=== PATIENT | male | born 1935 | race Caucasian/White ===

== ENCOUNTER 2017-02-19 15:50 | Inpatient (IN) | payer OTHER, MEDICARE ==
[~2017-02-19] VITALS: Ht 172.7 cm; Wt 68.5 kg
[2017-02-19 15:53] VITALS: BP 112/64; PULSE 84; RESP 20; TEMP 97.9; O2SAT 97
[2017-02-19] MEDS ORDERED: SODIUM CHLORIDE 0.9% FLUSH 10 ML FLUSH IV FLUSH PRN ×2 (16:30→20:15)
[2017-02-19 16:35] VITALS: PULSE 69; RESP 18; O2SAT 99
[2017-02-19] MEDS ORDERED: LOSA25TA PO (16:50)
[2017-02-19] MEDS ORDERED: SIMV20TA PO (16:50)
[2017-02-19] MEDS ORDERED: LEVO50TA4 PO (16:50)
[2017-02-19 16:54] LABS: HEMATOCRIT 31.8 % (39.0-51.0); MEAN CELL VOLUME 94.3 FL (80.0-100.0); MEAN CORPUSCULAR HEMOGLOBIN 31.3 PG (27.0-34.0); MEAN CORPUSCULAR HGB CONC 33.2 % (32.0-36.0); PLATELET COUNT 220 TH/MM3 (150-450); RED BLOOD COUNT 3.38 MIL/MM3 (4.50-5.90); RED CELL DISTRIBUTION WIDTH 17.8 % (11.6-17.2); WHITE BLOOD COUNT 7.9 TH/MM3 (4.0-11.0)
[2017-02-19 16:56] LABS: HEMO FLAGS AUTO DIFF
[2017-02-19 17:00] LABS: APTT (PATIENT) 24.7 SEC (24.3-30.1); INTERNATIONAL NORMALIZED RATIO 1.2 RATIO
--- NOTE | 2017-02-19 17:07 | PD ---
HPI Chief Complaint: GI Complaint Time Seen by Provider: 19:00 Travel History International Travel<30 days: No Contact w/Intl Traveler<30days: No Traveled to known affect area: No History of Present Illness HPI 81-year-old male presents to the emergency department for one week history of abdominal pain, distention, and jaundice. He reports generalized abdominal pain with associated nausea, no vomiting, and light colored stools. He was evaluated by his primary care provider Dr. Roberson who ordered a CT scan and lab work. He was sent to the ER for abnormal results. CT scan reveal questionable prominence of the pancreatic neck. Elevated LFT, Alk phosphate, billirubin & ammonia. Hepatitis screening nonreactive. PMH: hypothyroid & hyperlipidemia. PFSH Past Medical History Narrative Medical 81 year old male with a 1 week history of abd pain, jaundice & abnormal labs. High Cholesterol: Yes Diminished Hearing: No Tetanus Vaccination: > 5 Years Influenza Vaccination: Yes Past Surgical History Abdominal Surgery: Yes (colon sx ) Social History Alcohol Use: No Tobacco Use: No Substance Use: No Allergies-Medications (Allergen,Severity, Reaction): Coded Allergies: No Known Allergies (Verified , 02/19/17) Uncoded Allergies: NKDA (Allergy, Unknown, 06/14/03) Reported Meds & Prescriptions Reported Meds & Active Scripts Active Reported Simvastatin 20 Mg Tab 20 Mg PO DAILY Levothyroxine (Levothyroxine Sodium) 50 Mcg Tab 50 Mcg PO DAILY Review of Systems Except as stated in HPI: all other systems reviewed are Neg Physical Exam Narrative GENERAL: [alert, thin male.] SKIN: Focused skin assessment warm/dry. Jaundiced HEAD: Atraumatic. Normocephalic. EYES: Pupils equal and round. + scleral icterus. No injection or drainage. ENT: No nasal bleeding or discharge. Mucous membranes pink and moist. NECK: Trachea midline. No JVD. CARDIOVASCULAR: Regular rate and rhythm. No murmur appreciated. RESPIRATORY: No accessory muscle use. Clear to auscultation. Breath sounds equal bilaterally. GASTROINTESTINAL: Abdomen soft, mild generalized tenderness, distended. Hepatic and splenic margins not palpable. MUSCULOSKELETAL: No obvious deformities. No clubbing. No cyanosis. No edema. NEUROLOGICAL: Awake and alert. No obvious cranial nerve deficits. Motor grossly within normal limits. Normal speech. PSYCHIATRIC: Appropriate mood and affect; insight and judgment normal Data Data Last Documented VS Orders Complete Blood Count With Diff (02/19/17 16:20) Comprehensive Metabolic Panel (02/19/17 16:20) Lipase (02/19/17 16:20) Prothrombin Time / Inr (Pt) (02/19/17 16:20) Act Partial Throm Time (Ptt) (02/19/17 16:20) Ct Abd/Pel W Iv Contrast(Rout) (02/19/17 16:20) Iv Access Insert/Monitor (02/19/17 16:20) Oximetry (02/19/17 16:20) Sodium Chloride 0.9% Flush (Ns Flush) (02/19/17 16:30) Ammonia (02/19/17 16:20) Iodixanol 320 Inj (Rad Ct) (Visipaque 32 (02/19/17 18:04) Sodium Chlor 0.9% 1000 Ml Inj (Ns 1000 M (02/19/17 19:49) Place In Observation (02/19/17 ) Vital Signs (Adult) Q4H (02/19/17 20:08) Activity Oob With Assistance (02/19/17 20:08) Steam Pipe Fitter / Telemetry .CONTINUOUS (02/19/17 20:08) Diet Npo (02/20/17 Breakfast) Sodium Chloride 0.9% Flush (Ns Flush) (02/19/17 20:15) Sodium Chloride 0.9% Flush (Ns Flush) (02/19/17 21:00) Comprehensive Metabolic Panel (02/20/17 06:00) Complete Blood Count With Diff (02/20/17 06:00) Case Management Consult (02/19/17 20:08) Naloxone Inj (Narcan Inj) (02/19/17 20:15) Admit Order (Ed Use Only) (02/19/17 20:09) Consult Gastroenterology (02/19/17 ) Labs MDM Medical Decision Making Medical Screen Exam Complete: Yes Emergency Medical Condition: Yes Medical Record Reviewed: Yes Differential Diagnosis pancreatitis vs cholecystitis vs other Narrative Course 81 year old male with a 1 week history of abd pain, jaundice & abnormal labs. Labs, CT pending. Diagnosis Primary Impression: Transaminitis Additional Impression: Acute kidney injury Admitting Information Admitting Physician Requests: Admit Sarah Fraire February 19, 2017 17:06 Monocytes # (Auto) TH/MM3 Eosinophils # (Auto) TH/MM3 Basophils # (Auto) TH/MM3 CBC Comment AUTO DIFF Differential Total Cells 100 Counted Neutrophils % (Manual) 84 % Band Neutrophils % 1 % Lymphocytes % 10 % Monocytes % 5 % Neutrophils # (Manual) 6.7 TH/MM3 Differential Comment FINAL DIFF MANUAL Platelet Estimate NORMAL Platelet Morphology Comment NORMAL Target Cells 2+ Prothrombin Time 13.0 SEC Prothromb Time International 1.2 RATIO Ratio Activated Partial 24.7 SEC Thromboplast Time Sodium Level 133 MEQ/L Potassium Level 4.3 MEQ/L Chloride Level 97 MEQ/L Carbon Dioxide Level 24.8 MEQ/L Anion Gap 11 MEQ/L Blood Urea Nitrogen 29 MG/DL Creatinine 1.62 MG/DL Estimat Glomerular Filtration 41 ML/MIN Rate Random Glucose 131 MG/DL Calcium Level 9.3 MG/DL Total Bilirubin 24.7 MG/DL Aspartate Amino Transf 216 U/L (AST/SGOT) Alanine Aminotransferase 483 U/L (ALT/SGPT) Alkaline Phosphatase 775 U/L Ammonia 10 MCMOL/L Total Protein 5.8 GM/DL Albumin 2.7 GM/DL Lipase 112 U/L [facility] Medical Decision Making Medical Screen Exam Complete: Yes Emergency Medical Condition: Yes Medical Record Reviewed: Yes Differential Diagnosis pancreatitis vs cholecystitis vs other Diagnosis Primary Impression: Transaminitis Additional Impression: Acute kidney injury Admitting Information Admitting Physician Requests: Admit Sarah Fraire February 19, 2017 17:06
[2017-02-19 17:21] LABS: ANION GAP 11 MEQ/L (5-15); AST (GOT) 216 U/L (15-37); BICARBONATE 24.8 MEQ/L (21.0-32.0); BLOOD UREA NITROGEN 29 MG/DL (7-18); CHLORIDE 97 MEQ/L (98-107); GLOMERULAR FILTRATION RATE 41 ML/MIN (>89); POTASSIUM 4.3 MEQ/L (3.5-5.1); SODIUM (NA) 133 MEQ/L (136-145)
[2017-02-19 17:40] LABS: ALKALINE PHOSPHATASE 775 U/L (45-117); ALT (GPT) 483 U/L (12-78); TOTAL BILIRUBIN ADULT 24.7 MG/DL (0.2-1.0)
[2017-02-19 17:58] LABS: BANDS 1 % (0-6); NEUTROPHIL # MANUAL DIFF 6.7 TH/MM3 (1.8-7.7); POLYS (SEG NEUTROPHILS) 84 % (16-70); WBC DIFF SAMPLE 100
[2017-02-19 17:59] LABS: PLATELET ESTIMATE SMEAR NORMAL (NORMAL); PLATELET MORPHOLOGY NORMAL (NORMAL); SCAN/DIFF FINAL DIFF MANUAL; TARGET CELLS 2+ (NORMAL)
[2017-02-19] MEDS ORDERED: IODIXANOL 320 MG/ML 10 ML VIAL (for Rad CT) IV ONE (18:04)
[2017-02-19 18:21] VITALS: BP 117/64; PULSE 69; RESP 16; TEMP 98; O2SAT 100
--- NOTE | 2017-02-19 18:27 | RADRPT ---
EXAM DATE/TIME: 02/19/2017 18:01 [place] COMPARISON: No previous studies available for comparison. INDICATIONS : Jaundice for one week IV CONTRAST: 48 cc Visipaque (iodixanol) IV ORAL CONTRAST: No oral contrast ingested. RADIATION DOSE: 6.88 CTDIvol (mGy) MEDICAL HISTORY : Cardiovascular disease. SURGICAL HISTORY : Colon surgery ENCOUNTER: Initial ACUITY: 1 week PAIN SCALE: 0/10 LOCATION: Diffuse abdomen TECHNIQUE: Volumetric scanning of the abdomen and pelvis was performed. Using automated exposure control and ad justment of the mA and/or kV according to patient size, radiation dose was kept as low as reasonably achievable to obtain optimal diagnostic quality images. FINDINGS: Examination of the lung bases demonstrates no abnormality. No pleural fluid is identified. No pulmona ry nodules are present. There is dilatation of the intrahepatic bile ducts as well as the common bile duct with a single gallstone present in a distended gallbladder. The stone measures 5 mm. The spleen is normal in size and free of focal defects. The pancreas demonstrates dilatation of the pancreatic duct to the tail with atrophy of the body and tail of the pancreas. No abnormally enlarged lymph node s are identified. The adrenal glands and kidneys appear normal bilaterally. No hydronephrosis or mass lesions are identified. Examination of the pelvis demonstrates no evidence of free fluid or pelvic mass. No abnormally enlarg ed inguinal or retroperitoneal lymph nodes are present. The bladder is unremarkable. There is diverti culosis without evidence of diverticulitis. CONCLUSION: 1. Cholelithiasis 2. Dilatation of the common bile duct to the level the pancreatic head with pancreatic duct dilatatio n. 3. Obstructing stone or mass is not excluded. Chalo Schofield MD on February 19, 2017 at 18:22 Board Certified Radiologist. This report was verified electronically.
--- NOTE | 2017-02-19 18:37 | PD ---
Data Data Last Documented VS Vital Signs Date Time Temp Pulse Resp B/P Pulse Ox O2 Delivery O2 Flow Rate FiO2 02/19/17 18:21 98.0 69 16 117/64 100 Room Air Orders Complete Blood Count With Diff (02/19/17 16:20) Comprehensive Metabolic Panel (02/19/17 16:20) Lipase (02/19/17 16:20) Prothrombin Time / Inr (Pt) (02/19/17 16:20) Act Partial Throm Time (Ptt) (02/19/17 16:20) Ct Abd/Pel W Iv Contrast(Rout) (02/19/17 16:20) Iv Access Insert/Monitor (02/19/17 16:20) Oximetry (02/19/17 16:20) Sodium Chloride 0.9% Flush (Ns Flush) (02/19/17 16:30) Ammonia (02/19/17 16:20) Iodixanol 320 Inj (Rad Ct) (Visipaque 32 (02/19/17 18:04) Labs Laboratory Tests Test 02/19/17 16:36 White Blood Count 7.9 TH/MM3 Red Blood Count 3.38 MIL/MM3 Hemoglobin 10.6 GM/DL Hematocrit 31.8 % Mean Corpuscular Volume 94.3 FL Mean Corpuscular Hemoglobin 31.3 PG Mean Corpuscular Hemoglobin 33.2 % Concent Red Cell Distribution Width 17.8 % Platelet Count 220 TH/MM3 Mean Platelet Volume 11.0 FL Neutrophils (%) (Auto) % Lymphocytes (%) (Auto) % Monocytes (%) (Auto) % Eosinophils (%) (Auto) % Basophils (%) (Auto) % Neutrophils # (Auto) TH/MM3 Lymphocytes # (Auto) TH/MM3 Monocytes # (Auto) TH/MM3 Eosinophils # (Auto) TH/MM3 Basophils # (Auto) TH/MM3 CBC Comment AUTO DIFF Differential Total Cells 100 Counted Neutrophils % (Manual) 84 % Band Neutrophils % 1 % Lymphocytes % 10 % Monocytes % 5 % Neutrophils # (Manual) 6.7 TH/MM3 Differential Comment FINAL DIFF MANUAL Platelet Estimate NORMAL Platelet Morphology Comment NORMAL Target Cells 2+ Prothrombin Time 13.0 SEC Prothromb Time International 1.2 RATIO Ratio Activated Partial 24.7 SEC Thromboplast Time Sodium Level 133 MEQ/L Potassium Level 4.3 MEQ/L Chloride Level 97 MEQ/L Carbon Dioxide Level 24.8 MEQ/L Anion Gap 11 MEQ/L Blood Urea Nitrogen 29 MG/DL Creatinine 1.62 MG/DL Estimat Glomerular Filtration 41 ML/MIN Rate Random Glucose 131 MG/DL Calcium Level 9.3 MG/DL Total Bilirubin 24.7 MG/DL Aspartate Amino Transf 216 U/L (AST/SGOT) Alanine Aminotransferase 483 U/L (ALT/SGPT) Alkaline Phosphatase 775 U/L Ammonia 10 MCMOL/L Total Protein 5.8 GM/DL Albumin 2.7 GM/DL Lipase 112 U/L [facility] Supervised Visit with ROLAND: Yes Narrative Course The history, exam, and medical decision-making in the associated mid-level provider note were completed with my assistance. I reviewed and agree with the findings presented. I attest that I had a [id number] encounter with the patient on the same day, and personally performed and documented my assessment and findings in the medical record. *My assessment and Findings: 81 year-old man, painless jaundice, CT scan suspicious for mass in the pancreatic head. Patient will be admitted, GI consult, further evaluation. Eduardo Guerrier MD February 19, 2017 18:37
[2017-02-19 19:26] VITALS: BP_SYST 117; BP_SYST 120; BP_DIAS 64; PULSE 68; RESP 16; O2SAT 98
[2017-02-19] MEDS ORDERED: SODIUM CHLOR 0.9% 1000 ML INJ 1,000 ML IV SCH (19:49)
[2017-02-19] MEDS ORDERED: NALOXONE HCL 0.4 MG/ML AMP IV PRN (20:15)
[2017-02-19] MEDS: SODIUM CHLORIDE 0.9% FLUSH 10 ML FLUSH IV FLUSH SCH (20:57)
[2017-02-19 21:32] VITALS: BP 133/70; PULSE 70; RESP 19; TEMP 98.2; O2SAT 100
[2017-02-19 22:00] VITALS: PULSE 64
--- NOTE | 2017-02-19 23:02 | HHI.HP ---
[facility] Adam Hair M.D. Admission Diagnosis TRANSAMINITIS , DEHYDRATION Diagnoses: (1) Transaminitis (2) Acute kidney injury Chief Complaint: sent from PCP due to abnomal results in office Travel History International Travel<30 Days: No Contact w/Intl Traveler <30 Da: No Traveled to Known Affected Are: No History of Present Illness Written by Ángela He, acting as scribe for Dr. Ortega on 02/19/17 at 22:55. Mr. Araujo is a 81 year-old male with hyperlipidemia and hypothyroidism who presented to the ER on 02/19/17 for evaluation of abnormal outpatient CT showing questionable prominence of pancreatic neck and elevated LFTs and ammonia. These tests were done for symptoms of abdominal bloating, jaundice, pruritus, and gilberto colored stools. The patient is seen in the CDU. He states that about one week ago he was not able to have a BM. Therefore, he bought laxatives and when he had BM he noticed that the stool stool was colored caballero. He also had been experiencing a feeling of abdominal bloating. Then, a few days later, he started itching and then turned yellow and he went to his PCP for evaluation. He states that today while he was at work, he had some mild nausea and fatigue. He denies any associated vomiting, diarrhea, fever, black or red stool, abdominal pain, shortness of breath, or cough. Denies any history of hypertension, dm, cad, atrial fibrillation, respiratory problems, liver problems, seizure problems, seizures, or cancers . Review of Systems Except as stated in HPI: all other systems reviewed are Neg Past Family Social History Past Medical History Hyperlipidemia Hypothyroidism . Past Surgical History Colonoscopy Bowel perforation with surgical repair . Reported Medications Reported Meds & Active Scripts Active Reported Simvastatin 20 Mg Tab 20 Mg PO DAILY Levothyroxine (Levothyroxine Sodium) 50 Mcg Tab 50 Mcg PO DAILY . Allergies: Coded Allergies: No Known Allergies (Verified , 02/19/17) Uncoded Allergies: NKDA (Allergy, Unknown, 06/14/03) Active Ordered Medications Current Medications Sodium Chloride (NS Flush) 2 ml UNSCH PRN IV FLUSH FLUSH AFTER USING IV ACCESS ; Start 02/19/17 at 16:30; Stop 02/19/17 at 20:11; Status DC Iodixanol 48 ml 48 ml STK-MED ONCE IV Last administered on 02/19/17 18:04; Start 02/19/17 at 18:04; Stop 02/19/17 at 18:05; Status DC Sodium Chloride (NS 1000 ml Inj) 1,000 ml @ 125 mls/hr Q8H IV Last administered on 02/19/17 19:54; Start 02/19/17 at 19:49; Stop 02/20/17 at 03:48 Sodium Chloride (NS Flush) 2 ml UNSCH PRN IV FLUSH FLUSH AFTER USING IV ACCESS ; Start 02/19/17 at 20:15 Sodium Chloride (NS Flush) 2 ml BID IV FLUSH Last administered on 02/19/17 20: 57; Start 02/19/17 at 21:00 Naloxone HCl (Narcan Inj) 0.4 mg UNSCH PRN IV SEE LABEL COMMENTS; Start at 20:15 . Family History Sister is 81 Father CVA age 62 Mother lived until age 98 Grandparents in their 90's . 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 Physical Exam Vital Signs Vital Signs Date Time Temp Pulse Resp B/P Pulse Ox O2 Delivery O2 Flow Rate FiO2 02/19/17 21:32 98.2 70 19 133/70 100 02/19/17 19:26 68 16 120/64 98 Room Air 02/19/17 18:21 98.0 69 16 117/64 100 Room Air 02/19/17 16:35 69 18 99 Room Air 02/19/17 16:25 17 02/19/17 15:53 97.9 84 20 112/64 97 Room Air Physical Exam GENERAL: This is a thin older male, in no apparent distress. SKIN: Jaundice. Cool and dry. Multiple tattoos. HEAD: Atraumatic. Normocephalic. EYES: No scleral icterus. No injection or drainage. ENT: Nose without bleeding, purulent drainage. NECK: Trachea midline. No JVD or lymphadenopathy. CARDIOVASCULAR: Regular rate and rhythm without murmurs, gallops, or rubs. RESPIRATORY: Breath sounds equal bilaterally. No rales or rhonchi. Mild expiratory wheezing noted. GASTROINTESTINAL: Abdomen soft, non-tender, nondistended. No guarding. MUSCULOSKELETAL: Extremities without clubbing, cyanosis, or edema. No calf tenderness. NEUROLOGICAL: Awake and alert. Motor and sensory grossly within normal limits. Normal speech. . Laboratory Laboratory Tests Test 02/19/17 16:36 White Blood Count 7.9 Red Blood Count 3.38 Hemoglobin 10.6 Hematocrit 31.8 Mean Corpuscular Volume 94.3 Mean Corpuscular Hemoglobin 31.3 Mean Corpuscular Hemoglobin 33.2 Concent Red Cell Distribution Width 17.8 Platelet Count 220 Mean Platelet Volume 11.0 Neutrophils (%) (Auto) Lymphocytes (%) (Auto) Monocytes (%) (Auto) Eosinophils (%) (Auto) Basophils (%) (Auto) Neutrophils # (Auto) Lymphocytes # (Auto) Monocytes # (Auto) Eosinophils # (Auto) Basophils # (Auto) CBC Comment AUTO DIFF Differential Total Cells 100 Counted Neutrophils % (Manual) 84 Band Neutrophils % 1 Lymphocytes % 10 Monocytes % 5 Neutrophils # (Manual) 6.7 Differential Comment FINAL DIFF MANUAL Platelet Estimate NORMAL Platelet Morphology Comment NORMAL Target Cells 2+ Prothrombin Time 13.0 Prothromb Time International 1.2 Ratio Activated Partial 24.7 Thromboplast Time Sodium Level 133 Potassium Level 4.3 Chloride Level 97 Carbon Dioxide Level 24.8 Anion Gap 11 Blood Urea Nitrogen 29 Creatinine 1.62 Estimat Glomerular Filtration 41 Rate Random Glucose 131 Calcium Level 9.3 Total Bilirubin 24.7 Aspartate Amino Transf 216 (AST/SGOT) Alanine Aminotransferase 483 (ALT/SGPT) Alkaline Phosphatase 775 Ammonia 10 Total Protein 5.8 Albumin 2.7 Lipase 112 Result Diagram: 02/19/17 1636 02/19/17 1636 Imaging Last Impressions Abdomen/Pelvis CT 02/19/17 1620 Signed Impressions: Service Date/Time: Sunday, February 19, 2017 18:01 - CONCLUSION: 1. Cholelithiasis 2. Dilatation of the common bile duct to the level the pancreatic head with pancreatic duct dilatation. 3. Obstructing stone or mass is not excluded. Chalo Schofield MD . Assessment and Plan Problem List: (1) Transaminitis ICD Code: R74.0 Status: Acute (2) Cholelithiasis ICD Code: K80.20 Status: Acute (3) Common bile duct dilatation ICD Code: K83.8 Status: Acute (4) Acute kidney injury ICD Code: N17.9 Status: Acute (5) Obstructive jaundice ICD Code: K83.8 Status: Acute Assessment and Plan Acute renal failure - likely secondary to dehydration - BUN 29, creatinine 1.6 to, estimated GFR 41 - IV fluid hydration with Normal saline at 125 cc per hour - Recheck BMP in a.m. and follow trends in renal indices - Avoid nephrotoxins Hyponatremia, mild - admission sodium 133 - replace with NS IV - recheck BMP in a.m. and follow results in Sodium level Transaminitis/Cholelithiasis/Dilatation of CBD/Obstructive Jaundice - Abdomen/Pelvis CT shows Cholelithiasis and dilatation of the common bile duct to the level the pancreatic head with pancreatic duct dilatation. 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 I, Dr. Josh Ortega personally performed the history, physical exam, and medical decision making; and confirmed the accuracy of the information in the transcribed note. Authenticated by Dr. Josh Ortega on 02/19/17 at 22:55. Discussed Condition With ER physician and patient . Problem Qualifiers (1) Cholelithiasis: Qualified Code: K80.20 - Calculus of gallbladder without cholecystitis without obstruction Ángela He February 19, 2017 23:02 Josh Ortega MD Mar 17, 2017 12:37
[2017-02-20 00:31] VITALS: BP 108/60; PULSE 71; RESP 20; TEMP 98; O2SAT 99
[2017-02-20 04:09] VITALS: BP 94/54; PULSE 75; RESP 20; TEMP 98.5; O2SAT 98
[2017-02-20] MEDS: LEVOTHYROXINE SODIUM 50 MCG TAB PO SCH (05:21)
[2017-02-20 05:46] LABS: HEMATOCRIT 30.5 % (39.0-51.0); MEAN CELL VOLUME 91.7 FL (80.0-100.0); MEAN CORPUSCULAR HEMOGLOBIN 31.1 PG (27.0-34.0); MEAN CORPUSCULAR HGB CONC 33.9 % (32.0-36.0); PLATELET COUNT 183 TH/MM3 (150-450); RED BLOOD COUNT 3.33 MIL/MM3 (4.50-5.90); RED CELL DISTRIBUTION WIDTH 17.7 % (11.6-17.2); WHITE BLOOD COUNT 5.7 TH/MM3 (4.0-11.0)
[2017-02-20 05:54] LABS: HEMO FLAGS AUTO DIFF
[2017-02-20 06:27] LABS: ALKALINE PHOSPHATASE 728 U/L (45-117); ALT (GPT) 450 U/L (12-78); ANION GAP 10 MEQ/L (5-15); AST (GOT) 210 U/L (15-37); BICARBONATE 24.5 MEQ/L (21.0-32.0); BLOOD UREA NITROGEN 23 MG/DL (7-18); CHLORIDE 104 MEQ/L (98-107); GLOMERULAR FILTRATION RATE 62 ML/MIN (>89); POTASSIUM 4.3 MEQ/L (3.5-5.1); SODIUM (NA) 138 MEQ/L (136-145); TOTAL BILIRUBIN ADULT 24.4 MG/DL (0.2-1.0)
[2017-02-20 06:41] LABS: EOSINOPHILS 1 % (0-4); POLYS (SEG NEUTROPHILS) 87 % (16-70); WBC DIFF SAMPLE 100
[2017-02-20 06:42] LABS: PLATELET ESTIMATE SMEAR NORMAL (NORMAL); PLATELET MORPHOLOGY NORMAL (NORMAL); SCAN/DIFF FINAL DIFF MANUAL; TARGET CELLS 2+ (NORMAL)
[2017-02-20 07:26] VITALS: BP 110/62; PULSE 68; RESP 17; TEMP 98; O2SAT 97
--- NOTE | 2017-02-20 08:46 | HHI.PR ---
Subjective Remarks Follow-up for abdominal distention. The patient is doing well currently with no acute complaint. He denies any abdominal pain. He tried to have a BM this morning, but didn't have much stool. Passing flatus. He hasn't eaten much in the past week. He denies any nausea. He still has his gallbladder. Objective Vitals Vital Signs Date Time Temp Pulse Resp B/P Pulse Ox O2 Delivery O2 Flow Rate FiO2 02/20/17 07:26 98.0 68 17 110/62 97 02/20/17 04:09 98.5 75 20 94/54 98 02/20/17 00:31 98.0 71 20 108/60 99 02/19/17 22:00 64 02/19/17 21:32 98.2 70 19 133/70 100 02/19/17 19:26 68 16 120/64 98 Room Air 02/19/17 18:21 98.0 69 16 117/64 100 Room Air 02/19/17 16:35 69 18 99 Room Air 02/19/17 16:25 17 02/19/17 15:53 97.9 84 20 112/64 97 Room Air I/O 02/19/17 02/19/17 02/19/17 02/20/17 02/20/17 02/20/17 07:00 15:00 23:00 07:00 15:00 23:00 Intake Total 1000 ml Output Total 1100 ml Balance -1100 ml 1000 ml Intake IV Total 1000 ml Output Urine Total 1100 ml # Voids 3 1 # Bowel Movements 0 Result Diagram: 02/20/17 0509 02/20/17 0509 Imaging Last Impressions Abdomen/Pelvis CT 02/19/17 1620 Signed Impressions: Service Date/Time: Sunday, February 19, 2017 18:01 - CONCLUSION: 1. Cholelithiasis 2. Dilatation of the common bile duct to the level the pancreatic head with pancreatic duct dilatation. 3. Obstructing stone or mass is not excluded. Chalo Schofield MD Objective Remarks GENERAL: Well-developed well-nourished. In no acute distress. SKIN: Warm and dry. Jaundiced. HEENT: Normocephalic. Pupils equal and round. Mucous membranes pink and moist. CARDIOVASCULAR: Regular rate and rhythm. No murmur appreciated. RESPIRATORY: No accessory muscle use. Clear to auscultation. Breath sounds equal bilaterally. GASTROINTESTINAL: Abdomen soft, non-tender, nondistended. Bowel sounds x4. MUSCULOSKELETAL: No obvious deformities. No clubbing or cyanosis. No edema. NEUROLOGICAL: Awake and alert. No focal neurological deficits. Moves upper and lower extremities spontaneously. Normal speech. PSYCHIATRIC: Appropriate mood and affect; insight and judgment normal. A/P Problem List: (1) Transaminitis ICD Code: R74.0 Status: Acute (2) Cholelithiasis ICD Code: K80.20 Status: Acute (3) Common bile duct dilatation ICD Code: K83.8 Status: Acute (4) Acute kidney injury ICD Code: N17.9 Status: Acute (5) Obstructive jaundice ICD Code: K83.8 Status: Acute Assessment and Plan 81-year-old male with past medical history of HLD and hypothyroidism who was sent by his PCP for abnormal abdominal CT he had done for abdominal distention and jaundice Probable choledocholithiasis with elevated bilirubin and transaminates Reviewed: Abdomen/Pelvis CT shows Cholelithiasis and dilatation of the common bile duct to the level the pancreatic head with pancreatic duct dilatation; obstructing stone or mass not excluded. Continued significant elevation of LFTs and bilirubin 24. - Consulted financial planning adviser - will likely need ERCP - appreciate assistance - NPO for possible procedure - Hold simvastatin for now Acute renal failure/hyponatremia - likely secondary to dehydration Reviewed: Creatinine 1.62, no previous labs for comparison. Sodium 133. - Creatinine improved to 1.14 and sodium to 138 with IVF. - IV fluid hydration with Normal saline at 125 cc per hour - Recheck BMP in a.m. and follow trends in renal indices - Avoid nephrotoxins Hypothyroidism, chronic, stable - continue home Levothyroxine DVT prophylaxis - SCDs Discharge Planning Continued severe elevation of LFTs, admit to inpatient. Follow-up GI recommendations Leonid Choe February 20, 2017 08:46
[2017-02-20] MEDS: SODIUM CHLORIDE 0.9% FLUSH 10 ML FLUSH IV FLUSH SCH ×2 (10:46→21:00)
--- NOTE | 2017-02-20 11:36 | PD.CONS ---
HPI History of Present Illness This is a 82 year old [gentleman] who presented the ER yesterday c/o of constipation starting week and a half ago. He took a laxative and noticed his stool was hammond and his urine was dark. He had lower abdominal pressure. He had BMs that were very sfot and caballero. Then his skin became itchy. AT the moment he is complaining of lower abdominal pressure. NO n/v, diarrhea, blood in stool, tarry stools. His PCP referred him to ER. He has never had this before. CT showed gallstones, CBD dilation. Labs indicate transaminitis with obstructive pattern and he is jaundiced. Last colonoscopy age 67 after which he had partial colectomy, saying when colonoscope withdrawn there was perforation. NO trouble since then. PFSH Past Medical History Hyperlipidemia Hypothyroidism . Past Surgical History Colonoscopy Bowel perforation with surgical repair . Coded Allergies: No Known Allergies (Verified , 02/19/17) Uncoded Allergies: NKDA (Allergy, Unknown, 06/14/03) Medications Current Medications Medications (Trade) Dose Ordered Sig/Samy Route PRN Reason Start Time Stop Time Status Last Admin Dose Admin Sodium Chloride (NS Flush) 2 ml UNSCH PRN IV FLUSH FLUSH AFTER USING IV ACCESS 02/19/17 20:15 Sodium Chloride (NS Flush) 2 ml BID IV FLUSH 02/19/17 21:00 02/20/17 10:46 Naloxone HCl (Narcan Inj) 0.4 mg UNSCH PRN IV SEE LABEL COMMENTS 02/19/17 20:15 Levothyroxine Sodium (Synthroid) 50 mcg DAILY@0600 PO 02/20/17 06:00 02/20/17 05:21 Family History Sister is 81 Father CVA age 62 Mother lived until age 98 Grandparents in their 90's . 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 Review of Systems Constitutional: DENIES: Fever Eyes: DENIES: Blurred vision Ears, nose, mouth, throat: DENIES: Hearing loss Respiratory: DENIES: Cough Cardiovascular: DENIES: Chest pain Gastrointestinal: DENIES: Abdominal pain, Black stools, Bloody stools, Constipation, Diarrhea, Nausea, Vomiting, Swelling of Abdomen Genitourinary: DENIES: Hematuria Integumentary: COMPLAINS OF: Abnormal pigmentation, Pruritus, Jaundice Hematologic/lymphatic: DENIES: Bruising Neurologic: DENIES: Abnormal gait Psychiatric: DENIES: Confusion GI Exam Vitals I&O Vital Signs Date Time Temp Pulse Resp B/P Pulse Ox O2 Delivery O2 Flow Rate FiO2 02/20/17 07:26 98.0 68 17 110/62 97 02/20/17 04:09 98.5 75 20 94/54 98 02/20/17 00:31 98.0 71 20 108/60 99 02/19/17 22:00 64 02/19/17 21:32 98.2 70 19 133/70 100 02/19/17 19:26 68 16 120/64 98 Room Air 02/19/17 18:21 98.0 69 16 117/64 100 Room Air 02/19/17 16:35 69 18 99 Room Air 02/19/17 16:25 17 02/19/17 15:53 97.9 84 20 112/64 97 Room Air I/O 02/19/17 02/19/17 02/19/17 02/20/17 02/20/17 02/20/17 07:00 15:00 23:00 07:00 15:00 23:00 Intake Total 1000 ml Output Total 1100 ml Balance -1100 ml 1000 ml Intake IV Total 1000 ml Output Urine Total 1100 ml # Voids 3 1 # Bowel Movements 0 Imaging Last Impressions Abdomen/Pelvis CT 02/19/17 1620 Signed Impressions: Service Date/Time: Sunday, February 19, 2017 18:01 - CONCLUSION: 1. Cholelithiasis 2. Dilatation of the common bile duct to the level the pancreatic head with pancreatic duct dilatation. 3. Obstructing stone or mass is not excluded. Chalo Schofield MD Laboratory Test 02/19/17 02/20/17 16:36 05:09 White Blood Count 7.9 TH/MM3 5.7 TH/MM3 Red Blood Count 3.38 MIL/MM3 3.33 MIL/MM3 Hemoglobin 10.6 GM/DL 10.3 GM/DL Hematocrit 31.8 % 30.5 % Mean Corpuscular Volume 94.3 FL 91.7 FL Mean Corpuscular Hemoglobin 31.3 PG 31.1 PG Mean Corpuscular Hemoglobin 33.2 % 33.9 % Concent Red Cell Distribution Width 17.8 % 17.7 % Platelet Count 220 TH/MM3 183 TH/MM3 Mean Platelet Volume 11.0 FL 10.5 FL Neutrophils (%) (Auto) % % Lymphocytes (%) (Auto) % % Monocytes (%) (Auto) % % Eosinophils (%) (Auto) % % Basophils (%) (Auto) % % Neutrophils # (Auto) TH/MM3 TH/MM3 Lymphocytes # (Auto) TH/MM3 TH/MM3 Monocytes # (Auto) TH/MM3 TH/MM3 Eosinophils # (Auto) TH/MM3 TH/MM3 Basophils # (Auto) TH/MM3 TH/MM3 CBC Comment AUTO DIFF AUTO DIFF Differential Total Cells 100 100 Counted Neutrophils % (Manual) 84 % 87 % Band Neutrophils % 1 % Lymphocytes % 10 % 10 % Monocytes % 5 % 2 % Neutrophils # (Manual) 6.7 TH/MM3 5.0 TH/MM3 Differential Comment FINAL DIFF FINAL DIFF MANUAL MANUAL Platelet Estimate NORMAL NORMAL Platelet Morphology Comment NORMAL NORMAL Target Cells 2+ 2+ Prothrombin Time 13.0 SEC Prothromb Time International 1.2 RATIO Ratio Activated Partial 24.7 SEC Thromboplast Time Sodium Level 133 MEQ/L 138 MEQ/L Potassium Level 4.3 MEQ/L 4.3 MEQ/L Chloride Level 97 MEQ/L 104 MEQ/L Carbon Dioxide Level 24.8 MEQ/L 24.5 MEQ/L Anion Gap 11 MEQ/L 10 MEQ/L Blood Urea Nitrogen 29 MG/DL 23 MG/DL Creatinine 1.62 MG/DL 1.14 MG/DL Estimat Glomerular Filtration 41 ML/MIN 62 ML/MIN Rate Random Glucose 131 MG/DL 116 MG/DL Calcium Level 9.3 MG/DL 8.6 MG/DL Total Bilirubin 24.7 MG/DL 24.4 MG/DL Aspartate Amino Transf 216 U/L 210 U/L (AST/SGOT) Alanine Aminotransferase 483 U/L 450 U/L (ALT/SGPT) Alkaline Phosphatase 775 U/L 728 U/L Ammonia 10 MCMOL/L Total Protein 5.8 GM/DL 5.2 GM/DL Albumin 2.7 GM/DL 2.4 GM/DL Lipase 112 U/L Eosinophils % 1 % Physical Examination HEENT: EOMI; normocephalic; atraumatic; + icterus CHEST: CTA CARDIAC: RRR ABDOMEN: Soft, nondistended, nontender; bowel sounds are present in all four quadrants. EXTREMITIES: No clubbing, cyanosis, or edema. SKIN: Normal; no rash; + jaundice. 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 Neida Wing February 20, 2017 11:35 am
[2017-02-20] MEDS ORDERED: GADODIAMIDE PF 287 MG/ML 5 ML VIAL (for RAD MRI) IV ONE (12:46)
[2017-02-20 13:05] VITALS: BP 117/64; PULSE 63; RESP 18; TEMP 97.8; O2SAT 100
--- NOTE | 2017-02-20 14:27 | RADRPT ---
EXAM DATE/TIME: 02/20/2017 12:12 [facility] COMPARISON: 02/19/17. INDICATIONS : Obstruction. CONTRAST: 14 cc Omniscan (gadodiamide) IV MEDICAL HISTORY : None. SURGICAL HISTORY : Bowel perforation. ENCOUNTER: Initial ACUITY: 1 week PAIN SCORE: 3/10 LOCATION: Right upper quadrant TECHNIQUE: Multiplanar, multisequence magnetic resonance imaging of the abdomen was performed. High-resolution 3D dataset was utilized to reconstruct maximum-intensity projection (MIP) images. FINDINGS: Multiplanar, multisequence imaging of the cholangiopancreatic tree was performed with and without con trast. The gallbladder remains markedly distended. There is marked intra and extra hepatic biliary tree dilatation. Common bile duct measures up to 13 mm across. The duct is dilated all the way down to the level of the head of the pancreas. I don't see an obvious mass obstructing the common bile d uct. The pancreatic duct is also dilated without significant atrophy of the tail. The pancreatic duct is up to 7 mm across, again tapering just at the pancreatic neck but I can't clearly define a mass that is obstructing the pancreatic duct. The splenic vein slowly tapers as it extends into the region of the head of the pancreas, again suggesting that there is a central pancreatic mass but I can't define one on the MRI. I also reviewed the CT scan there is a questionable 1 cm hypodensity on series 2; i mage 30. The inferior head of the pancreas uncinate process are unremarkable. The liver itself is otherwise unremarkable. The spleen, adrenal glands and kidneys are unremarkable. CONCLUSION: The common bile duct is markedly dilated as is the pancreatic duct and there is also tapering of the splenic vein in SMV before it becomes the portal vein. All three things suggest that there is a cent ral pancreatic head mass, but it is difficult to define one on the MRCP. After contrast there is a f airly uniform enhancement through the head and neck of the pancreas. Difficult to define an actual m ass. There is a questionable 1 cm lesion in the head of the pancreas on the CT scan specifically ser ies2; image 30 but this is more median than the common bile duct narrowing. Outpatient PET CT could be performed. Solid organs are unremarkable. Eduardo Poe MD on February 20, 2017 at 14:02 Board Certified Radiologist. This report was verified electronically.
[2017-02-20 16:24] VITALS: BP 122/71; PULSE 74; RESP 17; TEMP 97.4; O2SAT 100
[2017-02-20 20:25] VITALS: BP 119/63; PULSE 66; RESP 19; TEMP 98; O2SAT 99
[2017-02-21] VITALS (8 sets, daily range): BP systolic 111–134; BP diastolic 57–67; PULSE 71–85; RESP 17–22; TEMP 96.6–98.2; O2SAT 96–100
[2017-02-21] MEDS: LEVOTHYROXINE SODIUM 50 MCG TAB PO SCH (05:10)
[2017-02-21 08:23] LABS: ALKALINE PHOSPHATASE 791 U/L (45-117); ALT (GPT) 437 U/L (12-78); ANION GAP 13 MEQ/L (5-15); AST (GOT) 197 U/L (15-37); BLOOD UREA NITROGEN 17 MG/DL (7-18); CHLORIDE 102 MEQ/L (98-107); GLOMERULAR FILTRATION RATE 81 ML/MIN (>89); POTASSIUM 3.9 MEQ/L (3.5-5.1); SODIUM (NA) 137 MEQ/L (136-145); TOTAL BILIRUBIN ADULT 24.5 MG/DL (0.2-1.0)
--- NOTE | 2017-02-21 09:54 | HHI.PR ---
Subjective Remarks Follow up for abdominal pain, elevated LFTs, MISSY. The patient reports feeling about the same today. He occasionally experiences LLQ abdominal pain, denies any currently. Has not had a BM in 3days but also has not been eating. Denies any nausea or vomiting. He would like to eat. He has no other medical complaints at this time. Objective Vitals Vital Signs Date Time Temp Pulse Resp B/P Pulse Ox O2 Delivery O2 Flow Rate FiO2 02/21/17 07:33 97.3 74 20 111/61 98 02/21/17 04:01 98.2 74 19 118/62 96 02/21/17 01:55 85 02/21/17 00:07 98.0 76 19 119/66 96 02/20/17 20:25 98.0 66 19 119/63 99 02/20/17 16:24 97.4 74 17 122/71 100 02/20/17 13:05 97.8 63 18 117/64 100 I/O 02/20/17 02/20/17 02/20/17 02/21/17 02/21/17 02/21/17 07:00 15:00 23:00 07:00 15:00 23:00 Intake Total 1000 ml Balance 1000 ml Intake IV Total 1000 ml # Voids 1 2 Result Diagram: 02/20/17 0509 02/21/17 0656 Imaging Last Impressions Cholangiopancreatography MRI 02/20/17 0000 Signed Impressions: Service Date/Time: February 12:12 - CONCLUSION: The common bile duct is markedly dilated as is the pancreatic duct and there is also tapering of the splenic vein in SMV before it becomes the portal vein. All three things suggest that there is a central pancreatic head mass, but it is difficult to define one on the MRCP. After contrast there is a fairly uniform enhancement through the head and neck of the pancreas. Difficult to define an actual mass. There is a questionable 1 cm lesion in the head of the pancreas on the CT scan specifically series2; image 30 but this is more median than the common bile duct narrowing. Outpatient PET CT could be performed. Solid organs are unremarkable. Eduardo Poe MD Abdomen/Pelvis CT 02/19/17 1620 Signed Impressions: Service Date/Time: Sunday, February 19, 2017 18:01 - CONCLUSION: 1. Cholelithiasis 2. Dilatation of the common bile duct to the level the pancreatic head with pancreatic duct dilatation. 3. Obstructing stone or mass is not excluded. Chalo Schofield MD Objective Remarks GENERAL: Well-nourished, well-developed pleasant elderly male patient in NAD. SKIN: Warm and dry. No rash. +Jaundice. HEAD: Normocephalic. Atraumatic. EYES: Pupils equal and round. +scleral icterus. No injection or drainage. ENT: No nasal bleeding or discharge. Mucous membranes pink and moist. NECK: Supple. Trachea midline. CARDIOVASCULAR: Regular rate and rhythm. S1, S2 noted. No murmur appreciated. RESPIRATORY: No accessory muscle use. Clear to auscultation. Breath sounds equal bilaterally. GASTROINTESTINAL: Abdomen soft, non-tender, nondistended. Normoactive bowel sounds x4. MUSCULOSKELETAL: No obvious deformities. Extremities without clubbing, cyanosis , or edema. NEUROLOGICAL: Awake and alert. No obvious cranial nerve deficits. Motor grossly within normal limits. Normal speech. Medications and IVs Current Medications Medications (Trade) Dose Ordered Sig/Samy Route Start Time Stop Time Status Last Admin (NS Flush) 2 ml UNSCH PRN IV FLUSH 02/19/17 20:15 (NS Flush) 2 ml BID IV FLUSH 02/19/17 21:00 02/20/17 21:00 (Narcan Inj) 0.4 mg UNSCH PRN IV 02/19/17 20:15 (Synthroid) 50 mcg DAILY@0600 PO 02/20/17 06:00 02/21/17 05:10 A/P Problem List: (1) Transaminitis ICD Code: R74.0 Status: Acute (2) Cholelithiasis ICD Code: K80.20 Status: Acute (3) Common bile duct dilatation ICD Code: K83.8 Status: Acute (4) Acute kidney injury ICD Code: N17.9 Status: Acute (5) Obstructive jaundice ICD Code: K83.8 Status: Acute Assessment and Plan 81-year-old male with past medical history of HLD and hypothyroidism who was sent by his PCP for abnormal abdominal CT he had done for abdominal distention and jaundice Probable choledocholithiasis with elevated bilirubin and transaminates: + jaundice on exam. Abdomen/Pelvis CT imaging reviewed, shows Cholelithiasis and dilatation of the common bile duct to the level the pancreatic head with pancreatic duct dilatation; obstructing stone or mass not excluded. Continued significant elevation of LFTs and bilirubin 24. - Consulted ice scraper - appreciate assistance - MRCP showed CBD and pancreatic duct markedly dilated; with tapering of splenic vein in SMV before it becomes protal vein, suggests central pancreatic head mass - AFP, CEA wnl, CA19-9 pending - NPO for possible procedure - Hold simvastatin for now - LFTs still significant elevated, await further recommendations from GI Acute renal failure/hyponatremia: likely secondary to dehydration. Reviewed - Creatinine 1.62, no previous labs for comparison. Sodium 133. - Creatinine improved to 0.9 and sodium to 137 with IVF. - Continue IV fluid hydration with Normal saline at 125 cc per hour - Avoid nephrotoxins Hypothyroidism, chronic, stable - continue home Levothyroxine DVT prophylaxis - SCDs Preethi Vega PA-C February 21, 2017 9:54 am
[2017-02-21] MEDS: SODIUM CHLORIDE 0.9% FLUSH 10 ML FLUSH IV FLUSH SCH ×2 (10:35→20:25)
[2017-02-21] MEDS ORDERED: ONDANSETRON HCL 4 MG/2 ML VIAL IV PUSH ONE (12:00)
[2017-02-21] MEDS ORDERED: PHENYLEPH/NS 1000 MCG/10 ML SYR IV ONE (12:00)
[2017-02-21] MEDS ORDERED: IOHEXOL 350 MG/ML 100 ML BTL (for RAD DIAG) OTHER ONE (17:30)
[2017-02-21] MEDS ORDERED: PROPOFOL 200 MG/20 ML AMP IV ONE (17:30)
[2017-02-21] MEDS ORDERED: DO NOT ADM ANY ANTICOAGULANT DRUGS PRN (19:06)
--- NOTE | 2017-02-21 19:40 | PD.PROCEDR ---
GI Procedure REFERRING PHYSICIAN NANCY SILVESTRE PERFORMED EUS with FNA followed by ERCP with brushing and stent placement INDICATION FOR PROCEDURE Obstructive jaundice and abnormal imaging PROCEDURE: The procedure, risks and benefits were discussed with Mr. Araujo and informed consent was obtained. Anesthesia sedated him with Diprivan. He was placed in the left lateral decubitus position. EUS: The Pentax videoscope was introduced through the oropharynx and advanced to the second portion of the duodenum under direct visualization. Retroflexion was performed in the stomach. FINDINGS: A 2.3 by 2.7 cm hypoechoic lesion was noted in the pancreatic head involving what looks like the portal vein no local lymphadenopathy identified and no regional lymphadenopathy FNA was performed and good samples were obtained Gallbladder was noted to be distended and the pancreatic duct and bile duct were mildly distended ERCP: Patient was placed in a prone position. The Pentax videoscope was introduced through the oropharynx and advanced to the second portion of the duodenum where the ampula was identified. FINDINGS: The ampulla was identified and this was normal we were able to obtain easy cannulation of the common bile duct there was a mid CBD stricture causing a mild dilation of the proximal CBD and the intrahepatics this stricture was brushed and then a 10 Tajik 9 cm stent was placed with good drainage seen ESTIMATED BLOOD LOSS: None SPECIMENS REMOVED: Aspiration of the pancreatic head and brushing from the bile duct COMPLICATIONS: None IMPRESSION: Pancreatic head mass Biliary stricture PLAN: Await pathology Supportive care Consider surgical oncology evaluation Randy Spicer MD February 21, 2017 19:40
--- NOTE | 2017-02-21 20:37 | RADRPT ---
EXAM DATE/TIME: 02/21/2017 18:38 [facility] COMPARISON: MRCP W & W/O CONTRAST, February 20, 2017, 12:12. INDICATIONS : ERCP in surgery.Patient jaundice with possible obstruction. FLUORO TIME: 2.3 minutes IMAGE COUNT: 13 CONTRAST: Instilled by Ordering Physician MEDICAL HISTORY : None. SURGICAL HISTORY : None. ENCOUNTER: Initial ACUITY: 2 months PAIN SCORE: Non-responsive. LOCATION: Right upper quadrant FINDINGS: An ERCP was performed by the ordering physician. The images demonstrate cannulation and contrast opacification of the common bile duct and intrahepati c biliary tree. There is intrahepatic biliary distention. There is an apparent stenosis of the common bile duct at the level of the pancreatic head, subsequently crossed with a Silastic stent. The steno sis appears fairly smooth. No filling defects seen. CONCLUSION: Common bile duct stenosis noted. Silastic stent placement across the narrowing. Rogers Braun MD on February 21, 2017 at 20:33 Board Certified Radiologist. This report was verified electronically.
[2017-02-21] MEDS ORDERED: MORPHINE SULFATE 4 MG/ML INJ IV PUSH PRN (23:00)
[2017-02-22] VITALS: BP 121/64; PULSE 79; RESP 20; TEMP 98.7; O2SAT 99
[2017-02-22 04:00] VITALS: BP 125/70; PULSE 90; RESP 22; TEMP 98.9; O2SAT 98
[2017-02-22] MEDS: LEVOTHYROXINE SODIUM 50 MCG TAB PO SCH (05:34)
[2017-02-22 05:39] LABS: HEMATOCRIT 33.2 % (39.0-51.0); MEAN CELL VOLUME 91.9 FL (80.0-100.0); MEAN CORPUSCULAR HEMOGLOBIN 30.4 PG (27.0-34.0); MEAN CORPUSCULAR HGB CONC 33.1 % (32.0-36.0); PLATELET COUNT 212 TH/MM3 (150-450); RED BLOOD COUNT 3.61 MIL/MM3 (4.50-5.90); REVIEW FLAG FINAL; WHITE BLOOD COUNT 11.1 TH/MM3 (4.0-11.0)
[2017-02-22 06:03] LABS: ALT (GPT) 489 U/L (12-78); ANION GAP 9 MEQ/L (5-15); AST (GOT) 291 U/L (15-37); BICARBONATE 27.1 MEQ/L (21.0-32.0); BLOOD UREA NITROGEN 24 MG/DL (7-18); CHLORIDE 101 MEQ/L (98-107); GLOMERULAR FILTRATION RATE 63 ML/MIN (>89); SODIUM (NA) 137 MEQ/L (136-145)
[2017-02-22 06:10] LABS: TOTAL BILIRUBIN ADULT 26.3 MG/DL (0.2-1.0)
[2017-02-22 06:13] LABS: ALKALINE PHOSPHATASE 835 U/L (45-117)
--- NOTE | 2017-02-22 07:20 | HHI.PR ---
Subjective Remarks Patient seen for follow up abdominal pain, MISSY, transaminitis. Patient seen this morning. No acute events overnight. Vitals WNL. Rogers has no complaints this morning. Is aware of pancreatic mass. Aware this is likely cancer and would like to make decision on tx once biopsy results back and he is able to discuss with oncology. For the time being, he states he would like to be full code. Denies any F/C, CP, SOB. Ab pain well controlled. Objective Vitals Vital Signs Date Time Temp Pulse Resp B/P Pulse Ox O2 Delivery O2 Flow Rate FiO2 02/22/17 04:00 98.9 90 22 125/70 98 02/22/17 00:00 98.7 79 20 121/64 99 02/21/17 20:00 96.7 73 22 121/67 98 02/21/17 19:40 64 16 127/67 98 Nasal Cannula 2 02/21/17 19:30 62 16 125/64 98 Nasal Cannula 2 02/21/17 19:15 59 16 124/63 98 Nasal Cannula 2 02/21/17 19:00 97.5 71 16 125/78 99 Nasal Cannula 2 02/21/17 16:00 96.6 74 17 134/62 99 02/21/17 15:16 97.9 71 17 111/61 97 02/21/17 11:39 97.7 72 20 112/57 100 02/21/17 07:33 97.3 74 20 111/61 98 I/O 02/21/17 02/21/17 02/21/17 02/22/17 02/22/17 02/22/17 07:00 15:00 23:00 07:00 15:00 23:00 Intake Total 640 ml 320 ml Output Total 200 ml 600 ml Balance 440 ml -280 ml Intake Oral 240 ml 320 ml IV Total 100 ml Other 300 ml Output Urine Total 200 ml 600 ml # Voids 2 # Bowel Movements 0 0 Result Diagram: 02/22/17 0505 02/22/17 0505 Objective Remarks GENERAL: Well-nourished, well-developed pleasant elderly male patient in NAD. SKIN: Warm and dry. No rash. +Jaundice. HEAD: Normocephalic. Atraumatic. EYES: Pupils equal and round. +scleral icterus. No injection or drainage. CARDIOVASCULAR: Regular rate and rhythm. S1, S2 noted. No murmur appreciated. RESPIRATORY: No accessory muscle use. Clear to auscultation. Breath sounds equal bilaterally. GASTROINTESTINAL: Abdomen soft, non-tender, nondistended. Normoactive bowel sounds x4. MUSCULOSKELETAL: No obvious deformities. Extremities without clubbing, cyanosis , or edema. NEUROLOGICAL: Awake and alert. No obvious cranial nerve deficits. Motor grossly within normal limits. Normal speech. PSYCH: A&Ox3. Knows name, year, name of president. A/P Problem List: (1) Transaminitis ICD Code: R74.0 Status: Acute (2) Cholelithiasis ICD Code: K80.20 Status: Acute (3) Common bile duct dilatation ICD Code: K83.8 Status: Acute (4) Acute kidney injury ICD Code: N17.9 Status: Acute (5) Obstructive jaundice ICD Code: K83.8 Status: Acute (6) Mass of pancreas ICD Code: K86.9 Status: Acute Assessment and Plan 81-year-old male with past medical history of HLD and hypothyroidism who was sent by his PCP for abnormal abdominal CT he had done for abdominal distention and jaundice. Probable choledocholithiasis with elevated bilirubin and transaminates: + jaundice on exam. Abdomen/Pelvis CT imaging reviewed, shows Cholelithiasis and dilatation of the common bile duct to the level the pancreatic head with pancreatic duct dilatation; obstructing stone or mass not excluded. Continued significant elevation of LFTs and bilirubin 24. Now with pancreatic head mass seen on EUS/ERCP. - Consulted custom bike builder - appreciate assistance - MRCP showed CBD and pancreatic duct markedly dilated; with tapering of splenic vein in SMV before it becomes protal vein, suggests central pancreatic head mass - EUS with ERCP showed biliary stricture and pancreatic head mass. Biopsies taken. Path pending. Will consult oncology + surgery. Will also have palliative care see. - CA 19-9 2996.8; AFP, CEA wnl - Hold simvastatin for now - LFTs still significant elevated, await further recommendations from GI - Patient wants to be full code. Will update code status in EMR. Acute renal failure/hyponatremia: likely secondary to dehydration. Reviewed - Creatinine 1.62, no previous labs for comparison. Sodium 133. - Creatinine improved to 1.12 and sodium to 137 with IVF. - Avoid nephrotoxins Hypothyroidism, chronic, stable - continue home Levothyroxine DVT prophylaxis - SCDs Problem Qualifiers (1) Cholelithiasis: Qualified Code: K80.20 - Calculus of gallbladder without cholecystitis without obstruction Adam Narayanan MD R3 February 22, 2017 07:20
[2017-02-22] MEDS ORDERED: ACETAMINOPHEN/HYDROcodone 325 MG/10 MG TAB PO PRN (07:30)
[2017-02-22 08:00] VITALS: BP 112/69; PULSE 77; RESP 16; TEMP 97.1; O2SAT 98
[2017-02-22] MEDS: SODIUM CHLORIDE 0.9% FLUSH 10 ML FLUSH IV FLUSH SCH ×2 (09:00→21:28)
--- NOTE | 2017-02-22 09:37 | HHI.FPPN ---
Addendum to progress note ADDENDUM Reason for addendum: Additonal documentation Additional information CBC back and shows mild leukocytosis (11.1). Will add lactic acid and CRP to labs. Check UA. CXR + blood if any fevers. Adam Narayanan MD R3 February 22, 2017 09:36
--- NOTE | 2017-02-22 11:18 | MB ---
cc: GOLD TOBIAS MD, RUBY ANNE E. M.D. DATE OF CONSULTATION: 02/22/2017 DATE OF : 1935 REFERRING PHYSICIAN: Dr. Gold Tobias. CHIEF COMPLAINT Dr. Tobias requested a consultation for Mr. Araujo without pancreatic head mass, associated with jaundice. HISTORY OF PRESENT ILLNESS: Mr. Araujo is an 82 year-old man with history of hyperlipidemia, hyperthyroidism who is under the care of Dr. Donovan in the community. He reports feeling well with no weight loss, fevers, chills or night sweats. Over the past two weeks he has noticed a increase in dark coloration of his urine. He was evaluated by his primary care physician and was found to have liver function abnormalities. He has had coordinated imaging studies, as well by Dr. Roberson. A CT scan in the abdomen from 02/17/2017 revealed a prominent in the region of the pancreatic neck. Gallbladder is mildly dilated with a single gallstone. There is a ventral wall hernia and scattered diverticulosis. He has had constipation for a week. For this reason he was referred to the emergency room for further evaluation. He was found to have anemia with hemoglobin 10.6, bilirubin of 24.7. His previous bilirubin in 2002 was 1.10. Liver functions were significantly elevated with an AST of 210, ALT of 450, alkaline phosphatase of 728, the ammonia level was normal. He was admitted for further evaluation. A repeat CT of the abdomen and pelvis 10/10/2016 showed cholelithiasis dilatation of common bile duct at the level of the pancreatic head with pancreatic duct dilatation. There is of the obstructing stone or mass is not excluded. Cholangiole pancreatography MRI showed the common bile duct is dilated as is the pancreatic duct, T pulling off the splenic vein, at the FNA there is a central pancreatic head mass. It is difficult to define an MRCP and there is a questionable 1 cm head of the pancreas mass. Gastroenterology was consulted. Dr. Spicer performed endoscopic ultrasound with FNA followed by ERCP brushing and stent placement. The finding is showed a 2.3 x 2.7 cm hypoechoic lesion in the pancreatic head, involving the portal vein, no local lymphadenopathy was identified. FNA was performed. The final pathology is still pending. The patient tolerated the procedure well. He reports better appetite. He feels like his bowels are moving. He had previously had excellent performance status prior to his admission. He was working up to 3 hours a day at the [employer]. He takes care of his partner who is wheelchair bound. He expressed interest in proceeding with definitive treatment pending the results of the biopsy. PAST MEDICAL HISTORY: 1. Hyperlipidemia. 2. Hypothyroidism. 3. Pancreatic head mass. 4. Cholelithiasis. PAST SURGICAL HISTORY Colonoscopy bowel perforation surgical repair. FAMILY HISTORY Father of CVA in his 80s but had first CVA at age 62. Mother of old age at 98, grandparents lived into their 90s. 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 He denies any alcohol or illicit drug use. He denies any tobacco use. He has his current partner for over 10 years. He is not to him. PHYSICAL EXAMINATION: VITAL SIGNS: Temperature 97.1 heart rate 77, respiratory rate 16, blood pressure 112/69, saturation 98%. IN GENERAL: Mr. Pizarro is a slender elderly man. He is quite jovial. HEAD, EYES, EARS, NOSE, AND THROAT: His hair is short, unshaven he is overtly jaundiced. His pupils are round, reactive to light and accommodation. Sclerae is icteric. Oropharynx is dry. NECK: His neck is supple. LUNGS: Clear. CARDIOVASCULAR SYSTEM: Exam reveals normal rate, rhythm. ABDOMEN: The abdomen is benign, mildly distended lower extremity with no edema. NEUROLOGIC: Neurological exam is nonfocal. LABORATORY DATA Significant for BUN of 24, creatinine 1.12, bilirubin of 26.3, AST 291, ALT 489, alkaline phosphatase 835, hemoglobin of 11.0, platelet count normal white blood cell count 11.1. ASSESSMENT AND PLAN: Mr. Araujo is an 89-year-old man with history of hyperlipidemia and hypothyroidism. He is typically well until about 2 weeks ago and he has developed the jaundice liver function abnormality constipation. Initial workup was coordinated by Dr. Roberson an outpatient basis and was subsequently referred to the emergency room for further eval. He has had imaging study and endoscopic ultrasound shows a pancreatic head mass. There is questionable involvement of the portal vein. Biopsy is pending to confirm a diagnosis. It seems suspicious for a localized pancreatic cancer. His CA 19.9 is elevated. I recommend obtaining HIV and hepatitis panel. He reports no risk factors he has been with his partner for many years. We will obtain CT scan of the chest to rule out second primary cancer for the possibility of the pancreatic lesion is a metastatic one. There seems to be no other site of disease. Surgical oncology will be consulted for definitive surgery. He is interested in treatment for his presumed pancreatic cancer. He is encouraged to maintain his weight. We will monitor his hemoglobin. His bilirubin remains elevated despite the stents. Defer to Dr. Spicer if the stent needs to be readjusted. Ultrasound of the portal vein may be helpful to our surgeon. His questions were answered to his satisfaction. MD PEÑA Garcia/ /10:17 AM /10:35 AM
[2017-02-22 12:00] VITALS: BP 120/66; PULSE 76; RESP 16; TEMP 96.4; O2SAT 97
--- NOTE | 2017-02-22 12:32 | RADRPT ---
EXAM DATE/TIME: 02/22/2017 11:12 [facility] COMPARISON: No previous studies available for comparison. INDICATIONS : Shortness of breath today. RADIATION DOSE: 9.12 CTDIvol (mGy) MEDICAL HISTORY : Cardiovascular disease. SURGICAL HISTORY : None. ENCOUNTER: Initial ACUITY: 1 day PAIN SCALE: 0/10 LOCATION: Bilateral chest TECHNIQUE: Volumetric scanning of the chest was performed. Using automated exposure control and adjustment of t he mA and/or kV according to patient size, radiation dose was kept as low as reasonably achievable to obtain optimal diagnostic quality images. FINDINGS: LUNGS: There is no consolidation or pneumothorax. No concerning pulmonary nodule is visualized. PLEURAE: There is no pleural thickening or pleural effusion. MEDIASTINUM: The heart and great vessels demonstrate no acute abnormality. There is no mediastinal or hilar lymph adenopathy. AXILLAE: Within normal limits. No lymphadenopathy. MUSCULOSKELETAL: Within normal limits for patient age. MISCELLANEOUS: Biliary stent in place in the upper abdomen. CONCLUSION: No acute findings in the chest. Alton Patterson MD on February 22, 2017 at 12:28 Board Certified Radiologist. This report was verified electronically.
[2017-02-22 14:30] LABS: BACTERIA, URINE OCC /hpf; BLOOD, URINE NEG (NEG); GLUCOSE,URINE TRACE mg/dL (NEG); KETONE, URINE TRACE mg/dL (NEG); MUCUS URINE FEW /lpf (OCC); NITRITE,URINE NEG (NEG); URINE COLOR DARK-YELLOW (YELLW/STRAW)
[2017-02-22 14:31] LABS: COMMENT (UR) CULT NOT INDICATED; CULTURE IF INDICATED CULT NOT INDICATED
--- NOTE | 2017-02-22 15:21 | HHI.GIFU ---
Subjective Remarks Patient is resting in bed doing good, no N/V, no abd pain. Objective Vitals I&O Vital Signs Date Time Temp Pulse Resp B/P Pulse Ox O2 Delivery O2 Flow Rate FiO2 02/22/17 12:00 96.4 76 16 120/66 97 02/22/17 08:00 97.1 77 16 112/69 98 02/22/17 08:00 97.1 77 16 112/69 98 02/22/17 04:00 98.9 90 22 125/70 98 02/22/17 00:00 98.7 79 20 121/64 99 02/21/17 20:00 96.7 73 22 121/67 98 02/21/17 19:40 64 16 127/67 98 Nasal Cannula 2 02/21/17 19:30 62 16 125/64 98 Nasal Cannula 2 02/21/17 19:15 59 16 124/63 98 Nasal Cannula 2 02/21/17 19:00 97.5 71 16 125/78 99 Nasal Cannula 2 02/21/17 16:00 96.6 74 17 134/62 99 02/21/17 15:16 97.9 71 17 111/61 97 I/O 02/21/17 02/21/17 02/21/17 02/22/17 02/22/17 02/22/17 07:00 15:00 23:00 07:00 15:00 23:00 Intake Total 640 ml 320 ml 0 ml Output Total 200 ml 600 ml 100 ml Balance 440 ml -280 ml -100 ml Intake Oral 240 ml 320 ml 0 ml IV Total 100 ml Other 300 ml Output Urine Total 200 ml 600 ml 100 ml # Voids 2 # Bowel Movements 0 0 0 Laboratory Laboratory Tests Test 02/22/17 02/22/17 02/22/17 05:05 10:53 14:10 White Blood Count 11.1 Red Blood Count 3.61 Hemoglobin 11.0 Hematocrit 33.2 Mean Corpuscular Volume 91.9 Mean Corpuscular Hemoglobin 30.4 Mean Corpuscular Hemoglobin 33.1 Concent Red Cell Distribution Width 19.0 Platelet Count 212 Mean Platelet Volume 10.4 Sodium Level 137 Potassium Level 4.0 Chloride Level 101 Carbon Dioxide Level 27.1 Anion Gap 9 Blood Urea Nitrogen 24 Creatinine 1.12 Estimat Glomerular Filtration 63 Rate Random Glucose 141 Calcium Level 9.1 Total Bilirubin 26.3 Aspartate Amino Transf 291 (AST/SGOT) Alanine Aminotransferase 489 (ALT/SGPT) Alkaline Phosphatase 835 Total Protein 5.5 Albumin 2.5 Lactic Acid Level 0.6 C-Reactive Protein 0.35 Urine Color DARK-YELLOW Urine Turbidity HAZY Urine pH 6.0 Urine Specific [place] 1.018 Urine Protein TRACE Urine Glucose (UA) TRACE Urine Ketones TRACE Urine Occult Blood NEG Urine Nitrite NEG Urine Bilirubin LARGE Urine Urobilinogen LESS THAN 2.0 Urine Leukocyte Esterase NEG Urine RBC LESS THAN 1 Urine WBC 3 Urine Bacteria OCC Urine Mucus FEW Microscopic Urinalysis Comment CULT NOT INDICATED Imaging Last Impressions Chest CT 02/22/17 0000 Signed Impressions: Service Date/Time: Wednesday, February 22, 2017 11:12 - CONCLUSION: No acute findings in the chest. Alton Patterson MD GI Procedure 02/21/17 1730 Signed Impressions: Service Date/Time: Tuesday, February 21, 2017 18:38 - CONCLUSION: Common bile duct stenosis noted. Silastic stent placement across the narrowing. Rogers Braun MD Cholangiopancreatography MRI 02/20/17 0000 Signed Impressions: Service Date/Time: February 12:12 - CONCLUSION: The common bile duct is markedly dilated as is the pancreatic duct and there is also tapering of the splenic vein in SMV before it becomes the portal vein. All three things suggest that there is a central pancreatic head mass, but it is difficult to define one on the MRCP. After contrast there is a fairly uniform enhancement through the head and neck of the pancreas. Difficult to define an actual mass. There is a questionable 1 cm lesion in the head of the pancreas on the CT scan specifically series2; image 30 but this is more median than the common bile duct narrowing. Outpatient PET CT could be performed. Solid organs are unremarkable. Eduardo Poe MD Abdomen/Pelvis CT 02/19/17 1620 Signed Impressions: Service Date/Time: Sunday, February 19, 2017 18:01 - CONCLUSION: 1. Cholelithiasis 2. Dilatation of the common bile duct to the level the pancreatic head with pancreatic duct dilatation. 3. Obstructing stone or mass is not excluded. Chalo Schofield MD Physical Exam HEENT: normocephalic; atraumatic; + jaundice. NECK: Neck is supple, no JVD, no lymphadenopathy. CHEST: Chest is clear to auscultation and percussion. CARDIAC: Regular rate and rhythm with no murmur gallop or rubs. ABDOMEN: Soft, nondistended, nontender; no hepatosplenomegaly; bowel sounds are present in all four quadrants. EXTREMITIES: No clubbing, cyanosis, or edema. SKIN: Normal; no rash; + jaundice. SOLE STITCHER HAND: No focal deficits; alert and oriented times three. Assessment and Plan Plan - Elevated LFTs, jaundice - Worsening today Tbil 26.3, AST 291, KDU900, ALP 835. CT ---> cholelithiasis, dilated CBD, obstruction stone or mass cannot be excluded. Cholangiopancreatography MRI (02/20/17)----> The common bile duct is markedly dilated as is the pancreatic duct and there is also tapering of the splenic vein in SMV before it becomes the portal vein. All three things suggest that there is a central pancreatic head mass, but it is difficult to define one on the MRCP. After contrast there is a fairly uniform enhancement through the head and neck of the pancreas. Difficult to define an actual mass. There is a questionable 1 cm lesion in the head of the pancreas on the CT scan specifically series2; image 30 but this is more median than the common bile duct narrowing. Outpatient PET CT could be performed. Solid organs are unremarkable. Liver Ultrasound (02/22/17)-----> 1. Dilatation of the pancreatic duct and common bile duct as seen on recent cross-sectional imaging. No measurable mass on ultrasound is identified. 2. Fatty liver. Distended gallbladder. EUS/ERCP/stent on ( 02/21/17)Pancreatic head mass, Biliary stricture, bx pending. Oncology on the case CEA normal, AFP normal , CA 19-9 2996.8 PLAN - KEON - Worsening LFTs/ bili, will monitor, if cont. to be elevated, will consider repeating ERCP - monitor labs - Await bx - Oncology on the case - Will need ERCP with stent removal in 3 months - supportive care - further recommendations based on results above This pt seen by Dr. Rivas and myself and this note is written on his behalf. Alysia Brown February 22, 2017 15:21
[2017-02-22 16:00] VITALS: BP 109/59; PULSE 72; RESP 16; TEMP 98.3; O2SAT 98
[2017-02-22 20:00] VITALS: BP 103/66; PULSE 77; PULSE 80; RESP 17; TEMP 97.1; O2SAT 98
[2017-02-23] VITALS (7 sets, daily range): BP systolic 100–134; BP diastolic 62–66; PULSE 70–81; RESP 17–20; TEMP 96.5–98.9; O2SAT 96–98
--- NOTE | 2017-02-23 00:06 | RADRPT ---
EXAM DATE/TIME: 02/22/2017 18:46 [facility] COMPARISON: No previous studies available for comparison. INDICATIONS : Pancreatic mass. MEDICAL HISTORY : Hypercholesterolemia. Jaundice. SURGICAL HISTORY : Bowel surgery. ENCOUNTER: Initial ACUITY: 1 day PAIN SCORE: 2/10 LOCATION: Right upper quadrant MEASUREMENTS: LIVER: 16.8 cm length COMMON DUCT: 17 mm RIGHT KIDNEY: 12.3 x 5.1 x 5.2 cm SPLEEN: 13.6 cm cm length FINDINGS: The pancreas is heterogeneous in appearance but no measurable mass is identified. However pancreatic duct is dilated at 8.6 mm, similar to recent MRCP measurement. Common bile duct is dilated to 17 mm s uspicious for pancreatic mass. There is fatty infiltration of the liver. Gallbladder is distended up to 12 cm in length. Right kidne y demonstrates some medical renal disease. Spleen enlarged at 13.6 cm CONCLUSION: 1. Dilatation of the pancreatic duct and common bile duct as seen on recent cross-sectional imaging. No measurable mass on ultrasound is identified. 2. Fatty liver. Distended gallbladder. Antony Ge MD on February 22, 2017 at 23:58 Board Certified Radiologist. This report was verified electronically.
[2017-02-23] MEDS: LEVOTHYROXINE SODIUM 50 MCG TAB PO SCH (05:59)
[2017-02-23 06:20] LABS: HEMATOCRIT 31.1 % (39.0-51.0); MEAN CELL VOLUME 91.1 FL (80.0-100.0); MEAN CORPUSCULAR HEMOGLOBIN 31.5 PG (27.0-34.0); MEAN CORPUSCULAR HGB CONC 34.5 % (32.0-36.0); PLATELET COUNT 217 TH/MM3 (150-450); RED BLOOD COUNT 3.42 MIL/MM3 (4.50-5.90); RED CELL DISTRIBUTION WIDTH 19.2 % (11.6-17.2); WHITE BLOOD COUNT 7.9 TH/MM3 (4.0-11.0)
[2017-02-23 06:28] LABS: HEMO FLAGS AUTO DIFF
[2017-02-23 07:02] LABS: ALKALINE PHOSPHATASE 898 U/L (45-117); ALT (GPT) 623 U/L (12-78); ANION GAP 9 MEQ/L (5-15); BICARBONATE 27.5 MEQ/L (21.0-32.0); BLOOD UREA NITROGEN 24 MG/DL (7-18); CHLORIDE 100 MEQ/L (98-107); GLOMERULAR FILTRATION RATE 80 ML/MIN (>89); POTASSIUM 4.3 MEQ/L (3.5-5.1); SODIUM (NA) 136 MEQ/L (136-145); TOTAL BILIRUBIN ADULT 23.1 MG/DL (0.2-1.0)
[2017-02-23 07:05] LABS: AST (GOT) 392 U/L (15-37)
[2017-02-23] MEDS: SODIUM CHLORIDE 0.9% FLUSH 10 ML FLUSH IV FLUSH SCH ×2 (07:39→21:00)
[2017-02-23 07:41] LABS: BANDS 1 % (0-6); EOSINOPHILS 1 % (0-4); POLYS (SEG NEUTROPHILS) 75 % (16-70); WBC DIFF SAMPLE 100
[2017-02-23 07:42] LABS: PLATELET ESTIMATE SMEAR NORMAL (NORMAL); PLATELET MORPHOLOGY NORMAL (NORMAL); TARGET CELLS 2+ (NORMAL)
[2017-02-23 07:43] LABS: SCAN/DIFF FINAL DIFF MANUAL
--- NOTE | 2017-02-23 07:47 | HHI.PR ---
Subjective Remarks Patient seen and examined this morning. Vitals are stable and the patient has been without fever for greater than 24 hours. Doing well this am.. Denies CP or difficulty breathing. Had BM that was normal in appearance, no blood. Tolerating diet. Objective Vital Signs Date Time Temp Pulse Resp B/P Pulse Ox O2 Delivery O2 Flow Rate FiO2 02/23/17 04:00 96.5 81 17 117/66 98 02/23/17 00:00 96.8 72 17 100/62 98 02/22/17 20:00 80 02/22/17 20:00 97.1 77 17 103/66 98 02/22/17 16:00 98.3 72 16 109/59 98 02/22/17 12:00 96.4 76 16 120/66 97 02/22/17 08:00 97.1 77 16 112/69 98 02/22/17 08:00 97.1 77 16 112/69 98 I/O 02/22/17 02/22/17 02/22/17 02/23/17 02/23/17 02/23/17 07:00 15:00 23:00 07:00 15:00 23:00 Intake Total 320 ml 0 ml 240 ml 240 ml Output Total 600 ml 100 ml 200 ml 200 ml Balance -280 ml -100 ml 40 ml 40 ml Intake Oral 320 ml 0 ml 240 ml 240 ml Output Urine Total 600 ml 100 ml 200 ml 200 ml # Bowel Movements 0 0 Result Diagram: 02/23/17 0513 02/23/17 0513 Imaging Last Impressions Liver Ultrasound 02/22/17 0000 Signed Impressions: Service Date/Time: Wednesday, February 22, 2017 18:46 - CONCLUSION: 1. Dilatation of the pancreatic duct and common bile duct as seen on recent cross-sectional imaging. No measurable mass on ultrasound is identified. 2. Fatty liver. Distended gallbladder. Antony Ge MD Chest CT 02/22/17 0000 Signed Impressions: Service Date/Time: Wednesday, February 22, 2017 11:12 - CONCLUSION: No acute findings in the chest. Alton Patterson MD GI Procedure 02/21/17 9850 Signed Impressions: Service Date/Time: Tuesday, February 21, 2017 18:38 - CONCLUSION: Common bile duct stenosis noted. Silastic stent placement across the narrowing. Rogers Braun MD Cholangiopancreatography MRI 02/20/17 0000 Signed Impressions: Service Date/Time: February 12:12 - CONCLUSION: The common bile duct is markedly dilated as is the pancreatic duct and there is also tapering of the splenic vein in SMV before it becomes the portal vein. All three things suggest that there is a central pancreatic head mass, but it is difficult to define one on the MRCP. After contrast there is a fairly uniform enhancement through the head and neck of the pancreas. Difficult to define an actual mass. There is a questionable 1 cm lesion in the head of the pancreas on the CT scan specifically series2; image 30 but this is more median than the common bile duct narrowing. Outpatient PET CT could be performed. Solid organs are unremarkable. Edaurdo Poe MD Abdomen/Pelvis CT 02/19/17 1620 Signed Impressions: Service Date/Time: Sunday, February 19, 2017 18:01 - CONCLUSION: 1. Cholelithiasis 2. Dilatation of the common bile duct to the level the pancreatic head with pancreatic duct dilatation. 3. Obstructing stone or mass is not excluded. Chalo Schofield MD Objective Remarks GENERAL: Well-nourished, well-developed pleasant elderly male patient in [facility]. SKIN: Warm and dry. No rash. +Jaundice. HEAD: Normocephalic. Atraumatic. EYES: Pupils equal and round. +scleral icterus. No injection or drainage. CARDIOVASCULAR: Regular rate and rhythm. S1, S2 noted. No murmur appreciated. RESPIRATORY: No accessory muscle use. Clear to auscultation. Breath sounds equal bilaterally. GASTROINTESTINAL: Abdomen soft, non-tender, nondistended. Normoactive bowel sounds x4. MUSCULOSKELETAL: No obvious deformities. Extremities without clubbing, cyanosis , or edema. NEUROLOGICAL: Awake and alert. No obvious cranial nerve deficits. Motor grossly within normal limits. Normal speech. PSYCH: A&Ox3. Knows name, year, name of president. A/P Problem List: (1) Transaminitis ICD Code: R74.0 (2) Obstructive jaundice ICD Code: K83.8 (3) Mass of pancreas ICD Code: K86.9 (4) Acute kidney injury ICD Code: N17.9 Assessment and Plan 81-year-old male with past medical history of HLD and hypothyroidism who was sent by his PCP for abnormal abdominal CT he had done for abdominal distention and jaundice. 1. Probable choledocholithiasis with elevated bilirubin and transaminates: + jaundice on exam. Abdomen/Pelvis CT imaging reviewed, shows Cholelithiasis and dilatation of the common bile duct to the level the pancreatic head with pancreatic duct dilatation; obstructing stone or mass not excluded. Continued significant elevation of LFTs and bilirubin 24. Now with pancreatic head mass seen on EUS/ERCP, elevated CA 19-9 , concern is for pancreatic cancer. - Consulted drafter engineering: Worsening LFTs and bilirubin, continue to monitor, if continue to be elevated will consider repeating ERCP. Biopsy results are pending. Will need ERCP was mobile in 3 months. - Consult heme/onc: Concern for localized pancreatic cancer, elevated CA-19-9. Recommend obtaining HIV and hepatitis panel. CT of chest order to rule out second primary cancer. Surgical oncology also consulted for definitive surgery. - Hold simvastatin for now - LFTs still significant elevated, await further recommendations from GI - Patient wants to be full code and would like everything done. Palliative of care has been consulted to assist with goals of care. Acute renal failure/hyponatremia: likely secondary to dehydration. Reviewed - Creatinine 1.62, no previous labs for comparison. Sodium 133. - Creatinine improved to 1.12 and sodium to 137 with IVF. - Avoid nephrotoxins Hypothyroidism, chronic, stable - continue home Levothyroxine DVT prophylaxis - SCDs Discharge Planning Discharge is pending further workup of pancreatic mass and clearance by GI. Purnima Ambrocio MD R3 February 23, 2017 07:47
--- NOTE | 2017-02-23 12:17 | HHI.GIFU ---
Subjective Remarks Patient reports he is feeling good. No nausea or abdominal pain. His stools are returning to normal color. Now brownish. Bilirubin is dropping slightly, LFTs are still elevated. Pt is eating well. Objective Vitals I&O Vital Signs Date Time Temp Pulse Resp B/P Pulse Ox O2 Delivery O2 Flow Rate FiO2 02/23/17 08:00 98.4 76 17 116/66 96 02/23/17 04:00 96.5 81 17 117/66 98 02/23/17 00:00 96.8 72 17 100/62 98 02/22/17 20:00 80 02/22/17 20:00 97.1 77 17 103/66 98 02/22/17 16:00 98.3 72 16 109/59 98 I/O 02/22/17 02/22/17 02/22/17 02/23/17 02/23/17 02/23/17 07:00 15:00 23:00 07:00 15:00 23:00 Intake Total 320 ml 0 ml 240 ml 240 ml 120 ml Output Total 600 ml 100 ml 200 ml 200 ml Balance -280 ml -100 ml 40 ml 40 ml 120 ml Intake Oral 320 ml 0 ml 240 ml 240 ml 120 ml Output Urine Total 600 ml 100 ml 200 ml 200 ml # Bowel Movements 0 0 Laboratory Laboratory Tests Test 02/22/17 02/23/17 14:10 05:13 Urine Color DARK-YELLOW Urine Turbidity HAZY Urine pH 6.0 Urine Specific [place] 1.018 Urine Protein TRACE Urine Glucose (UA) TRACE Urine Ketones TRACE Urine Occult Blood NEG Urine Nitrite NEG Urine Bilirubin LARGE Urine Urobilinogen LESS THAN 2.0 Urine Leukocyte Esterase NEG Urine RBC LESS THAN 1 Urine WBC 3 Urine Bacteria OCC Urine Mucus FEW Microscopic Urinalysis Comment CULT NOT INDICATED White Blood Count 7.9 Red Blood Count 3.42 Hemoglobin 10.8 Hematocrit 31.1 Mean Corpuscular Volume 91.1 Mean Corpuscular Hemoglobin 31.5 Mean Corpuscular Hemoglobin 34.5 Concent Red Cell Distribution Width 19.2 Platelet Count 217 Mean Platelet Volume 10.7 Neutrophils (%) (Auto) Lymphocytes (%) (Auto) Monocytes (%) (Auto) Eosinophils (%) (Auto) Basophils (%) (Auto) Neutrophils # (Auto) Lymphocytes # (Auto) Monocytes # (Auto) Eosinophils # (Auto) Basophils # (Auto) CBC Comment AUTO DIFF Differential Total Cells 100 Counted Neutrophils % (Manual) 75 Band Neutrophils % 1 Lymphocytes % 15 Monocytes % 8 Eosinophils % 1 Neutrophils # (Manual) 6.0 Differential Comment FINAL DIFF MANUAL Platelet Estimate NORMAL Platelet Morphology Comment NORMAL Target Cells 2+ Sodium Level 136 Potassium Level 4.3 Chloride Level 100 Carbon Dioxide Level 27.5 Anion Gap 9 Blood Urea Nitrogen 24 Creatinine 0.91 Estimat Glomerular Filtration 80 Rate Random Glucose 126 Calcium Level 8.9 Total Bilirubin 23.1 Aspartate Amino Transf 392 (AST/SGOT) Alanine Aminotransferase 623 (ALT/SGPT) Alkaline Phosphatase 898 Total Protein 5.4 Albumin 2.3 Lipase 662 Physical Exam HEENT: normocephalic; atraumatic; + jaundice. NECK: Neck is supple, no JVD, no lymphadenopathy. CHEST: Chest is clear to auscultation and percussion. CARDIAC: Regular rate and rhythm with no murmur gallop or rubs. ABDOMEN: Soft, nondistended, nontender; no hepatosplenomegaly; bowel sounds are present in all four quadrants. EXTREMITIES: No clubbing, cyanosis, or edema. SKIN: Normal; no rash; + jaundice. DEMOGRAPHER: No focal deficits; alert and oriented times three. Assessment and Plan Plan - Elevated LFTs, jaundice - Worsening today Tbil 26.3, AST 291, [id number], ALP 835. CT ---> cholelithiasis, dilated CBD, obstruction stone or mass cannot be excluded. Will do MRCP and then consider ERCP with stent placement vs stone extraction. MRCP suggested pancreatic mass EUS/ERCP/stent on ( 02/21/17)Pancreatic head mass, Biliary stricture, bx pending. Oncology on the case CEA normal, AFP normal , CA 19-9 2996.8 PLAN - KEON - Worsening LFTs/ bili, will monitor, if cont. to be elevated, will consider repeating ERCP - monitor labs - Await bx - Oncology on the case - Will need ERCP with stent removal in 3 months - supportive care - further recommendations based on results above Leonardo Rivas MD February 23, 2017 12:17
[2017-02-24] VITALS (7 sets, daily range): BP systolic 104–126; BP diastolic 60–68; PULSE 69–88; RESP 17–18; TEMP 96.5–98.6; O2SAT 97–99
[2017-02-24] MEDS: LEVOTHYROXINE SODIUM 50 MCG TAB PO SCH (05:28)
[2017-02-24 05:54] LABS: ALKALINE PHOSPHATASE 957 U/L (45-117); ALT (GPT) 586 U/L (12-78); ANION GAP 9 MEQ/L (5-15); AST (GOT) 312 U/L (15-37); BICARBONATE 26.8 MEQ/L (21.0-32.0); BLOOD UREA NITROGEN 20 MG/DL (7-18); CHLORIDE 100 MEQ/L (98-107); GLOMERULAR FILTRATION RATE 80 ML/MIN (>89); POTASSIUM 3.6 MEQ/L (3.5-5.1); SODIUM (NA) 136 MEQ/L (136-145); TOTAL BILIRUBIN ADULT 22.4 MG/DL (0.2-1.0)
[2017-02-24] MEDS: SODIUM CHLORIDE 0.9% FLUSH 10 ML FLUSH IV FLUSH SCH ×2 (09:00→21:00)
--- NOTE | 2017-02-24 10:15 | PD.CONS ---
Consult Service Palliative Care . Consult Requested By Dr. Narayanan . Primary Care Physician Dr. Roberson -- [facility] . Reason for Consultation a. To assist with evaluation and management of symptoms including: constipation; nausea; pruritus b. To assist medical decision maker(s) with: better understanding of current medical conditions; weighing benefits/burdens of medical treatment options; making medical treatment decisions. . HPI History of Present Illness Mr. Araujo is an 82-year-old male with a known past history of hyperlipidemia and hypothyroidism who presented to the [facility] Emergency Department on the recommendation of his primary care physician on 02/19/17 due to abnormal imaging results and lab results. The patient began feeling ill approximately a week prior to presentation when he noted constipation. He bought over-the- counter laxatives and when he eventually defecated he noted that the stool was hammond in color. It also been experiencing abdominal bloating at the time. A few days later he noted itching and turned yellow. He had some mild nausea without vomiting and also had fatigue. He denied diarrhea, fever, blood in the bowel movements, seferino abdominal pain (or other pain), shortness of breath, or cough. He presented to his primary care physician who ordered CT imaging and laboratory work. The CT revealed a questionable prominence of the pancreatic neck. There is also elevations of alkaline phosphatase, bilirubin, and ammonia. Hepatitis screen was negative. The patient reported a history of a partial colectomy which was attributed to a colon perforation at age 67 during colonoscopy. In the emergency department initial vital signs were as follows: Temperature 98.0; pulse 68; respiratory rate 16; blood pressure 120/64; pulse oximetry 98% on room air\\ Initial diagnostic testing revealed the following: * CBC showed WBC 7.9; hemoglobin 10.6; platelet count 220 * Coagulation profile showed PT 13.0; INR 1.2; PTT 24.7 * Chemistry profile showed sodium 133; potassium 4.3; chloride 97; CO2 24.8; anion gap 11; BUN 29; creatinine 1.62; GFR 41; glucose 131; calcium 9.3 * Liver function studies showed bilirubin 24.7; AST 216; ALT 483; alkaline phosphatase 775; ammonia 10; total protein 5.8; abdomen 2.7; lipase 112 * CT of the abdomen and pelvis showed: Cholelithiasis; dilatation of the common bile duct to the level of the pancreatic head with pancreatic duct dilatation (obstructing stone or mass is not excluded). No enlarged lymph nodes were identified. The patient was admitted to the hospitalist service. Gastroenterology was consulted. MRCP was performed on 02/20/17. MRCP noted marked dilatation of the common bile duct and pancreatic duct. Findings were suggestive of a central pancreatic head mass but there is no clearly defined mass on the MRCP. There was fairly uniform enhancement of the head and neck of the pancreas after contrast. Gastroenterology performed an endoscopic ultrasound and ERCP on 02/21/17. A 2.3 x 2.7 cm hypoechoic lesion was noted in the pancreatic head involving what appeared to be the portal vein. No local lymphadenopathy was noted. Biopsy was performed. During ERCP the rv detailer was able to obtain easy cannulation of the common bile duct and the duct was stented with good drainage noted. Given the high likelihood of pancreatic cancer, medical oncology was consulted. Dr. Verdugo saw the patient on 02/22/17. Dr. Verdugo recommended additional laboratory testing and imaging. Liver ultrasound performed on 02/22/17 also confirmed dilatation of the pancreatic duct and common bile duct. There was no measurable mass on ultrasound. Gallbladder was distended. Fatty liver was noted. CT imaging of the chest showed no acute findings in the chest. CA 19-9 was elevated. Alpha-fetoprotein level was within normal range. CEA was not elevated. Since pancreatic duct stenting the patient's liver function studies have begun to decline. Nausea has improved. Stools are returning to normal color. Patient has denied pain through the course of the hospitalization. Nursing pain levels are noted to be 0. At time of my visit, patient reports he is feeling better. He is looking forward to going home. . Function/Cognitive Trajectory Patient was quite active prior to this illness. He was able to take care of all of his activities of daily living. He required no assistive device for ambulation. He continued to work several hours per week in the [employer] business. He had no significant symptoms. He was not losing weight. He considered himself to be quite healthy. . Review of Systems Constitutional: COMPLAINS OF: Change in appetite, DENIES: Fever, Weight gain, Weight loss, Dizziness, Pain, Generalized weakness Endocrine: DENIES: Polydipsia, Polyuria, Polyphagia Eyes: COMPLAINS OF: Vision loss (normally wears glasses), DENIES: Blurred vision, Eye pain Ears, nose, mouth, throat: DENIES: Tinnitus, Hearing loss, Throat pain, Epistaxis Respiratory: DENIES: Cough, Snoring, Wheezing, Hemoptysis, Sputum production, Shortness of breath Cardiovascular: DENIES: Chest pain, Palpitations, Syncope, Lower Extremity Edema Gastrointestinal: COMPLAINS OF: Constipation, Nausea, Bloating, DENIES: Abdominal pain, Black stools, Bloody stools, Diarrhea, Vomiting, Difficulty Swallowing, Anorexia, Vomiting blood Genitourinary: DENIES: Urinary frequency, Urinary incontinence, Urgency, Hematuria Musculoskeletal: DENIES: Joint pain, Muscle aches, Stiffness, Joint Swelling, Back pain, Neck pain Integumentary: COMPLAINS OF: Pruritus Hematologic/Lymphatics: DENIES: Bruising Neurologic: DENIES: Abnormal gait, Headache, Paresthesias, Seizures, Tremor Psychiatric: DENIES: Anxiety, Confusion, Mood changes, Depression, Hallucinations Past Family Social History Coded Allergies: No Known Allergies (Verified , 02/19/17) Uncoded Allergies: NKDA (Allergy, Unknown, 06/14/03) Past Medical History Hyperlipidemia Hypothyroidism . Past Surgical History Colonoscopy Bowel perforation with surgical repair . Reported Medications Pre-hospital meds included the following: Simvastatin 20 Mg Tab 20 Mg PO DAILY Levothyroxine (Levothyroxine Sodium) 50 Mcg Tab 50 Mcg PO DAILY Losartan (Losartan Potassium) 25 Mg Tab 25 Mg PO DAILY . Current Medications Medications (Trade) Dose Ordered Sig/Samy Route Start Time Stop Time Status Last Admin (NS Flush) 2 ml UNSCH PRN IV FLUSH 02/19/17 20:15 (NS Flush) 2 ml BID IV FLUSH 02/19/17 21:00 02/22/17 21:28 (Narcan Inj) 0.4 mg UNSCH PRN IV 02/19/17 20:15 (Synthroid) 50 mcg DAILY@0600 PO 02/20/17 06:00 02/24/17 05:28 (Morphine Inj) 2 mg Q3H PRN IV PUSH 02/21/17 23:00 02/21/17 23:13 (Newcomb 10-325 Mg) 1 tab Q4H PRN PO 02/22/17 07:30 . Family History The patient's father of stroke in his 80s but had his first stroke at age 62. Patient's mother of old age at 98. Sister is 81 and in good health. Grandparents in their 90's . Substance Use Tobacco: Lifetime nonsmoker. Significant exposure to secondhand smoke over 20 years. Alcohol: No history of abuse Prescription med abuse: No history of prescription drug abuse Illicits: No known use of illicits . Psychosocial History Patient is originally from [place]. He moved to [place] in 1969. Patient has a high school education. 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 Patient spent a brief time in the [employer] but was discharged because of his sexual orientation. Patient has never been . There are no children. He has one sister who he communicates with frequently. Patient has an unmarried male domestic partner of over 10 years. . Spiritual/Cultural Factors Patient was raised in the Worship [employer]. Congregational and spirituality have not played an important part in his life of late. He is not interested in avaya engineer or retina subspecialist visits at this time. . Living Will: Never completed Health Care Surrogate: Never completed Durable Power of Esthetics Instructor: Never completed Date completed: Patient has never completed an advanced directive. . Health Care Surrogate(s): Patient has no written designation of the health care surrogate. He does verbally express that he would want his domestic partner to serve in that capacity. . Documented care wishes: Patient has no written documentation of health care preferences her goals. . Today's verbally stated goals: At this time, patient has aggressive goals. He wants to wait until pathology results are back and he has had a chance to speak to the medical oncologist regarding treatment options. . Family/friends goals: No family/friends present at this time. . Ethical and Legal Issues Patient is currently capacitated to make his own health care decisions. To ensure that the right people are making medical decisions for him should he become incapacitated, I have encouraged that he complete an advanced directive. . Physical Exam Vital Signs Date Time Temp Pulse Resp B/P Pulse Ox O2 Delivery O2 Flow Rate FiO2 02/24/17 08:00 98.6 81 18 110/64 97 02/24/17 04:00 97.6 69 17 119/62 99 02/24/17 00:00 98.1 72 17 126/62 99 5/21/17 21:00 79 02/23/17 20:00 98.9 79 17 121/66 97 02/23/17 16:00 98.3 70 20 115/65 96 02/23/17 13:00 97.3 78 19 134/66 97 . 02/23/17 02/24/17 19:00 07:00 Intake Total 1080 ml 480 ml Output Total 800 ml Balance 280 ml 480 ml Intake Oral 1080 ml 480 ml Output Urine Total 800 ml # Voids 6 # Bowel Movements 1 3 . Exam CONSTITUTIONAL/GENERAL: This is an adequately nourished patient, in no apparent distress. Awake, alert, smiling, interactive. TUBES/LINES/DRAINS: SCDs SKIN: Patient is mildly jaundiced. No rashes, or lesions noted. No wounds seen anteriorly. Skin temperature appropriate. Not diaphoretic. HEAD: Atraumatic. Normocephalic. EYES: Pupils equal and round and reactive. Extraocular motions intact. Sclerae are icteric. No injection or drainage. Fundi not examined. ENT: Hearing grossly normal. Nose without bleeding or purulent drainage. Throat without visible erythema, exudates, masses, or lesions. NECK: Trachea midline. Supple, nontender. No palpable thyroid enlargement or nodularity. CARDIOVASCULAR: Regular rate and rhythm without murmurs, gallops, or rubs. No JVD. Peripheral pulses symmetric. RESPIRATORY/CHEST: Symmetric, unlabored respirations. Clear to auscultation. Breath sounds equal bilaterally. No wheezes, rales, or rhonchi. GASTROINTESTINAL: Abdomen soft, non-tender, nondistended. No hepato-splenomegaly , or palpable masses. No guarding. Bowel sounds present. GENITOURINARY: Without palpable bladder distension. MUSCULOSKELETAL: Extremities without clubbing, cyanosis, or edema. No joint tenderness or effusion noted. No calf tenderness. No mottling or clubbing. LYMPHATICS: No palpable cervical or supraclavicular adenopathy. NEUROLOGICAL: Awake and alert. Motor and sensory grossly within normal limits. Follows commands. Cognitively sharp. Moves all extremities. PSYCHIATRIC: No obvious anxiety/depression. no apparent hallucinations or other psychotic thought process. . Diagnostic Tests Laboratory Laboratory Tests Test 02/22/17 02/22/17 02/22/17 02/23/17 05:05 10:53 14:10 05:13 White Blood Count 11.1 TH/MM3 7.9 TH/MM3 (4.0-11.0) (4.0-11.0) Red Blood Count 3.61 MIL/MM3 3.42 MIL/MM3 (4.50-5.90) (4.50-5.90) Hemoglobin 11.0 GM/DL 10.8 GM/DL (13.0-17.0) (13.0-17.0) Hematocrit 33.2 % 31.1 % (39.0-51.0) (39.0-51.0) Mean Corpuscular Volume 91.9 FL 91.1 FL (80.0-100.0) (80.0-100.0) Mean Corpuscular Hemoglobin 30.4 PG 31.5 PG (27.0-34.0) (27.0-34.0) Mean Corpuscular Hemoglobin 33.1 % 34.5 % Concent (32.0-36.0) (32.0-36.0) Red Cell Distribution Width 19.0 % 19.2 % (11.6-17.2) (11.6-17.2) Platelet Count 212 TH/MM3 217 TH/MM3 (150-450) (150-450) Mean Platelet Volume 10.4 FL 10.7 FL (7.0-11.0) (7.0-11.0) Sodium Level 137 MEQ/L 136 MEQ/L (136-145) (136-145) Potassium Level 4.0 MEQ/L 4.3 MEQ/L (3.5-5.1) (3.5-5.1) Chloride Level 101 MEQ/L 100 MEQ/L (98-107) (98-107) Carbon Dioxide Level 27.1 MEQ/L 27.5 MEQ/L (21.0-32.0) (21.0-32.0) Anion Gap 9 MEQ/L (5-15) 9 MEQ/L (5-15) Blood Urea Nitrogen 24 MG/DL (7-18) 24 MG/DL (7-18) Creatinine 1.12 MG/DL 0.91 MG/DL (0.60-1.30) (0.60-1.30) Estimat Glomerular Filtration 63 ML/MIN (>89) 80 ML/MIN (>89) Rate Random Glucose 141 MG/DL 126 MG/DL (74-106) (74-106) Calcium Level 9.1 MG/DL 8.9 MG/DL (8.5-10.1) (8.5-10.1) Total Bilirubin 26.3 MG/DL 23.1 MG/DL (0.2-1.0) (0.2-1.0) Aspartate Amino Transf 291 U/L (15-37) 392 U/L (15-37) (AST/SGOT) Alanine Aminotransferase 489 U/L (12-78) 623 U/L (12-78) (ALT/SGPT) Alkaline Phosphatase 835 U/L 898 U/L (45-117) (45-117) Total Protein 5.5 GM/DL 5.4 GM/DL (6.4-8.2) (6.4-8.2) Albumin 2.5 GM/DL 2.3 GM/DL (3.4-5.0) (3.4-5.0) Lactic Acid Level 0.6 mmol/L (0.4-2.0) C-Reactive Protein 0.35 MG/DL (0.00-0.30) Urine Color DARK-YELLOW (YELLW/STRAW) Urine Turbidity HAZY (CLEAR) Urine pH 6.0 (5.0-8.5) Urine Specific Jones 1.018 (1.002-1.035) Urine Protein TRACE mg/dL (NEG-TRACE) Urine Glucose (UA) TRACE mg/dL (NEG) Urine Ketones TRACE mg/dL (NEG) Urine Occult Blood NEG (NEG) Urine Nitrite NEG (NEG) Urine Bilirubin LARGE (NEG) Urine Urobilinogen LESS THAN 2.0 MG/DL (LESS THAN 2.0) Urine Leukocyte Esterase NEG (NEG) Urine RBC LESS THAN 1 /hpf (0-3) Urine WBC 3 /hpf (0-5) Urine Bacteria OCC /hpf (NONE) Urine Mucus FEW /lpf (OCC) Microscopic Urinalysis Comment CULT NOT INDICATED Neutrophils (%) (Auto) % (16.0-70.0) Lymphocytes (%) (Auto) % (9.0-44.0) Monocytes (%) (Auto) % (0.0-8.0) Eosinophils (%) (Auto) % (0.0-4.0) Basophils (%) (Auto) % (0.0-2.0) Neutrophils # (Auto) TH/MM3 (1.8-7.7) Lymphocytes # (Auto) TH/MM3 (1.0-4.8) Monocytes # (Auto) TH/MM3 (0-0.9) Eosinophils # (Auto) TH/MM3 (0-0.4) Basophils # (Auto) TH/MM3 (0-0.2) CBC Comment AUTO DIFF Differential Total Cells 100 Counted Neutrophils % (Manual) 75 % (16-70) Band Neutrophils % 1 % (0-6) Lymphocytes % 15 % (9-44) Monocytes % 8 % (0-8) Eosinophils % 1 % (0-4) Neutrophils # (Manual) 6.0 TH/MM3 (1.8-7.7) Differential Comment FINAL DIFF MANUAL Platelet Estimate NORMAL (NORMAL) Platelet Morphology Comment NORMAL (NORMAL) Target Cells 2+ (NORMAL) Lipase 662 U/L (73-393) Test 02/24/17 05:17 Sodium Level 136 MEQ/L (136-145) Potassium Level 3.6 MEQ/L (3.5-5.1) Chloride Level 100 MEQ/L (98-107) Carbon Dioxide Level 26.8 MEQ/L (21.0-32.0) Anion Gap 9 MEQ/L (5-15) Blood Urea Nitrogen 20 MG/DL (7-18) Creatinine 0.91 MG/DL (0.60-1.30) Estimat Glomerular Filtration 80 ML/MIN (>89) Rate Random Glucose 125 MG/DL (74-106) Calcium Level 8.4 MG/DL (8.5-10.1) Total Bilirubin 22.4 MG/DL (0.2-1.0) Aspartate Amino Transf 312 U/L (15-37) (AST/SGOT) Alanine Aminotransferase 586 U/L (12-78) (ALT/SGPT) Alkaline Phosphatase 957 U/L (45-117) Total Protein 5.1 GM/DL (6.4-8.2) Albumin 2.1 GM/DL (3.4-5.0) . Result Diagram: 02/23/17 0513 02/24/17 0517 Imaging Last Impressions Liver Ultrasound 02/22/17 0000 Signed Impressions: Service Date/Time: Wednesday, February 22, 2017 18:46 - CONCLUSION: 1. Dilatation of the pancreatic duct and common bile duct as seen on recent cross-sectional imaging. No measurable mass on ultrasound is identified. 2. Fatty liver. Distended gallbladder. Antony Ge MD Chest CT 02/22/17 0000 Signed Impressions: Service Date/Time: Wednesday, February 22, 2017 11:12 - CONCLUSION: No acute findings in the chest. Alton Patterson MD GI Procedure 02/21/17 1730 Signed Impressions: Service Date/Time: Tuesday, February 21, 2017 18:38 - CONCLUSION: Common bile duct stenosis noted. Silastic stent placement across the narrowing. Rogers Braun MD Cholangiopancreatography MRI 02/20/17 0000 Signed Impressions: Service Date/Time: February 12:12 - CONCLUSION: The common bile duct is markedly dilated as is the pancreatic duct and there is also tapering of the splenic vein in SMV before it becomes the portal vein. All three things suggest that there is a central pancreatic head mass, but it is difficult to define one on the MRCP. After contrast there is a fairly uniform enhancement through the head and neck of the pancreas. Difficult to define an actual mass. There is a questionable 1 cm lesion in the head of the pancreas on the CT scan specifically series2; image 30 but this is more median than the common bile duct narrowing. Outpatient PET CT could be performed. Solid organs are unremarkable. Eduardo Poe MD Abdomen/Pelvis CT 02/19/17 1620 Signed Impressions: Service Date/Time: Sunday, February 19, 2017 18:01 - CONCLUSION: 1. Cholelithiasis 2. Dilatation of the common bile duct to the level the pancreatic head with pancreatic duct dilatation. 3. Obstructing stone or mass is not excluded. Chalo Schofield MD . Procedures * ERCP . Patient/Family Conference Present at Family Conference: Patient only. . Family Conference Location: Bedside Issues Discussed: * Palliative care role, purpose, approach * Additional medical, psychosocial, and spiritual history * Patients general health, functional status, and cognitive changes in the months leading up to the current hospitalization * Patient understanding of the current medical problems * Patient understanding of prognosis * Patients goals of care * Appropriate questions to ask oncologist on the first outpatient visit * Questions answered to the best of my ability * Palliative care contact information provided . Assessment and Plan Disease Oriented Problem List: (1) Mass of pancreas (2) Common bile duct dilatation (3) Obstructive jaundice (4) Cholelithiasis (5) Acute kidney injury (6) Transaminitis Symptom Scale: (1) Pain 0-10 Scale: 0 Comment: No significant pain associated with the current problem. No underlying pain syndromes. . (2) Nausea 0-10 Scale: 0 (Appears to be resolved after duct stenting.) (3) Pruritus 0-10 Scale: Unable to quantify Comment: Improving after duct stenting and slow reduction of bilirubin. . (4) Constipation 0-10 Scale: 0 Comment: Improved . Pertinent Non-Medical Issues Psychosocial: Psychosocial support most from his long-term partner. Also has a sister he is close to who lives in [place]. Spiritual: Worship background. Congregational and spirituality currently do not play an important role in his life. Legal: Has never completed an advanced directive. He is open to doing so. Ethical issues impacting care: Patient is currently capacitated to make his own health care decisions. . Important Contacts * Bahman Azul (friend) -- [phone] . Prognosis Prognosis remains uncertain at this time. There does not appear to be evidence of metastatic disease. Await pathology from the ERCP. We will have a better idea regarding prognosis after the patient has his follow-up outpatient visit with oncology. In general, unless the patient is a surgical candidate, life expectancy would probably be less than one year. . Code Status: Full Code Plan == CODE STATUS: Patient desires "full code" at this time. == Medical decision making: Patient is currently capacitated to make his own health care decisions. He has indicated he wants his long-term domestic partner to be his health care surrogate. We will try and get paperwork in place. == Goals of medical treatment: Currently, patient wants all aggressive care to prolong his life. He wants to find out what his pathology results are and all the options for treating before making any decisions to possibly limit care. == Pain: Patient has been quite free of discomfort. Over the last 2 weeks he has had occasional abdominal fullness but no real pain. He had no previous underlying pain syndromes. No need for opiate analgesics at this time. == Constipation: This is probably related to the blocked biliary system. Bowels are now moving. Would recommend a bowel protocol such as Lynn-Colace 1- 2 every 12 when necessary constipation. == Nausea: Appears to be resolved post pancreatic duct stenting. == Pruritus: Itching is quite tolerable at this point. Probably due to hyperbilirubinemia and predicted will decline as the bilirubin comes down. No further recommendations at this time. == Palliative care contact information provided. == I requested that the palliative care social media campaign manager provide advance directive information and assist the patient in completing these if he wishes. == Palliative care will continue to follow to assist with any symptom management and to further clarify goals of medical treatment as the clinical case evolves. . Thank you for the opportunity to participate in the care of Mr. Araujo. . Attestation To help prompt me to consider important information that might be impacting today's encounter and assessment, information from prior notes written by myself or my colleagues may have been "brought forward" into today's note. My signature on this note, however, is an attestation that I personally performed the exam, history, and/or decision-making noted today, and, unless otherwise indicated, the interactions with patient, family, and staff as well as the review of records all occurred today. I also attest that the listed assessment and stated plan reflect my best clinical judgment today based on the combination of historical information, prior notes, and today's exam/ interactions. When time spent is documented, it refers only to time spent today by the signer, or if indicated, combined time spent today by collaborating physician/nurse practitioner. . Johnnie Mendoza MD February 24, 2017 10:15
--- NOTE | 2017-02-24 11:17 | PD.ONC.PN ---
Subjective Subjective Remarks Afebrile overnight. Patient resting in room without complaint. Objective Data Date Time Temp Pulse Resp B/P Pulse Ox O2 Delivery O2 Flow Rate FiO2 02/24/17 08:00 98.6 81 18 110/64 97 02/24/17 04:00 97.6 69 17 119/62 99 02/24/17 00:00 98.1 72 17 126/62 99 02/23/17 21:00 79 02/23/17 20:00 98.9 79 17 121/66 97 02/23/17 16:00 98.3 70 20 115/65 96 02/23/17 13:00 97.3 78 19 134/66 97 02/24/17 02/24/17 02/24/17 07:00 15:00 23:00 Intake Total 240 ml Balance 240 ml Result Diagram: 02/23/1713 02/24/1717 Laboratory Results Laboratory Tests Test 02/24/17 05:17 Sodium Level 136 MEQ/L Potassium Level 3.6 MEQ/L Chloride Level 100 MEQ/L Carbon Dioxide Level 26.8 MEQ/L Anion Gap 9 MEQ/L Blood Urea Nitrogen 20 MG/DL Creatinine 0.91 MG/DL Estimat Glomerular Filtration 80 ML/MIN Rate Random Glucose 125 MG/DL Calcium Level 8.4 MG/DL Total Bilirubin 22.4 MG/DL Aspartate Amino Transf 312 U/L (AST/SGOT) Alanine Aminotransferase 586 U/L (ALT/SGPT) Alkaline Phosphatase 957 U/L Total Protein 5.1 GM/DL Albumin 2.1 GM/DL Administered Medications Medications (Trade) Dose Ordered Sig/Samy Route PRN Reason Start Time Stop Time Status Last Admin Dose Admin Sodium Chloride (NS Flush) 2 ml BID IV FLUSH 02/19/17 21:00 02/22/17 21:28 Levothyroxine Sodium (Synthroid) 50 mcg DAILY@0600 PO 02/20/17 06:00 02/24/17 05:28 Morphine Sulfate (Morphine Inj) 2 mg Q3H PRN IV PUSH PAIN SCALE 6 TO 10 02/21/17 23:00 02/21/17 23:13 Objective Remarks GENERAL: Elderly male, supine in bed in nad. SKIN: Warm and dry. HEAD: Normocephalic. EYES: ++ scleral icterus. No injection or drainage. NECK: Supple, trachea midline. CARDIOVASCULAR: Regular rate and rhythm RESPIRATORY: Breath sounds equal bilaterally. No accessory muscle use. GASTROINTESTINAL: Abdomen soft, non-tender, nondistended. EXTREMITIES: No cyanosis NEUROLOGICAL: No obvious focal deficit. Awake, alert, and oriented x3. Assessment/Plan Problem List: (1) Mass of pancreas Status: Acute Plan: CT abdomen from 02/17/2017 revealed a prominent mass in region of the pancreatic neck. Gastroenterology following, s/p ERCP with stent placement CT chest: no mets --await surgical oncology Assessment 82y/o male with pancreatic head mass, associated with jaundice. history of hyperlipidemia, hyperthyroidism Plan 1. await surgical oncology consult 2. monitor bilirubin Kristen Willard February 24, 2017 11:17
--- NOTE | 2017-02-24 12:31 | HHI.PR ---
Subjective Remarks Follow-up pancreatic mass 02/24/17-patient seen and examined, denies any significant abdominal pain. Tolerated by mouth without any nausea and vomiting. Objective Vitals Vital Signs Date Time Temp Pulse Resp B/P Pulse Ox O2 Delivery O2 Flow Rate FiO2 02/24/17 12:00 98.0 73 18 104/68 97 02/24/17 08:00 98.6 81 18 110/64 97 02/24/17 04:00 97.6 69 17 119/62 99 02/24/17 00:00 98.1 72 17 126/62 99 02/23/17 21:00 79 02/23/17 20:00 98.9 79 17 121/66 97 02/23/17 16:00 98.3 70 20 115/65 96 02/23/17 13:00 97.3 78 19 134/66 97 I/O 02/23/17 02/23/17 02/23/17 02/24/17 02/24/17 02/24/17 07:00 15:00 23:00 07:00 15:00 23:00 Intake Total 240 ml 1080 ml 240 ml 240 ml Output Total 200 ml 800 ml Balance 40 ml 280 ml 240 ml 240 ml Intake Oral 240 ml 1080 ml 240 ml 240 ml Output Urine Total 200 ml 800 ml # Voids 3 3 # Bowel Movements 1 3 Result Diagram: 02/23/17 0513 02/24/1717 Imaging Last Impressions Liver Ultrasound 02/22/17 0000 Signed Impressions: Service Date/Time: Wednesday, February 22, 2017 18:46 - CONCLUSION: 1. Dilatation of the pancreatic duct and common bile duct as seen on recent cross-sectional imaging. No measurable mass on ultrasound is identified. 2. Fatty liver. Distended gallbladder. Antony Ge MD Chest CT 02/22/17 0000 Signed Impressions: Service Date/Time: Wednesday, February 22, 2017 11:12 - CONCLUSION: No acute findings in the chest. Alton Patterson MD GI Procedure 02/21/17 1730 Signed Impressions: Service Date/Time: Tuesday, February 21, 2017 18:38 - CONCLUSION: Common bile duct stenosis noted. Silastic stent placement across the narrowing. Rogers Braun MD Cholangiopancreatography MRI 02/20/17 0000 Signed Impressions: Service Date/Time: February 12:12 - CONCLUSION: The common bile duct is markedly dilated as is the pancreatic duct and there is also tapering of the splenic vein in SMV before it becomes the portal vein. All three things suggest that there is a central pancreatic head mass, but it is difficult to define one on the MRCP. After contrast there is a fairly uniform enhancement through the head and neck of the pancreas. Difficult to define an actual mass. There is a questionable 1 cm lesion in the head of the pancreas on the CT scan specifically series2; image 30 but this is more median than the common bile duct narrowing. Outpatient PET CT could be performed. Solid organs are unremarkable. Eduardo Poe MD Abdomen/Pelvis CT 02/19/17 1620 Signed Impressions: Service Date/Time: Sunday, February 19, 2017 18:01 - CONCLUSION: 1. Cholelithiasis 2. Dilatation of the common bile duct to the level the pancreatic head with pancreatic duct dilatation. 3. Obstructing stone or mass is not excluded. Chalo Schofield MD Objective Remarks GENERAL: NAD SKIN: Warm and dry. HEAD: Normocephalic. EYES: + scleral icterus. No injection or drainage. NECK: Supple, trachea midline. No JVD or lymphadenopathy. CARDIOVASCULAR: Regular rate and rhythm without murmurs, gallops, or rubs. RESPIRATORY: Breath sounds equal bilaterally. No accessory muscle use. GASTROINTESTINAL: Abdomen soft, non-tender, nondistended. MUSCULOSKELETAL: No cyanosis, or edema. BACK: Nontender without obvious deformity. No CVA tenderness. A/P Problem List: (1) Mass of pancreas ICD Code: K86.9 Status: Acute (2) Transaminitis ICD Code: R74.0 Status: Acute (3) Cholelithiasis ICD Code: K80.20 Status: Acute (4) Common bile duct dilatation ICD Code: K83.8 Status: Acute (5) Acute kidney injury ICD Code: N17.9 Status: Acute (6) Obstructive jaundice ICD Code: K83.8 Status: Acute Assessment and Plan 81-year-old male with past medical history of HLD and hypothyroidism who was sent by his PCP for abnormal abdominal CT he had done for abdominal distention and jaundice. 1. Pancreatic mass Probable choledocholithiasis with elevated bilirubin and transaminates: Abdomen/Pelvis CT imaging reviewed, shows Cholelithiasis and dilatation of the common bile duct to the level the pancreatic head with pancreatic duct dilatation; obstructing stone or mass not excluded. Now with pancreatic head mass seen on EUS/ERCP, elevated CA 19-9 , concern is for pancreatic cancer. - Consulted tax manager public: Biopsy results are pending. Will need ERCP was mobile in 3 months. - Consult heme/onc: Concern for localized pancreatic cancer, elevated CA-19-9. CT of chest negative. - Palliative of care medicine ff - Awaiting surgical oncology Acute renal failure/hyponatremia: likely secondary to dehydration. - Creatinine improved with IVF. - Avoid nephrotoxins Hypothyroidism, chronic, stable - continue home Levothyroxine DVT prophylaxis - SCDs Problem Qualifiers (1) Cholelithiasis: Qualified Code: K80.20 - Calculus of gallbladder without cholecystitis without obstruction Alphonse Rankin MD February 24, 2017 12:31
--- NOTE | 2017-02-24 12:49 | HHI.GIFU ---
Subjective Remarks Resting in bed. Remains jaundiced, but no nausea, vomiting, abdominal pain. Tolerating diet. (Adia Kendall Taylorsergei SANTANA) Objective Vitals I&O Vital Signs Date Time Temp Pulse Resp B/P Pulse Ox O2 Delivery O2 Flow Rate FiO2 02/24/17 12:00 98.0 73 18 104/68 97 02/24/17 08:00 98.6 81 18 110/64 97 02/24/17 04:00 97.6 69 17 119/62 99 02/24/17 00:00 98.1 72 17 126/62 99 02/23/17 21:00 79 02/23/17 20:00 98.9 79 17 121/66 97 02/23/17 16:00 98.3 70 20 115/65 96 02/23/17 13:00 97.3 78 19 134/66 97 I/O 02/23/17 02/23/17 02/23/17 02/24/17 02/24/17 02/24/17 07:00 15:00 23:00 07:00 15:00 23:00 Intake Total 240 ml 1080 ml 240 ml 240 ml Output Total 200 ml 800 ml Balance 40 ml 280 ml 240 ml 240 ml Intake Oral 240 ml 1080 ml 240 ml 240 ml Output Urine Total 200 ml 800 ml # Voids 3 3 # Bowel Movements 1 3 Laboratory Laboratory Tests Test 02/24/17 05:17 Sodium Level 136 Potassium Level 3.6 Chloride Level 100 Carbon Dioxide Level 26.8 Anion Gap 9 Blood Urea Nitrogen 20 Creatinine 0.91 Estimat Glomerular Filtration 80 Rate Random Glucose 125 Calcium Level 8.4 Total Bilirubin 22.4 Aspartate Amino Transf 312 (AST/SGOT) Alanine Aminotransferase 586 (ALT/SGPT) Alkaline Phosphatase 957 Total Protein 5.1 Albumin 2.1 Imaging Last Impressions Liver Ultrasound 02/22/17 0000 Signed Impressions: Service Date/Time: Wednesday, February 22, 2017 18:46 - CONCLUSION: 1. Dilatation of the pancreatic duct and common bile duct as seen on recent cross-sectional imaging. No measurable mass on ultrasound is identified. 2. Fatty liver. Distended gallbladder. Antony Ge MD Chest CT 02/22/17 0000 Signed Impressions: Service Date/Time: Wednesday, February 22, 2017 11:12 - CONCLUSION: No acute findings in the chest. Alton Patterson MD GI Procedure 02/21/17 1730 Signed Impressions: Service Date/Time: Tuesday, February 21, 2017 18:38 - CONCLUSION: Common bile duct stenosis noted. Silastic stent placement across the narrowing. Rogers Braun MD Cholangiopancreatography MRI 02/20/17 0000 Signed Impressions: Service Date/Time: February 12:12 - CONCLUSION: The common bile duct is markedly dilated as is the pancreatic duct and there is also tapering of the splenic vein in SMV before it becomes the portal vein. All three things suggest that there is a central pancreatic head mass, but it is difficult to define one on the MRCP. After contrast there is a fairly uniform enhancement through the head and neck of the pancreas. Difficult to define an actual mass. There is a questionable 1 cm lesion in the head of the pancreas on the CT scan specifically series2; image 30 but this is more median than the common bile duct narrowing. Outpatient PET CT could be performed. Solid organs are unremarkable. Eduardo Poe MD Abdomen/Pelvis CT 02/19/17 1620 Signed Impressions: Service Date/Time: Sunday, February 19, 2017 18:01 - CONCLUSION: 1. Cholelithiasis 2. Dilatation of the common bile duct to the level the pancreatic head with pancreatic duct dilatation. 3. Obstructing stone or mass is not excluded. Chalo Schofield MD Physical Exam HEENT: normocephalic; atraumatic; + jaundice. CHEST: CTA CARDIAC: RRR ABDOMEN: Soft, nondistended, nontender; no hepatosplenomegaly; bowel sounds are present in all four quadrants. EXTREMITIES: No clubbing, cyanosis, or edema. SKIN: Normal; no rash; + jaundice. ANIMAL CARE ASSISTANT: No focal deficits; alert and oriented times three. (Adia Kendall [facility]) Assessment and Plan Plan ASSESSMENT: - Obstructive jaundice, Pancreatic head mass, Elevated LFTs. Abdomen/Pelvis CT (02/19/17)----> 1. Cholelithiasis 2. Dilatation of the common bile duct to the level the pancreatic head with pancreatic duct dilatation. 3. Obstructing stone or mass is not excluded. Cholangiopancreatography MRI (02/20/17)----> The common bile duct is markedly dilated as is the pancreatic duct and there is also tapering of the splenic vein in SMV before it becomes the portal vein. All three things suggest that there is a central pancreatic head mass, but it is difficult to define one on the MRCP. After contrast there is a fairly uniform enhancement through the head and neck of the pancreas. Difficult to define an actual mass. There is a questionable 1 cm lesion in the head of the pancreas on the CT scan specifically series2; image 30 but this is more median than the common bile duct narrowing. Outpatient PET CT could be performed. Solid organs are unremarkable. Liver Ultrasound (02/22/17)-----> 1. Dilatation of the pancreatic duct and common bile duct as seen on recent cross-sectional imaging. No measurable mass on ultrasound is identified. 2. Fatty liver. Distended gallbladder. S/P EUS with FNA/ERCP with stent placement (02/21/17)----> Pancreatic head mass, biliary stricture. CEA 2.6, AFP 2.1, CA 19-9 2996.8. LFT's remain elevated T. Bili 24.5, AST 197, ALT 437, Alk Phosph 791. PLAN: - NPO after MN - LFT in am - Based on these results, we will decide if repeat ERCP is needed - Await pathology - Repeat labs in am - Oncology on the case - Further recommendations based on results above - Pt seen and examined by Dr. Lei and myself and the (Adia Kendall) Physician Comments Patient seen and examined Agree with above Continue with current supportive care Monitor labs With bilirubin trending down but liver enzymes trending up one major concern would be that of possibly an infiltrative process into the liver Further recommendations shall depend on the hospital course blood work and possible repeat abdominal imaging (Randy Spicer MD) Adia Kendall February 24, 2017 12:49 Randy Spicer MD February 24, 2017 22:54
[2017-02-24] MEDS ORDERED: DOCUSATE SODIUM 50 MG/SENNA 8.6 MG TAB PO PRN (13:15)
[2017-02-24] MEDS ORDERED: TEMAZEPAM 15 MG CAP PO PRN (13:15)
[2017-02-24] MEDS ORDERED: ALUMINUM/MAGNESIUM/SIMETH 30 ML CUP PO PRN (13:15)
[2017-02-24] MEDS ORDERED: ACETAMINOPHEN 325 MG TAB PO PRN (13:15)
[2017-02-24] MEDS ORDERED: ONDANSETRON HCL 4 MG/2 ML VIAL IV PRN (13:15)
[2017-02-25] MEDS: LEVOTHYROXINE SODIUM 50 MCG TAB PO SCH (05:21)
--- NOTE | 2017-02-25 07:05 | MB ---
cc: JOLIE LAL DATE OF CONSULTATION 02/24/[address] Verdugo REASON FOR CONSULTATION Pancreatic mass, possible pancreatic adenocarcinoma. HISTORY OF PRESENT ILLNESS The patient is an 82-year-old male who presented to [facility] with painless jaundice. The patient underwent workup on admission and was found to have a bilirubin of 24.7, as well as elevated CA19-9 approximately in the 2000 range. The patient underwent subsequent work up with MRI which was suspicious for a pancreatic mass with possible narrowing of the SMV portal confluence. There was also a CT scan the chest performed. None of these studies showed metastatic disease. The patient underwent an EUS and ERCP with stent placement and biopsy which is pending. The patient currently continues to have jaundice and is being monitored by gastroenterology for possible repeat ERCP based on LFT trends. The patient currently has no pain. He states he feels better and is able to eat. The patient has had some weight loss, but denies any shortness of breath, chest pain, nausea, vomiting, constipation, diarrhea, fevers, chills, night sweats or any other complaints. REVIEW OF SYSTEMS A 12-point review of systems is conducted with the patient. Negatives and the pertinent positives are mentioned above in the history of present illness. PAST MEDICAL HISTORY 1. Hyperlipidemia 2. Hypothyroidism PAST SURGICAL HISTORY 1. Exploratory laparotomy 2. Repair of perforation of the colon after colonoscopy. ALLERGIES No significant allergies. FAMILY HISTORY Patient denies a history of cancer in his family. Denies a history of pancreatic cancer. SOCIAL HISTORY The patient states he has never used tobacco. The patient denies illicit drugs or alcohol use. He has a partner, but has not undergone union or marriage with him at this time. PHYSICAL EXAMINATION VITAL SIGNS: Temperature 98.5 degrees, pulse rate 69, blood pressure 104/64. GENERAL: The patient is a chronically ill-appearing male with obvious jaundice. HEAD, EYES, EARS, NOSE, AND THROAT: The patient's head was normocephalic, atraumatic. Pupils round and reactive to accommodation and light. Sclera shows no significant icterus. NECK: Supple. No JVD. LUNGS: Breath sounds present bilaterally. Nonlabored breathing pattern. HEART: Regular rate and rhythm. ABDOMEN: Soft. Normal bowel sounds. Midline scar well healed. No masses, ascites or organomegaly. No hernias. BACK: No CVA tenderness. EXTREMITIES: No clubbing, cyanosis or edema. NEUROLOGIC EXAMINATION: The patient is oriented times three. Peripheral exam is nonfocal. Cranial II-XII are grossly intact. LABORATORY DATA Reveal an elevated bilirubin as well as transaminases and anemia and low protein levels. IMAGING STUDIES As above. CT scan significant for a dilated bile duct with possible pancreatic mass. CT scan of the chest was negative for acute disease. MRI the abdomen showed a likely pancreatic mass with possible impingement of the portal SMV confluence. ASSESSMENT/PLAN The patient is an 82-year-old male with painless jaundice and likely pancreatic mass likely pancreatic adenocarcinoma with elevated CA19-9. Pathology is pending. I agree with current management and any treatment for his potential pancreatic mass will have to be delayed until he has adequate biliary drainage and has his liver hepatitis from his cholestasis can be sufficiently resolved. Certainly any operation such as Whipple procedure in a patient with obstructive jaundice is contraindicated due to substantially high mortality. I did discuss this with the patient. He will continue his treatment recommendations for treatment of his jaundice and will follow up with me as an outpatient for further discussion of surgical intervention options. I did discuss the diagnosis, staging, and treatment options of pancreatic adenocarcinoma including categorization of resectable, borderline resectable, and nonresectable type tumors and that if he is found to have a vein involvement of his tumor, neoadjuvant protocol with chemotherapy and radiation should be considered per NCCN guidelines. I will recommend the patient to get a PET scan, as well as a CT scan of the pancreatic protocol done as an outpatient once he is recovered from his acute medical process. Thank you very much for this consultation. We will follow along with the patient while he is here and anticipate follow up after discharge in two to three weeks. MD MIGNON Yanez/FERNIE /8:43 PM /6:46 AM
[2017-02-25 07:38] LABS: INDIRECT BILIRUBIN 2.7 MG/DL (0.0-0.8)
[2017-02-25 07:39] LABS: TOTAL BILIRUBIN ADULT 11.5 MG/DL (0.2-1.0)
[2017-02-25 08:00] VITALS: BP 102/58; PULSE 73; RESP 18; TEMP 98.8; O2SAT 95
[2017-02-25] MEDS: SODIUM CHLORIDE 0.9% FLUSH 10 ML FLUSH IV FLUSH SCH ×2 (09:00→20:06)
[2017-02-25 09:15] VITALS: PULSE 66
--- NOTE | 2017-02-25 10:37 | HHI.PR ---
Subjective Remarks Follow-up pancreatic mass 02/24/17-patient seen and examined, denies any significant abdominal pain. Tolerated by mouth without any nausea and vomiting. 02/25/17-patient seen and examined, reports some mild abdominal pain otherwise stable. Currently nothing by mouth overnight initially patient did not want to consent for GI procedure plan for today. He was seen by Surg Onc yesterday Objective Vitals Vital Signs Date Time Temp Pulse Resp B/P Pulse Ox O2 Delivery O2 Flow Rate FiO2 02/25/17 08:00 98.8 73 18 102/58 95 02/24/17 23:58 98.5 82 18 122/66 98 02/24/17 20:00 96.5 80 17 110/60 97 02/24/17 20:00 88 02/24/17 16:00 98.5 69 17 97 02/24/17 12:00 98.0 73 18 104/68 97 I/O 02/24/17 02/24/17 02/24/17 02/25/17 02/25/17 02/25/17 07:00 15:00 23:00 07:00 15:00 23:00 Intake Total 240 ml 360 ml 380 ml Output Total 600 ml Balance 240 ml 360 ml -220 ml Intake Oral 240 ml 360 ml 380 ml Output Urine Total 600 ml # Voids 3 3 3 Result Diagram: 02/23/1751202/24/17516 Objective Remarks GENERAL: NAD SKIN: Warm and dry. HEAD: Normocephalic. EYES: + scleral icterus. No injection or drainage. NECK: Supple, trachea midline. No JVD or lymphadenopathy. CARDIOVASCULAR: Regular rate and rhythm without murmurs, gallops, or rubs. RESPIRATORY: Breath sounds equal bilaterally. No accessory muscle use. GASTROINTESTINAL: Abdomen soft, non-tender, nondistended. MUSCULOSKELETAL: No cyanosis, or edema. BACK: Nontender without obvious deformity. No CVA tenderness. A/P Problem List: (1) Mass of pancreas ICD Code: K86.9 Status: Acute (2) Transaminitis ICD Code: R74.0 Status: Acute (3) Cholelithiasis ICD Code: K80.20 Status: Acute (4) Common bile duct dilatation ICD Code: K83.8 Status: Acute (5) Acute kidney injury ICD Code: N17.9 Status: Acute (6) Obstructive jaundice ICD Code: K83.8 Status: Acute Assessment and Plan 81-year-old male with past medical history of HLD and hypothyroidism who was sent by his PCP for abnormal abdominal CT he had done for abdominal distention and jaundice. 1. Pancreatic mass-likely pancreatic adenocarcinoma Probable choledocholithiasis with elevated bilirubin and transaminates: Abdomen/Pelvis CT imaging reviewed, shows Cholelithiasis and dilatation of the common bile duct to the level the pancreatic head with pancreatic duct dilatation; obstructing stone or mass not excluded. Now with pancreatic head mass seen on EUS/ERCP, elevated CA 19-9 , concern is for pancreatic cancer. - Consulted clinical administrator: Biopsy results are pending. Need repeat ERCP sooner than 3 months as patient with elevated T bili and LFTs - Consult heme/onc: Concern for localized pancreatic cancer, elevated CA-19-9. CT of chest negative. - Palliative of care medicine ff - Appreciate input from surgical oncology and advised on continue medical management Acute renal failure/hyponatremia: likely secondary to dehydration. - Creatinine improved with IVF. - Avoid nephrotoxins Hypothyroidism, chronic, stable - continue home Levothyroxine DVT prophylaxis - SCDs Problem Qualifiers (1) Cholelithiasis: Qualified Code: K80.20 - Calculus of gallbladder without cholecystitis without obstruction Alphonse Rankin MD February 25, 2017 10:37
--- NOTE | 2017-02-25 11:18 | PD.ONC.PN ---
Subjective Subjective Remarks Afebrile overnight. Patient without complaint. Resting in room. Seen by Dr Parr yesterday. Objective Data Date Time Temp Pulse Resp B/P Pulse Ox O2 Delivery O2 Flow Rate FiO2 02/25/17 08:00 98.8 73 18 102/58 95 02/24/17 23:58 98.5 82 18 122/66 98 02/24/17 20:00 96.5 80 17 110/60 97 02/24/17 20:00 88 02/24/17 16:00 98.5 69 17 97 02/24/17 12:00 98.0 73 18 104/68 97 Result Diagram: 02/23/17 0513 02/24/17 0517 Laboratory Results Laboratory Tests Test 02/25/17 05:11 Total Bilirubin 11.5 MG/DL Direct Bilirubin 8.8 MG/DL Indirect Bilirubin 2.7 MG/DL Aspartate Amino Transf 188 U/L (AST/SGOT) Alanine Aminotransferase 474 U/L (ALT/SGPT) Alkaline Phosphatase 814 U/L Total Protein 5.2 GM/DL Albumin 2.2 GM/DL Administered Medications Medications (Trade) Dose Ordered Sig/Samy Route PRN Reason Start Time Stop Time Status Last Admin Dose Admin Sodium Chloride (NS Flush) 2 ml BID IV FLUSH 02/19/17 21:00 02/22/17 21:28 Levothyroxine Sodium (Synthroid) 50 mcg DAILY@0600 PO 02/20/17 06:00 02/25/17 05:21 Morphine Sulfate (Morphine Inj) 2 mg Q3H PRN IV PUSH PAIN SCALE 6 TO 10 02/21/17 23:00 02/21/17 23:13 Objective Remarks GENERAL: Elderly male, upright in bed in nad SKIN: Warm and dry. HEAD: Normocephalic. EYES: + scleral icterus. No injection or drainage. NECK: Supple, trachea midline. CARDIOVASCULAR: Regular rate and rhythm RESPIRATORY: Breath sounds equal bilaterally. No accessory muscle use. GASTROINTESTINAL: Abdomen soft, non-tender, nondistended. EXTREMITIES: No cyanosis NEUROLOGICAL: No obvious focal deficit. Awake, alert, and oriented x3. Assessment/Plan Problem List: (1) Mass of pancreas Status: Acute Plan: CT abdomen from 02/17/2017 revealed a prominent mass in region of the pancreatic neck. Gastroenterology following, s/p ERCP with stent placement CT chest: no mets --surgical oncology plans outpatient follow up and PET scan Assessment 82y/o male with pancreatic head mass, associated with jaundice. history of hyperlipidemia, hyperthyroidism Plan 1. fs faxed to new patient referrals for follow up in 2 weeks. 2. monitor bilirubin Attending Statement The exam, history, and the medical decision-making described in the above note were completed with the assistance of the mid-level provider. I reviewed and agree with the findings presented. I attest that I had a [id number] encounter with the patient on the same day, and personally performed and documented my assessment and findings in the medical record. Discussed lab findings HIV/Hepatitis neg. CT chest neg. US liver vasculature unable to reveal etiology persistent bilirubin elevation despite stent placement. Pathology still pending. Not currently a surgical candidate because of elevated bilirubin. Options for chemotherapy are like hinojosa limit with high bilirubin. Ok to follow up as out pt. Bili decrease 24-> 11, possible response. Kristen Willard February 25, 2017 11:18 Tracey Verdugo MD February 25, 2017 19:13
[2017-02-25 12:00] VITALS: BP 118/61; PULSE 67; RESP 20; TEMP 97.2; O2SAT 98
--- NOTE | 2017-02-25 12:16 | HHI.HCPN ---
Reason for visit a. To assist with evaluation and management of symptoms including: constipation; nausea; pruritus b. To assist medical decision maker(s) with: better understanding of current medical conditions; weighing benefits/burdens of medical treatment options; making medical treatment decisions. . Subjective/Interval History Mr. Araujo is feeling well. He denies pain, SOB, nausea, itching. He is eating. Bowels are moving. He tells me he is ambulating from bed to bathroom back to bed without difficulty. He was made NPO last night -- I believe GI was considering a repeat ERCP is LFTs did not improve. There has been improvement and we await GI decision. Dr. Lawson was consulted regarding surgery. He was recommended outpatient PET scanning and would not want to consider surgery until liver function has significantly improved. Patient wanting to go home. . Family/friend interactions No family/ friends contacted today. None at bedside. . Advance Directives Living Will: Never completed Health Care Surrogate: Copy in medical record Durable Power of Shirt Folder: Never completed Advance Directive Specifics Date completed: Health care surrogate documentation completed on 02/24/17 . . Health Care Surrogate(s): Patient has designated his partner -- Bahman Azul -- as primary surrogate. He has designated his sister -- Julia Lindsey -- as alternate. . Documented care wishes: Patient has no written documentation of health care preferences her goals. . Significant change in goals: None Objective Vital Signs Date Time Temp Pulse Resp B/P Pulse Ox O2 Delivery O2 Flow Rate FiO2 02/25/17 08:00 98.8 73 18 102/58 95 02/24/17 23:58 98.5 82 18 122/66 98 02/24/17 20:00 96.5 80 17 110/60 97 02/24/17 20:00 88 02/24/17 16:00 98.5 69 17 97 Intake & Output 02/25/17 02/25/17 07:00 19:00 Intake Total 380 ml Output Total 600 ml Balance -220 ml Intake Oral 380 ml Output Urine Total 600 ml # Voids 3 . Physical Exam CONSTITUTIONAL/GENERAL: This is an adequately nourished patient, in no apparent distress. Awake, alert, smiling, interactive. He is hungry. TUBES/LINES/DRAINS: SCDs SKIN: Patient is mildly jaundiced. No rashes, or lesions noted. No wounds seen anteriorly. Skin temperature appropriate. Not diaphoretic. EYES: Pupils equal and round. . Extraocular motions intact. Sclerae are slightly icteric. No injection or drainage. Fundi not examined. ENT: Hearing grossly normal. Nose without bleeding or purulent drainage. Throat without visible erythema, exudates, masses, or lesions. NECK: Trachea midline. Supple, nontender. CARDIOVASCULAR: Regular rate and rhythm without murmurs, gallops, or rubs. No JVD. RESPIRATORY/CHEST: Symmetric, unlabored respirations. Clear to auscultation. Breath sounds equal bilaterally. No wheezes, rales, or rhonchi. GASTROINTESTINAL: Abdomen soft, non-tender, nondistended. No hepato-splenomegaly , or palpable masses. No guarding. Bowel sounds present. GENITOURINARY: Not examined. MUSCULOSKELETAL: Extremities without clubbing, cyanosis, or edema. No calf tenderness. No mottling or clubbing. LYMPHATICS: Not examined. NEUROLOGICAL: Awake and alert. Motor and sensory grossly within normal limits. Follows commands. Cognitively sharp. Moves all extremities. PSYCHIATRIC: No obvious anxiety/depression. no apparent hallucinations or other psychotic thought process. . Diagnostic Tests Laboratory Laboratory Tests Test 02/22/17 02/23/17 02/24/17 02/25/17 14:10 05:13 05:17 05:11 Urine Color DARK-YELLOW (YELLW/STRAW) Urine Turbidity HAZY (CLEAR) Urine pH 6.0 (5.0-8.5) Urine Specific [place] 1.018 (1.002-1.035) Urine Protein TRACE mg/dL (NEG-TRACE) Urine Glucose (UA) TRACE mg/dL (NEG) Urine Ketones TRACE mg/dL (NEG) Urine Occult Blood NEG (NEG) Urine Nitrite NEG (NEG) Urine Bilirubin LARGE (NEG) Urine Urobilinogen LESS THAN 2.0 MG/DL (LESS THAN 2.0) Urine Leukocyte Esterase NEG (NEG) Urine RBC LESS THAN 1 /hpf (0-3) Urine WBC 3 /hpf (0-5) Urine Bacteria OCC /hpf (NONE) Urine Mucus FEW /lpf (OCC) Microscopic Urinalysis Comment CULT NOT INDICATED White Blood Count 7.9 TH/MM3 (4.0-11.0) Red Blood Count 3.42 MIL/MM3 (4.50-5.90) Hemoglobin 10.8 GM/DL (13.0-17.0) Hematocrit 31.1 % (39.0-51.0) Mean Corpuscular Volume 91.1 FL (80.0-100.0) Mean Corpuscular Hemoglobin 31.5 PG (27.0-34.0) Mean Corpuscular Hemoglobin 34.5 % Concent (32.0-36.0) Red Cell Distribution Width 19.2 % (11.6-17.2) Platelet Count 217 TH/MM3 (150-450) Mean Platelet Volume 10.7 FL (7.0-11.0) Neutrophils (%) (Auto) % (16.0-70.0) Lymphocytes (%) (Auto) % (9.0-44.0) Monocytes (%) (Auto) % (0.0-8.0) Eosinophils (%) (Auto) % (0.0-4.0) Basophils (%) (Auto) % (0.0-2.0) Neutrophils # (Auto) TH/MM3 (1.8-7.7) Lymphocytes # (Auto) TH/MM3 (1.0-4.8) Monocytes # (Auto) TH/MM3 (0-0.9) Eosinophils # (Auto) TH/MM3 (0-0.4) Basophils # (Auto) TH/MM3 (0-0.2) CBC Comment AUTO DIFF Differential Total Cells 100 Counted Neutrophils % (Manual) 75 % (16-70) Band Neutrophils % 1 % (0-6) Lymphocytes % 15 % (9-44) Monocytes % 8 % (0-8) Eosinophils % 1 % (0-4) Neutrophils # (Manual) 6.0 TH/MM3 (1.8-7.7) Differential Comment FINAL DIFF MANUAL Platelet Estimate NORMAL (NORMAL) Platelet Morphology Comment NORMAL (NORMAL) Target Cells 2+ (NORMAL) Sodium Level 136 MEQ/L 136 MEQ/L (136-145) (136-145) Potassium Level 4.3 MEQ/L 3.6 MEQ/L (3.5-5.1) (3.5-5.1) Chloride Level 100 MEQ/L 100 MEQ/L (98-107) (98-107) Carbon Dioxide Level 27.5 MEQ/L 26.8 MEQ/L (21.0-32.0) (21.0-32.0) Anion Gap 9 MEQ/L (5-15) 9 MEQ/L (5-15) Blood Urea Nitrogen 24 MG/DL (7-18) 20 MG/DL (7-18) Creatinine 0.91 MG/DL 0.91 MG/DL (0.60-1.30) (0.60-1.30) Estimat Glomerular Filtration 80 ML/MIN (>89) 80 ML/MIN (>89) Rate Random Glucose 126 MG/DL 125 MG/DL (74-106) (74-106) Calcium Level 8.9 MG/DL 8.4 MG/DL (8.5-10.1) (8.5-10.1) Total Bilirubin 23.1 MG/DL 22.4 MG/DL 11.5 MG/DL (0.2-1.0) (0.2-1.0) (0.2-1.0) Aspartate Amino Transf 392 U/L (15-37) 312 U/L (15-37) 188 U/L (15-37) (AST/SGOT) Alanine Aminotransferase 623 U/L (12-78) 586 U/L (12-78) 474 U/L (12-78) (ALT/SGPT) Alkaline Phosphatase 898 U/L 957 U/L 814 U/L (45-117) (45-117) (45-117) Total Protein 5.4 GM/DL 5.1 GM/DL 5.2 GM/DL (6.4-8.2) (6.4-8.2) (6.4-8.2) Albumin 2.3 GM/DL 2.1 GM/DL 2.2 GM/DL (3.4-5.0) (3.4-5.0) (3.4-5.0) Lipase 662 U/L (73-393) Hepatitis A IgM Antibody NEGATIVE (NEGATIVE) Hepatitis B Surface Antigen NEGATIVE (NEGATIVE) Hepatitis B Core IgM Antibody NEGATIVE (NEGATIVE) Hepatitis C Antibody NEGATIVE (NEGATIVE) HIV (1&2) Antibody NEGATIVE (NEGATIVE) Direct Bilirubin 8.8 MG/DL (0.0-0.2) Indirect Bilirubin 2.7 MG/DL (0.0-0.8) . Result Diagram: 02/23/17 0513 02/24/17 0517 Imaging Last Impressions Liver Ultrasound 02/22/17 0000 Signed Impressions: Service Date/Time: Wednesday, February 22, 2017 18:46 - CONCLUSION: 1. Dilatation of the pancreatic duct and common bile duct as seen on recent cross-sectional imaging. No measurable mass on ultrasound is identified. 2. Fatty liver. Distended gallbladder. Antony Ge MD Chest CT 02/22/17 0000 Signed Impressions: Service Date/Time: Wednesday, February 22, 2017 11:12 - CONCLUSION: No acute findings in the chest. Alton Patterson MD GI Procedure 02/21/17 1730 Signed Impressions: Service Date/Time: Tuesday, February 21, 2017 18:38 - CONCLUSION: Common bile duct stenosis noted. Silastic stent placement across the narrowing. Rogers Braun MD Cholangiopancreatography MRI 02/20/17 0000 Signed Impressions: Service Date/Time: February 12:12 - CONCLUSION: The common bile duct is markedly dilated as is the pancreatic duct and there is also tapering of the splenic vein in SMV before it becomes the portal vein. All three things suggest that there is a central pancreatic head mass, but it is difficult to define one on the MRCP. After contrast there is a fairly uniform enhancement through the head and neck of the pancreas. Difficult to define an actual mass. There is a questionable 1 cm lesion in the head of the pancreas on the CT scan specifically series2; image 30 but this is more median than the common bile duct narrowing. Outpatient PET CT could be performed. Solid organs are unremarkable. Eduardo Poe MD Abdomen/Pelvis CT 02/19/17 1620 Signed Impressions: Service Date/Time: Sunday, February 19, 2017 18:01 - CONCLUSION: 1. Cholelithiasis 2. Dilatation of the common bile duct to the level the pancreatic head with pancreatic duct dilatation. 3. Obstructing stone or mass is not excluded. Chalo Schofield MD . Procedures * ERCP . Assessment and Plan Disease Oriented Problem List: (1) Mass of pancreas (2) Common bile duct dilatation (3) Obstructive jaundice Comment: Improving post ERCP with pancreatic duct stenting. . (4) Cholelithiasis (5) Acute kidney injury Comment: Resolved. . (6) Transaminitis Comment: Improving. . Symptom Scale: (1) Pain 0-10 Scale: 0 Comment: No significant pain associated with the current problem. No underlying pain syndromes. . (2) Nausea 0-10 Scale: 0 (Appears to be resolved after duct stenting.) Comment: Resolved. . (3) Pruritus 0-10 Scale: 0 Comment: Improving after duct stenting and slow reduction of bilirubin. . (4) Constipation 0-10 Scale: 0 Comment: Improved . Pertinent Non-Medical Issues Psychosocial: Psychosocial support most from his long-term partner. Also has a sister he is close to who lives in [place]. Spiritual: Sikhism background. Yazdanism and spirituality currently do not play an important role in his life. Legal: No living will. Completed a health care surrogate designation during this hospitalization. Ethical issues impacting care: Patient is currently capacitated to make his own health care decisions. . Important Contacts * Bahman Azul (friend and primary health care surrogate) -- [phone] * Julia Parkeruer (sister and alternate health care surrgoate) - . Prognosis Prognosis remains uncertain at this time. There does not appear to be evidence of metastatic disease. Await pathology from the ERCP. We will have a better idea regarding prognosis after the patient has his follow-up outpatient visit with oncology. In general, unless the patient is a surgical candidate, life expectancy would probably be less than one year. . Code Status: Full Code Plan == CODE STATUS: Patient desires "full code" at this time. == Medical decision making: Patient is currently capacitated to make his own health care decisions. His long-term domestic partner is now designated as his health care surrogate. His sister is designated as alterante. == Goals of medical treatment: Currently, patient wants all aggressive care to prolong his life. He wants to find out what his pathology results are and all the options for treating before making any decisions to possibly limit care. == Pain: Patient has been quite free of discomfort. Over the last 2 weeks he has had occasional abdominal fullness but no real pain. He had no previous underlying pain syndromes. No need for opiate analgesics at this time. == Constipation: This is probably related to the blocked biliary system. Bowels are now moving. Would recommend a bowel protocol such as Lynn-Colace 1- 2 every 12 hours PRN constipation. == Nausea: Appears to be resolved post pancreatic duct stenting. No further recommendations at this time. == Pruritus: Itching is quite tolerable at this point. Probably due to hyperbilirubinemia and predict it will decline as the bilirubin comes down. No further recommendations at this time. == Disposition: Should be able to return home after this hospitalization. == Palliative care will continue to follow to assist with any symptom management and to further clarify goals of medical treatment as the clinical case evolves. . Attestation To help prompt me to consider important information that might be impacting today's encounter and assessment, information from prior notes written by myself or my colleagues may have been "brought forward" into today's note. My signature on this note, however, is an attestation that I personally performed the exam, history, and/or decision-making noted today, and, unless otherwise indicated, the interactions with patient, family, and staff as well as the review of records all occurred today. I also attest that the listed assessment and stated plan reflect my best clinical judgment today based on the combination of historical information, prior notes, and today's exam/ interactions. When time spent is documented, it refers only to time spent today by the signer, or if indicated, combined time spent today by collaborating physician/nurse practitioner. . Johnnie Mendoza MD February 25, 2017 12:16
--- NOTE | 2017-02-25 15:00 | HHI.PR ---
Subjective Subjective Notes Resting in bed Asking if any procedures going to happen today so he can eat Objective Vitals/I&O Vital Signs Date Time Temp Pulse Resp B/P Pulse Ox O2 Delivery O2 Flow Rate FiO2 02/25/17 12:00 97.2 67 20 118/61 98 02/21/17 19:40 Nasal Cannula 2 Labs Laboratory Tests Test 02/25/17 05:11 Total Bilirubin 11.5 Direct Bilirubin 8.8 Indirect Bilirubin 2.7 Aspartate Amino Transf 188 (AST/SGOT) Alanine Aminotransferase 474 (ALT/SGPT) Alkaline Phosphatase 814 Total Protein 5.2 Albumin 2.2 Cardiovascular: Regular Lungs: Clear Abdomen: Non-distended, Non-tender Extremities: No edema Narrative Exam Jaundice A/P Assessment and Plan 82 year old male with painless jaundice with pancreatic mass; elevated CA 19-9 levels. -No surgical plans at this time -Recommend outpatient PET scanning prior to surgery -Monitor liver enzymes -Spoke with ESTHER Cheek Attending Statement The exam, history, and the medical decision-making described in the above note were completed with the assistance of the mid-level provider. I reviewed and agree with the findings presented. I attest that I had a [id number] encounter with the patient on the same day, and personally performed and documented my assessment and findings in the medical record. Abdominal exam stable,no surgical intervention indicated acutely Jaida Ferguson February 25, 2017 15:00 Boy Parr MD March 04, 2017 17:08
--- NOTE | 2017-02-25 15:14 | HHI.GIFU ---
Subjective Remarks Resting in bed. No n/v. No abdominal pain other than "hunger pains" related to being NPO. (Adia Kendall) Objective Vitals I&O Vital Signs Date Time Temp Pulse Resp B/P Pulse Ox O2 Delivery O2 Flow Rate FiO2 02/25/17 12:00 97.2 67 20 118/61 98 02/25/17 09:15 66 02/25/17 08:00 98.8 73 18 102/58 95 02/24/17 23:58 98.5 82 18 122/66 98 02/24/17 20:00 96.5 80 17 110/60 97 02/24/17 20:00 88 02/24/17 16:00 98.5 69 17 97 I/O 02/24/17 02/24/17 02/24/17 02/25/17 02/25/17 02/25/17 07:00 15:00 23:00 07:00 15:00 23:00 Intake Total 240 ml 360 ml 380 ml Output Total 600 ml Balance 240 ml 360 ml -220 ml Intake Oral 240 ml 360 ml 380 ml Output Urine Total 600 ml # Voids 3 3 3 Laboratory Laboratory Tests Test 02/25/17 05:11 Total Bilirubin 11.5 Direct Bilirubin 8.8 Indirect Bilirubin 2.7 Aspartate Amino Transf 188 (AST/SGOT) Alanine Aminotransferase 474 (ALT/SGPT) Alkaline Phosphatase 814 Total Protein 5.2 Albumin 2.2 Imaging Last Impressions Liver Ultrasound 02/22/17 0000 Signed Impressions: Service Date/Time: Wednesday, February 22, 2017 18:46 - CONCLUSION: 1. Dilatation of the pancreatic duct and common bile duct as seen on recent cross-sectional imaging. No measurable mass on ultrasound is identified. 2. Fatty liver. Distended gallbladder. Antony Ge MD Chest CT 02/22/17 0000 Signed Impressions: Service Date/Time: Wednesday, February 22, 2017 11:12 - CONCLUSION: No acute findings in the chest. Alton Patterson MD GI Procedure 02/21/17 4910 Signed Impressions: Service Date/Time: Tuesday, February 21, 2017 18:38 - CONCLUSION: Common bile duct stenosis noted. Silastic stent placement across the narrowing. Rogers Braun MD Cholangiopancreatography MRI 02/20/17 0000 Signed Impressions: Service Date/Time: February 12:12 - CONCLUSION: The common bile duct is markedly dilated as is the pancreatic duct and there is also tapering of the splenic vein in SMV before it becomes the portal vein. All three things suggest that there is a central pancreatic head mass, but it is difficult to define one on the MRCP. After contrast there is a fairly uniform enhancement through the head and neck of the pancreas. Difficult to define an actual mass. There is a questionable 1 cm lesion in the head of the pancreas on the CT scan specifically series2; image 30 but this is more median than the common bile duct narrowing. Outpatient PET CT could be performed. Solid organs are unremarkable. Eduardo Poe MD Abdomen/Pelvis CT 02/19/17 1620 Signed Impressions: Service Date/Time: Sunday, February 19, 2017 18:01 - CONCLUSION: 1. Cholelithiasis 2. Dilatation of the common bile duct to the level the pancreatic head with pancreatic duct dilatation. 3. Obstructing stone or mass is not excluded. Chalo Schofield MD Physical Exam HEENT: Normocephalic; atraumatic; + jaundice. CHEST: CTA CARDIAC: RRR ABDOMEN: Soft, nondistended, nontender; no hepatosplenomegaly; bowel sounds are present in all four quadrants. EXTREMITIES: No clubbing, cyanosis, or edema. SKIN: Normal; no rash; + jaundice. SEAMAN: No focal deficits; alert and oriented times three. (Adia Kendall [facility]) Assessment and Plan Plan ASSESSMENT: - Obstructive jaundice, Pancreatic head mass, Elevated LFTs. Abdomen/Pelvis CT (02/19/17)----> 1. Cholelithiasis 2. Dilatation of the common bile duct to the level the pancreatic head with pancreatic duct dilatation. 3. Obstructing stone or mass is not excluded. Cholangiopancreatography MRI (02/20/17)----> The common bile duct is markedly dilated as is the pancreatic duct and there is also tapering of the splenic vein in SMV before it becomes the portal vein. All three things suggest that there is a central pancreatic head mass, but it is difficult to define one on the MRCP. After contrast there is a fairly uniform enhancement through the head and neck of the pancreas. Difficult to define an actual mass. There is a questionable 1 cm lesion in the head of the pancreas on the CT scan specifically series2; image 30 but this is more median than the common bile duct narrowing. Outpatient PET CT could be performed. Solid organs are unremarkable. Liver Ultrasound (02/22/17)-----> 1. Dilatation of the pancreatic duct and common bile duct as seen on recent cross-sectional imaging. No measurable mass on ultrasound is identified. 2. Fatty liver. Distended gallbladder. S/P EUS with FNA/ERCP with stent placement (02/21/17)----> Pancreatic head mass, biliary stricture. CEA 2.6, AFP 2.1, CA 19-9 2996.8. LFT much improved today. T. Bili 11.5, Direct 8.8, Indirect 2.7, AST 188, ALT 474, Alk Phosph 814. Dr. Ni following, treatment will have to be delayed until he has had adequate biliary drainage and his cholestasis has resolved. Plan will be for PET scan and CT scan of pancreas with pancreatic protocol as outpatient once he is recovered from his acute medical process. PLAN: - KEON - Await pathology - Monitor labs - GS following - Oncology on the case - Plan will be for PET scan and CT scan of pancreas with pancreatic protocol as outpatient once he is recovered from his acute medical process. - Further recommendations based on results above - Pt seen and examined by Dr. Lei and myself and this note is written on his behalf (Adia Kendall) Physician Comments Patient seen and examined Agree with above Continue with current supportive care Monitor labs The bilirubin has significantly declined Stent is working well at this point Not much to add from a GI standpoint We will sign off (Randy Spicer MD) Adia Kendall February 25, 2017 15:14 Randy Spicer MD February 25, 2017 19:44
[2017-02-25 16:00] VITALS: BP 94/62; PULSE 75; RESP 17; TEMP 97.2; O2SAT 100
[2017-02-25 20:00] VITALS: BP 103/58; PULSE 78; RESP 17; TEMP 98; O2SAT 98
[2017-02-25 20:39] VITALS: PULSE 72
[2017-02-26] VITALS: BP 110/59; PULSE 89; RESP 17; TEMP 97.3; O2SAT 96
[2017-02-26 04:33] VITALS: BP 116/60; PULSE 80; RESP 18; TEMP 98.5; O2SAT 98
[2017-02-26] MEDS: LEVOTHYROXINE SODIUM 50 MCG TAB PO SCH (04:44)
[2017-02-26] MEDS: SODIUM CHLORIDE 0.9% FLUSH 10 ML FLUSH IV FLUSH SCH (07:56)
[2017-02-26 08:00] VITALS: BP 105/61; PULSE 69; RESP 18; TEMP 97; O2SAT 98
--- NOTE | 2017-02-26 09:33 | HHI.PR ---
Subjective Remarks Follow-up pancreatic mass 02/24/17-patient seen and examined, denies any significant abdominal pain. Tolerated by mouth without any nausea and vomiting. 02/25/17-patient seen and examined, reports some mild abdominal pain otherwise stable. Currently nothing by mouth overnight initially patient did not want to consent for GI procedure plan for today. He was seen by Surg Onc yesterday 02/26/17-patient seen and examined, denies any abdominal pain. Ambulate without any difficulty. No acute event overnight. Patient's refusing HHC or SNF Objective Vitals Vital Signs Date Time Temp Pulse Resp B/P Pulse Ox O2 Delivery O2 Flow Rate FiO2 02/26/17 08:00 97.0 69 18 105/61 98 02/26/17 04:33 98.5 80 18 116/60 98 02/26/17 00:00 97.3 89 17 110/59 96 02/25/17 20:39 72 02/25/17 20:00 98.0 78 17 103/58 98 02/25/17 16:00 97.2 75 17 94/62 100 02/25/17 12:00 97.2 67 20 118/61 98 I/O 02/25/17 02/25/17 02/25/17 02/26/17 02/26/17 02/26/17 07:00 15:00 23:00 07:00 15:00 23:00 Intake Total 360 ml 380 ml 280 ml Output Total 600 ml Balance 360 ml 380 ml -320 ml Intake Oral 360 ml 380 ml 280 ml Output Urine Total 600 ml # Voids 3 3 3 # Bowel Movements 1 Result Diagram: 02/23/1751202/24/17516 Objective Remarks GENERAL: NAD SKIN: Warm and dry. HEAD: Normocephalic. EYES: + scleral icterus. No injection or drainage. NECK: Supple, trachea midline. No JVD or lymphadenopathy. CARDIOVASCULAR: Regular rate and rhythm without murmurs, gallops, or rubs. RESPIRATORY: Breath sounds equal bilaterally. No accessory muscle use. GASTROINTESTINAL: Abdomen soft, non-tender, nondistended. MUSCULOSKELETAL: No cyanosis, or edema. BACK: Nontender without obvious deformity. No CVA tenderness. A/P Problem List: (1) Mass of pancreas ICD Code: K86.9 Status: Acute (2) Transaminitis ICD Code: R74.0 Status: Acute (3) Cholelithiasis ICD Code: K80.20 Status: Acute (4) Common bile duct dilatation ICD Code: K83.8 Status: Acute (5) Acute kidney injury ICD Code: N17.9 Status: Acute (6) Obstructive jaundice ICD Code: K83.8 Status: Acute Assessment and Plan 81-year-old male with past medical history of HLD and hypothyroidism who was sent by his PCP for abnormal abdominal CT he had done for abdominal distention and jaundice. 1. Pancreatic mass-likely pancreatic adenocarcinoma Probable choledocholithiasis with elevated bilirubin and transaminates: Abdomen/Pelvis CT imaging reviewed, shows Cholelithiasis and dilatation of the common bile duct to the level the pancreatic head with pancreatic duct dilatation; obstructing stone or mass not excluded. Now with pancreatic head mass seen on EUS/ERCP, elevated CA 19-9 , concern is for pancreatic cancer. - Consulted website admin: Biopsy results are pending. Need repeat ERCP in 3 months - Consult heme/onc: Concern for localized pancreatic cancer, elevated CA-19-9. CT of chest negative. - Palliative of care medicine ff - Appreciate input from surgical oncology and advised on continue medical management - Plan for PET scan and CT scan of pancreas with pancreatic protocol as outpatient once he is recovered from his acute medical process. Acute renal failure/hyponatremia: likely secondary to dehydration. - Creatinine improved - Avoid nephrotoxins Hypothyroidism, chronic, stable - continue home Levothyroxine DVT prophylaxis - SCDs Problem Qualifiers (1) Cholelithiasis: Qualified Code: K80.20 - Calculus of gallbladder without cholecystitis without obstruction Alphonse Rankin MD February 26, 2017 09:33
--- NOTE | 2017-02-26 09:39 | HHI.FF ---
Face to Face Verification Diagnosis: (1) Mass of pancreas (2) Obstructive jaundice (3) Common bile duct dilatation Home Health Nursing Order: Signs/symptoms of disease process I have seen patient Rogers Araujo on 02/26/17. My clinical findings support the need for the requested home health care services because: Deconditioned w/ increased weakness I certify that my clinical findings support that this patient is homebound because: Poor cardiac reserve Alphonse Rankin MD February 26, 2017 09:39
--- NOTE | 2017-02-26 09:42 | HHI.DS ---
Discharge Summary Admission Date February 20, 2017 at 07:24 Discharge Date: February 26, 2017 Admitting Diagnosis TRANSAMINITIS , DEHYDRATION (1) Mass of pancreas ICD Code: K86.9 (2) Transaminitis ICD Code: R74.0 (3) Cholelithiasis ICD Code: K80.20 (4) Common bile duct dilatation ICD Code: K83.8 (5) Acute kidney injury ICD Code: N17.9 (6) Obstructive jaundice ICD Code: K83.8 Procedures EUS/ERCP Brief History - From Admission Written by Ángela He, acting as scribe for Dr. Ortega on 02/19/17 at 22:55. Mr. Araujo is a 81 year-old male with hyperlipidemia and hypothyroidism who presented to the ER on 02/19/17 for evaluation of abnormal outpatient CT showing questionable prominence of pancreatic neck and elevated LFTs and ammonia. These tests were done for symptoms of abdominal bloating, jaundice, pruritus, and gilberto colored stools. The patient is seen in the CDU. He states that about one week ago he was not able to have a BM. Therefore, he bought laxatives and when he had BM he noticed that the stool stool was colored caballero. He also had been experiencing a feeling of abdominal bloating. Then, a few days later, he started itching and then turned yellow and he went to his PCP for evaluation. He states that today while he was at work, he had some mild nausea and fatigue. He denies any associated vomiting, diarrhea, fever, black or red stool, abdominal pain, shortness of breath, or cough. Denies any history of hypertension, dm, cad, atrial fibrillation, respiratory problems, liver problems, seizure problems, seizures, or cancers . CBC/BMP: 02/23/17 0513 02/24/17 0517 Significant Findings Laboratory Tests Test 02/24/17 02/25/17 05:17 05:11 Blood Urea Nitrogen 20 MG/DL (7-18) Estimat Glomerular Filtration 80 ML/MIN (>89) Rate Random Glucose 125 MG/DL (74-106) Calcium Level 8.4 MG/DL (8.5-10.1) Total Bilirubin 22.4 MG/DL 11.5 MG/DL (0.2-1.0) (0.2-1.0) Aspartate Amino Transf 312 U/L (15-37) 188 U/L (15-37) (AST/SGOT) Alanine Aminotransferase 586 U/L (12-78) 474 U/L (12-78) (ALT/SGPT) Alkaline Phosphatase 957 U/L 814 U/L (45-117) (45-117) Total Protein 5.1 GM/DL 5.2 GM/DL (6.4-8.2) (6.4-8.2) Albumin 2.1 GM/DL 2.2 GM/DL (3.4-5.0) (3.4-5.0) Direct Bilirubin 8.8 MG/DL (0.0-0.2) Indirect Bilirubin 2.7 MG/DL (0.0-0.8) Imaging Last Impressions Liver Ultrasound 02/22/17 0000 Signed Impressions: Service Date/Time: Wednesday, February 22, 2017 18:46 - CONCLUSION: 1. Dilatation of the pancreatic duct and common bile duct as seen on recent cross-sectional imaging. No measurable mass on ultrasound is identified. 2. Fatty liver. Distended gallbladder. Antony Ge MD Chest CT 02/22/17 0000 Signed Impressions: Service Date/Time: Wednesday, February 22, 2017 11:12 - CONCLUSION: No acute findings in the chest. Alton Patterson MD GI Procedure 02/21/17 1730 Signed Impressions: Service Date/Time: Tuesday, February 21, 2017 18:38 - CONCLUSION: Common bile duct stenosis noted. Silastic stent placement across the narrowing. Rogers Braun MD Cholangiopancreatography MRI 02/20/17 0000 Signed Impressions: Service Date/Time: February 12:12 - CONCLUSION: The common bile duct is markedly dilated as is the pancreatic duct and there is also tapering of the splenic vein in SMV before it becomes the portal vein. All three things suggest that there is a central pancreatic head mass, but it is difficult to define one on the MRCP. After contrast there is a fairly uniform enhancement through the head and neck of the pancreas. Difficult to define an actual mass. There is a questionable 1 cm lesion in the head of the pancreas on the CT scan specifically series2; image 30 but this is more median than the common bile duct narrowing. Outpatient PET CT could be performed. Solid organs are unremarkable. Eduardo Poe MD Abdomen/Pelvis CT 02/19/17 1620 Signed Impressions: Service Date/Time: Sunday, February 19, 2017 18:01 - CONCLUSION: 1. Cholelithiasis 2. Dilatation of the common bile duct to the level the pancreatic head with pancreatic duct dilatation. 3. Obstructing stone or mass is not excluded. Chalo Schofield MD PE at Discharge GENERAL: NAD SKIN: Warm and dry. HEAD: Normocephalic. EYES: + scleral icterus. No injection or drainage. NECK: Supple, trachea midline. No JVD or lymphadenopathy. CARDIOVASCULAR: Regular rate and rhythm without murmurs, gallops, or rubs. RESPIRATORY: Breath sounds equal bilaterally. No accessory muscle use. GASTROINTESTINAL: Abdomen soft, non-tender, nondistended. MUSCULOSKELETAL: No cyanosis, or edema. BACK: Nontender without obvious deformity. No CVA tenderness. Hospital Course Patient admitted with obstructive jaundice for which gastroenterology was consulted and he underwent EUS/ERCP with monitoring of bilirubin and LFTs. Secondary to finding of pancreatic mass and elevated CA-19-9, oncology as well as surgical oncology were all consulted so was palliative care medicine. Acute renal failure improving with IV fluid hydration. Patient was continued on these thyroid medication however Lipitor was held.Plan for PET scan and CT scan of pancreas with pancreatic protocol as outpatient once he is recovered from his acute medical process. Pt Condition on Discharge: Stable Discharge Disposition: Disch w/ Home Health Serv Discharge Time: > 30 minutes Discharge Instructions DIET: Follow Instructions for: Heart Healthy Diet Activities you can perform: Regular-No Restrictions Follow up Referrals: Gastroenterology Oncology PCP Follow-up - 1 Week Surgical Continued Medications: Levothyroxine (Levothyroxine) 50 Mcg Tab 50 MCG PO DAILY Thyroid #30 Ref 0 TAB Alphonse Rankin MD February 26, 2017 09:42
[2017-02-26 11:28] LABS: INDIRECT BILIRUBIN 1.8 MG/DL (0.0-0.8); TOTAL BILIRUBIN ADULT 9.6 MG/DL (0.2-1.0)
== END 2017-02-26 11:43 | disposition home health service (06) | DRG 435 ==
LOC: NEPC 15:50 → NEDA 20:12 → NEPGCP 21:28 → OBSVTOIN 02-20 07:24 → N07B 02-21 16:12 → UNDODISIN 02-25 17:59
PROVIDERS: ADMIT Hospitalist; ATTEND Hospitalist
PROC: 0FB98ZX Excision of Common Bile Duct, Via Natural or Artificial Opening Endoscopic, Diagnostic (ICD-10-PCS; 2017-02-21)
PROC: 0F798DZ Dilation of Common Bile Duct with Intraluminal Device, Via Natural or Artificial Opening Endoscopic (ICD-10-PCS; principal; 2017-02-21 17:30)
PROC: 0F9G4ZX Drainage of Pancreas, Percutaneous Endoscopic Approach, Diagnostic (ICD-10-PCS; 2017-02-21 17:30)
DX: C25.0 Malignant neoplasm of head of pancreas (principal); K83.1 Obstruction of bile duct; N17.9 Acute kidney failure, unspecified; E87.0 Hyperosmolality and hypernatremia; K80.21 Calculus of gallbladder without cholecystitis with obstruction; E86.0 Dehydration; E03.9 Hypothyroidism, unspecified; E78.5 Hyperlipidemia, unspecified; D64.9 Anemia, unspecified; K43.9 Ventral hernia without obstruction or gangrene; K59.00 Constipation, unspecified
CPT/HCPCS: 43242; 71250; 74177; 74183; 74330; 76377; 80053; 80074; 80076; 81001; 82105; 82140; 82378; 83605; 83690; 85007; 85027; 85610; 85730; 86140; 86301; 86703; 88112; 88305; 93975; 94150; A9579; C1769; C2625; J2270; J2370; J2405; J7030; Q9967

== ENCOUNTER 2017-04-07 05:41 | Day surgery (SDC) | payer OTHER ==
[~2017-04-07] VITALS: Ht 172.7 cm; Wt 72.7 kg
[~2017-04-07 05:41] MED LIST: LEVO50TA4 PO; SIMV20TA PO
[2017-04-07] MEDS ORDERED: ASPI81CH37 CHEW (06:40)
[2017-04-07] MEDS ORDERED: CYAN1TAB24 PO (06:40)
[2017-04-07] MEDS ORDERED: OMEGCAP PO (06:40)
[2017-04-07] MEDS ORDERED: MULT1TAB46 PO (06:40)
[2017-04-07] MEDS ORDERED: VITA100064 PO (06:40)
[2017-04-07 06:56] VITALS: BP 138/94; PULSE 75; RESP 20; TEMP 98.5; O2SAT 98
[2017-04-07] MEDS ORDERED: POVIDONE IODINE 5% (ANTISEPSIS KIT) 4 APPLICATIONS EACH NARE SCH (07:00)
[2017-04-07] MEDS ORDERED: CHLORHEXIDINE GLUCONATE 2 % 1 PACK (2 CLOTHS) TOPICAL SCH (07:00)
[2017-04-07] MEDS ORDERED: ceFAZolin 2 GM PREMIX 50 ML - implanted port/tunneled catheter insertion IV SCH (07:00)
[2017-04-07] MEDS ORDERED: VANCOMYCIN 1000 MG/NS 250 ML - implanted port/tunneled catheter IV SCH ×2 (07:00)
[2017-04-07 07:41] LABS: INTERNATIONAL NORMALIZED RATIO 0.9 RATIO; PROTHROMBIN TIME - PATIENT 9.8 SEC (9.8-11.6)
[2017-04-07 07:42] LABS: APTT (PATIENT) 20.2 SEC (24.3-30.1)
[2017-04-07] MEDS ORDERED: MIDAZOLAM HCL 5 MG/5 ML VIAL ONE (07:52)
[2017-04-07] MEDS ORDERED: fentaNYL CITRATE 250 MCG/5 ML AMP ONE (07:52)
[2017-04-07] MEDS ORDERED: LIDOCAINE 1%/EPINEPHrine 1:100,000 SOLN 20 ML VIAL ONE (08:25)
[2017-04-07 09:05] VITALS: BP 125/67; PULSE 75; RESP 20; TEMP 97.9; O2SAT 99
[2017-04-07 09:20] VITALS: BP 130/75; PULSE 77; RESP 20; O2SAT 98
--- NOTE | 2017-04-07 09:31 | RADRPT ---
EXAM DATE/TIME: 04/07/2017 09:25 [place] COMPARISON: No previous studies available for comparison. INDICATIONS : Patient presents with pancreatic cancer in need of port placement for chemotherapy treatment. MEDICAL HISTORY : Cholelithiasis Hyperlipidemia Hypothyroidism SURGICAL HISTORY : Colonoscopy ERCP Stent placement ENCOUNTER: Initial ACUITY: 2 months PAIN SCORE: 0/10 LOCATION: n/a FLUORO TIME: 0.2 minutes IMAGE SERIES: 1 SEDATION TIME: 30 minutes ACCESS: Right internal jugular vein SEDATION: 1.) 3 mg midazolam (Versed) IV 2.) 150 mcg fentanyl (Sublimaze) IV Prophylactic antibiotics were administered with appropriate pre-procedure timing. Vancomycin within 2 hours of procedure, Ancef (or alternative) within 1 hour of procedure. DEVICE: 1. 8 [place] single lumen Smart port CT w/ vortex PROCEDURE : 1. Continuous pulse oximetry and EKG monitoring. 2. Intravenous conscious sedation. 3. Ultrasound guidance for venous access. 4. Fluoroscopic guided implantable central venous port placement. The patient was placed supine. The neck was prepped in sterile fashion. Full sterile technique was u sed, including cap, mask, sterile gloves and gown, and a large sterile sheet. Hand hygiene and 2% ch lorhexidine Betadine was utilized per protocol for cutaneous antisepsis with appropriate dry time for site. The skin and subcutaneous tissues were infiltrated with local anesthetic solution. Under direct ultrasound guidance, central venous access was accomplished in the targeted vessel. The ultrasound images depicting access guidance were stored and saved to PACS for permanent record. A s ubcutaneous pocket was created using blunt dissection. The port was introduced to the pocket. The c atheter tubing was fed through a subcutaneous tunnel to the venotomy site. The catheter tubing was c ut to a suitable length and then was introduced through a valved Peel-Away sheath and positioned with catheter tubing tip at the cavo-atrial junction level. The pocket incision was closed with subcutic ular Vicryl suture. Steri-Strips were applied. The port was flushed and locked with heparin solutio n per protocol. Sterile dressing was applied to the site. The patient tolerated the procedure well. Conscious sedation was performed with the prescribed dosages and duration as above in the presence of an independent trained radiology nurse to assist in the monitoring of the patient. EKG and oximetry remained stable throughout the procedure. The patient tolerated the procedure well and there were no complications. The patient was sent to post anesthesia recovery in stable condition. CONCLUSION: Uncomplicated ultrasound and fluoroscopic guided implanted central venous port catheter placement as described in detail above. An 8 [place] Power port was placed. Chalo Schofield MD on April 07, 2017 at 9:27 Board Certified Radiologist. This report was verified electronically.
[2017-04-07 09:50] VITALS: BP 122/77; PULSE 64; RESP 18; O2SAT 98
[2017-04-07 10:20] VITALS: BP 118/76; PULSE 67; RESP 18; O2SAT 96
[2017-04-07 10:50] VITALS: BP 120/72; PULSE 65; RESP 18; O2SAT 98
--- NOTE | 2017-04-07 11:39 | PD.RAD ---
Post Procedure Progress Note Pre Procedure Diagnosis: (1) Mass of pancreas Post Procedure Diagnosis: (1) Mass of pancreas Procedure Date: Apr 07, 2017 Supervising Radiologist: Chalo Schofield Proceduralist/Assist: RT Shorty(R) Anesthesia: Conscious Sedation Plan of Activity Patient to Unit: [facility] Patient Condition: Good See PACS Report for procedural detail/treatment Central Venous Access Device Procedure 1 Right Internal Jugular Infusaport Placement single lumen Chalo Schofield MD Apr 07, 2017 11:39
[2017-04-07] MEDS ORDERED: SODIUM CHLORIDE 0.9% FLUSH 10 ML FLUSH IVF PRN (11:45)
== END 2017-04-07 11:30 | disposition home or self-care (01) ==
LOC: HROP 05:41 → HRIP 05:55 → HROP 11:30
PROVIDERS: ATTEND Internal Medicine Hematology & Oncology
DX: C25.9 Malignant neoplasm of pancreas, unspecified (principal); E03.9 Hypothyroidism, unspecified; E78.5 Hyperlipidemia, unspecified; Z01.818 Encounter for other preprocedural examination
CPT/HCPCS: 36561; 76937; 77001; 85610; 85730; 99152; 99153; C1788; J0690; J1642; J2250; J3010; J3370; J7050

== ENCOUNTER 2017-05-14 11:32 | Inpatient (IN) | payer OTHER, MEDICARE ==
[~2017-05-14] VITALS: Ht 172.7 cm; Wt 76.2 kg
[~2017-05-14 11:32] MED LIST changes: +ASPI81CH37 CHEW; +CYAN1TAB24 PO; +MULT1TAB46 PO; +OMEGCAP PO; +VITA100064 PO
[2017-05-14 16:00] VITALS: BP 111/68; PULSE 124; RESP 12; TEMP 99.1; O2SAT 96
--- NOTE | 2017-05-14 17:40 | HHI.HP ---
HPI Service [facility] Hospitalists Primary Care Physician Non-Staff Admission Diagnosis Diagnoses: Travel History International Travel<30 Days: No Contact w/Intl Traveler <30 Da: No History of Present Illness This is a very pleasant 82-year-old male with a history of pancreatic mass and significant elevation in his CA199. He recently has been on chemotherapy and his CA 199 has been improving. He was seen by his oncologist Dr. MALDONADO and he was found to be very neutropenic with riders chills and temperature of 99. His white count was 0.2. He was directly admitted to the oncology unit at [facility] today. He was seen by the undersigned in room 709. He is alert and oriented but very mildly forgetful. He is hard of hearing. He looks very dry. He does not have any specific pain. He said that for the last 3 weeks he was having trouble with eating. He has no appetite however he does also hurt to swallow according to his description. He lost 5 pounds over last 3 weeks. The patient has had a biliary stent in the past. Shortly after his arrival he was found to have a heart rate of 130. Also his sodium was 125. Review of Systems Other Hard of hearing, general weakness, able to walk, cannot eat, no appetite, painful swallowing, weight loss, low-grade fever, rigors and chills, 10 systems reviewed and otherwise negative Past Family Social History Past Medical History Pancreatic cancer, status post chemotherapy with ABRAXANE and GEMZAR Hypothyroidism Hyperlipidemia Biliary stenosis status post biliary stenting Hypertension Gallstones Past Surgical History Biliary stenting Endoscopic ultrasound ERCP Colonoscopy Reported Medications Reported Meds & Active Scripts Active Reported Multi Vitamin Daily (Multiple Vitamin) 1 Tab Tab 1 Tab PO DAILY Vitamin D (Cholecalciferol) 1,000 Unit Tab 1,000 Units PO DAILY B12 (Cyanocobalamin) 1,000 Mcg Tab 1 Tab PO DAILY [place]-3 Fish Oil/Vitamin (Fish Oil-Cholecalciferol) 1,000-1,000 Mg Cap 1 Cap PO DAILY Aspirin Low Dose (Aspirin) 81 Mg Chew 81 Mg CHEW DAILY Simvastatin 20 Mg Tab 20 Mg PO DAILY Levothyroxine (Levothyroxine Sodium) 50 Mcg Tab 50 Mcg PO DAILY Allergies: Coded Allergies: No Known Allergies (Verified , 04/07/17) Uncoded Allergies: NKDA (Allergy, Unknown, 06/14/03) Family History Reviewed but noncontributory Father ELLIOT age 62 Mother lived until age 98 . Social History No current smoking, no alcohol, no illicit drug use. He has been exposed to secondhand tobacco smoke Physical Exam Physical Exam GENERAL: This is a pleasant, poorly nourished, looking dehydrated, cachectic,, in no apparent distress. SKIN: No rashes, ecchymoses or lesions. Cool and dry. HEAD: Atraumatic. Normocephalic. No temporal or scalp tenderness. EYES: Pupils equal round and reactive. Extraocular motions intact. No scleral icterus. No injection or drainage. ENT: Nose without bleeding, purulent drainage or septal hematoma. Throat without erythema, tonsillar hypertrophy or exudate. Uvula midline. Airway patent. NECK: Trachea midline. No JVD or lymphadenopathy. Supple, nontender, no meningeal signs. CARDIOVASCULAR: Regular rate and rhythm without murmurs, gallops, or rubs. RESPIRATORY: Clear to auscultation. Breath sounds equal bilaterally. No wheezes , rales, or rhonchi. GASTROINTESTINAL: Abdomen soft, non-tender, nondistended. No hepato-splenomegaly , or palpable masses. No guarding. MUSCULOSKELETAL: Extremities without clubbing, cyanosis, or edema. No joint tenderness, effusion, or edema noted. No calf tenderness. Negative Homans sign bilaterally. NEUROLOGICAL: Awake and alert. Cranial nerves II through XII intact. Normal speech. Laboratory White count 0.2, hemoglobin 12.1, platelets 108, absolute neutrophil count 0 Sodium 125, potassium 4.3, carbon dioxide 91, BUN 12, creatinine 1.28, glucose 230, calcium 7.7, AST 75, AST 100, alkaline phosphatase 155, total protein 5.8, albumin 1.7, CA 199 119.7, this is down from 507.6 on 04/24/17 Assessment and Plan Assessment and Plan Assessments febrile neutropenia Absolute neutrophil count of 0 Hyperglycemia Tachycardia Hyponatremia Hyperbilirubinemia Weight loss Odynophagia History of pancreatic cancer with improvement in his markers after chemotherapy Management The patient is now admitted to telemetry IV fluids started Zosyn started at 3.25 g IV every 6 hours Diflucan 200 mg IV daily His oncology is consulted Check lactic acid level Check pro calcitonin level If either are elevated he is to be transferred to ICU Consult infectious disease specialist Consult GI He might need an upper endoscopy to investigate his odynophagia He might also need to have his biliary stent investigated for any closure Resume home medications Discussed with patient Discussed with oncologist Discussed with nurse 45 minutes Discussed With: Lulú Doran MD May 14, 2017 17:40
[2017-05-14] MEDS ORDERED: PIPERACIL-TAZO 3.375 GM PREMIX 50 ML IV SCH (18:00)
[2017-05-14] MEDS: SODIUM CHLOR 0.45% 1000 ML INJ 1,000 ML IV SCH (18:59)
[2017-05-14] MEDS ORDERED: CEFEPIME INJ 2,000 MG in SODIUM CHLORIDE 0.9% INJ 100 ML IV STA (19:56)
[2017-05-14 20:00] VITALS: BP 112/65; PULSE 113; PULSE 13; RESP 16; TEMP 97.1; O2SAT 94
[2017-05-14] MEDS: NYSTATIN SUSP 500,000 U/5 ML CUP SWISH-SWAL SCH (20:21)
[2017-05-14 20:56] VITALS: PULSE 121
--- NOTE | 2017-05-14 22:30 | MB ---
cc: LULÚ OCHOA MD, RUBY ANNE E. M.D. DATE OF CONSULTATION 05/14/2017 DATE OF [address] Lulú Ochoa CHIEF COMPLAINT Dr. Ochoa requested consultation for Mr. Araujo regarding localized pancreatic cancer with increased bilirubin. HISTORY OF PRESENT ILLNESS Mr. Araujo is an 82-year-old man diagnosed with a localized pancreatic cancer with significant elevation of CA19-9. He presented with painless jaundice. He had a stent placed and his bilirubin came down appropriately. He was evaluated at [facility] by Dr. Brent Singletary. He was felt to be resectable candidate but was to undergo neoadjuvant chemotherapy. He had two cycles of Abraxane and gemcitabine. He comes into clinic for followup. He reports that he has been feeling unwell for the past week. He has had some abdominal distension and pain. He is not able to eat very well. He feels weak and tired. He denies any sick contact. He reports barely making it through his staging evaluation. He showing response to neoadjuvant chemotherapy with significant decrease in his CA 19.9. He tolerated his chemotherapy well. He comes in today for evaluation. In clinic he was tachycardiac. He was feeling unwell. He has not been taking p.o. well. He was found to have severe neutropenia with ANC of 0 on the automated diff and ANC of 100 manually. His total white count is 0.2. He was having rigors. He was brought back to the clinic and given IV fluid hydration support and admission to the hospital was coordinated through Dr. Ochoa. Additionally labs show bilirubin of 2.4 previously of 0.8. His liver functions are elevated. His alkaline phosphatase was increasing as well as albumin decreasing. His admission to the hospital was coordinated through Dr. Ochoa for sepsis picture and dehydration. Mr. Araujo complains of some abdominal discomfort. He has some nausea. He denies any fevers, chills or night sweats. He was having seferino rigors in the clinic but only mild elevation in his temperature. His temperature in the hospital was 99.1 but he remains very tachycardic. He is still very weak. He feels better after the antibiotic therapy administered in the outpatient clinic. He has been moving his bowels. He denies any headaches or vision changes or rash. Rest of his review of systems is negative. PAST MEDICAL HISTORY 1. Localized pancreatic cancer, elevated CA 19.9. 2. Painless jaundice. 3. Cholelithiasis. 4. Hypothyroidism. PAST SURGICAL HISTORY 1. Colonoscopy. 2. Endoscopic ultrasound. 3. ERCP. 4. Stent placement. 5. Fine-needle biopsy. FAMILY HISTORY Significant for mother who is . Maternal grandmother is . No other family history of cancer. SOCIAL HISTORY He is single. He has a long time partner. 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 He never smoked and denies any alcohol or illicit drug use. PHYSICAL EXAMINATION VITAL SIGNS: Temperature 99.1, heart rate 124, respiratory rate 12, blood pressure 111/68, saturation 96%. GENERAL: Mr. Araujo is a well-developed elderly man. He looks pale and tired. He looks ill. HEENT: His pupils are round, reactive to light and accommodation. Oropharynx is dry. NECK: Supple. LUNGS: Clear. CARDIOVASCULAR: Exam reveals tachycardia. ABDOMEN: With mild distension in the upper abdomen. EXTREMITIES: Lower extremity with no edema. NEUROLOGIC: Exam is nonfocal. LABORATORY DATA Significant for pancytopenia with a white blood cell count 0.2, hemoglobin 12.1, platelet count 108. Comprehensive metabolic panel significant for BUN of 31, creatinine 1.28, sodium 125, bilirubin 2.4. CA 19-9 decreased to 119, initially from CA 19-9 of 2996. ASSESSMENT/PLAN Mr. Araujo is an 82-year-old man with a localized pancreatic cancer. He is receiving neoadjuvant chemotherapy in anticipation of definitive resection and curative intent. He is responding to neoadjuvant chemotherapy. He has had two cycles. He comes in today with one week history of malaise and feeling worse. In the clinic he had rigors and neutropenia. He was admitted to the hospital for neutropenic fever of sepsis. The case was discussed with Dr. Ochoa. We will check a lactic acid and flow calcitonin. If these levels are abnormal he will be transferred to the ICU for further monitoring. In the meantime he is given IV fluid support as he is clinically dry. He is put on telemetry monitoring. Antibiotic therapy continues. He is covered for neutropenic fever with cefepime. We will add vancomycin as he has a port if he continues to be febrile. GI will be consulted in light of his elevated bilirubin. His bilirubin has been normal previously. A stent has been placed at the time of his diagnosis. We will consult GI to see if his stent may need maintenance and evaluation. Repeat bilirubin will be checked in the morning. His questions were answered to satisfaction. Mr. Araujo's case was discussed with Dr. Ochoa. MD PEÑA Garcia/BERNY /7:48 PM /10:11 PM
[2017-05-14 22:33] LABS: LACTIC ACID GHOST NOT REPORTABLE
[2017-05-14] MEDS: FLUCONAZOLE 200 MG PREMIX BAG 100 ML IV SCH (22:50)
[2017-05-14] MEDS: SODIUM CHLOR 0.9% 1000 ML INJ 1,000 ML IV SCH ×2 (22:55→23:45)
--- NOTE | 2017-05-14 23:36 | MB ---
cc: REGAN BELLAMY DATE OF CONSULTATION: 05/14/2017 REASON FOR CONSULTATION: Fever and neutropenia in a patient with pancreatic cancer status post chemotherapy with Abraxane and gemcitabine. PATIENT PROFILE: The patient is an 82 year-old male. He is single. He has never been . He has no children. 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 He has never smoked. He has no history of alcohol use. He was born in [place]. He has lived in [place] since the 1970s. HISTORY OF PRESENT ILLNESS The patient is an 82-year-old male who was found to have a pancreatic adenocarcinoma. He presented with jaundice and a CT scan of the abdomen and pelvis on 02/19/2017 revealed dilation of the common bile duct to a level of the pancreatic head. A subsequent MRI suggested the presence of a pancreatic head mass. The patient had an ERCP and placement of a Silastic stent on February 21. He had a fine-needle aspiration of the pancreatic head mass on 02/21/2017 and the specimen was consistent with adenocarcinoma. He had an elevated CA19-9 of 22,996. He was felt to have potentially resectable disease. He has been undergoing therapy with Abraxane and gemcitabine and may have completed his chemotherapy. He was admitted with neutropenia and weakness, and is now receiving IV fluids and antibiotics. PAST SURGICAL HISTORY: 1. Colonoscopy. 2. ERCP and stent placement 3. Needle biopsy, pancreas. PAST MEDICAL HISTORY: 1. Pancreatic cancer. 2. Cholelithiasis. 3. Hyperlipidemia. 4. Hypothyroidism. 5. Recent chemotherapy this past Friday with Gemzar and Abraxane. MEDICATIONS PRIOR TO ADMISSION 1. Aspirin 2. Vitamin D3. 3. B12. 4. Fish oil. 5. Levothyroxine 6. Simvastatin. ALLERGIES: None known. FAMILY HISTORY: Noncontributory. REVIEW OF SYSTEMS Notable for weakness, weight loss. PHYSICAL EXAMINATION: Reveals an elderly individual, he appears gaunt. VITAL SIGNS: Blood pressure 110/70, respiratory rate 12, pulse 120, afebrile. O2 sat 96%. Head: Head is normocephalic. Sclera and conjunctivae are normal. Oropharynx unremarkable. There is no adenopathy. Heart: Regular rhythm. Lungs: Clear without rales, wheezes or rhonchi. Abdomen: Soft. There is no enlargement of the liver/spleen. No masses, no tenderness. Extremities: Without edema. Musculoskeletal: No bone pain. There is muscle wasting. Neurologic: No weakness. LABORATORY STUDIES: Hemoglobin 12, white count 0.2, platelets 108,000. Sodium 125, BUN 31, creatinine 1.2, CA19-9 is 119, previously 507 on 04/24, before that 2,996. ASSESSMENT Pancreatic cancer which has responded well to Abraxane and gemcitabine as suggested by the following CA19-9. He is admitted with neutropenia and weakness. PLAN Antibiotics have been started, IV fluids are being administered and he is receiving Neupogen. MD MAEGAN Mcgovern/FRANK /9:12 PM /11:20 PM MTDD
[2017-05-15] VITALS (14 sets, daily range): BP systolic 104–129; BP diastolic 61–79; PULSE 106–124; RESP 18–31; TEMP 97.4–100.4; O2SAT 96–100
[2017-05-15] MEDS: SODIUM CHLOR 0.45% 1000 ML INJ 1,000 ML IV SCH ×2 (03:28→13:02)
[2017-05-15] MEDS: CEFEPIME INJ 2,000 MG in SODIUM CHLORIDE 0.9% INJ 100 ML IV SCH ×2 (04:06→11:50)
[2017-05-15] MEDS: SODIUM CHLOR 0.9% 1000 ML INJ 1,000 ML IV SCH ×5 (04:06→17:51)
[2017-05-15 04:27] LABS: HEMATOCRIT 28.6 % (39.0-51.0); MEAN CELL VOLUME 96.4 FL (80.0-100.0); MEAN CORPUSCULAR HEMOGLOBIN 32.9 PG (27.0-34.0); MEAN CORPUSCULAR HGB CONC 34.2 % (32.0-36.0); PLATELET COUNT 48 TH/MM3 (150-450); RED BLOOD COUNT 2.97 MIL/MM3 (4.50-5.90); RED CELL DISTRIBUTION WIDTH 13.5 % (11.6-17.2); WHITE BLOOD COUNT 0.4 TH/MM3 (4.0-11.0)
[2017-05-15 04:28] LABS: HEMO FLAGS AUTO DIFF
[2017-05-15 04:53] LABS: POTASSIUM 3.4 MEQ/L (3.5-5.1)
[2017-05-15 04:56] LABS: CALCIUM-PROTEIN CORRECTED 8.6 MG/DL (8.5-10.1); INDIRECT BILIRUBIN 0.4 MG/DL (0.0-0.8); TOTAL BILIRUBIN ADULT 2.3 MG/DL (0.2-1.0)
[2017-05-15] MEDS: LEVOTHYROXINE SODIUM 50 MCG TAB PO SCH (05:10)
[2017-05-15 05:56] LABS: BANDS 4 % (0-6); CORRECTED NUCLEATED RBC 4 /100 WBC (0-0); NEUTROPHIL # MANUAL DIFF 0.1 TH/MM3 (1.8-7.7); POLYS (SEG NEUTROPHILS) 24 % (16-70); WBC DIFF SAMPLE 25
[2017-05-15 05:58] LABS: OVALOCYTES 1+ (NORMAL); PLATELET ESTIMATE SMEAR LOW (NORMAL); PLATELET MORPHOLOGY NORMAL (NORMAL); SCAN/DIFF FINAL DIFF MANUAL
[2017-05-15] MEDS ORDERED: ICU - POTASSIUM PHOSPHATE MONOBASIC 500 MG TAB PO PRN (06:15)
[2017-05-15] MEDS ORDERED: ICU - MAGNESIUM SULFATE 4 GM/NS 100 ML IV PRN ×2 (06:15)
[2017-05-15] MEDS ORDERED: ICU - POTASSIUM PHOSPHATE 30 MMOL/NS 250 ML IV PRN ×2 (06:15)
[2017-05-15] MEDS ORDERED: ICU - MAGNESIUM OXIDE 400 MG TAB PO PRN (06:15)
[2017-05-15] MEDS ORDERED: ICU - SODIUM PHOSPHATE 30 MMOL/NS 250 ML IV PRN ×2 (06:15)
[2017-05-15] MEDS ORDERED: ICU - CALL ORDERING PHYSICIAN PRN (06:15)
[2017-05-15] MEDS ORDERED: POTASSIUM CHLORIDE 25 MEQ EFFERVESCENT TAB PO PRN (06:15)
[2017-05-15] MEDS ORDERED: ICU - D/C ICU ELECTROLYTE ORDERS PRN (06:15)
[2017-05-15] MEDS ORDERED: ICU - POTASSIUM CHLORIDE/AQUEOUS SOLN 20 MEQ/100 ML IVPB IV PRN (06:15)
[2017-05-15] MEDS ORDERED: ICU - MAGNESIUM SULFATE 2 GM/NS 100 ML IV PRN ×2 (06:15)
[2017-05-15] MEDS: NYSTATIN SUSP 500,000 U/5 ML CUP SWISH-SWAL SCH ×4 (08:23→20:14)
[2017-05-15] MEDS: CHOLECALCIFEROL (VIT D3) 1000 UNIT TAB PO SCH (08:23)
[2017-05-15] MEDS: MULTIVITAMIN TAB PO SCH (08:23)
[2017-05-15] MEDS: CYANOCOBALAMIN 1,000 MCG TAB PO SCH (08:23)
[2017-05-15] MEDS: PRAVASTATIN SOD 40 MG TAB PO SCH (08:23)
[2017-05-15] MEDS: ICU - POTASSIUM CHLORIDE/AQUEOUS SOLN 40 MEQ/100 ML IVPB IV PRN (08:23)
[2017-05-15] MEDS ORDERED: ASPIRIN 81 MG CHEW TAB CHEW SCH (09:00)
[2017-05-15] MEDS ORDERED: NON-FORMULARY DRUG (Cyanocobalamin (B12) 1 TAB) PO SCH (09:00)
[2017-05-15] MEDS ORDERED: NON-FORMULARY DRUG (Fish Oil-Cholecalciferol (Omega-3 Fish Oil/Vitamin) 1 CAP) PO SCH (09:00)
[2017-05-15] MEDS ORDERED: NON-FORMULARY DRUG (Multiple Vitamin (Multi Vitamin Daily) 1 TAB) PO SCH (09:00)
[2017-05-15] MEDS ORDERED: NON-FORMULARY DRUG (Simvastatin 20 MG) PO SCH (09:00)
--- NOTE | 2017-05-15 09:15 | PD.CONS ---
HPI History of Present Illness This is a 82 year old male with a history of pancreatic cancer, diagnosed in February of 2017. CT scan at that time revealed a dilated CBD to the level of the pancreatic duct. MRCP (02/20/17)---> . He was noted to have a dilated bile duct to the level of the pancreatic head mass CT scan in February 2017. MRCP (02/20/17 )----> The common bile duct is markedly dilated as is the pancreatic duct and there is also tapering of the splenic vein in SMV before it becomes the portal vein. All three things suggest that there is a central pancreatic head mass, but it is difficult to define one on the MRCP. After contrast there is a fairly uniform enhancement through the head and neck of the pancreas. Difficult to define an actual mass. There is a questionable 1 cm lesion in the head of the pancreas on the CT scan specifically series2; image 30 but this is more median than the common bile duct narrowing. Outpatient PET CT could be performed. Solid organs are unremarkable. Liver Ultrasound (02/22/17)-----> 1. Dilatation of the pancreatic duct and common bile duct as seen on recent cross-sectional imaging. No measurable mass on ultrasound is identified. 2. Fatty liver. Distended gallbladder. Tumor markers at that time were CEA 2.6, AFP 2.1, CA 19-9 2996.8. He then underwent EUS with FNA/ERCP with stent placement (02/21/17)----> Pancreatic head mass, biliary stricture, s/p stent placement. Pancreatic head mass FNA revealed atypical glandular cells consistent with adenocarcinoma, cell block atypical glandular cells consistent with adenocarcinoma. He was thought to have potentially resectable disease and he was started on Abraxane and gemcitabine. He is now admitted with neutropenia and generalized weakness. Blood cultures are pending. He was started on Neupogen for his Leukopenia and cefepime and diflucan. The patient tells me that he completed 7-8 weeks of chemotherapy and that he has an appointment to follow up with [facility] next Friday for surgical evaluation of his pancreatic cancer. He reports a decreased appetite for the past 2-3 weeks with a 30 lb weight loss since February of 2017. He denies any odynophagia or difficulty swallowing and states this is more a decreased appetite and is not having any difficulty actually swallowing. He denies any nausea, vomiting, abdominal pain, constipation, diarrhea, melena, or hematochezia. He is slightly bloated. PFSH Past Medical History Pancreatic cancer Cholelithiasis Hyperlipidemia Hypothyroidism Biliary obstruction HTN Past Surgical History EUS/ERCP with stent placement Colonoscopy Coded Allergies: No Known Allergies (Verified , 04/07/17) Medications Allergies Coded Allergies Type Severity Reaction Last Updated Verified No Known Allergies 04/07/17 Yes Active Scripts Medications Dose Route/Sig Days Date Category Multi Vitamin Daily (Multiple Vitamin) 1 Tab Tab 1 Tab PO DAILY 04/07/17 Reported Vitamin D (Cholecalciferol) 1,000 Unit Tab 1,000 Units PO DAILY 04/07/17 Reported B12 (Cyanocobalamin) 1,000 Mcg Tab 1 Tab PO DAILY 04/07/17 Reported [place]-3 Fish Oil/Vitamin (Fish Oil-Cholecalciferol) 1,000-1,000 Mg Cap 1 Cap PO DAILY 04/07/17 Reported Aspirin Low Dose (Aspirin) 81 Mg Chew 81 Mg CHEW DAILY 04/07/17 Reported Simvastatin 20 Mg Tab 20 Mg PO DAILY 02/19/17 Reported Levothyroxine (Levothyroxine Sodium) 50 Mcg Tab 50 Mcg PO DAILY 02/19/17 Reported Family History Father had CVA, mother lived until age of 98 Social History No current smoking, etoh, illicit drug use. Review of Systems Constitutional: COMPLAINS OF: Fatigue, Fever, Weight loss, Chills, Change in appetite Respiratory: DENIES: Cough, Shortness of breath Cardiovascular: DENIES: Chest pain Gastrointestinal: COMPLAINS OF: Anorexia, Swelling of Abdomen, DENIES: Abdominal pain, Black stools, Bloody stools, Constipation, Diarrhea, Nausea, Vomiting, Heartburn, Hematemesis Musculoskeletal: COMPLAINS OF: Joint pain, Muscle aches Integumentary: COMPLAINS OF: Rash Hematologic/lymphatic: COMPLAINS OF: Bruising Neurologic: DENIES: Headache Psychiatric: DENIES: Confusion GI Exam Vitals I&O Vital Signs Date Time Temp Pulse Resp B/P Pulse Ox O2 Delivery O2 Flow Rate FiO2 05/15/17 06:00 114 05/15/17 04:00 97.4 118 31 104/61 96 05/15/17 04:00 118 05/15/17 03:42 99 05/15/17 02:00 95 Nasal Cannula 2.00 05/15/17 02:00 116 05/15/17 00:45 92 Nasal Cannula 2.00 05/15/17 00:30 122 05/15/17 00:00 100.4 107 18 106/63 100 05/14/17 20:56 121 05/14/17 20:00 97.1 113 16 112/65 94 05/14/17 16:00 99.1 124 12 111/68 96 I/O 05/14/17 05/14/17 05/14/17 05/15/17 05/15/17 05/15/17 07:00 15:00 23:00 07:00 15:00 23:00 Intake Total 150 ml 120 ml Balance 150 ml 120 ml Intake Oral 150 ml 120 ml # Voids 2 2 # Bowel Movements 2 0 Laboratory Test 05/14/17 05/14/17 05/15/17 05/15/17 20:30 23:15 00:30 04:18 Lactic Acid Level 2.9 mmol/L 2.3 mmol/L Procalcitonin 59.49 ng/mL Nasal Screen MRSA (PCR) MRSA NOT DETECTED White Blood Count 0.4 TH/MM3 Red Blood Count 2.97 MIL/MM3 Hemoglobin 9.8 GM/DL Hematocrit 28.6 % Mean Corpuscular Volume 96.4 FL Mean Corpuscular Hemoglobin 32.9 PG Mean Corpuscular Hemoglobin 34.2 % Concent Red Cell Distribution Width 13.5 % Platelet Count 48 TH/MM3 Mean Platelet Volume 11.3 FL Neutrophils (%) (Auto) % Lymphocytes (%) (Auto) % Monocytes (%) (Auto) % Eosinophils (%) (Auto) % Basophils (%) (Auto) % Neutrophils # (Auto) TH/MM3 Lymphocytes # (Auto) TH/MM3 Monocytes # (Auto) TH/MM3 Eosinophils # (Auto) TH/MM3 Basophils # (Auto) TH/MM3 CBC Comment AUTO DIFF Differential Total Cells 25 Counted Neutrophils % (Manual) 24 % Band Neutrophils % 4 % Lymphocytes % 12 % Monocytes % 60 % Neutrophils # (Manual) 0.1 TH/MM3 Nucleated Red Blood Cells 4 /100 WBC Differential Comment FINAL DIFF MANUAL Platelet Estimate LOW Platelet Morphology Comment NORMAL Ovalocytes 1+ Sodium Level 133 MEQ/L Potassium Level 3.4 MEQ/L Chloride Level 99 MEQ/L Carbon Dioxide Level 25.0 MEQ/L Anion Gap 9 MEQ/L Blood Urea Nitrogen 30 MG/DL Creatinine 0.98 MG/DL Estimat Glomerular Filtration 74 ML/MIN Rate Random Glucose 141 MG/DL Calcium Level 7.2 MG/DL Protein Corrected Calcium 8.6 MG/DL Total Bilirubin 2.3 MG/DL Direct Bilirubin 1.9 MG/DL Indirect Bilirubin 0.4 MG/DL Aspartate Amino Transf 87 U/L (AST/SGOT) Alanine Aminotransferase 84 U/L (ALT/SGPT) Alkaline Phosphatase 292 U/L Total Protein 4.6 GM/DL Albumin 1.3 GM/DL Date/Time Procedure Status Source Growth 05/14/17 17:22 Aerobic Blood Culture Received Blood Peripheral Pending 05/14/17 17:22 Anaerobic Blood Culture Received Blood Peripheral Pending Physical Examination HEENT: Normocephalic; atraumatic; no jaundice. CHEST: CTA, mildly tachypneic, diminished CARDIAC: ST-110 ABDOMEN: Soft, mildly bloated, nontender; no hepatosplenomegaly; bowel sounds are present in all four quadrants. EXTREMITIES: No clubbing, cyanosis, or edema. SKIN: red spotted rash to ble FINANCIAL INVESTMENT MANAGER: Lethargic, generalized weakness. Assessment and Plan Plan ASSESSMENT: - Neutropenic fevers. BCx no growth x 1 day. WBC 0.4, Neutrophils 0.1. Neupogen, Cefepime, Diflucan, Nystatin. - Elevated LFTs, hx of biliary obstruction secondary to pancreatic cancer. No imaging during this hospitalization. He had elevated LFTs at time that stent was placed, but they improved afterwards. He now has elevated LFTs with T. Bili 2.3, Direct bilirubin 1.9, Indirect 0.4, AST 87, ALT 84, Alk Phosph 292. No imaging. Pt denies any nausea, vomiting, or abdominal pain. - Anorexia, Wt. Loss, ? Odynophagia. He reports to me that he has had decreased appetite since starting chemotherapy, but denies any odynophagia or difficulty swallowing. States he just does not have any appetite. Nystatin. Diflucan. - Anemia, normocytic. HH 9.8/28.6. - Pancreatic cancer. Dx in February of 2017. MRCP (02/20/17)----> The common bile duct is markedly dilated as is the pancreatic duct and there is also tapering of the splenic vein in SMV before it becomes the portal vein. All three things suggest that there is a central pancreatic head mass, but it is difficult to define one on the MRCP. After contrast there is a fairly uniform enhancement through the head and neck of the pancreas. Difficult to define an actual mass. There is a questionable 1 cm lesion in the head of the pancreas on the CT scan specifically series2; image 30 but this is more median than the common bile duct narrowing. Outpatient PET CT could be performed. Solid organs are unremarkable. Liver Ultrasound (02/22/17)-----> 1. Dilatation of the pancreatic duct and common bile duct as seen on recent cross-sectional imaging. No measurable mass on ultrasound is identified. 2. Fatty liver. Distended gallbladder. Tumor markers at that time were CEA 2.6, AFP 2.1, CA 19-9 2996.8. He then underwent EUS with FNA/ERCP with stent placement (02/21/17)----> Pancreatic head mass, biliary stricture, s/p stent placement. Pancreatic head mass FNA revealed atypical glandular cells consistent with adenocarcinoma, cell block atypical glandular cells consistent with adenocarcinoma. He was thought to have potentially resectable disease and completed 7-8 weeks of Abraxane and gemcitabine. He has an appointment to follow up with [facility] next Friday for surgical evaluation of his pancreatic cancer. - HTN, Hypothyroidism, Hyperlipidemia. Per attending. PLAN: - KEON - Bedside US to evaluation for biliary dilatation. - Await BCx - Cefepime, Diflucan, Nystatin - Ca19-9 - CBC, LFT in am - ? CT vs. MRCP - Further recommendations to follow after results of above - Pt seen and examined by Dr. Rivas and myself and this note is written on his behalf Adia Kendall May 15, 2017 09:15
--- NOTE | 2017-05-15 09:35 | PD.PN.STU ---
Subjective Remarks Patient reports that he is doing "not great" this morning. He says he has had minimal symptom improvement since yesterday. He was able to get decent sleep last evening. However, he is concerned about dry mouth and pain with swallowing that has become especially burdensome. He has has minimal change in his appetite and reports that it is still decreased. He denies any specific pain, shortness of breath, lightheadedness, headache, sweats, or chills. Objective Vitals Vital Signs Date Time Temp Pulse Resp B/P Pulse Ox O2 Delivery O2 Flow Rate FiO2 05/15/17 08:00 98.1 109 30 117/65 99 05/15/17 08:00 95 Nasal Cannula 2.00 05/15/17 08:00 109 05/15/17 06:00 114 05/15/17 04:00 97.4 118 31 104/61 96 05/15/17 04:00 118 05/15/17 03:42 99 05/15/17 02:00 95 Nasal Cannula 2.00 05/15/17 02:00 116 05/15/17 00:45 92 Nasal Cannula 2.00 05/15/17 00:30 122 05/15/17 00:00 100.4 107 18 106/63 100 05/14/17 20:56 121 05/14/17 20:00 97.1 113 16 112/65 94 05/14/17 16:00 99.1 124 12 111/68 96 I/O 05/14/17 05/14/17 05/14/17 05/15/17 05/15/17 05/15/17 07:00 15:00 23:00 07:00 15:00 23:00 Intake Total 150 ml 120 ml Balance 150 ml 120 ml Intake Oral 150 ml 120 ml # Voids 2 2 # Bowel Movements 2 0 Result Diagram: 05/15/17 0418 05/15/17 0418 Objective Remarks General: Patient appears emaciated and fatigued. Cardiovascular: RRR, S1 and S2 normal, no murmurs or rubs. Respiratory: Clear breath sounds bilaterally. No wheezes or crackles appreciated. Abdominal: Mild LUQ and epigastric tenderness to light and deep palpation. No guarding. A/P Assessment and Plan Febrile Neutropenia: monitor WBC count closely. Continue Zosyn Dry mouth/Odynophagia: increase intake of clear liquids to ease discomfort. Consult GI for possibility of upper GI endoscopy. Weight Loss: consider parenteral nutrition if needs are not met through oral feeding Increased Lactic acid: monitor and consider transfer to ICU if it continues to increase. Hyponatremia: IV Normal saline hypokalemia: monitor and replace as necessary Hypocalcemia: monitor and replace as necessary Addendum by Dr. Thomas I personally seen and examined this patient Discussed with medical student Agree with above [place] is referred to my independent note for more details Ivonne Lopez May 15, 2017 09:35 Lulú Thomas MD May 15, 2017 16:02
--- NOTE | 2017-05-15 09:40 | HHI.PR ---
Subjective Subjective Remarks Patient is sitting up in bed, drinking small amount of liquids Anorexic, not hungry Does and answer simple question Tachypnea respirations, tachycardic, compensated Review of Systems Constitutional Constitutional: Fever, Fatigue, Weight Change, Weakness Constitutional Remarks 10 point ROS done positives noted GI/Abdomen GI/Abdominal Exam: Nausea Musculoskeletal MS: Weakness, Stiffness, Swelling (trace of pedal edema) Neurologic Neurologic: Lethargic (but does respond weakly to verbal stimuli) Psychiatric Psychiatric: Normal Mood Vitals/Results Intake & Output 05/14/17 05/14/17 05/15/17 15:00 23:00 07:00 Intake Total 150 ml 120 ml Balance 150 ml 120 ml Intake Oral 150 ml 120 ml # Voids 2 2 # Bowel Movements 2 0 Vital Signs Vital Signs Date Time Temp Pulse Resp B/P Pulse Ox O2 Delivery O2 Flow Rate FiO2 05/15/17 08:00 98.1 109 30 117/65 99 05/15/17 08:00 95 Nasal Cannula 2.00 05/15/17 08:00 109 05/15/17 06:00 114 05/15/17 04:00 97.4 118 31 104/61 96 05/15/17 04:00 118 05/15/17 03:42 99 05/15/17 02:00 95 Nasal Cannula 2.00 05/15/17 02:00 116 05/15/17 00:45 92 Nasal Cannula 2.00 05/15/17 00:30 122 05/15/17 00:00 100.4 107 18 106/63 100 05/14/17 20:56 121 05/14/17 20:00 97.1 113 16 112/65 94 05/14/17 16:00 99.1 124 12 111/68 96 CBC/BMP: 05/15/17 0418 05/15/17 0418 Lab Results Laboratory Tests Test 05/14/17 05/14/17 05/15/17 05/15/17 20:30 23:15 00:30 04:18 Lactic Acid Level 2.9 mmol/L 2.3 mmol/L Procalcitonin 59.49 ng/mL Nasal Screen MRSA (PCR) MRSA NOT DETECTED White Blood Count 0.4 TH/MM3 Red Blood Count 2.97 MIL/MM3 Hemoglobin 9.8 GM/DL Hematocrit 28.6 % Mean Corpuscular Volume 96.4 FL Mean Corpuscular Hemoglobin 32.9 PG Mean Corpuscular Hemoglobin 34.2 % Concent Red Cell Distribution Width 13.5 % Platelet Count 48 TH/MM3 Mean Platelet Volume 11.3 FL Neutrophils (%) (Auto) % Lymphocytes (%) (Auto) % Monocytes (%) (Auto) % Eosinophils (%) (Auto) % Basophils (%) (Auto) % Neutrophils # (Auto) TH/MM3 Lymphocytes # (Auto) TH/MM3 Monocytes # (Auto) TH/MM3 Eosinophils # (Auto) TH/MM3 Basophils # (Auto) TH/MM3 CBC Comment AUTO DIFF Differential Total Cells 25 Counted Neutrophils % (Manual) 24 % Band Neutrophils % 4 % Lymphocytes % 12 % Monocytes % 60 % Neutrophils # (Manual) 0.1 TH/MM3 Nucleated Red Blood Cells 4 /100 WBC Differential Comment FINAL DIFF MANUAL Platelet Estimate LOW Platelet Morphology Comment NORMAL Ovalocytes 1+ Sodium Level 133 MEQ/L Potassium Level 3.4 MEQ/L Chloride Level 99 MEQ/L Carbon Dioxide Level 25.0 MEQ/L Anion Gap 9 MEQ/L Blood Urea Nitrogen 30 MG/DL Creatinine 0.98 MG/DL Estimat Glomerular Filtration 74 ML/MIN Rate Random Glucose 141 MG/DL Calcium Level 7.2 MG/DL Protein Corrected Calcium 8.6 MG/DL Total Bilirubin 2.3 MG/DL Direct Bilirubin 1.9 MG/DL Indirect Bilirubin 0.4 MG/DL Aspartate Amino Transf 87 U/L (AST/SGOT) Alanine Aminotransferase 84 U/L (ALT/SGPT) Alkaline Phosphatase 292 U/L Total Protein 4.6 GM/DL Albumin 1.3 GM/DL Microbiology Microbiology 05/14/17 Aerobic Blood Culture, Received Pending 05/14/17 Anaerobic Blood Culture, Received Pending 05/14/17 Aerobic Blood Culture, Received Pending 05/14/17 Anaerobic Blood Culture, Received Pending Current Medications Administered Medications Medications (Trade) Dose Ordered Sig/Samy Route PRN Reason Start Time Stop Time Status Last Admin Dose Admin Aspirin (Aspirin Chew) 81 mg DAILY CHEW 05/15/17 09:00 05/15/17 08:23 Cholecalciferol (Vitamin D3) 1,000 units DAILY PO 05/15/17 09:00 05/15/17 08:23 Levothyroxine Sodium 50 mcg 50 mcg DAILY@06 PO 05/15/17 06:00 05/15/17 05:10 Sodium Chloride (1/2 NS 1000 ml Inj) 1,000 ml @ 100 mls/hr Q10H IV 05/14/17 17:00 05/14/17 18:59 Multivitamins (Theragran) 1 tab DAILY PO 05/15/17 09:00 05/15/17 08:23 Cyanocobalamin (Vitamin B12) 1,000 mcg DAILY PO 05/15/17 09:00 05/15/17 08:23 Pravastatin Sodium 40 mg 40 mg DAILY PO 05/15/17 09:00 05/15/17 08:23 Sodium Chloride 1,000 ml @ 250 mls/hr Q4H IV 05/14/17 19:45 05/15/17 08:23 Fluconazole/ Sodium Chloride (Diflucan 200 Mg Premix Bag) 100 ml @ 100 mls/hr Q24H IV 05/14/17 21:00 05/14/17 22:50 Nystatin 5 ml 5 ml QID SWISH-SWAL 05/14/17 21:00 05/15/17 08:23 Cefepime HCl 2000 mg/Sodium Chloride 100 ml @ 200 mls/hr Q8H IV 05/15/17 04:00 05/15/17 04:06 Potassium Chloride (KCl 40 Meq Premix Inj) 100 ml @ 25 mls/hr UNSCH PRN IV ELECTROLYTE REPLACEMENT 05/15/17 06:15 05/15/17 08:23 Physical Exam General General Appearance: Pale, Anxious (mild) Eyes Eye Exam: Pupils Equal Ears & Nose Ears & Nose Exam: Nasal Mucosa [place] (pale) Throat Throat Exam: Oral Mucosa [place] & Moist (pale) Neck Neck Exam: Neck Supple Pulmonary Resp Exam: Diminished Breath Sounds, Labored (tachypnea respirations) Cardiology CV Exam: Tachycardia (compensated) Gastrointestinal/Abdomen GI Exam: Bowel Sounds Present, Bowel Sounds Hypoactive GI Remarks [place]aut Musculoskeletal MS Exam: Normal Tone (for his condition), Atrophy Integumentary Skin Exam: Warm, Dry, Intact Extremeties Extremities Exam: Trace Edema (lower extremities) Neurologic Neuro Exam: Awake, Oriented, Speech Clear (week), Moving All Extremities ( generalized weakness) Assessment/Plan Assessment/Plan febrile neutropenia Absolute neutrophil count of 0 Hyperglycemia Tachycardia Hyponatremia Hyperbilirubinemia Weight loss Odynophagia History of pancreatic cancer with improvement in his markers after chemotherapy Management Vital signs reviewed, tachycardic pulse early a.m. 114 has progressively come down to 2 less than 110, BP stable normal trends, afebrile today, tachypnea respirations low volumes Labs reviewed, blood sugar 141, LFTs and alkaline phosphatase elevated, still has neutropenic WBC count 0.4 Malnutrition weight loss, patient seems to be drinking fluids but not eating solid food. Will get nutrition consult and add boost to every meal. Need calorie count and expert opinion for maintaining patient's nutrition Sepsis, continue with IV fluids and antibiotics, Zosyn and Diflucan, encourage by mouth fluids, monitor vital signs patient is still mildly tachypnea Patient states that he had chemotherapy last week Oncology consult for their expert opinion and plan a care, continue Neupogen and have GI evaluate any further needs, GI consult, to investigate his odynophagia, appreciate input Further testing to be investigated for his course of treatment and action plan ID consult for intensive needs an antibiotic therapy Hypokalemia, when necessary meds for potassium replacement ordered Will recheck labs in the morning Discussed with patient Discussed with nurse Discussed with Dr. Thomas, seen on his behalf Kaela Hilton May 15, 2017 09:40
--- NOTE | 2017-05-15 11:09 | PD.ID.CON ---
History of Present Illness Service ID Consult Requested By Dr Kelley Reason for Consult febrile neutropenia Primary Care Physician Non-Staff Diagnoses: History of Present Illness 82-year-old male pt of Dr. MALDONADO with a history of pancreatic mass and significant elevation in his CA199. He was diagnosed with adenocarcinoma of pancreatic head when he presented with jaundice in February of this year His bilirubin was 22 back then, now its down to 2.3 Sp recent chemotherapy with CA 199 improving. He was sent fot direct admision to the oncology unit at [facility] yday by his oncologist after he was found to be very neutropenic with rigors chills and elevated temperature of 99. His ANC is 100. He was transferred to IVCU overnight over concerns for sepsis He has mildly elevated lactic acid and his T max was 100.4 He also endorsing pain with swallowing poor appetite and 5 poundsweight loss for the last 3 week Patient has had a biliary stent in the past. Pt was initially started on zosyn later switched to cefepime difluccan added over concerns for fungal esophaigts He alsop noted development of non pruritic rash on his b/l upper and lower extremeties, trunk He has 4 sets of Blood clx done; 2 sets are growing a GNB in 4/4 bottles No resistantce indicated by regis two sets are negative @ 1 day Review of Systems Constitutional: COMPLAINS OF: Fatigue, Fever, Weight loss, Chills, Change in appetite Ears, nose, mouth, throat: COMPLAINS OF: Hearing loss Gastrointestinal: COMPLAINS OF: Difficulty Swallowing, Anorexia Integumentary: COMPLAINS OF: Rash Except as stated in HPI: all other systems reviewed are Neg Past Family Social History Allergies: Coded Allergies: No Known Allergies (Verified , 04/07/17) Past Medical History Pancreatic cancer, status post chemotherapy with ABRAXANE and GEMZAR Hypothyroidism Hyperlipidemia Biliary stenosis status post biliary stenting Hypertension Gallstones Past Surgical History Biliary stenting Endoscopic ultrasound ERCP Colonoscopy Active Ordered Medications Medications where reviewed in EMR Antibiotics Include: cefepuime 2 gm q 8 fluconazol iv 200 Family History Reviewed but noncontributory to his current illness Father CVA age 62 Mother lived until age 98 Social History No current smoking, no alcohol, no illicit drug use. He has been exposed to secondhand tobacco smoke Physical Exam Vital Signs Vital Signs Date Time Temp Pulse Resp B/P Pulse Ox O2 Delivery O2 Flow Rate FiO2 05/15/17 10:00 106 05/15/17 08:00 98.1 109 30 117/65 99 05/15/17 08:00 95 Nasal Cannula 2.00 05/15/17 08:00 109 05/15/17 06:00 114 05/15/17 04:00 97.4 118 31 104/61 96 05/15/17 04:00 118 05/15/17 03:42 99 05/15/17 02:00 95 Nasal Cannula 2.00 05/15/17 02:00 116 05/15/17 00:45 92 Nasal Cannula 2.00 05/15/17 00:30 122 05/15/17 00:00 100.4 107 18 106/63 100 05/14/17 20:56 121 05/14/17 20:00 97.1 113 16 112/65 94 05/14/17 16:00 99.1 124 12 111/68 96 Physical Exam CONSTITUTIONAL/GENERAL: This is a thin chroniclly ill eldelrly male patient, in no apparent distress. TUBES/LINES/DRAINS: PORT: in place R chest w/o e/o infx SKIN: No jaundice, + diffuse non banching erythematous non pruritic macular rashes, involving extremeties, trunk. Ecchymoses on upper extremities. . Skin temperature elevated. Skin is very dry, with markedly reduced turgor Not diaphoretic. HEAD: Atraumatic. Normocephalic. EYES: Pupils equal and round and reactive. Extraocular motions intact. + mild scleral icterus. No injection or drainage. Fundi not examined. ENT: Hearing grossly normal. Nose without bleeding or purulent drainage. Oral mucosae is very dry without visible erythema, exudates, masses, or lesions. Poor dentition NECK: Trachea midline. Supple, nontender. CARDIOVASCULAR: Regular rate and rhythm without murmurs, gallops, or rubs. No JVD. Peripheral pulses symmetric. RESPIRATORY/CHEST: Symmetric, unlabored respirations. Clear to auscultation. Breath sounds equal bilaterally. No wheezes, rales, or rhonchi. GASTROINTESTINAL: Abdomen soft, mildly tender to palpation RLQ , moderately distended. No hepato-splenomegaly, or palpable masses. No guarding. Bowel sounds present. well healed medial laparotomy incision with small fully reducible incisional hernia (7 cm) GENITOURINARY: Without palpable bladder distension. MUSCULOSKELETAL: Extremities without clubbing, cyanosis, or edema. No joint tenderness or effusion noted. No calf tenderness. No mottling or clubbing. LYMPHATICS: No palpable cervical or supraclavicular adenopathy. NEUROLOGICAL: Awake and alert. Motor and sensory grossly within normal limits. Follows commands. Clear specch. Moves all extremities. PSYCHIATRIC: No obvious anxiety/depression. no apparent hallucinations or other psychotic thought process. Laboratory Laboratory Tests Test 05/14/17 05/14/17 05/15/17 05/15/17 20:30 23:15 00:30 04:18 Lactic Acid Level 2.9 2.3 Procalcitonin 59.49 Nasal Screen MRSA (PCR) MRSA NOT DETECTED White Blood Count 0.4 Red Blood Count 2.97 Hemoglobin 9.8 Hematocrit 28.6 Mean Corpuscular Volume 96.4 Mean Corpuscular Hemoglobin 32.9 Mean Corpuscular Hemoglobin 34.2 Concent Red Cell Distribution Width 13.5 Platelet Count 48 Mean Platelet Volume 11.3 Neutrophils (%) (Auto) Lymphocytes (%) (Auto) Monocytes (%) (Auto) Eosinophils (%) (Auto) Basophils (%) (Auto) Neutrophils # (Auto) Lymphocytes # (Auto) Monocytes # (Auto) Eosinophils # (Auto) Basophils # (Auto) CBC Comment AUTO DIFF Differential Total Cells 25 Counted Neutrophils % (Manual) 24 Band Neutrophils % 4 Lymphocytes % 12 Monocytes % 60 Neutrophils # (Manual) 0.1 Nucleated Red Blood Cells 4 Differential Comment FINAL DIFF MANUAL Platelet Estimate LOW Platelet Morphology Comment NORMAL Ovalocytes 1+ Sodium Level 133 Potassium Level 3.4 Chloride Level 99 Carbon Dioxide Level 25.0 Anion Gap 9 Blood Urea Nitrogen 30 Creatinine 0.98 Estimat Glomerular Filtration 74 Rate Random Glucose 141 Calcium Level 7.2 Protein Corrected Calcium 8.6 Total Bilirubin 2.3 Direct Bilirubin 1.9 Indirect Bilirubin 0.4 Aspartate Amino Transf 87 (AST/SGOT) Alanine Aminotransferase 84 (ALT/SGPT) Alkaline Phosphatase 292 Total Protein 4.6 Albumin 1.3 Date/Time Procedure Status Source Growth 05/14/17 17:22 Aerobic Blood Culture Received Blood Peripheral Pending 05/14/17 17:22 Anaerobic Blood Culture Received Blood Peripheral Pending Result Diagram: 05/15/17 0418 05/15/17 0418 Assessment and Plan Assessment and Plan Febrile neutropenia Gram negative sepsis ? source: PORT vs intraabd vs biliary Pancreatic cancer, sp biliary stent sp chemo with chomotherapy induced neutropeni Non pruritic rash Sepsi, critically ill Rash, non pruritic : medacation induced vs 2/2 petechia dehydration Abdominal distention, pain Esophagits cont zosyn dc cefrepime CT abd/pel monitor blood clx agree with plan for endoscopy cont fluconazole Discussed Condition With Beti Rebollar MD May 15, 2017 11:09
--- NOTE | 2017-05-15 11:27 | EKG ---
Date Performed: 05/14/2017 Time Performed: 20:18:24 PTAGE: 82 years EKG: SINUS TACHYCARDIA NONSPECIFIC T-WAVE ABNORMALITY ABNORMAL RHYTHM ECG Compared to prior trac ing no significant change PREVIOUS TRACING : 12/01/2002 10.03 DOCTOR: Nba Webb Interpretating Date/Time 05/15/2017 11:25:26
--- NOTE | 2017-05-15 14:28 | PD.ONC.PN ---
Subjective Subjective Remarks Tmax 100.4 overnight. Patient fatigued. Has been NPO in preparation for bedside abdominal ultrasound. Objective Data Date Time Temp Pulse Resp B/P Pulse Ox O2 Delivery O2 Flow Rate FiO2 05/15/17 12:00 108 05/15/17 12:00 98.7 108 20 124/76 99 05/15/17 10:00 106 05/15/17 08:00 98.1 109 30 117/65 99 05/15/17 08:00 95 Nasal Cannula 2.00 05/15/17 08:00 109 05/15/17 06:00 114 05/15/17 04:00 97.4 118 31 104/61 96 05/15/17 04:00 118 05/15/17 03:42 99 05/15/17 02:00 95 Nasal Cannula 2.00 05/15/17 02:00 116 05/15/17 00:45 92 Nasal Cannula 2.00 05/15/17 00:30 122 05/15/17 00:00 100.4 107 18 106/63 100 05/14/17 20:56 121 05/14/17 20:00 97.1 113 16 112/65 94 05/14/17 16:00 99.1 124 12 111/68 96 Result Diagram: 05/15/17 0418 05/15/17 0418 Laboratory Results Laboratory Tests Test 05/14/17 05/14/17 05/15/17 05/15/17 20:30 23:15 00:30 04:18 Lactic Acid Level 2.9 mmol/L 2.3 mmol/L Procalcitonin 59.49 ng/mL Nasal Screen MRSA (PCR) MRSA NOT DETECTED White Blood Count 0.4 TH/MM3 Red Blood Count 2.97 MIL/MM3 Hemoglobin 9.8 GM/DL Hematocrit 28.6 % Mean Corpuscular Volume 96.4 FL Mean Corpuscular Hemoglobin 32.9 PG Mean Corpuscular Hemoglobin 34.2 % Concent Red Cell Distribution Width 13.5 % Platelet Count 48 TH/MM3 Mean Platelet Volume 11.3 FL Neutrophils (%) (Auto) % Lymphocytes (%) (Auto) % Monocytes (%) (Auto) % Eosinophils (%) (Auto) % Basophils (%) (Auto) % Neutrophils # (Auto) TH/MM3 Lymphocytes # (Auto) TH/MM3 Monocytes # (Auto) TH/MM3 Eosinophils # (Auto) TH/MM3 Basophils # (Auto) TH/MM3 CBC Comment AUTO DIFF Differential Total Cells 25 Counted Neutrophils % (Manual) 24 % Band Neutrophils % 4 % Lymphocytes % 12 % Monocytes % 60 % Neutrophils # (Manual) 0.1 TH/MM3 Nucleated Red Blood Cells 4 /100 WBC Differential Comment FINAL DIFF MANUAL Platelet Estimate LOW Platelet Morphology Comment NORMAL Ovalocytes 1+ Sodium Level 133 MEQ/L Potassium Level 3.4 MEQ/L Chloride Level 99 MEQ/L Carbon Dioxide Level 25.0 MEQ/L Anion Gap 9 MEQ/L Blood Urea Nitrogen 30 MG/DL Creatinine 0.98 MG/DL Estimat Glomerular Filtration 74 ML/MIN Rate Random Glucose 141 MG/DL Calcium Level 7.2 MG/DL Protein Corrected Calcium 8.6 MG/DL Total Bilirubin 2.3 MG/DL Direct Bilirubin 1.9 MG/DL Indirect Bilirubin 0.4 MG/DL Aspartate Amino Transf 87 U/L (AST/SGOT) Alanine Aminotransferase 84 U/L (ALT/SGPT) Alkaline Phosphatase 292 U/L Total Protein 4.6 GM/DL Albumin 1.3 GM/DL Culture Results Microbiology Date/Time Procedure Status Source Growth 05/14/17 17:20 Aerobic Blood Culture - Preliminary Resulted Blood Peripheral NO GROWTH IN 1 DAY 05/14/17 17:20 Anaerobic Blood Culture - Preliminary Resulted Blood Peripheral NO GROWTH IN 1 DAY 05/14/17 17:22 Aerobic Blood Culture - Preliminary Resulted Blood Peripheral NO GROWTH IN 1 DAY 05/14/17 17:22 Anaerobic Blood Culture - Preliminary Resulted Blood Peripheral NO GROWTH IN 1 DAY Administered Medications Medications (Trade) Dose Ordered Sig/Samy Route PRN Reason Start Time Stop Time Status Last Admin Dose Admin Aspirin (Aspirin Chew) 81 mg DAILY CHEW 05/15/17 09:00 05/15/17 08:23 Cholecalciferol (Vitamin D3) 1,000 units DAILY PO 05/15/17 09:00 05/15/17 08:23 Levothyroxine Sodium 50 mcg 50 mcg DAILY@06 PO 05/15/17 06:00 05/15/17 05:10 Sodium Chloride (1/2 NS 1000 ml Inj) 1,000 ml @ 100 mls/hr Q10H IV 05/14/17 17:00 05/14/17 18:59 Multivitamins (Theragran) 1 tab DAILY PO 05/15/17 09:00 05/15/17 08:23 Cyanocobalamin (Vitamin B12) 1,000 mcg DAILY PO 05/15/17 09:00 05/15/17 08:23 Pravastatin Sodium 40 mg 40 mg DAILY PO 05/15/17 09:00 05/15/17 08:23 Sodium Chloride 1,000 ml @ 250 mls/hr Q4H IV 05/14/17 19:45 05/15/17 11:47 Fluconazole/ Sodium Chloride (Diflucan 200 Mg Premix Bag) 100 ml @ 100 mls/hr Q24H IV 05/14/17 21:00 05/14/17 22:50 Nystatin 5 ml 5 ml QID SWISH-SWAL 05/14/17 21:00 05/15/17 08:23 Cefepime HCl 2000 mg/Sodium Chloride 100 ml @ 200 mls/hr Q8H IV 05/15/17 04:00 05/15/17 11:50 Potassium Chloride (KCl 40 Meq Premix Inj) 100 ml @ 25 mls/hr UNSCH PRN IV ELECTROLYTE REPLACEMENT 05/15/17 06:15 05/15/17 08:23 Objective Remarks GENERAL: Fatigued elderly male supine in bed, resting. SKIN: Warm and dry. HEAD: Normocephalic. EYES: No injection or drainage. NECK: Supple, trachea midline. CARDIOVASCULAR: Regular rate and rhythm RESPIRATORY: Breath sounds equal bilaterally. No accessory muscle use. GASTROINTESTINAL: Abdomen soft, non-tender, nondistended. EXTREMITIES: No cyanosis Assessment/Plan Problem List: (1) Localized cancer of pancreas Status: Acute Plan: will resume chemotherapy outpatient once current events resolved. History: --initially presented with painless jaundice. --had a stent placed and his bilirubin came down appropriately. --was evaluated at [facility] by Dr. Brent Singletary. felt to be resectable candidate but was to undergo neoadjuvant chemotherapy. --two cycles of Abraxane and gemcitabine. He comes into clinic for followup. --came into clinic for follow up and reported malaise, abdominal distension and pain x 1 week. he was tachycardic and weak with ANC of 0 with rigors, admission to hospital was coordinated (2) Neutropenic fever Status: Acute Plan: --blood cultures pending --on Cefepime --ID following (3) Elevated bilirubin Status: Acute Plan: --GI following --monitor --stent may need maintenance and evaluation Assessment 82y/o male with localized pancreatic cancer with increased bilirubin. h/o Localized pancreatic cancer, elevated CA 19.9. Painless jaundice. Cholelithiasis. Hypothyroidism. Colonoscopy. Endoscopic ultrasound. ERCP. Stent placement. Fine-needle biopsy. Plan 1. await blood cultures 2. continue antibiotics 3. monitor bilirubin, LFT's Attending Statement The exam, history, and the medical decision-making described in the above note were completed with the assistance of the mid-level provider. I reviewed and agree with the findings presented. I attest that I had a [id number] encounter with the patient on the same day, and personally performed and documented my assessment and findings in the medical record. Pt seen and examined. Noted Bilirubin still elevated. Neutropenic with ANC 100, cont GCSF. Decrease IVF, bp good, hr elevated. Noted decrease platelet <50K stop ASA. Continue support. Issac TANNER before Friday to see his surgeon. Abx per ID. Kristen Willard May 15, 2017 14:28 Tracey Verdugo MD May 15, 2017 19:19
[2017-05-15] MEDS: FILGRASTIM 480 MCG/1.6 ML VIAL SQ SCH (14:40)
[2017-05-15] MEDS: PIPERACIL-TAZO 4.5 GM PREMIX 100 ML IV SCH ×2 (16:12→21:39)
[2017-05-15] MEDS ORDERED: DIATRIZOATE MEGLUM/DIATRIZOATE SOD 9 ML CUP PO ONE (16:30)
--- NOTE | 2017-05-15 16:45 | RADRPT ---
EXAM DATE/TIME: 05/15/2017 15:44 [facility] COMPARISON: CT ABDOMEN & PELVIS W CONTRAST, February 19, 2017, 18:01. [facility] : [facility]/O [facility], February 17, 2017 INDICATIONS : Biliary obstruction. Pancreatic cancer. Elevated liver function tests. MEDICAL HISTORY : Hypercholesterolemia. Carcinoma, pancreas. Thyroid disease. SURGICAL HISTORY : Colon surgery. Chemotherapy. ENCOUNTER: Subsequent ACUITY: 1 day PAIN SCORE: 0/10 LOCATION: Bilateral Abdomen. MEASUREMENTS: LIVER: 14.3 cm length COMMON DUCT: 3 mm RIGHT KIDNEY: 11.4 x 4.4 x 5.1 cm LEFT KIDNEY: 11.9 x 4.2 x 6.0 cm SPLEEN: 12.4 cm length AORTA: 2.6cm maximal FINDINGS: LIVER: There is increased echogenicity suggestive of fatty infiltration. No significant biliary duct dilatat ion is demonstrated. There is some sludge in the gallbladder. Gallbladder wall is not thickened. No d efinite fluid is seen around the gallbladder. The common bile duct is normal in size at 3 mm. COMMON DUCT: No intraluminal mass or stone visualized. GALLBLADDER: No definite stones. There appears to be some sludge in the gallbladder. Gallbladder alonzo are thicken ed. PANCREAS: There is limited visualization due to overlying bowel gas. However the pancreatic duct appears to be dilated at 8 mm. RIGHT KIDNEY: No hydronephrosis, stone or mass. LEFT KIDNEY: No hydronephrosis, stone or mass. SPLEEN: No focal lesion. AORTA: Non aneurysmal. IVC: Within normal limits. CONCLUSION: 1. Limited visualization of the pancreas. However, the pancreatic duct appears to be dilated 8 mm. 2. No definite biliary tract obstruction is seen. 3. There appears to be some sludge in the gallbladder. 4. There appears to be fatty infiltration throughout the liver. Shawn White MD on May 15, 2017 at 16:39 Board Certified Radiologist. This report was verified electronically.
[2017-05-15] MEDS: FLUCONAZOLE 200 MG PREMIX BAG 100 ML IV SCH (20:14)
[2017-05-15] MEDS ORDERED: IOHEXOL 350 MG/ML 10 ML VIAL (for RAD DIAG) IV ONE (20:43)
--- NOTE | 2017-05-15 20:57 | RADRPT ---
EXAM DATE/TIME: 05/15/2017 20:39 [facility] COMPARISON: CT ABDOMEN & PELVIS W CONTRAST, February 19, 2017, 18:01. INDICATIONS : Abdominal distention. IV CONTRAST: 96 cc Omnipaque 350 (iohexol) IV ORAL CONTRAST: Prescribed oral contrast ingested. RADIATION DOSE: 7.47 CTDIvol (mGy) MEDICAL HISTORY : Carcinoma, pancreas. Thyroid disease. SURGICAL HISTORY : Colon surgery. Chemotherapy. ENCOUNTER: Initial ACUITY: 1 day PAIN SCALE: 0/10 LOCATION: All quadrants. TECHNIQUE: Volumetric scanning of the abdomen and pelvis was performed. Using automated exposure control and ad justment of the mA and/or kV according to patient size, radiation dose was kept as low as reasonably achievable to obtain optimal diagnostic quality images. DICOM format image data is available electro nically for review and comparison. FINDINGS: Minimal bibasilar parenchymal changes are evident. There is no pericardial effusion. There is mild to moderate intrahepatic biliary duct dilatation. Gallbladder is small and contracted. There is some mild enhancement around the gallbladder. Biliary stent is noted in good position. T he spleen and pancreas are unremarkable. There is moderate gaseous distention of both large and smal l bowel with air-fluid levels in both. There is no free air. There is no abscess. There is no obstruction. The bladder is prominent. Review of bone windows reveals only degenerative changes. CONCLUSION: Biliary stent in good position. There continues to be no evidence metastatic disease to the liver Gallbladder somewhat small and contracted with mild enhancement present. Nonspecific air-fluid levels in large and small bowel most suggestive of an ileus. Saturnino Trimble MD FACR on May 15, 2017 at 20:54 Board Certified Radiologist. This report was verified electronically.
[2017-05-16] VITALS (17 sets, daily range): BP systolic 74–119; BP diastolic 50–78; PULSE 86–174; RESP 25–34; TEMP 97.2–98.8; O2SAT 6–98
[2017-05-16] MEDS ORDERED: ONDANSETRON HCL 4 MG/2 ML VIAL ONE (02:53)
[2017-05-16] MEDS: PIPERACIL-TAZO 4.5 GM PREMIX 100 ML IV SCH ×4 (03:11→21:04)
[2017-05-16 03:23] LABS: AUTOMATED NEUTROPHIL # 4.5 TH/MM3 (1.8-7.7); BASOPHIL % 0.2 % (0.0-2.0); EOSINOPHIL % 0.2 % (0.0-4.0); LYMPH % 3.6 % (9.0-44.0); LYMPHOCYTE # 0.2 TH/MM3 (1.0-4.8); MEAN CELL VOLUME 95.9 FL (80.0-100.0); MEAN CORPUSCULAR HEMOGLOBIN 33.3 PG (27.0-34.0); MEAN CORPUSCULAR HGB CONC 34.8 % (32.0-36.0); MONO % 4.1 % (0.0-8.0); NEUT % 91.9 % (16.0-70.0); PLATELET COUNT 31 TH/MM3 (150-450); RED BLOOD COUNT 3.33 MIL/MM3 (4.50-5.90); RED CELL DISTRIBUTION WIDTH 13.6 % (11.6-17.2); WHITE BLOOD COUNT 4.9 TH/MM3 (4.0-11.0)
[2017-05-16 03:28] LABS: HEMO FLAGS AUTO DIFF
[2017-05-16] MEDS ORDERED: ONDANSETRON HCL 4 MG/2 ML VIAL IV PUSH PRN (03:30)
[2017-05-16 03:59] LABS: BICARBONATE 22.4 MEQ/L (21.0-32.0); CALCIUM-PROTEIN CORRECTED 8.4 MG/DL (8.5-10.1); POTASSIUM 3.4 MEQ/L (3.5-5.1); TOTAL BILIRUBIN ADULT 3.1 MG/DL (0.2-1.0)
[2017-05-16] MEDS: ICU - POTASSIUM CHLORIDE/AQUEOUS SOLN 40 MEQ/100 ML IVPB IV PRN (04:12)
[2017-05-16 04:41] LABS: SCAN/DIFF AUTO DIFF CONFIRMED
[2017-05-16] MEDS: SODIUM CHLOR 0.9% 1000 ML INJ 1,000 ML IV SCH (05:13)
[2017-05-16] MEDS: LEVOTHYROXINE SODIUM 50 MCG TAB PO SCH (05:46)
[2017-05-16] MEDS: CHOLECALCIFEROL (VIT D3) 1000 UNIT TAB PO SCH (08:59)
[2017-05-16] MEDS: MULTIVITAMIN TAB PO SCH (08:59)
[2017-05-16] MEDS: NYSTATIN SUSP 500,000 U/5 ML CUP SWISH-SWAL SCH ×4 (08:59→21:03)
[2017-05-16] MEDS: PRAVASTATIN SOD 40 MG TAB PO SCH (08:59)
[2017-05-16] MEDS: CYANOCOBALAMIN 1,000 MCG TAB PO SCH (08:59)
[2017-05-16] MEDS: ALBUMIN HUMAN 25% 12.5 GM/50 ML BAGP IV SCH ×3 (09:56→21:03)
[2017-05-16] MEDS: DILTIAZEM HCL 30 MG TAB PO SCH ×4 (09:56→21:03)
[2017-05-16] MEDS ORDERED: FUROSEMIDE 20 MG/2 ML VIAL IV PUSH ONE (10:30)
--- NOTE | 2017-05-16 10:36 | HHI.PR ---
Subjective Subjective Remarks Patient is sitting up in bed, drinking small amount of liquids Anorexic, not hungry Does and answer simple question Tachypnea respirations, tachycardic, compensated (Kaela Hilton) Review of Systems Constitutional Constitutional: Fever, Fatigue, Weight Change, Weakness Constitutional Remarks 10 point ROS done positives noted (Kaela Hilton) GI/Abdomen GI/Abdominal Exam: Nausea (Kaela Hilton) Musculoskeletal MS: Weakness, Stiffness, Swelling (trace of pedal edema) (Kaela Hilton ) Neurologic Neurologic: Lethargic (but does respond weakly to verbal stimuli) (Kaela Hilton) Psychiatric Psychiatric: Normal Mood (Kaela Hilton) Vitals/Results Intake & Output 05/15/17 05/15/17 05/16/17 15:00 23:00 07:00 Intake Total 1877 ml 3006 ml 908 ml Balance 1877 ml 3006 ml 908 ml Intake Oral 140 ml 946 ml 60 ml IV Total 1737 ml 2060 ml 848 ml # Voids 2 1 2 # Bowel Movements 0 0 1 Vital Signs Vital Signs Date Time Temp Pulse Resp B/P Pulse Ox O2 Delivery O2 Flow Rate FiO2 05/16/17 08:00 114 05/16/17 08:00 97.4 114 28 114/77 97 05/16/17 06:00 116 05/16/17 04:00 118 05/16/17 04:00 97.2 118 25 119/77 96 05/16/17 02:00 118 05/16/17 00:00 97.8 113 28 119/78 98 05/16/17 00:00 113 05/15/17 22:00 118 05/15/17 20:00 124 05/15/17 20:00 98.4 124 31 125/79 98 05/15/17 19:00 96 Nasal Cannula 4.00 05/15/17 18:00 119 05/15/17 16:00 98.5 118 22 129/77 99 05/15/17 16:00 117 05/15/17 14:00 120 05/15/17 12:00 108 05/15/17 12:00 98.7 108 20 124/76 99 (Kaela Hilton) CBC/BMP: 05/16/17 0300 05/16/17 0300 Lab Results Laboratory Tests Test 05/15/17 05/16/17 17:38 03:00 Lipase 28 U/L CA 19-9 Antigen 74.0 U/ML White Blood Count 4.9 TH/MM3 Red Blood Count 3.33 MIL/MM3 Hemoglobin 11.1 GM/DL Hematocrit 32.0 % Mean Corpuscular Volume 95.9 FL Mean Corpuscular Hemoglobin 33.3 PG Mean Corpuscular Hemoglobin 34.8 % Concent Red Cell Distribution Width 13.6 % Platelet Count 31 TH/MM3 Mean Platelet Volume 11.1 FL Neutrophils (%) (Auto) 91.9 % Lymphocytes (%) (Auto) 3.6 % Monocytes (%) (Auto) 4.1 % Eosinophils (%) (Auto) 0.2 % Basophils (%) (Auto) 0.2 % Neutrophils # (Auto) 4.5 TH/MM3 Lymphocytes # (Auto) 0.2 TH/MM3 Monocytes # (Auto) 0.2 TH/MM3 Eosinophils # (Auto) 0.0 TH/MM3 Basophils # (Auto) 0.0 TH/MM3 CBC Comment AUTO DIFF Differential Comment AUTO DIFF CONFIRMED Sodium Level 138 MEQ/L Potassium Level 3.4 MEQ/L Chloride Level 103 MEQ/L Carbon Dioxide Level 22.4 MEQ/L Anion Gap 13 MEQ/L Blood Urea Nitrogen 28 MG/DL Creatinine 0.82 MG/DL Estimat Glomerular Filtration 90 ML/MIN Rate Random Glucose 135 MG/DL Calcium Level 7.0 MG/DL Protein Corrected Calcium 8.4 MG/DL Total Bilirubin 3.1 MG/DL Aspartate Amino Transf 86 U/L (AST/SGOT) Alanine Aminotransferase 80 U/L (ALT/SGPT) Alkaline Phosphatase 300 U/L Total Protein 4.6 GM/DL Albumin 1.2 GM/DL (Kaela Hilton) Physical Exam General General Appearance: Pale, Anxious (mild) (Kaela Hilton) Eyes Eye Exam: Pupils Equal (Kaela Hilton) Ears & Nose Ears & Nose Exam: Nasal Mucosa [place] (pale) (Kaela Hilton) Throat Throat Exam: Oral Mucosa [place] & Moist (pale) (Kaela Hilton) Neck Neck Exam: Neck Supple (Kaela HiltonP) Pulmonary Resp Exam: Diminished Breath Sounds, Labored (tachypnea respirations) (Kaela Hilton) Cardiology CV Exam: Tachycardia (compensated) (Kaela HiltonP) Gastrointestinal/Abdomen GI Exam: Bowel Sounds Present, Bowel Sounds Hypoactive GI Remarks Taut (Kaela Hilton) Musculoskeletal MS Exam: Normal Tone (for his condition), Atrophy (Kaela Hilton) Integumentary Skin Exam: Warm, Dry, Intact (Kaela Hilton) Extremeties Extremities Exam: Trace Edema (lower extremities) (Kaela Hilton) Neurologic Neuro Exam: Awake, Oriented, Speech Clear (week), Moving All Extremities ( generalized weakness) (Kaela Hilton) Assessment/Plan Assessment/Plan vital signs reviewed, afebrile, acute onset of atrial fib, RVR, 160-170s , tachypnea labs reviewed, K 3.4 hypokalemia, anemia, LFTS all remain elevated, neutropenia mild increase. Acute audible rhonchi, CXR being done, EKG, IVF dc'd for now febrile neutropenia Absolute neutrophil count of 0 Hyperglycemia Tachycardia Hyponatremia Hyperbilirubinemia Weight loss Odynophagia History of pancreatic cancer with improvement in his markers after chemotherapy Management/Plan Malnutrition weight loss, patient seems to be drinking fluids but not eating solid food. nutrition consult and add boost to every meal. Sepsis, and antibiotics, encourage by mouth fluids, monitor vital signs patient has increased tachypnea, audible rhonchi, IVF off for now, but will get 100cc with Potassium IV replacement Patient states that he had chemotherapy last week, appreciate ID input for antibiotics Oncology consult for their expert opinion and plan a care, continue Neupogen GI consult, to investigate his odynophagia, appreciate input KEON bedside US to evaluation for biliary dilatation. Poss. MRCP vs CT. ID consult for intensive antibiotic therapy, Currently noted, Levaquin and Zosyn Hypokalemia, when necessary meds for potassium replacement ordered continue to be below 3.5 , needs low dose Lasix for fluid overload and audible rhonchi. Possible CHF, CXR pending Lasix 20mg IV, with IV Potassium supplement. Monitor accurate I/O, sofia if necessary. EKG done, monitor shows atrial fib, RVR, Cardizem PO ordered per Dr. Thomas Spoke with Dr. Thomas and updated, Consulted De Icer Installer to assist. HR still 160-170s Discussed with patient his wishes for code status, He is alert, oriented and understands his acute on chronic illness. Wants full code , full agressive care. Also discussed with nurse in . Discussed with patient Discussed with nurse Discussed with Dr. Thomas, seen on his behalf (Kaela Hilton) Assessment/Plan seen, examined by myself, Dr Thomas, today Hypotension Tachycardia Respiratory distress Right lower lobe infiltrate Started on Kenan-Synephrine Intravenous Cardizem drip Discussed with barrel drainer Critical condition Over 45 minutes spent Discussed with patient Discussed with mid level provider The exam, history, and the medical decision-making described in the above note were completed with the assistance of the mid-level provider. I reviewed the findings presented. I attest that I had a [id number] encounter with the patient on the same day, and personally performed and documented my assessment and findings in the medical record. (Lulú Thomas MD) Kaela Hilton May 16, 2017 10:36 Lulú Thomas MD May 16, 2017 19:06
[2017-05-16] MEDS ORDERED: TERBUTALINE INJ 1 MG/ML AMP SQ PRN ×2 (10:45→11:00)
[2017-05-16] MEDS ORDERED: DILTIAZEM INJ 125 MG in SODIUM CHLORIDE 0.9% INJ 100 ML IV SCH ×2 (10:45→11:00)
[2017-05-16] MEDS ORDERED: NOREPINEPHRINE-DEXTROSE DRIP 250 ML IV SCH (10:45)
--- NOTE | 2017-05-16 10:45 | RADRPT ---
EXAM DATE/TIME: 05/16/2017 10:09 [place] COMPARISON: CT THORAX W/O CONTRAST, February 22, 2017, 11:12. INDICATIONS : Short of breath, evaluate bronchitis MEDICAL HISTORY : Carcinoma, pancreas. biliary obstruction, elevated LFT's SURGICAL HISTORY : colon surgery, infusaport ENCOUNTER: Subsequent ACUITY: 2 days PAIN SCORE: Non-responsive. LOCATION: Bilateral chest FINDINGS: There is infiltrate in the left lung base with likely small associated effusion. Right lung is grossl y clear. Right chest port is present good position. Contours are satisfactory for technique and rotat ion. CONCLUSION: Right base infiltrate and effusion Rogers Henson MD on May 16, 2017 at 10:42 Board Certified Radiologist. This report was verified electronically.
[2017-05-16] MEDS ORDERED: SODIUM CHLOR 0.9% IV SCH (11:00)
[2017-05-16] MEDS ORDERED: PHENYLEPHRINE IV SCH (11:00)
[2017-05-16] MEDS: POTASSIUM CHLOR 20 MEQ PREMIX 100 ML IV SCH ×4 (11:00→16:30)
[2017-05-16] MEDS ORDERED: MAGNESIUM SULFATE 1 GM PREMIX 100 ML IV SCH (11:00)
[2017-05-16] MEDS ORDERED: DILTIAZEM HCL 25 MG/5 ML VIAL IVP ONE (11:00)
[2017-05-16] MEDS ORDERED: METOPROLOL TARTRATE 5 MG/5 ML VIAL ONE (11:01)
--- NOTE | 2017-05-16 11:07 | PD.ONC.PN ---
Subjective Subjective Remarks Afebrile overnight. Patient tachycardic this morning. Has been started on cardizem drip. very fatigued/weak. Objective Data Date Time Temp Pulse Resp B/P Pulse Ox O2 Delivery O2 Flow Rate FiO2 05/16/17 08:00 114 05/16/17 08:00 97.4 114 28 114/77 97 05/16/17 06:00 116 05/16/17 04:00 118 05/16/17 04:00 97.2 118 25 119/77 96 05/16/17 02:00 118 05/16/17 00:00 97.8 113 28 119/78 98 05/16/17 00:00 113 05/15/17 22:00 118 05/15/17 20:00 124 05/15/17 20:00 98.4 124 31 125/79 98 05/15/17 19:00 96 Nasal Cannula 4.00 05/15/17 18:00 119 05/15/17 16:00 98.5 118 22 129/77 99 05/15/17 16:00 117 05/15/17 14:00 120 05/15/17 12:00 108 05/15/17 12:00 98.7 108 20 124/76 99 05/16/17 05/16/17 05/16/17 07:00 15:00 23:00 Intake Total 908 ml Balance 908 ml Result Diagram: 05/16/17 0300 05/16/17 0300 Laboratory Results Laboratory Tests Test 05/15/17 05/16/17 17:38 03:00 Lipase 28 U/L CA 19-9 Antigen 74.0 U/ML White Blood Count 4.9 TH/MM3 Red Blood Count 3.33 MIL/MM3 Hemoglobin 11.1 GM/DL Hematocrit 32.0 % Mean Corpuscular Volume 95.9 FL Mean Corpuscular Hemoglobin 33.3 PG Mean Corpuscular Hemoglobin 34.8 % Concent Red Cell Distribution Width 13.6 % Platelet Count 31 TH/MM3 Mean Platelet Volume 11.1 FL Neutrophils (%) (Auto) 91.9 % Lymphocytes (%) (Auto) 3.6 % Monocytes (%) (Auto) 4.1 % Eosinophils (%) (Auto) 0.2 % Basophils (%) (Auto) 0.2 % Neutrophils # (Auto) 4.5 TH/MM3 Lymphocytes # (Auto) 0.2 TH/MM3 Monocytes # (Auto) 0.2 TH/MM3 Eosinophils # (Auto) 0.0 TH/MM3 Basophils # (Auto) 0.0 TH/MM3 CBC Comment AUTO DIFF Differential Comment AUTO DIFF CONFIRMED Sodium Level 138 MEQ/L Potassium Level 3.4 MEQ/L Chloride Level 103 MEQ/L Carbon Dioxide Level 22.4 MEQ/L Anion Gap 13 MEQ/L Blood Urea Nitrogen 28 MG/DL Creatinine 0.82 MG/DL Estimat Glomerular Filtration 90 ML/MIN Rate Random Glucose 135 MG/DL Calcium Level 7.0 MG/DL Protein Corrected Calcium 8.4 MG/DL Total Bilirubin 3.1 MG/DL Aspartate Amino Transf 86 U/L (AST/SGOT) Alanine Aminotransferase 80 U/L (ALT/SGPT) Alkaline Phosphatase 300 U/L Total Protein 4.6 GM/DL Albumin 1.2 GM/DL Culture Results Microbiology Date/Time Procedure Status Source Growth 05/14/17 17:20 Aerobic Blood Culture - Preliminary Resulted Blood Peripheral NO GROWTH IN 1 DAY 05/14/17 17:20 Anaerobic Blood Culture - Preliminary Resulted Blood Peripheral NO GROWTH IN 1 DAY 05/14/17 17:22 Aerobic Blood Culture - Preliminary Resulted Blood Peripheral NO GROWTH IN 1 DAY 05/14/17 17:22 Anaerobic Blood Culture - Preliminary Resulted Blood Peripheral NO GROWTH IN 1 DAY Imaging Studies Last 24 hours Impressions Chest X-Ray 05/16/17 0000 Signed Impressions: Service Date/Time: Tuesday, May 16, 2017 10:09 - CONCLUSION: Right base infiltrate and effusion Rogers Henson MD Administered Medications Medications (Trade) Dose Ordered Sig/Samy Route PRN Reason Start Time Stop Time Status Last Admin Dose Admin Cholecalciferol (Vitamin D3) 1,000 units DAILY PO 05/15/17 09:00 05/16/17 08:59 Levothyroxine Sodium (Synthroid) 50 mcg DAILY@06 PO 05/15/17 06:00 05/16/17 05:46 Multivitamins (Theragran) 1 tab DAILY PO 05/15/17 09:00 05/16/17 08:59 Cyanocobalamin (Vitamin B12) 1,000 mcg DAILY PO 05/15/17 09:00 05/16/17 08:59 Pravastatin Sodium (Pravachol) 40 mg DAILY PO 05/15/17 09:00 05/16/17 08:59 Filgrastim 480 mcg 480 mcg DAILY@14 SQ 05/15/17 14:00 05/15/17 14:40 Fluconazole/ Sodium Chloride (Diflucan 200 Mg Premix Bag) 100 ml @ 100 mls/hr Q24H IV 05/14/17 21:00 05/15/17 20:14 Nystatin 5 ml 5 ml QID SWISH-SWAL 05/14/17 21:00 05/16/17 08:59 Potassium Chloride 100 ml @ 25 mls/hr UNSCH PRN IV ELECTROLYTE REPLACEMENT 05/15/17 06:15 05/16/17 04:12 Piperacillin Sod/ Tazobactam Sod (Zosyn 4.5 Gm Premix) 100 ml @ 200 mls/hr Q6H IV 05/15/17 16:00 05/16/17 08:59 Ondansetron HCl (Zofran Inj) 4 mg Q4H PRN IV PUSH NAUSEA OR VOMITING 05/16/17 03:30 05/16/17 03:21 Albumin Human (Albumin 25% Inj) 12.5 gm Q6H IV 05/16/17 10:00 05/18/17 23:55 05/16/17 09:56 Diltiazem HCl (Cardizem) 30 mg QID PO 05/16/17 10:00 05/16/17 09:56 Objective Remarks GENERAL: Fatigued elderly male supine in bed, resting. SKIN: Warm and dry. HEAD: Normocephalic. EYES: No injection or drainage. NECK: Supple, trachea midline. CARDIOVASCULAR: +S1/S2, tachy RESPIRATORY: anterior grey with scattered rhonchi. on 4L O2 via [place] GASTROINTESTINAL: Abdomen distended EXTREMITIES: No cyanosis Assessment/Plan Problem List: (1) Localized cancer of pancreas Status: Acute Plan: will resume chemotherapy outpatient once current events resolved. History: --initially presented with painless jaundice. --had a stent placed and his bilirubin came down appropriately. --was evaluated at [facility] by Dr. Brent Singletary. felt to be resectable candidate but was to undergo neoadjuvant chemotherapy. --two cycles of Abraxane and gemcitabine. He comes into clinic for followup. --came into clinic for follow up and reported malaise, abdominal distension and pain x 1 week. he was tachycardic and weak with ANC of 0 with rigors, admission to hospital was coordinated (2) Neutropenic fever Status: Acute Plan: --blood cultures no growth --lactic acid elevated --on Cefepime --ID following (3) Elevated bilirubin Status: Acute Plan: --GI following --monitor --U/S abdomen showed dilatated pancreatic duct --stent may need maintenance and evaluation Assessment 82y/o male with localized pancreatic cancer with increased bilirubin. h/o Localized pancreatic cancer, elevated CA 19.9. Painless jaundice. Cholelithiasis. Hypothyroidism. Colonoscopy. Endoscopic ultrasound. ERCP. Stent placement. Fine-needle biopsy. Plan 1. continue antibiotics 2. d/c neutropenic precautions. continue Neupogen for one additional day then d/ c 3. monitor platelet count. Attending Statement The exam, history, and the medical decision-making described in the above note were completed with the assistance of the mid-level provider. I reviewed and agree with the findings presented. I attest that I had a [id number] encounter with the patient on the same day, and personally performed and documented my assessment and findings in the medical record. Tired, trying to rest. Feels heart is better, HR better controlled. Still has productive cough. Abdomen distended. ANC recovery, platelet still low. DVT prophylaxis and ASA on hold until platelet recovery >50K Pancreatic cancer responding to chemo. Kristen Willard May 16, 2017 11:07 Tracey Verdugo MD May 16, 2017 20:50
[2017-05-16] MEDS ORDERED: PHENYLEPHRINE HCL 10 MG/ML VIAL ONE (11:11)
--- NOTE | 2017-05-16 11:54 | PD.CONS ---
HPI Service Critical Care Medicine Consult Requested By Hospitalist Service Reason for Consult Respiratory distress, a-fib, RVR Primary Care Physician Non-Staff History of Present Illness 82 y/o man with pancreatic head malignancy developed left lung pneumonia while neutropenic during treatment. New LLL infiltrate and acute atrial fibrillation with RVR 170 - 180s. I slowed his rate acutely with lopressor iv then converted him over to neosynephrine infusion for BP support, followed by cardizem infusion for extended rate control. Review of Systems Respiratory: COMPLAINS OF: Cough, Wheezing, Shortness of breath Cardiovascular: COMPLAINS OF: Orthopnea Gastrointestinal: COMPLAINS OF: Difficulty Swallowing, Anorexia Genitourinary: DENIES: Sexual dysfunction, Urinary frequency, Urinary incontinence, Urgency, Hematuria, Dysuria, Nocturia, Penile Discharge, Testicular Pain, Testicular Swelling Integumentary: DENIES: Abnormal pigmentation, Nail changes, Pruritus, Rash Hematologic/lymphatic: COMPLAINS OF: Bruising Psychiatric: COMPLAINS OF: Anxiety Past Family Social History Allergies: Coded Allergies: No Known Allergies (Verified , 04/07/17) Past Medical History Past Medical History Pancreatic cancer Cholelithiasis Hyperlipidemia Hypothyroidism Biliary obstruction HTN Past Surgical History EUS/ERCP with stent placement Colonoscopy Coded Allergies: No Known Allergies (Verified , 04/07/17) Medications Physical Exam Vital Signs Vital Signs Date Time Temp Pulse Resp B/P Pulse Ox O2 Delivery O2 Flow Rate FiO2 05/16/17 11:23 98 Nasal Cannula 2.00 05/16/17 08:00 114 05/16/17 08:00 97.4 114 28 114/77 97 05/16/17 06:00 116 05/16/17 04:00 118 05/16/17 04:00 97.2 118 25 119/77 96 05/16/17 02:00 118 05/16/17 00:00 97.8 113 28 119/78 98 05/16/17 00:00 113 05/15/17 22:00 118 05/15/17 20:00 124 05/15/17 20:00 98.4 124 31 125/79 98 05/15/17 19:00 96 Nasal Cannula 4.00 05/15/17 18:00 119 05/15/17 16:00 98.5 118 22 129/77 99 05/15/17 16:00 117 05/15/17 14:00 120 05/15/17 12:00 108 05/15/17 12:00 98.7 108 20 124/76 99 Physical Exam P 180s, SBP 82, RR 34 labored, sats 92% Head: Normal. Neck: Supple, airway widely patent. Lungs: Diffuse crackles, light wheezes. Labored and tachypneic. Heart: Irreg Irreg, neck veins not visable. Abdomen: No involuntary guarding or peritoneal irritation. Extremities: Tepid, poorly perfused feet and hands. Neuro: Anxious, moves 4 limbs. Laboratory Laboratory Tests Test 05/15/17 05/16/17 17:38 03:00 Lipase 28 CA 19-9 Antigen 74.0 White Blood Count 4.9 Red Blood Count 3.33 Hemoglobin 11.1 Hematocrit 32.0 Mean Corpuscular Volume 95.9 Mean Corpuscular Hemoglobin 33.3 Mean Corpuscular Hemoglobin 34.8 Concent Red Cell Distribution Width 13.6 Platelet Count 31 Mean Platelet Volume 11.1 Neutrophils (%) (Auto) 91.9 Lymphocytes (%) (Auto) 3.6 Monocytes (%) (Auto) 4.1 Eosinophils (%) (Auto) 0.2 Basophils (%) (Auto) 0.2 Neutrophils # (Auto) 4.5 Lymphocytes # (Auto) 0.2 Monocytes # (Auto) 0.2 Eosinophils # (Auto) 0.0 Basophils # (Auto) 0.0 CBC Comment AUTO DIFF Differential Comment AUTO DIFF CONFIRMED Sodium Level 138 Potassium Level 3.4 Chloride Level 103 Carbon Dioxide Level 22.4 Anion Gap 13 Blood Urea Nitrogen 28 Creatinine 0.82 Estimat Glomerular Filtration 90 Rate Random Glucose 135 Calcium Level 7.0 Protein Corrected Calcium 8.4 Total Bilirubin 3.1 Aspartate Amino Transf 86 (AST/SGOT) Alanine Aminotransferase 80 (ALT/SGPT) Alkaline Phosphatase 300 Total Protein 4.6 Albumin 1.2 Date/Time Procedure Status Source Growth 05/14/17 17:22 Aerobic Blood Culture - Preliminary Resulted Blood Peripheral NO GROWTH IN 2 DAYS 05/14/17 17:22 Anaerobic Blood Culture - Preliminary Resulted Blood Peripheral NO GROWTH IN 2 DAYS Result Diagram: 05/16/17 0300 05/16/17 0300 Assessment and Plan Assessment and Plan Assessment: 1. Respiratory Distress. 2. Atrial fibrillation with RVR. 3. Hypotension. 4. Left lung pneumonia. 5. Pancreatic Cancer. Plan: 1. Neosynephrine for BP support. 2. Cardizem for rate control. 3. Oral beta chiki for jail Rx. 4. Consider amiodarone short-term if he doesn't convert to NSR. 5. Neutropenic precautions. 6. Anticoagulation not necessary at this point. 7. Replace Mag, K. 8. BNP. Overall impression: Paroxysmal a-fib and hemodynamic instability. Critically ill at this point requiring extended bedside manipulations of respiratory support and drug manipulations. Critical Care 45 mins Serafin Soria MD May 16, 2017 11:54
--- NOTE | 2017-05-16 12:07 | PD.PN.STU ---
Subjective Remarks Patient is in a fib and is experiencing respiratory distress. Critical care physician is present and in the process of rhythm conversion. He is able to respond to questions with short phrases. He reports dry mouth, difficulty swallowing but not painful swallowing, and difficult and labored breathing. Addendum by Dr. Thomas on 05/16/17 I personally seen and examined this patient Discussed with medical student Agree with above [place] is referred to my independent note for more details Objective Vitals Vital Signs Date Time Temp Pulse Resp B/P Pulse Ox O2 Delivery O2 Flow Rate FiO2 05/16/17 11:23 98 Nasal Cannula 2.00 05/16/17 08:00 114 05/16/17 08:00 97.4 114 28 114/77 97 05/16/17 06:00 116 05/16/17 04:00 118 05/16/17 04:00 97.2 118 25 119/77 96 05/16/17 02:00 118 05/16/17 00:00 97.8 113 28 119/78 98 05/16/17 00:00 113 05/15/17 22:00 118 05/15/17 20:00 124 05/15/17 20:00 98.4 124 31 125/79 98 05/15/17 19:00 96 Nasal Cannula 4.00 05/15/17 18:00 119 05/15/17 16:00 98.5 118 22 129/77 99 05/15/17 16:00 117 05/15/17 14:00 120 05/15/17 12:00 108 05/15/17 12:00 98.7 108 20 124/76 99 I/O 05/15/17 05/15/17 05/15/17 05/16/17 05/16/17 05/16/17 07:00 15:00 23:00 07:00 15:00 23:00 Intake Total 120 ml 1877 ml 3006 ml 908 ml Balance 120 ml 1877 ml 3006 ml 908 ml Intake Oral 120 ml 140 ml 946 ml 60 ml IV Total 1737 ml 2060 ml 848 ml # Voids 2 2 1 2 # Bowel Movements 0 0 0 1 Result Diagram: 05/16/17 0300 05/16/17 0300 Objective Remarks General: Patient is anorexic in appearance. He appears to be in acute distress. He is responsive with short phrases and is capable of following commands. Respiratory: Rapid breathing with use of accessory respiratory muscles. Expiratory crackles heard in bilateral lung grey. Cardiovascular: Tachycardic/Irregular heart rate and rhythm initially in 170- 180 bpm range. With admin of Lopressor HR decreases to 110-120 bpm range. BP initially 80s/50s range; with admin of Neosynephrine and diltiazem drip increases to 110s/70s range. Radial and posterior tibialis pulse 1+. No appreciated murmur or rubs. A/P Assessment and Plan Afib: monitor heart rate and rhythm closely. Cardiovert if afib returns and patient becomes unstable. Pulmonary congestion: Monitor respiratory effort and rate closely. Repeat chest xray to monitor congestion. Obtain ABG if distress continues. Consider use of BIPAP if breath difficulty continues, or intubate if patient becomes unstable. Consider holding IV hydration until congestion clears or administering diuretic. Left lower lobe lung infiltrate: possible pneumonia. Consider antibiotic treatment. Febrile Neutropenia: monitor WBC count closely. Continue Zosyn and colony stimulating factor. Dry mouth/Odynophagia: Monitor and consult GI for possibility of upper GI endoscopy. Elevated Bilirubin: Continue to monitor. Biliary stent is in place. Further imaging studies may be indicated. Weight Loss: consider parenteral nutrition if needs are not met through oral feeding Increased Lactic acid: monitor and consider transfer to ICU if it continues to increase. Monitor electrolytes and replace as necessary. Thrombocytopenia: continue to monitor closely Anemia: improving. Continue to monitor closely. History of pancreatic cancer: Once stabilized return to chemotherapy treatment. Ivonne Lopez May 16, 2017 12:07 Lulú Thomas MD May 19, 2017 20:10
[2017-05-16] MEDS: FILGRASTIM 480 MCG/1.6 ML VIAL SQ SCH (14:30)
--- NOTE | 2017-05-16 17:02 | HHI.GIFU ---
Subjective Remarks Pt resting in bed. Says he feels better after his "ordeal." Denies abd pain. Per RN 2 x small liquid BM yesterday. Objective Vitals I&O Vital Signs Date Time Temp Pulse Resp B/P Pulse Ox O2 Delivery O2 Flow Rate FiO2 05/16/17 14:00 92 05/16/17 12:00 97.6 148 34 114/77 96 05/16/17 12:00 148 05/16/17 11:23 98 Nasal Cannula 2.00 05/16/17 10:00 171 05/16/17 08:00 114 05/16/17 08:00 97.4 114 28 114/77 97 05/16/17 06:00 116 05/16/17 04:00 118 05/16/17 04:00 97.2 118 25 119/77 96 05/16/17 02:00 118 05/16/17 00:00 97.8 113 28 119/78 98 05/16/17 00:00 113 05/15/17 22:00 118 05/15/17 20:00 124 05/15/17 20:00 98.4 124 31 125/79 98 05/15/17 19:00 96 Nasal Cannula 4.00 05/15/17 18:00 119 I/O 05/15/17 05/15/17 05/15/17 05/16/17 05/16/17 05/16/17 07:00 15:00 23:00 07:00 15:00 23:00 Intake Total 120 ml 1877 ml 3006 ml 908 ml 945 ml Output Total 425 ml Balance 120 ml 1877 ml 3006 ml 908 ml 520 ml Intake Oral 120 ml 140 ml 946 ml 60 ml 120 ml IV Total 1737 ml 2060 ml 848 ml 825 ml Output Urine Total 425 ml # Voids 2 2 1 2 # Bowel Movements 0 0 0 1 0 Laboratory Laboratory Tests Test 05/15/17 05/16/17 17:38 03:00 Lipase 28 CA 19-9 Antigen 74.0 White Blood Count 4.9 Red Blood Count 3.33 Hemoglobin 11.1 Hematocrit 32.0 Mean Corpuscular Volume 95.9 Mean Corpuscular Hemoglobin 33.3 Mean Corpuscular Hemoglobin 34.8 Concent Red Cell Distribution Width 13.6 Platelet Count 31 Mean Platelet Volume 11.1 Neutrophils (%) (Auto) 91.9 Lymphocytes (%) (Auto) 3.6 Monocytes (%) (Auto) 4.1 Eosinophils (%) (Auto) 0.2 Basophils (%) (Auto) 0.2 Neutrophils # (Auto) 4.5 Lymphocytes # (Auto) 0.2 Monocytes # (Auto) 0.2 Eosinophils # (Auto) 0.0 Basophils # (Auto) 0.0 CBC Comment AUTO DIFF Differential Comment AUTO DIFF CONFIRMED Sodium Level 138 Potassium Level 3.4 Chloride Level 103 Carbon Dioxide Level 22.4 Anion Gap 13 Blood Urea Nitrogen 28 Creatinine 0.82 Estimat Glomerular Filtration 90 Rate Random Glucose 135 Calcium Level 7.0 Protein Corrected Calcium 8.4 Total Bilirubin 3.1 Aspartate Amino Transf 86 (AST/SGOT) Alanine Aminotransferase 80 (ALT/SGPT) Alkaline Phosphatase 300 Total Protein 4.6 Albumin 1.2 Date/Time Procedure Status Source Growth 05/14/17 17:22 Aerobic Blood Culture - Preliminary Resulted Blood Peripheral NO GROWTH IN 2 DAYS 05/14/17 17:22 Anaerobic Blood Culture - Preliminary Resulted Blood Peripheral NO GROWTH IN 2 DAYS Imaging Last Impressions Chest X-Ray 05/16/17 0000 Signed Impressions: Service Date/Time: Tuesday, May 16, 2017 10:09 - CONCLUSION: Right base infiltrate and effusion Rogers Henson MD Abdomen/Pelvis CT 05/15/17 0000 Signed Impressions: Service Date/Time: May 20:39 - CONCLUSION: Biliary stent in good position. There continues to be no evidence metastatic disease to the liver Gallbladder somewhat small and contracted with mild enhancement present. Nonspecific air-fluid levels in large and small bowel most suggestive of an ileus. Saturnino Trimble MD FACR Abdomen Ultrasound 05/15/17 0000 Signed Impressions: Service Date/Time: May 15:44 - CONCLUSION: 1. Limited visualization of the pancreas. However, the pancreatic duct appears to be dilated 8 mm. 2. No definite biliary tract obstruction is seen. 3. There appears to be some sludge in the gallbladder. 4. There appears to be fatty infiltration throughout the liver. Shawn White MD Physical Exam general: diaphoretic HEENT: PERRL; normocephalic; atraumatic; no jaundice. CHEST: coarse rales throughout CARDIAC: radial pulse +2 and regular, could not auscultate heart over adventitious lung sounds ABDOMEN: Soft,mildly distended, nontender; no hepatosplenomegaly; bowel sounds are present in all four quadrants. EXTREMITIES: No clubbing, cyanosis, or edema. SKIN: Normal; no rash; no jaundice. [employer]ER: lethargic, weak Assessment and Plan Plan ASSESSMENT: - Neutropenic fevers. BCx no growth x 2 day. WBC improved. Neutrophils increased. Neupogen, Cefepime, Diflucan, Nystatin. - Elevated LFTs, hx of biliary obstruction secondary to pancreatic cancer. He had elevated LFTs at time that stent was placed, but they improved afterwards. US ABD 8--> pancreatic duct dilated 8mm, no def obstruction galbladder sludge, fatty liver. CT 8--> no evidence mets to liver, gallbladder small and contracted with mild enhancement, suggests ileus. Pt denies any nausea, vomiting, or abdominal pain. - Anorexia, Wt. Loss, ? Odynophagia. He reports to me that he has had decreased appetite since starting chemotherapy, but denies any odynophagia or difficulty swallowing. States he just does not have any appetite. Nystatin. Diflucan. - Anemia, normocytic. HH stable - Pancreatic cancer. Dx in February of 2017.CT as above MRCP (02/20/17)----> The common bile duct is markedly dilated as is the pancreatic duct and there is also tapering of the splenic vein in SMV before it becomes the portal vein. All three things suggest that there is a central pancreatic head mass, but it is difficult to define one on the MRCP. After contrast there is a fairly uniform enhancement through the head and neck of the pancreas. Difficult to define an actual mass. There is a questionable 1 cm lesion in the head of the pancreas on the CT scan specifically series2; image 30 but this is more median than the common bile duct narrowing. Outpatient PET CT could be performed. Solid organs are unremarkable. EUS with FNA/ERCP with stent placement (02/21/17)----> Pancreatic head mass, biliary stricture, s/ p stent placement. Pancreatic head mass FNA revealed atypical glandular cells consistent with adenocarcinoma, cell block atypical glandular cells consistent with adenocarcinoma. He was thought to have potentially resectable disease and completed 7-8 weeks of Abraxane and gemcitabine. He has an appointment to follow up with [facility] Friday for surgical evaluation of his pancreatic cancer. CA 19-9 74 H - HTN, Hypothyroidism, Hyperlipidemia. Per attending. PLAN: - KEON - MRCP - supportive care - Further recommendations to follow - Pt seen and examined by Dr. Rivas and myself and this note is written on his behalf Neida Wing May 16, 2017 17:02
--- NOTE | 2017-05-16 18:39 | HHI.IDPN ---
Subjective Subjective Remarks dong well WBC improved Growing GNB in 01/07 BC bottles, not yet ID'd no new co BP was low, started on pressors Antibiotics zosyn 4.5 q 6 Allergies: Coded Allergies: No Known Allergies (Verified , 04/07/17) Objective . Vital Signs Date Time Temp Pulse Resp B/P Pulse Ox O2 Delivery O2 Flow Rate FiO2 05/16/17 18:00 90 05/16/17 16:00 92 05/16/17 16:00 97.7 92 28 109/65 96 05/16/17 14:00 92 05/16/17 12:00 97.6 148 34 114/77 96 05/16/17 12:00 148 05/16/17 11:23 98 Nasal Cannula 2.00 05/16/17 11:03 97.4 174 32 74/50 6 05/16/17 10:55 97.6 170 30 91/57 97 05/16/17 10:48 97.4 172 32 94/59 97 05/16/17 10:00 171 05/16/17 08:00 114 05/16/17 08:00 97.4 114 28 114/77 97 05/16/17 06:00 116 05/16/17 04:00 118 05/16/17 04:00 97.2 118 25 119/77 96 05/16/17 02:00 118 05/16/17 00:00 97.8 113 28 119/78 98 05/16/17 00:00 113 05/15/17 22:00 118 05/15/17 20:00 124 05/15/17 20:00 98.4 124 31 125/79 98 05/15/17 19:00 96 Nasal Cannula 4.00 05/15/17 05/15/17 05/16/17 14:59 22:59 06:59 Intake Total 1877 ml 3006 ml 908 ml Balance 1877 ml 3006 ml 908 ml Intake Oral 140 ml 946 ml 60 ml IV Total 1737 ml 2060 ml 848 ml # Voids 2 1 2 # Bowel Movements 0 0 1 . Laboratory Tests Test 05/15/17 05/16/17 04:18 03:00 White Blood Count 0.4 TH/MM3 4.9 TH/MM3 Red Blood Count 2.97 MIL/MM3 3.33 MIL/MM3 Hemoglobin 9.8 GM/DL 11.1 GM/DL Hematocrit 28.6 % 32.0 % Mean Corpuscular Volume 96.4 FL 95.9 FL Mean Corpuscular Hemoglobin 32.9 PG 33.3 PG Mean Corpuscular Hemoglobin 34.2 % 34.8 % Concent Red Cell Distribution Width 13.5 % 13.6 % Platelet Count 48 TH/MM3 31 TH/MM3 Mean Platelet Volume 11.3 FL 11.1 FL Neutrophils (%) (Auto) % 91.9 % Lymphocytes (%) (Auto) % 3.6 % Monocytes (%) (Auto) % 4.1 % Eosinophils (%) (Auto) % 0.2 % Basophils (%) (Auto) % 0.2 % Neutrophils # (Auto) TH/MM3 4.5 TH/MM3 Lymphocytes # (Auto) TH/MM3 0.2 TH/MM3 Monocytes # (Auto) TH/MM3 0.2 TH/MM3 Eosinophils # (Auto) TH/MM3 0.0 TH/MM3 Basophils # (Auto) TH/MM3 0.0 TH/MM3 CBC Comment AUTO DIFF AUTO DIFF Differential Total Cells 25 Counted Neutrophils % (Manual) 24 % Band Neutrophils % 4 % Lymphocytes % 12 % Monocytes % 60 % Neutrophils # (Manual) 0.1 TH/MM3 Nucleated Red Blood Cells 4 /100 WBC Differential Comment FINAL DIFF AUTO DIFF MANUAL CONFIRMED Platelet Estimate LOW Platelet Morphology Comment NORMAL Ovalocytes 1+ Laboratory Tests Test 05/14/17 05/14/17 05/15/17 05/15/17 20:30 23:15 04:18 17:38 Lactic Acid Level 2.9 mmol/L 2.3 mmol/L Procalcitonin 59.49 ng/mL Sodium Level 133 MEQ/L Potassium Level 3.4 MEQ/L Chloride Level 99 MEQ/L Carbon Dioxide Level 25.0 MEQ/L Anion Gap 9 MEQ/L Blood Urea Nitrogen 30 MG/DL Creatinine 0.98 MG/DL Estimat Glomerular Filtration 74 ML/MIN Rate Random Glucose 141 MG/DL Calcium Level 7.2 MG/DL Protein Corrected Calcium 8.6 MG/DL Total Bilirubin 2.3 MG/DL Direct Bilirubin 1.9 MG/DL Indirect Bilirubin 0.4 MG/DL Aspartate Amino Transf 87 U/L (AST/SGOT) Alanine Aminotransferase 84 U/L (ALT/SGPT) Alkaline Phosphatase 292 U/L Total Protein 4.6 GM/DL Albumin 1.3 GM/DL Lipase 28 U/L CA 19-9 Antigen 74.0 U/ML Test 05/16/17 05/16/17 03:00 17:57 Sodium Level 138 MEQ/L Potassium Level 3.4 MEQ/L Chloride Level 103 MEQ/L Carbon Dioxide Level 22.4 MEQ/L Anion Gap 13 MEQ/L Blood Urea Nitrogen 28 MG/DL Creatinine 0.82 MG/DL Estimat Glomerular Filtration 90 ML/MIN Rate Random Glucose 135 MG/DL Calcium Level 7.0 MG/DL Protein Corrected Calcium 8.4 MG/DL Total Bilirubin 3.1 MG/DL Aspartate Amino Transf 86 U/L (AST/SGOT) Alanine Aminotransferase 80 U/L (ALT/SGPT) Alkaline Phosphatase 300 U/L Total Protein 4.6 GM/DL Albumin 1.2 GM/DL Lactic Acid Level 2.0 mmol/L Microbiology Date/Time Procedure Status Source Growth 05/14/17 17:20 Aerobic Blood Culture - Preliminary Resulted Blood Peripheral NO GROWTH IN 2 DAYS 05/14/17 17:20 Anaerobic Blood Culture - Preliminary Resulted Blood Peripheral NO GROWTH IN 2 DAYS 05/14/17 17:22 Aerobic Blood Culture - Preliminary Resulted Blood Peripheral NO GROWTH IN 2 DAYS 05/14/17 17:22 Anaerobic Blood Culture - Preliminary Resulted Blood Peripheral NO GROWTH IN 2 DAYS Imaging Last Impressions Chest X-Ray 05/16/17 0000 Signed Impressions: Service Date/Time: Tuesday, May 16, 2017 10:09 - CONCLUSION: Right base infiltrate and effusion Rogers Henson MD Abdomen/Pelvis CT 05/15/17 0000 Signed Impressions: Service Date/Time: May 20:39 - CONCLUSION: Biliary stent in good position. There continues to be no evidence metastatic disease to the liver Gallbladder somewhat small and contracted with mild enhancement present. Nonspecific air-fluid levels in large and small bowel most suggestive of an ileus. Saturnino Trimble MD FACR Abdomen Ultrasound 05/15/17 0000 Signed Impressions: Service Date/Time: May 15:44 - CONCLUSION: 1. Limited visualization of the pancreas. However, the pancreatic duct appears to be dilated 8 mm. 2. No definite biliary tract obstruction is seen. 3. There appears to be some sludge in the gallbladder. 4. There appears to be fatty infiltration throughout the liver. Shawn White MD Physical Exam CONSTITUTIONAL/GENERAL: This is a thin chroniclly ill eldelrly male patient, in no apparent distress. TUBES/LINES/DRAINS: PORT: in place R chest w/o e/o infx SKIN: No jaundice, + diffuse non banching erythematous non pruritic macular rashes, involving extremeties, trunk. Ecchymoses on upper extremities. . Skin temperature elevated. Skin is very dry, with markedly reduced turgor Not diaphoretic. EYES: Pupils equal and round and reactive. Extraocular motions intact. + mild scleral icterus. No injection or drainage. Fundi not examined. ENT: still very dry oral mucosae is very dry without visible erythema, exudates , masses, or lesions. Poor dentition NECK: Trachea midline. Supple, nontender. CARDIOVASCULAR: Regular rate and rhythm without murmurs, gallops, or rubs. No JVD. Peripheral pulses symmetric. RESPIRATORY/CHEST: Symmetric, unlabored respirations. B/b crackles to auscultation. Breath sounds equal bilaterally. No wheezes, rales, or rhonchi. GASTROINTESTINAL: Abdomen soft, mildly tender to palpation RLQ , moderately distended. No hepato-splenomegaly, or palpable masses. No guarding. Bowel sounds present. well healed medial laparotomy incision with small fully reducible incisional hernia (7 cm) GENITOURINARY: Without palpable bladder distension. MUSCULOSKELETAL: Extremities without clubbing, cyanosis, Some soft pitting pretibial edema. No joint tenderness or effusion noted. No calf tenderness. No mottling or clubbing. NEUROLOGICAL: Awake and alert. Motor and sensory grossly within normal limits. Follows commands. Clear specch. Moves all extremities. PSYCHIATRIC: calm, cooperative Assessment & Plan Remarks Febrile neutropenia Gram negative sepsis: clinically stable ? source: PORT vs intraabd vs biliary vs RLL PNA - ID/S P repeat set is negative @ 2 days Pancreatic cancer, sp biliary stent sp chemo with chomotherapy induced neutropeni Non pruritic rash Sepsi, critically ill, Rash, non pruritic : medacation induced vs 2/2 petechia dehydration Abdominal distention, pain - CT showed ileus, no other acute findings Esophagits RLL infiltrae/effusion cont zosyn monitor blood clx agree with plan for endoscopy cont fluconazole for esopahgitis Beti Trent MD May 16, 2017 18:38
[2017-05-16 18:46] LABS: APTT (PATIENT) 35.5 SEC (24.3-30.1); INTERNATIONAL NORMALIZED RATIO 1.1 RATIO
[2017-05-16] MEDS: FLUCONAZOLE 200 MG PREMIX BAG 100 ML IV SCH (21:02)
[2017-05-17] VITALS (15 sets, daily range): BP systolic 95–105; BP diastolic 53–59; PULSE 78–105; RESP 20–28; TEMP 97.5–98.6; O2SAT 94–100
[2017-05-17] MEDS: ALBUMIN HUMAN 25% 12.5 GM/50 ML BAGP IV SCH ×4 (06:18→21:17)
[2017-05-17] MEDS: PIPERACIL-TAZO 4.5 GM PREMIX 100 ML IV SCH ×2 (06:19→08:53)
[2017-05-17] MEDS: LEVOTHYROXINE SODIUM 50 MCG TAB PO SCH (06:19)
[2017-05-17] MEDS: NYSTATIN SUSP 500,000 U/5 ML CUP SWISH-SWAL SCH ×4 (08:53→19:47)
[2017-05-17] MEDS: PRAVASTATIN SOD 40 MG TAB PO SCH (08:53)
[2017-05-17] MEDS: CYANOCOBALAMIN 1,000 MCG TAB PO SCH (08:53)
[2017-05-17] MEDS: DILTIAZEM HCL 30 MG TAB PO SCH ×4 (08:53→19:47)
[2017-05-17] MEDS: CHOLECALCIFEROL (VIT D3) 1000 UNIT TAB PO SCH (08:53)
[2017-05-17] MEDS: MULTIVITAMIN TAB PO SCH (08:53)
--- NOTE | 2017-05-17 08:57 | HHI.CCPN ---
Subjective Remarks/Hospital Course 82 y/o man with pancreatic head malignancy developed left lung pneumonia while neutropenic during treatment. New LLL infiltrate and acute atrial fibrillation with RVR 170 - 180s. I slowed his rate acutely with lopressor iv then converted him over to neosynephrine infusion for BP support, followed by cardizem infusion for extended rate control. 05/17: Much improved today. Warm, well perfused. Breathing comfortably. White cells recovering. A-fib with RVR now NSR. Neosynephrine support tapering off. Objective Vital Signs Date Time Temp Pulse Resp B/P Pulse Ox O2 Delivery O2 Flow Rate FiO2 05/17/17 08:00 86 05/17/17 08:00 98.4 23 101/55 99 05/17/17 07:00 Nasal Cannula 3.00 Intake and Output 05/16/17 05/16/17 05/16/17 07:59 15:59 23:59 Intake Total 908 ml 945 ml 1480 ml Output Total 425 ml 400 ml Balance 908 ml 520 ml 1080 ml Result Diagram: 05/16/17 0300 05/16/17 0300 Objective Remarks P 86, BP 101/65, RR 15, non-labored, sats 95% Head: Normal. Neck: Supple, airway widely patent. Lungs: Light crackles, no wheezes. Comfortable pattern. Heart: RRR, no mr, neck veins not visible. Abdomen: No involuntary guarding or peritoneal irritation. Soft. Extremities: Warm, well perfused feet and hands. Neuro: Calm, moves 4 limbs. Conversant but mildly confused. A/P Assessment and Plan Assessment: 1. Respiratory Distress. 2. Atrial fibrillation with RVR -> resolved. 3. Hypotension. 4. Left lung pneumonia. 5. Pancreatic Cancer. Plan: 1. Taper neosynephrine for BP support. 2. Cardizem for rate control. Convert to PO beta chiki. 3. Oral beta chiki for skilled nursing Rx. 4. Consider amiodarone short-term if he doesn't convert to NSR. 5. Neutropenic precautions. 6. Anticoagulation not necessary at this point. 7. Replace Mag, K. 8. BNP. 9. D/C cardizem. 10. CXR. Overall impression: Admitted to ICU with paroxysmal a-fib and hemodynamic instability. New left pneumonia and neutropenia. Improving. NSR now. Serafin Soria MD May 17, 2017 08:57
[2017-05-17] MEDS ORDERED: PILL SPLITTER OTHER PRN (09:15)
[2017-05-17 09:32] LABS: HEMATOCRIT 26.4 % (39.0-51.0); MEAN CELL VOLUME 95.9 FL (80.0-100.0); MEAN CORPUSCULAR HEMOGLOBIN 32.7 PG (27.0-34.0); MEAN CORPUSCULAR HGB CONC 34.1 % (32.0-36.0); PLATELET COUNT 33 TH/MM3 (150-450); RED BLOOD COUNT 2.76 MIL/MM3 (4.50-5.90); RED CELL DISTRIBUTION WIDTH 14.2 % (11.6-17.2); WHITE BLOOD COUNT 33.2 TH/MM3 (4.0-11.0)
[2017-05-17 09:38] LABS: HEMO FLAGS AUTO DIFF
--- NOTE | 2017-05-17 09:42 | RADRPT ---
EXAM DATE/TIME: 05/17/2017 09:23 [facility] COMPARISON: CHEST SINGLE AP, May 16, 2017, 10:09. INDICATIONS : Shortness of breath. MEDICAL HISTORY : Carcinoma, pancreas. Biliary obstruction. SURGICAL HISTORY : Infusaport. ENCOUNTER: Subsequent ACUITY: 3 days PAIN SCORE: 0/10 LOCATION: Bilateral chest FINDINGS: A single AP erect portable view of the chest was obtained and again demonstrates the right-sided impl antable port catheter in place. The heart size is within normal limits with atherosclerotic changes i n the aorta. Abnormal opacity remains in the left perihilar region and left lung base. Multiple overl lisa artifacts are present projected over the upper lungs. CONCLUSION: Abnormal opacity remains in the right perihilar region the right lung base without significant change . Zachary Dill MD on May 17, 2017 at 9:38 Board Certified Radiologist. This report was verified electronically.
[2017-05-17 09:51] LABS: BICARBONATE 21.7 MEQ/L (21.0-32.0); POTASSIUM 3.6 MEQ/L (3.5-5.1)
[2017-05-17 10:20] LABS: CALCIUM-PROTEIN CORRECTED 8.1 MG/DL (8.5-10.1)
[2017-05-17] MEDS: METOPROLOL TARTRATE 25 MG TAB PO SCH ×2 (10:31→19:47)
[2017-05-17 11:03] LABS: BANDS 9 % (0-6); METAMYELOCYTES 7 % (0-1); MYELOCYTES 2 % (0-0); NEUTROPHIL # MANUAL DIFF 30.2 TH/MM3 (1.8-7.7); POLYS (SEG NEUTROPHILS) 72 % (16-70); PROMYELOCYTES 1 % (0-0); WBC DIFF SAMPLE 100
[2017-05-17 11:05] LABS: CRENATED RBCS 1+ (NORMAL); KERATOCYTES OCC (NORMAL); OVALOCYTES 1+ (NORMAL); PLATELET ESTIMATE SMEAR LOW (NORMAL); PLATELET MORPHOLOGY NORMAL (NORMAL); SCAN/DIFF FINAL DIFF MANUAL
--- NOTE | 2017-05-17 12:50 | RADRPT ---
EXAM DATE/TIME: 05/17/2017 11:39 [facility] COMPARISON: CT ABDOMEN & PELVIS W CONTRAST, May 15, 2017, 20:39. MRCP W & W/O CONTRAST, February 20, 2017, 12:12. INDICATIONS : Pancreatic cancer. CONTRAST: 14 cc Omniscan (gadodiamide) IV MEDICAL HISTORY : Carcinoma, pancreas. SURGICAL HISTORY : Colon resection. Biliary stent. ENCOUNTER: Initial ACUITY: 1 day PAIN SCORE: 0/10 LOCATION: Abdomen TECHNIQUE: Multiplanar, multisequence magnetic resonance imaging of the abdomen was performed. High-resolution 3D dataset was utilized to reconstruct maximum-intensity projection (MIP) images. FINDINGS: INTRAHEPATIC BILE DUCTS: Biliary ducts are normal caliber however T2-weighted imaging demonstrates mild peribiliary T2 hyperin tensity EXTRAHEPATIC BILE DUCTS: The common bile duct measures 6 mm. No stone or filling defect is identified. No distal obstructing m ass is visualized. GALLBLADDER: Gallbladder is contracted. Small stone is identified. There is fluid surrounding the gallbladder with mild wall thickening. LIVER: No evidence of discrete mass. PANCREAS: The pancreas is unchanged in appearance. The pancreatic duct is mildly prominent and the pancreas fior ears diffusely atrophic. There is no evidence of discrete mass. OTHER: Small amount of free fluid is evident in the abdomen. The remaining visualized structures demonstrate no acute abnormality. CONCLUSION: 1. Contracted gallbladder with cholelithiasis, wall thickening and pericholecystic fluid. 2. Peribiliary T2 hyperintensity suspicious for cholangitis. 3. Mild ascites. 4. No evidence of pancreatic mass Nomi Vasquez MD on May 17, 2017 at 12:35 Board Certified Radiologist. This report was verified electronically.
[2017-05-17] MEDS: cefTRIAXone INJ 2,000 MG in SODIUM CHLORIDE 0.9% INJ 100 ML IV SCH (13:07)
[2017-05-17] MEDS ORDERED: PHENYLEPHRINE INJ 80 MG in SODIUM CHLORID 0.9% 500 ML INJ 492 ML IV SCH (13:30)
--- NOTE | 2017-05-17 14:09 | HHI.GIFU ---
Subjective Remarks Pt resting in bed, no complaints. Per RN 2 x loose stool. (Neida Wing) Objective Vitals I&O Vital Signs Date Time Temp Pulse Resp B/P Pulse Ox O2 Delivery O2 Flow Rate FiO2 05/17/17 12:00 105 05/17/17 12:00 98.1 105 26 105/56 96 05/17/17 10:00 78 05/17/17 08:57 100 Nasal Cannula 4.00 05/17/17 08:00 86 05/17/17 08:00 98.4 87 23 101/55 99 05/17/17 07:00 96 Nasal Cannula 3.00 05/17/17 06:00 85 05/17/17 04:00 90 05/17/17 04:00 97.5 90 23 99/58 97 05/17/17 02:00 85 05/17/17 00:23 95 Nasal Cannula 4.00 05/17/17 00:00 98.6 81 25 103/59 94 05/17/17 00:00 82 05/16/17 22:00 86 05/16/17 20:00 100 05/16/17 20:00 98.8 100 27 105/51 94 05/16/17 19:00 94 Nasal Cannula 3.00 05/16/17 18:00 90 05/16/17 16:00 92 05/16/17 16:00 97.7 92 28 109/65 96 05/16/17 14:00 92 I/O 05/16/17 05/16/17 05/16/17 05/17/17 05/17/17 05/17/17 07:00 15:00 23:00 07:00 15:00 23:00 Intake Total 908 ml 945 ml 1480 ml 695 ml Output Total 425 ml 400 ml 300 ml Balance 908 ml 520 ml 1080 ml 395 ml Intake Oral 60 ml 120 ml 240 ml 120 ml IV Total 848 ml 825 ml 1240 ml 575 ml Output Urine Total 425 ml 400 ml 300 ml Stool Total 0 ml 0 ml # Voids 2 # Bowel Movements 1 0 Laboratory Laboratory Tests Test 05/16/17 05/17/17 17:57 09:13 Prothrombin Time 12.0 Prothromb Time International 1.1 Ratio Activated Partial 35.5 Thromboplast Time Fibrinogen 408 Lactic Acid Level 2.0 White Blood Count 33.2 Red Blood Count 2.76 Hemoglobin 9.0 Hematocrit 26.4 Mean Corpuscular Volume 95.9 Mean Corpuscular Hemoglobin 32.7 Mean Corpuscular Hemoglobin 34.1 Concent Red Cell Distribution Width 14.2 Platelet Count 33 Mean Platelet Volume 13.5 Neutrophils (%) (Auto) Lymphocytes (%) (Auto) Monocytes (%) (Auto) Eosinophils (%) (Auto) Basophils (%) (Auto) Neutrophils # (Auto) Lymphocytes # (Auto) Monocytes # (Auto) Eosinophils # (Auto) Basophils # (Auto) CBC Comment AUTO DIFF Differential Total Cells 100 Counted Neutrophils % (Manual) 72 Band Neutrophils % 9 Lymphocytes % 6 Monocytes % 3 Neutrophils # (Manual) 30.2 Metamyelocytes 7 Myelocytes 2 Promyelocytes 1 Differential Comment FINAL DIFF MANUAL Platelet Estimate LOW Platelet Morphology Comment NORMAL Ovalocytes 1+ Crenated Cell 1+ Keratocytes OCC Sodium Level 139 Potassium Level 3.6 Chloride Level 110 Carbon Dioxide Level 21.7 Anion Gap 7 Blood Urea Nitrogen 35 Creatinine 0.82 Estimat Glomerular Filtration 90 Rate Random Glucose 160 Calcium Level 6.7 Protein Corrected Calcium 8.1 Total Protein 4.4 Date/Time Procedure Status Source Growth 05/14/17 17:22 Aerobic Blood Culture - Preliminary Resulted Blood Peripheral NO GROWTH IN 3 DAYS 05/14/17 17:22 Anaerobic Blood Culture - Preliminary Resulted Blood Peripheral NO GROWTH IN 3 DAYS Imaging Last Impressions Cholangiopancreatography MRI 05/17/17 0000 Signed Impressions: Service Date/Time: Wednesday, May 17, 2017 11:39 - CONCLUSION: 1. Contracted gallbladder with cholelithiasis, wall thickening and pericholecystic fluid. 2. Peribiliary T2 hyperintensity suspicious for cholangitis. 3. Mild ascites. 4. No evidence of pancreatic mass Nomi Vasquez MD Chest X-Ray 05/17/17 0000 Signed Impressions: Service Date/Time: Wednesday, May 17, 2017 09:23 - CONCLUSION: Abnormal opacity remains in the right perihilar region the right lung base without significant change. Zachary Dill MD Abdomen/Pelvis CT 05/15/17 0000 Signed Impressions: Service Date/Time: May 20:39 - CONCLUSION: Biliary stent in good position. There continues to be no evidence metastatic disease to the liver Gallbladder somewhat small and contracted with mild enhancement present. Nonspecific air-fluid levels in large and small bowel most suggestive of an ileus. Saturnino Trimble MD FACR Abdomen Ultrasound 05/15/17 0000 Signed Impressions: Service Date/Time: May 15:44 - CONCLUSION: 1. Limited visualization of the pancreas. However, the pancreatic duct appears to be dilated 8 mm. 2. No definite biliary tract obstruction is seen. 3. There appears to be some sludge in the gallbladder. 4. There appears to be fatty infiltration throughout the liver. Shawn White MD Physical Exam HEENT: PERRL; normocephalic; atraumatic; no jaundice. CHEST: coarse rales throughout CARDIAC: radial pulse +2 and regular, could not auscultate heart over adventitious lung sounds ABDOMEN: Soft,mildly distended, nontender; no hepatosplenomegaly; bowel sounds are present in all four quadrants. EXTREMITIES: No clubbing, cyanosis, or edema. SKIN: Normal; no rash; no jaundice. DENTURE CONTOUR WIRE SPECIALIST: lethargic, weak (Neida Wing [employer] SHE[employer] SUPERVISOR) Assessment and Plan Plan ASSESSMENT: - Neutropenic fevers. per RN salmonella in blood, stool cx pending. WBC went up to 33.2 MRCP 8-12 suspicious for cholangitis. ID following, ceftriaxone started - Elevated LFTs, hx of biliary obstruction secondary to pancreatic cancer. He had elevated LFTs at time that stent was placed, but they improved afterwards. US ABD 8-10--> pancreatic duct dilated 8mm, no def obstruction galbladder sludge, fatty liver. CT 8-10--> no evidence mets to liver, gallbladder small and contracted with mild enhancement, suggests ileus. Pt denies any nausea, vomiting, or abdominal pain. - Anorexia, Wt. Loss, ? Odynophagia. He reports to me that he has had decreased appetite since starting chemotherapy, but denies any odynophagia or difficulty swallowing. States he just does not have any appetite. Nystatin. Diflucan. - Anemia, normocytic. HH stable - Pancreatic cancer. Dx in February of 2017.CT as above MRCP (02/20/17)----> The common bile duct is markedly dilated as is the pancreatic duct and there is also tapering of the splenic vein in SMV before it becomes the portal vein. All three things suggest that there is a central pancreatic head mass, but it is difficult to define one on the MRCP. After contrast there is a fairly uniform enhancement through the head and neck of the pancreas. Difficult to define an actual mass. There is a questionable 1 cm lesion in the head of the pancreas on the CT scan specifically series2; image 30 but this is more median than the common bile duct narrowing. Outpatient PET CT could be performed. Solid organs are unremarkable. EUS with FNA/ERCP with stent placement (02/21/17)----> Pancreatic head mass, biliary stricture, s/ p stent placement. Pancreatic head mass FNA revealed atypical glandular cells consistent with adenocarcinoma, cell block atypical glandular cells consistent with adenocarcinoma. He was thought to have potentially resectable disease and completed 7-8 weeks of Abraxane and gemcitabine. He has an appointment to follow up with [facility] next Friday for surgical evaluation of his pancreatic cancer. CA 19-9 74 H - HTN, Hypothyroidism, Hyperlipidemia. Per attending. 05/17 --> MRCP suspicious for cholangitis, wbc up to 33, ?salmonella in blood. ID following, started ceftriaxone PLAN: - GS consult - consider ERCP with stent placement - abx per ID - supportive care - Further recommendations to follow - Pt seen and examined by Dr. Chua and myself and this note is written on his behalf (Neida Wing) Plan Patient was seen and examined, agree with above note, I had a discussion with Dr. Mccann, we will plan to do ERCP with stent exchange today, contniue current care. (Lauro Chua MD) Neida Wing May 17, 2017 14:08 Lauro Chua MD May 17, 2017 15:41
[2017-05-17] MEDS ORDERED: FUROSEMIDE 40 MG/4 ML VIAL IV PUSH ONE (15:00)
--- NOTE | 2017-05-17 15:19 | HHI.PR ---
Subjective Subjective Remarks Patient sleeping, Lethargic weak but does vaguely respond to voice IV Cardizem off Heart rate in the 80s, sinus rhythm (Kaela Hilton) Review of Systems Constitutional Constitutional: Fever, Fatigue, Weight Change, Weakness Constitutional Remarks Limited review of systems due to patient's lethargy (Kaela Hilton) GI/Abdomen GI/Abdominal Exam: Nausea (Kaela Hilton) Musculoskeletal MS: Weakness, Stiffness, Swelling (trace of pedal edema) (Kaela Hilton ) Neurologic Neurologic: Lethargic (but does respond weakly to verbal stimuli) (Kaela Hilton) Psychiatric Psychiatric: Normal Mood (Kaela Hilton) Vitals/Results Intake & Output 05/16/17 05/16/17 05/17/17 15:00 23:00 07:00 Intake Total 945 ml 1480 ml 695 ml Output Total 425 ml 400 ml 300 ml Balance 520 ml 1080 ml 395 ml Intake Oral 120 ml 240 ml 120 ml IV Total 825 ml 1240 ml 575 ml Output Urine Total 425 ml 400 ml 300 ml Stool Total 0 ml 0 ml # Bowel Movements 0 Vital Signs Vital Signs Date Time Temp Pulse Resp B/P Pulse Ox O2 Delivery O2 Flow Rate FiO2 05/17/17 14:00 86 05/17/17 12:00 105 05/17/17 12:00 98.1 105 26 105/56 96 05/17/17 10:00 78 05/17/17 08:57 100 Nasal Cannula 4.00 05/17/17 08:00 86 05/17/17 08:00 98.4 87 23 101/55 99 05/17/17 07:00 96 Nasal Cannula 3.00 05/17/17 06:00 85 05/17/17 04:00 90 05/17/17 04:00 97.5 90 23 99/58 97 05/17/17 02:00 85 05/17/17 00:23 95 Nasal Cannula 4.00 05/17/17 00:00 98.6 81 25 103/59 94 05/17/17 00:00 82 05/16/17 22:00 86 05/16/17 20:00 100 05/16/17 20:00 98.8 100 27 105/51 94 05/16/17 19:00 94 Nasal Cannula 3.00 05/16/17 18:00 90 05/16/17 16:00 92 05/16/17 16:00 97.7 92 28 109/65 96 (Kaela Hilton) CBC/BMP: 05/17/17 0913 05/17/17 0913 Lab Results Laboratory Tests Test 05/16/17 05/17/17 17:57 09:13 Prothrombin Time 12.0 SEC Prothromb Time International 1.1 RATIO Ratio Activated Partial 35.5 SEC Thromboplast Time Fibrinogen 408 mg/dL Lactic Acid Level 2.0 mmol/L White Blood Count 33.2 TH/MM3 Red Blood Count 2.76 MIL/MM3 Hemoglobin 9.0 GM/DL Hematocrit 26.4 % Mean Corpuscular Volume 95.9 FL Mean Corpuscular Hemoglobin 32.7 PG Mean Corpuscular Hemoglobin 34.1 % Concent Red Cell Distribution Width 14.2 % Platelet Count 33 TH/MM3 Mean Platelet Volume 13.5 FL Neutrophils (%) (Auto) % Lymphocytes (%) (Auto) % Monocytes (%) (Auto) % Eosinophils (%) (Auto) % Basophils (%) (Auto) % Neutrophils # (Auto) TH/MM3 Lymphocytes # (Auto) TH/MM3 Monocytes # (Auto) TH/MM3 Eosinophils # (Auto) TH/MM3 Basophils # (Auto) TH/MM3 CBC Comment AUTO DIFF Differential Total Cells 100 Counted Neutrophils % (Manual) 72 % Band Neutrophils % 9 % Lymphocytes % 6 % Monocytes % 3 % Neutrophils # (Manual) 30.2 TH/MM3 Metamyelocytes 7 % Myelocytes 2 % Promyelocytes 1 % Differential Comment FINAL DIFF MANUAL Platelet Estimate LOW Platelet Morphology Comment NORMAL Ovalocytes 1+ Crenated Cell 1+ Keratocytes OCC Sodium Level 139 MEQ/L Potassium Level 3.6 MEQ/L Chloride Level 110 MEQ/L Carbon Dioxide Level 21.7 MEQ/L Anion Gap 7 MEQ/L Blood Urea Nitrogen 35 MG/DL Creatinine 0.82 MG/DL Estimat Glomerular Filtration 90 ML/MIN Rate Random Glucose 160 MG/DL Calcium Level 6.7 MG/DL Protein Corrected Calcium 8.1 MG/DL Total Protein 4.4 GM/DL Imaging Remarks Last Impressions Cholangiopancreatography MRI 05/17/17 0000 Signed Impressions: Service Date/Time: Wednesday, May 17, 2017 11:39 - CONCLUSION: 1. Contracted gallbladder with cholelithiasis, wall thickening and pericholecystic fluid. 2. Peribiliary T2 hyperintensity suspicious for cholangitis. 3. Mild ascites. 4. No evidence of pancreatic mass Nomi Vasquez MD Chest X-Ray 05/17/17 0000 Signed Impressions: Service Date/Time: Wednesday, May 17, 2017 09:23 - CONCLUSION: Abnormal opacity remains in the right perihilar region the right lung base without significant change. Zachary Dill MD Abdomen/Pelvis CT 05/15/17 0000 Signed Impressions: Service Date/Time: May 20:39 - CONCLUSION: Biliary stent in good position. There continues to be no evidence metastatic disease to the liver Gallbladder somewhat small and contracted with mild enhancement present. Nonspecific air-fluid levels in large and small bowel most suggestive of an ileus. Saturnino Trimble MD FACR Abdomen Ultrasound 05/15/17 0000 Signed Impressions: Service Date/Time: May 15:44 - CONCLUSION: 1. Limited visualization of the pancreas. However, the pancreatic duct appears to be dilated 8 mm. 2. No definite biliary tract obstruction is seen. 3. There appears to be some sludge in the gallbladder. 4. There appears to be fatty infiltration throughout the liver. Shawn White MD Current Medications Administered Medications Medications (Trade) Dose Ordered Sig/Samy Route PRN Reason Start Time Stop Time Status Last Admin Dose Admin Cholecalciferol (Vitamin D3) 1,000 units DAILY PO 05/15/17 09:00 05/17/17 08:53 Levothyroxine Sodium (Synthroid) 50 mcg DAILY@06 PO 05/15/17 06:00 05/17/17 06:19 Multivitamins (Theragran) 1 tab DAILY PO 05/15/17 09:00 05/17/17 08:53 Cyanocobalamin (Vitamin B12) 1,000 mcg DAILY PO 05/15/17 09:00 05/17/17 08:53 Pravastatin Sodium 40 mg 40 mg DAILY PO 05/15/17 09:00 05/17/17 08:53 Fluconazole/ Sodium Chloride (Diflucan 200 Mg Premix Bag) 100 ml @ 100 mls/hr Q24H IV 05/14/17 21:00 05/16/17 21:02 Nystatin 5 ml 5 ml QID SWISH-SWAL 05/14/17 21:00 05/17/17 13:06 Potassium Chloride (KCl 40 Meq Premix Inj) 100 ml @ 25 mls/hr UNSCH PRN IV ELECTROLYTE REPLACEMENT 05/15/17 06:15 05/16/17 04:12 Ondansetron HCl (Zofran Inj) 4 mg Q4H PRN IV PUSH NAUSEA OR VOMITING 05/16/17 03:30 05/16/17 03:21 Albumin Human (Albumin 25% Inj) 12.5 gm Q6H IV 05/16/17 10:00 05/18/17 23:55 05/17/17 14:37 Diltiazem HCl (Cardizem) 30 mg QID PO 05/16/17 10:00 05/17/17 13:06 Metoprolol Tartrate 12.5 mg 12.5 mg Q12HR PO 05/17/17 10:00 05/17/17 10:31 Ceftriaxone Sodium/Sodium Chloride (Rocephin Inj/NS Inj) 100 ml @ 200 mls/hr Q24H IV 05/17/17 14:00 05/17/17 13:07 (Kaela Hilton) Physical Exam General General Appearance: Comfortable (lethargic), Pale, Anxious (mild) (Kaela Hilton) Eyes Eye Exam: Pupils Equal (Kaela Hilton) Ears & Nose Ears & Nose Exam: Nasal Mucosa Lester (pale) (Kaela Hilton) Throat Throat Exam: Oral Mucosa Lester & Moist (pale) (Kaela Hilton) Neck Neck Exam: Neck Supple (Kaela Hilton) Pulmonary Resp Exam: Decreased Bases, Diminished Breath Sounds, Labored (tachypnea respirations) Resp Remarks Audible rhonchi heard (Kaela Hilton) Cardiology CV Exam: Regular (heart rate in the 80s sinus rhythm now, yesterday on 05-16, patient had atrial fib with RVR, was placed on IV Cardizem as well as IV Lopressor given), Tachycardia (compensated) (Kaela Hilton) Gastrointestinal/Abdomen GI Exam: Soft, Bowel Sounds Present, Bowel Sounds Hypoactive GI Remarks Taut (Kaela Hilton) Genitourinary Exam: Clear Urine (Merritt catheter) (Kaela Hilton) Musculoskeletal MS Exam: Normal Tone (for his condition), Atrophy (Kaela Hilton) Integumentary Skin Exam: Warm, Dry, Intact (Kaela Hilton) Extremeties Extremities Exam: Trace Edema (lower extremities), Moderate Edema (Kaela Hilton) Neurologic Neuro Exam: Awake, Oriented, Speech Clear (week), Moving All Extremities ( generalized weakness) Neuro Remarks Lethargic minimal response today very drowsy (Kaela Hilton) Assessment/Plan Assessment/Plan vital signs reviewed, afebrile, heart rate controlled in the 80s, sinus rhythm according to monitor labs reviewed, critical increase in WBC count, 33.2, anemia hemoglobin remained stable around 9., Hypokalemia resolved On 05-16 patient had acute onset of atrial fibrillation with RVR, audible rhonchi which continues, chest x-ray showed new right lower lobe infiltrate, shortness of breath New right lower lobe pneumonia, with dysrhythmias febrile neutropenia, O2, antibiotic therapy, monitoring maintain heart rate less than 100 Remains in intensive care setting, condition guarded with multiple complications , GI consult, to investigate his odynophagia, appreciate input KEON bedside US to evaluation for biliary dilatation. MRI MRCP done 05-16 Atrial fibrillation with RVR acute onset, patient's rate was decreased with IV Lopressor on 05-16, patient was placed on IV Cardizem. Within 24 hour period Patient converted back to a sinus rhythm in the 80s Continuous ECG monitoring and medical management On , Discussed with patient his wishes for code status, He is alert, oriented and understands his acute on chronic illness. Wants full code , full agressive care. Also discussed with nurse in . Discussed with patient Discussed with nurse Discussed with Dr. Thomas, seen on his behalf (Kaela Hilton) (Kaela Hilton) Assessment/Plan seen, examined by myself, Dr Thomas, today 05/17/17 Discussed with patient, he is confused but he is much better than yesterday Still on a small dose of pressors Blood pressure and heart rate much more stable He has Salmonella bacteremia, appears to be improving on the current regimen Discussed with mid level provider The exam, history, and the medical decision-making described in the above note were completed with the assistance of the mid-level provider. I reviewed the findings presented. I attest that I had a [id number] encounter with the patient on the same day, and personally performed and documented my assessment and findings in the medical record. (Lulú Thomas MD) Kaela Hilton May 17, 2017 15:19 Lulú Thomas MD May 17, 2017 18:40 Kaela Hilton May 17, 2017 15:19 Lulú Thomas MD May 17, 2017 18:40 Assessment/Plan seen, examined by myself, Dr Thomas, today 05/17/17 Discussed with patient, he is confused but he is much better than yesterday Still on a small dose of pressors Blood pressure and heart rate much more stable He has Salmonella bacteremia, appears to be improving on the current regimen Discussed with mid level provider The exam, history, and the medical decision-making described in the above note were completed with the assistance of the mid-level provider. I reviewed the findings presented. I attest that I had a [id number] encounter with the patient on the same day, and personally performed and documented my assessment and findings in the medical record. (Lulú Thomas MD) Kaela Hilton May 17, 2017 15:19 Lulú Thomas MD May 17, 2017 18:40
--- NOTE | 2017-05-17 15:27 | PD.ONC.PN ---
Subjective Subjective Remarks Still tired. Concern about appt w/ Dr. Singletary on . Objective Data Date Time Temp Pulse Resp B/P Pulse Ox O2 Delivery O2 Flow Rate FiO2 05/17/17 14:00 86 05/17/17 12:00 105 05/17/17 12:00 98.1 105 26 105/56 96 05/17/17 10:00 78 05/17/17 08:57 100 Nasal Cannula 4.00 05/17/17 08:00 86 05/17/17 08:00 98.4 87 23 101/55 99 05/17/17 07:00 96 Nasal Cannula 3.00 05/17/17 06:00 85 05/17/17 04:00 90 05/17/17 04:00 97.5 90 23 99/58 97 05/17/17 02:00 85 05/17/17 00:23 95 Nasal Cannula 4.00 05/17/17 00:00 98.6 81 25 103/59 94 05/17/17 00:00 82 05/16/17 22:00 86 05/16/17 20:00 100 05/16/17 20:00 98.8 100 27 105/51 94 05/16/17 19:00 94 Nasal Cannula 3.00 05/16/17 18:00 90 05/16/17 16:00 92 05/16/17 16:00 97.7 92 28 109/65 96 05/17/17 05/17/17 05/17/17 07:00 15:00 23:00 Intake Total 695 ml 770 ml Output Total 300 ml 200 ml Balance 395 ml 570 ml Result Diagram: 05/17/1791205/17/17912 Laboratory Results Laboratory Tests Test 05/16/17 05/17/17 17:57 09:13 Prothrombin Time 12.0 SEC Prothromb Time International 1.1 RATIO Ratio Activated Partial 35.5 SEC Thromboplast Time Fibrinogen 408 mg/dL Lactic Acid Level 2.0 mmol/L White Blood Count 33.2 TH/MM3 Red Blood Count 2.76 MIL/MM3 Hemoglobin 9.0 GM/DL Hematocrit 26.4 % Mean Corpuscular Volume 95.9 FL Mean Corpuscular Hemoglobin 32.7 PG Mean Corpuscular Hemoglobin 34.1 % Concent Red Cell Distribution Width 14.2 % Platelet Count 33 TH/MM3 Mean Platelet Volume 13.5 FL Neutrophils (%) (Auto) % Lymphocytes (%) (Auto) % Monocytes (%) (Auto) % Eosinophils (%) (Auto) % Basophils (%) (Auto) % Neutrophils # (Auto) TH/MM3 Lymphocytes # (Auto) TH/MM3 Monocytes # (Auto) TH/MM3 Eosinophils # (Auto) TH/MM3 Basophils # (Auto) TH/MM3 CBC Comment AUTO DIFF Differential Total Cells 100 Counted Neutrophils % (Manual) 72 % Band Neutrophils % 9 % Lymphocytes % 6 % Monocytes % 3 % Neutrophils # (Manual) 30.2 TH/MM3 Metamyelocytes 7 % Myelocytes 2 % Promyelocytes 1 % Differential Comment FINAL DIFF MANUAL Platelet Estimate LOW Platelet Morphology Comment NORMAL Ovalocytes 1+ Crenated Cell 1+ Keratocytes OCC Sodium Level 139 MEQ/L Potassium Level 3.6 MEQ/L Chloride Level 110 MEQ/L Carbon Dioxide Level 21.7 MEQ/L Anion Gap 7 MEQ/L Blood Urea Nitrogen 35 MG/DL Creatinine 0.82 MG/DL Estimat Glomerular Filtration 90 ML/MIN Rate Random Glucose 160 MG/DL Calcium Level 6.7 MG/DL Protein Corrected Calcium 8.1 MG/DL Total Protein 4.4 GM/DL Culture Results Microbiology Date/Time Procedure Status Source Growth 05/14/17 17:20 Aerobic Blood Culture - Preliminary Resulted Blood Peripheral NO GROWTH IN 3 DAYS 05/14/17 17:20 Anaerobic Blood Culture - Preliminary Resulted Blood Peripheral NO GROWTH IN 3 DAYS 05/14/17 17:22 Aerobic Blood Culture - Preliminary Resulted Blood Peripheral NO GROWTH IN 3 DAYS 05/14/17 17:22 Anaerobic Blood Culture - Preliminary Resulted Blood Peripheral NO GROWTH IN 3 DAYS Imaging Studies Last 24 hours Impressions Cholangiopancreatography MRI 05/17/17 0000 Signed Impressions: Service Date/Time: Wednesday, May 17, 2017 11:39 - CONCLUSION: 1. Contracted gallbladder with cholelithiasis, wall thickening and pericholecystic fluid. 2. Peribiliary T2 hyperintensity suspicious for cholangitis. 3. Mild ascites. 4. No evidence of pancreatic mass Nomi Vasqeuz MD Chest X-Ray 05/17/17 0000 Signed Impressions: Service Date/Time: Wednesday, May 17, 2017 09:23 - CONCLUSION: Abnormal opacity remains in the right perihilar region the right lung base without significant change. Zachary Dill MD Administered Medications Medications (Trade) Dose Ordered Sig/Samy Route PRN Reason Start Time Stop Time Status Last Admin Dose Admin Cholecalciferol (Vitamin D3) 1,000 units DAILY PO 05/15/17 09:00 05/17/17 08:53 Levothyroxine Sodium (Synthroid) 50 mcg DAILY@06 PO 05/15/17 06:00 05/17/17 06:19 Multivitamins (Theragran) 1 tab DAILY PO 05/15/17 09:00 05/17/17 08:53 Cyanocobalamin (Vitamin B12) 1,000 mcg DAILY PO 05/15/17 09:00 05/17/17 08:53 Pravastatin Sodium 40 mg 40 mg DAILY PO 05/15/17 09:00 05/17/17 08:53 Fluconazole/ Sodium Chloride (Diflucan 200 Mg Premix Bag) 100 ml @ 100 mls/hr Q24H IV 05/14/17 21:00 05/16/17 21:02 Nystatin 5 ml 5 ml QID SWISH-SWAL 05/14/17 21:00 05/17/17 13:06 Potassium Chloride (KCl 40 Meq Premix Inj) 100 ml @ 25 mls/hr UNSCH PRN IV ELECTROLYTE REPLACEMENT 05/15/17 06:15 05/16/17 04:12 Ondansetron HCl (Zofran Inj) 4 mg Q4H PRN IV PUSH NAUSEA OR VOMITING 05/16/17 03:30 05/16/17 03:21 Albumin Human (Albumin 25% Inj) 12.5 gm Q6H IV 05/16/17 10:00 05/18/17 23:55 05/17/17 14:37 Diltiazem HCl (Cardizem) 30 mg QID PO 05/16/17 10:00 05/17/17 13:06 Metoprolol Tartrate 12.5 mg 12.5 mg Q12HR PO 05/17/17 10:00 05/17/17 10:31 Ceftriaxone Sodium/Sodium Chloride (Rocephin Inj/NS Inj) 100 ml @ 200 mls/hr Q24H IV 05/17/17 14:00 05/17/17 13:07 Objective Remarks GENERAL: Fatigued elderly male supine in bed, resting. SKIN: Warm and dry. HEAD: Normocephalic. EYES: No injection or drainage. NECK: Supple, trachea midline. CARDIOVASCULAR: +S1/S2 normal rhythm RESPIRATORY: anterior grey with scattered rhonchi. on 2L O2 via NC GASTROINTESTINAL: Abdomen distended EXTREMITIES: No cyanosis Assessment/Plan Problem List: (1) Localized cancer of pancreas Status: Acute Plan: 05/17/[address]/PET was negative. CA 19.9 decreasing. Good response to neoadjuvant chemotherapy History: --initially presented with painless jaundice. --had a stent placed and his bilirubin came down appropriately. --was evaluated at [facility] by Dr. Brent Singletary. felt to be resectable candidate but was to undergo neoadjuvant chemotherapy. --two cycles of Abraxane and gemcitabine. He comes into clinic for followup. --came into clinic for follow up and reported malaise, abdominal distension and pain x 1 week. he was tachycardic and weak with ANC of 0 with rigors, admission to hospital was coordinated (2) Neutropenic fever Status: Acute Plan: 05/17/17. Fever resolved and Neutropenia resolved. Stop neupogen. Abx continue. --blood cultures no growth --lactic acid elevated --on Cefepime --ID following (3) Elevated bilirubin Status: Acute Plan: 05/17/17. Discussed w/ GI, mild jaundiced. --GI following --monitor --U/S abdomen showed dilatated pancreatic duct --stent may need maintenance and evaluation Assessment 82y/o male with localized pancreatic cancer with increased bilirubin. h/o Localized pancreatic cancer, elevated CA 19.9. Painless jaundice. Cholelithiasis. Hypothyroidism. Colonoscopy. Endoscopic ultrasound. ERCP. Stent placement. Fine-needle biopsy. Plan 1. continue antibiotics per ID 2. d/c neutropenic precautions. stop Neupogen 3. monitor platelet count. 4. Afib RVR controlled. Tracey Verdugo MD May 17, 2017 15:27
[2017-05-17 16:00] LABS: INDIRECT BILIRUBIN 0.5 MG/DL (0.0-0.8); TOTAL BILIRUBIN ADULT 1.7 MG/DL (0.2-1.0)
--- NOTE | 2017-05-17 17:31 | HHI.IDPN ---
Subjective Subjective Remarks dong well WBC now 33 K + liquid BMs x 2 last night , none today Growing probable Salmonella in 4/ BC bottles, repeat BC from same day negative so far no new co on pressors Antibiotics zosyn 4.5 q 6 Allergies: Coded Allergies: No Known Allergies (Verified , 04/07/17) Objective . Vital Signs Date Time Temp Pulse Resp B/P Pulse Ox O2 Delivery O2 Flow Rate FiO2 05/17/17 16:00 88 05/17/17 16:00 97.9 85 20 95/53 97 05/17/17 14:00 86 05/17/17 12:00 105 05/17/17 12:00 98.1 105 26 105/56 96 05/17/17 10:00 78 05/17/17 08:57 100 Nasal Cannula 4.00 05/17/17 08:00 86 05/17/17 08:00 98.4 87 23 101/55 99 05/17/17 07:00 96 Nasal Cannula 3.00 05/17/17 06:00 85 05/17/17 04:00 90 05/17/17 04:00 97.5 90 23 99/58 97 05/17/17 02:00 85 05/17/17 00:23 95 Nasal Cannula 4.00 05/17/17 00:00 98.6 81 25 103/59 94 05/17/17 00:00 82 05/16/17 22:00 86 05/16/17 20:00 100 05/16/17 20:00 98.8 100 27 105/51 94 05/16/17 19:00 94 Nasal Cannula 3.00 05/16/17 18:00 90 05/16/17 05/16/17 05/17/17 15:00 23:00 07:00 Intake Total 945 ml 1480 ml 695 ml Output Total 425 ml 400 ml 300 ml Balance 520 ml 1080 ml 395 ml Intake Oral 120 ml 240 ml 120 ml IV Total 825 ml 1240 ml 575 ml Output Urine Total 425 ml 400 ml 300 ml Stool Total 0 ml 0 ml # Bowel Movements 0 . Laboratory Tests Test 05/16/17 05/17/17 03:00 09:13 White Blood Count 4.9 TH/MM3 33.2 TH/MM3 Red Blood Count 3.33 MIL/MM3 2.76 MIL/MM3 Hemoglobin 11.1 GM/DL 9.0 GM/DL Hematocrit 32.0 % 26.4 % Mean Corpuscular Volume 95.9 FL 95.9 FL Mean Corpuscular Hemoglobin 33.3 PG 32.7 PG Mean Corpuscular Hemoglobin 34.8 % 34.1 % Concent Red Cell Distribution Width 13.6 % 14.2 % Platelet Count 31 TH/MM3 33 TH/MM3 Mean Platelet Volume 11.1 FL 13.5 FL Neutrophils (%) (Auto) 91.9 % % Lymphocytes (%) (Auto) 3.6 % % Monocytes (%) (Auto) 4.1 % % Eosinophils (%) (Auto) 0.2 % % Basophils (%) (Auto) 0.2 % % Neutrophils # (Auto) 4.5 TH/MM3 TH/MM3 Lymphocytes # (Auto) 0.2 TH/MM3 TH/MM3 Monocytes # (Auto) 0.2 TH/MM3 TH/MM3 Eosinophils # (Auto) 0.0 TH/MM3 TH/MM3 Basophils # (Auto) 0.0 TH/MM3 TH/MM3 CBC Comment AUTO DIFF AUTO DIFF Differential Comment AUTO DIFF FINAL DIFF CONFIRMED MANUAL Differential Total Cells 100 Counted Neutrophils % (Manual) 72 % Band Neutrophils % 9 % Lymphocytes % 6 % Monocytes % 3 % Neutrophils # (Manual) 30.2 TH/MM3 Metamyelocytes 7 % Myelocytes 2 % Promyelocytes 1 % Platelet Estimate LOW Platelet Morphology Comment NORMAL Ovalocytes 1+ Crenated Cell 1+ Keratocytes OCC Laboratory Tests Test 05/15/17 05/16/17 05/16/17 05/17/17 17:38 03:00 17:57 09:13 Lipase 28 U/L CA 19-9 Antigen 74.0 U/ML Sodium Level 138 MEQ/L 139 MEQ/L Potassium Level 3.4 MEQ/L 3.6 MEQ/L Chloride Level 103 MEQ/L 110 MEQ/L Carbon Dioxide Level 22.4 MEQ/L 21.7 MEQ/L Anion Gap 13 MEQ/L 7 MEQ/L Blood Urea Nitrogen 28 MG/DL 35 MG/DL Creatinine 0.82 MG/DL 0.82 MG/DL Estimat Glomerular Filtration 90 ML/MIN 90 ML/MIN Rate Random Glucose 135 MG/DL 160 MG/DL Calcium Level 7.0 MG/DL 6.7 MG/DL Protein Corrected Calcium 8.4 MG/DL 8.1 MG/DL Total Bilirubin 3.1 MG/DL 1.7 MG/DL Aspartate Amino Transf 86 U/L 81 U/L (AST/SGOT) Alanine Aminotransferase 80 U/L 61 U/L (ALT/SGPT) Alkaline Phosphatase 300 U/L 512 U/L Total Protein 4.6 GM/DL 4.5 GM/DL Albumin 1.2 GM/DL 1.6 GM/DL Lactic Acid Level 2.0 mmol/L Direct Bilirubin 1.2 MG/DL Indirect Bilirubin 0.5 MG/DL Imaging [place] Last Impressions Cholangiopancreatography MRI 05/17/17 0000 Signed Impressions: Service Date/Time: Wednesday, May 17, 2017 11:39 - CONCLUSION: 1. Contracted gallbladder with cholelithiasis, wall thickening and pericholecystic fluid. 2. Peribiliary T2 hyperintensity suspicious for cholangitis. 3. Mild ascites. 4. No evidence of pancreatic mass Nomi Vasquez MD Chest X-Ray 05/17/17 0000 Signed Impressions: Service Date/Time: Wednesday, May 17, 2017 09:23 - CONCLUSION: Abnormal opacity remains in the right perihilar region the right lung base without significant change. Zachary Dill MD Abdomen/Pelvis CT 05/15/17 0000 Signed Impressions: Service Date/Time: May 20:39 - CONCLUSION: Biliary stent in good position. There continues to be no evidence metastatic disease to the liver Gallbladder somewhat small and contracted with mild enhancement present. Nonspecific air-fluid levels in large and small bowel most suggestive of an ileus. Saturnino Trimble MD FACR Abdomen Ultrasound 05/15/17 0000 Signed Impressions: Service Date/Time: May 15:44 - CONCLUSION: 1. Limited visualization of the pancreas. However, the pancreatic duct appears to be dilated 8 mm. 2. No definite biliary tract obstruction is seen. 3. There appears to be some sludge in the gallbladder. 4. There appears to be fatty infiltration throughout the liver. Shawn White MD Physical Exam CONSTITUTIONAL/GENERAL: This is a thin chroniclly ill eldelrly male patient, in no apparent distress. TUBES/LINES/DRAINS: PORT: in place R chest w/o e/o infx SKIN: No jaundice, + diffuse non banching erythematous non pruritic macular rashes, involving extremeties, trunk. Ecchymoses on upper extremities. . Skin temperature elevated. Skin is very dry, with markedly reduced turgor Not diaphoretic. EYES: Pupils equal and round and reactive. Extraocular motions intact. + mild scleral icterus. No injection or drainage. Fundi not examined. ENT: still very dry oral mucosae is very dry without visible erythema, exudates , masses, or lesions. Poor dentition CARDIOVASCULAR: Regular rate and rhythm without murmurs, gallops, or rubs. No JVD. Peripheral pulses symmetric. RESPIRATORY/CHEST: Symmetric, unlabored respirations. B/b crackles to auscultation. Breath sounds equal bilaterally. No wheezes, rales, or rhonchi. GASTROINTESTINAL: Abdomen soft, not tender to palpation , moderately distended. No hepato-splenomegaly, or palpable masses. No guarding. Bowel sounds present. well healed medial laparotomy incision with small fully reducible incisional hernia (7 cm) MUSCULOSKELETAL: Extremities without clubbing, cyanosis, Some soft pitting pretibial edema. No joint tenderness or effusion noted. No calf tenderness. No mottling or clubbing. NEUROLOGICAL: Awake and alert. Motor and sensory grossly within normal limits. Follows commands. Clear specch. Moves all extremities. PSYCHIATRIC: calm, cooperative Assessment & Plan Remarks Pancreatic cancer, sp biliary stent sp chemo with chomotherapy induced neutropenia Resolved neutropenia Salmonella sepsis: clinically stable - dw micro lab: S to levaquin, ampicillin, CFTX - final ID/S P repeat set is negative @ 2 days Non pruritic rash Sepsi, critically ill, Rash, non pruritic : medacation induced vs 2/2 petechia dehydration Esophagits RLL infiltrae/effusion Cholangitis, per ERCP cont CFTX for Salmonella repeat BC OK for ERCP if blood clx remain negative monitor blood clx cont fluconazole for esopahgitis Beti Trent MD May 17, 2017 17:31 Beti Trent MD May 17, 2017 17:31
--- NOTE | 2017-05-17 18:06 | EKG ---
Date Performed: 05/16/2017 Time Performed: 10:23:20 PTAGE: 82 years EKG: Atrial fibrillation with uncontrolled ventricular response with PVC(s). Possible inferior i nfarct - age undetermined Lateral T wave changes may be due to myocardial ischemia Compared to previo us tracing, atrial fibrillation with RVR is new Clinical correlation is recommended Abnormal ECG PREVIOUS TRACING : 05/14/2017 @ 2018 DOCTOR: Theo Shi Interpretating Date/Time 05/17/2017 18:06:24
[2017-05-17] MEDS: FLUCONAZOLE 200 MG PREMIX BAG 100 ML IV SCH (19:47)
[2017-05-18] VITALS (12 sets, daily range): BP systolic 94–119; BP diastolic 59–65; PULSE 73–92; RESP 16–30; TEMP 96.5–98; O2SAT 93–100
[2017-05-18] MEDS: ALBUMIN HUMAN 25% 12.5 GM/50 ML BAGP IV SCH ×4 (04:53→23:05)
[2017-05-18] MEDS: LEVOTHYROXINE SODIUM 50 MCG TAB PO SCH (04:53)
[2017-05-18 05:44] LABS: HEMATOCRIT 27.3 % (39.0-51.0); PLATELET COUNT 25 TH/MM3 (150-450); RED BLOOD COUNT 2.81 MIL/MM3 (4.50-5.90); RED CELL DISTRIBUTION WIDTH 14.1 % (11.6-17.2); WHITE BLOOD COUNT 34.3 TH/MM3 (4.0-11.0)
[2017-05-18 05:47] LABS: HEMO FLAGS AUTO DIFF
[2017-05-18 06:14] LABS: BANDS 13 % (0-6); METAMYELOCYTES 5 % (0-1); MYELOCYTES 5 % (0-0); NEUTROPHIL # MANUAL DIFF 33.3 TH/MM3 (1.8-7.7); POLYS (SEG NEUTROPHILS) 74 % (16-70); WBC DIFF SAMPLE 100
[2017-05-18 06:15] LABS: OVALOCYTES 1+ (NORMAL); PLATELET ESTIMATE SMEAR LOW (NORMAL); PLATELET MORPHOLOGY NORMAL (NORMAL); SCAN/DIFF FINAL DIFF MANUAL
[2017-05-18] MEDS: DILTIAZEM HCL 30 MG TAB PO SCH ×4 (08:17→23:29)
[2017-05-18] MEDS: MULTIVITAMIN TAB PO SCH (08:17)
[2017-05-18] MEDS: CYANOCOBALAMIN 1,000 MCG TAB PO SCH (08:17)
[2017-05-18] MEDS: NYSTATIN SUSP 500,000 U/5 ML CUP SWISH-SWAL SCH ×4 (08:17→21:00)
[2017-05-18] MEDS: PRAVASTATIN SOD 40 MG TAB PO SCH (08:17)
[2017-05-18] MEDS: CHOLECALCIFEROL (VIT D3) 1000 UNIT TAB PO SCH (08:17)
[2017-05-18] MEDS: METOPROLOL TARTRATE 25 MG TAB PO SCH ×3 (08:17→23:14)
--- NOTE | 2017-05-18 08:50 | HHI.CCPN ---
Subjective Remarks/Hospital Course 82 y/o man with pancreatic head malignancy developed left lung pneumonia while neutropenic during treatment. New LLL infiltrate and acute atrial fibrillation with RVR 170 - 180s. I slowed his rate acutely with lopressor iv then converted him over to neosynephrine infusion for BP support, followed by cardizem infusion for extended rate control. 05/17: Much improved today. Warm, well perfused. Breathing comfortably. White cells recovering. A-fib with RVR now NSR. Neosynephrine support tapering off. 05/18: WBC 33,000. Lungs clearer today. He feels OK and wants to go home. A little confused. Objective Vital Signs Date Time Temp Pulse Resp B/P Pulse Ox O2 Delivery O2 Flow Rate FiO2 05/18/17 08:00 97.9 73 30 119/63 93 05/18/17 07:38 Nasal Cannula 3.00 Intake and Output 05/17/17 05/17/17 05/18/17 08:00 16:00 00:00 Intake Total 695 ml 770 ml 1015 ml Output Total 300 ml 200 ml 875 ml Balance 395 ml 570 ml 140 ml Result Diagram: 05/18/17 0515 05/17/17 0913 Objective Remarks P 73, BP 118/63, RR 14, non-labored, sats 95% Head: Normal. Neck: Supple, airway widely patent. Minimal oral secretions. Lungs: Light crackles, no wheezes. Comfortable pattern. Heart: RRR, no mr, neck veins not visible. Abdomen: No involuntary guarding or peritoneal irritation. Soft. BS active. Extremities: Warm, well perfused feet and hands. Neuro: Calm, moves 4 limbs. Conversant but mildly confused. Speech clear. A/P Assessment and Plan Assessment: 1. Respiratory Distress. 2. Atrial fibrillation with RVR -> resolved. 3. Hypotension. 4. Left lung pneumonia. 5. Pancreatic Cancer. Plan: 1. Taper neosynephrine for BP support. 2. Cardizem for rate control. Convert to PO beta chiki. 3. Oral beta chiki for halfway Rx. 4. Consider amiodarone short-term if he doesn't convert to NSR. 5. Neutropenic precautions. 6. Anticoagulation not necessary at this point. 7. Replace Mag, K. 8. BNP. 10. CXR. 11. Re-evaluation for ERCP. Overall impression: Admitted to ICU with paroxysmal a-fib and hemodynamic instability. New left pneumonia and neutropenia -> improved. Improving but concern for biliary tract obstruction. NSR now. Serafin Soria MD May 18, 2017 08:50
--- NOTE | 2017-05-18 11:49 | HHI.PR ---
Subjective Subjective Remarks Patient is awake, answering simple questions Working with speech therapist on swallow Currently denies any acute shortness of breath or pain (Kaela Hilton) Review of Systems Constitutional Constitutional: Fever, Fatigue, Weight Change, Weakness Constitutional Remarks Limited review of systems due to patient's lethargy (Kaela Hilton) Throat Throat Remarks Swallow, no acute cough, slow (Kaela Hilton) GI/Abdomen GI/Abdominal Exam: Nausea (Kaela Hilton) Musculoskeletal MS: Weakness, Stiffness, Swelling (trace of pedal edema) (Kaela Hilton ) Neurologic Neurologic: Lethargic (but does respond weakly to verbal stimuli) Neurologic Remarks Awake and oriented to place, some of situation (Kaela Hilton) Psychiatric Psychiatric: Normal Mood (Kaela Hilton) Vitals/Results Intake & Output 05/17/17 05/17/17 05/18/17 15:00 23:00 07:00 Intake Total 770 ml 1015 ml 285 ml Output Total 200 ml 875 ml 550 ml Balance 570 ml 140 ml -265 ml Intake Oral 400 ml 480 ml 0 ml IV Total 370 ml 535 ml 285 ml Output Urine Total 200 ml 875 ml 550 ml Stool Total 0 ml 0 ml 0 ml Vital Signs Vital Signs Date Time Temp Pulse Resp B/P Pulse Ox O2 Delivery O2 Flow Rate FiO2 05/18/17 10:00 88 05/18/17 08:00 97.9 73 30 119/63 93 05/18/17 08:00 73 05/18/17 07:38 100 Nasal Cannula 3.00 05/18/17 07:00 99 Nasal Cannula 3.00 05/18/17 06:00 84 05/18/17 04:00 84 05/18/17 04:00 97.6 84 23 94/60 94 05/18/17 02:00 77 05/18/17 00:00 77 05/18/17 00:00 98.0 77 23 104/59 95 05/17/17 22:00 81 05/17/17 21:12 94 Nasal Cannula 3.00 05/17/17 20:00 92 05/17/17 20:00 97.6 92 28 103/54 94 05/17/17 19:00 94 Nasal Cannula 3.00 05/17/17 18:00 88 05/17/17 16:00 88 05/17/17 16:00 97.9 85 20 95/53 97 05/17/17 14:00 86 05/17/17 12:00 105 05/17/17 12:00 98.1 105 26 105/56 96 (Kaela Hilton) CBC/BMP: 05/18/17 0515 05/17/17 0913 Lab Results Laboratory Tests Test 05/18/17 05:15 White Blood Count 34.3 TH/MM3 Red Blood Count 2.81 MIL/MM3 Hemoglobin 9.0 GM/DL Hematocrit 27.3 % Mean Corpuscular Volume 97.0 FL Mean Corpuscular Hemoglobin 32.0 PG Mean Corpuscular Hemoglobin 33.0 % Concent Red Cell Distribution Width 14.1 % Platelet Count 25 TH/MM3 Mean Platelet Volume 11.1 FL Neutrophils (%) (Auto) % Lymphocytes (%) (Auto) % Monocytes (%) (Auto) % Eosinophils (%) (Auto) % Basophils (%) (Auto) % Neutrophils # (Auto) TH/MM3 Lymphocytes # (Auto) TH/MM3 Monocytes # (Auto) TH/MM3 Eosinophils # (Auto) TH/MM3 Basophils # (Auto) TH/MM3 CBC Comment AUTO DIFF Differential Total Cells 100 Counted Neutrophils % (Manual) 74 % Band Neutrophils % 13 % Lymphocytes % 1 % Monocytes % 2 % Neutrophils # (Manual) 33.3 TH/MM3 Metamyelocytes 5 % Myelocytes 5 % Differential Comment FINAL DIFF MANUAL Platelet Estimate LOW Platelet Morphology Comment NORMAL Ovalocytes 1+ Imaging Remarks Last Impressions Cholangiopancreatography MRI 05/17/17 0000 Signed Impressions: Service Date/Time: Wednesday, May 17, 2017 11:39 - CONCLUSION: 1. Contracted gallbladder with cholelithiasis, wall thickening and pericholecystic fluid. 2. Peribiliary T2 hyperintensity suspicious for cholangitis. 3. Mild ascites. 4. No evidence of pancreatic mass Nomi Vasquez MD Chest X-Ray 05/17/17 0000 Signed Impressions: Service Date/Time: Wednesday, May 17, 2017 09:23 - CONCLUSION: Abnormal opacity remains in the right perihilar region the right lung base without significant change. Zachary Dill MD Abdomen/Pelvis CT 05/15/17 0000 Signed Impressions: Service Date/Time: May 20:39 - CONCLUSION: Biliary stent in good position. There continues to be no evidence metastatic disease to the liver Gallbladder somewhat small and contracted with mild enhancement present. Nonspecific air-fluid levels in large and small bowel most suggestive of an ileus. Saturnino Trimble MD FACR Abdomen Ultrasound 05/15/17 0000 Signed Impressions: Service Date/Time: May 15:44 - CONCLUSION: 1. Limited visualization of the pancreas. However, the pancreatic duct appears to be dilated 8 mm. 2. No definite biliary tract obstruction is seen. 3. There appears to be some sludge in the gallbladder. 4. There appears to be fatty infiltration throughout the liver. Shawn White MD (Kaela Hilton M. LCAC RADAR OPERATOR/NAVIGATOR) Physical Exam General General Appearance: Comfortable (lethargic), Pale, Anxious (mild) (Yobani, Kaela M. LCAC RADAR OPERATOR/NAVIGATOR) Eyes Eye Exam: Pupils Equal (Ceres,Kaela M. LCAC RADAR OPERATOR/NAVIGATOR) Ears & Nose Ears & Nose Exam: Nasal Mucosa [place] (pale) (Yobani,Kaela M. LCAC RADAR OPERATOR/NAVIGATOR) Throat Throat Exam: Oral Mucosa [place] & Moist (pale) (Yobani,Kaela M. LCAC RADAR OPERATOR/NAVIGATOR) Neck Neck Exam: Neck Supple (Ceres,Kaela M. LCAC RADAR OPERATOR/NAVIGATOR) Pulmonary Resp Exam: Decreased Bases, Diminished Breath Sounds, Labored (tachypnea respirations) Resp Remarks Audible rhonchi heard (Kaela Hilton M. LCAC RADAR OPERATOR/NAVIGATOR) Cardiology CV Exam: Regular (heart rate in the 80s sinus rhythm now, yesterday on 05-16, patient had atrial fib with RVR, was placed on IV Cardizem as well as IV Lopressor given), Normal Sinus Rhythm CV Remarks Sinus rhythm now heart rate controlled (Yobani,Kaela M. LCAC RADAR OPERATOR/NAVIGATOR) Gastrointestinal/Abdomen GI Exam: Soft, Bowel Sounds Present, Bowel Sounds Hypoactive GI Remarks Taut (Yobani,Kaela M. LCAC RADAR OPERATOR/NAVIGATOR) Genitourinary Exam: Clear Urine (Merritt catheter) (Kaela Hilton M. LCAC RADAR OPERATOR/NAVIGATOR) Musculoskeletal MS Exam: Normal Tone (for his condition), Atrophy (Ceres,Kaela M. LCAC RADAR OPERATOR/NAVIGATOR) Integumentary Skin Exam: Warm, Dry, Intact (thin turgor) (Kaela Hilton) Extremeties Extremities Exam: Trace Edema (lower extremities) (Kaela Hilton) Neurologic Neuro Exam: Awake, Oriented (2), Speech Clear (week), Moving All Extremities ( generalized weakness) (Kaela Hilton) Assessment/Plan Assessment/Plan vital signs reviewed, afebrile, heart rate controlled sinus rhythm according to monitor labs reviewed, WBC count, 34.3, anemia hemoglobin remained stable around 9., Hypokalemia resolve New right lower lobe pneumonia, with dysrhythmias, now back to sinus rhythm controlled rate O2, antibiotic therapy, monitoring maintain heart rate less than 100 Remains in intensive care setting, condition guarded with multiple complications , Hypotension, gradually resolved, off of IV pressors this late a.m. Pancreatic cancer , chemotherapy last week, generalized weakness GI consult, neutropenia MRI MRCP done 05-16, ERCP considered for possible biliary obstruction, Dysphasia, working with speech therapy to rule out any type of aspiration, swallow present, patient is awake, delayed Rhythm sinus, history of atrial fibrillation managed with IV Cardizem. Continuous ECG monitoring and medical management On 81 1 , Discussed with patient his wishes for code status, He is alert, oriented and understands his acute on chronic illness. Wants full code , full agressive care. Also discussed with nurse in . Discussed with patient Discussed with nurse Discussed with Dr. Thomas, seen on his behalf (Kaela Hilton) Assessment/Plan seen, examined by myself, Dr Thomas, today Discussed with patient Discussed with nurse Stable at this time Transferred to the oncology unit/ E. Discussed with mid level provider The exam, history, and the medical decision-making described in the above note were completed with the assistance of the mid-level provider. I reviewed the findings presented. I attest that I had a [id number] encounter with the patient on the same day, and personally performed and documented my assessment and findings in the medical record. Discussed Condition with: Patient (Lulú Thomas MD) Kaela Hilton May 18, 2017 11:49 Lulú Thomas MD May 18, 2017 12:28
[2017-05-18] MEDS ORDERED: PHENYLEPH/NS 1000 MCG/10 ML SYR IV ONE (12:00)
[2017-05-18] MEDS ORDERED: PROPOFOL 200 MG/20 ML AMP IV ONE (12:00)
[2017-05-18] MEDS ORDERED: ePHEDrine/NS 25 MG/5 ML SYR IV ONE (12:00)
--- NOTE | 2017-05-18 12:26 | HHI.GIFU ---
Subjective Remarks No new complaints. Some confusion noted. (Unique Guerrero) Objective Vitals I&O Vital Signs Date Time Temp Pulse Resp B/P Pulse Ox O2 Delivery O2 Flow Rate FiO2 05/18/17 10:00 88 05/18/17 08:00 97.9 73 30 119/63 93 05/18/17 08:00 73 05/18/17 07:38 100 Nasal Cannula 3.00 05/18/17 07:00 99 Nasal Cannula 3.00 05/18/17 06:00 84 05/18/17 04:00 84 05/18/17 04:00 97.6 84 23 94/60 94 05/18/17 02:00 77 05/18/17 00:00 77 05/18/17 00:00 98.0 77 23 104/59 95 05/17/17 22:00 81 05/17/17 21:12 94 Nasal Cannula 3.00 05/17/17 20:00 92 05/17/17 20:00 97.6 92 28 103/54 94 05/17/17 19:00 94 Nasal Cannula 3.00 05/17/17 18:00 88 05/17/17 16:00 88 05/17/17 16:00 97.9 85 20 95/53 97 05/17/17 14:00 86 I/O 05/17/17 05/17/17 05/17/17 05/18/17 05/18/17 05/18/17 06:59 14:59 22:59 06:59 14:59 22:59 Intake Total 695 ml 770 ml 1015 ml 285 ml Output Total 300 ml 200 ml 875 ml 550 ml Balance 395 ml 570 ml 140 ml -265 ml Intake Oral 120 ml 400 ml 480 ml 0 ml IV Total 575 ml 370 ml 535 ml 285 ml Output Urine Total 300 ml 200 ml 875 ml 550 ml Stool Total 0 ml 0 ml 0 ml 0 ml Laboratory Laboratory Tests Test 05/18/17 05:15 White Blood Count 34.3 Red Blood Count 2.81 Hemoglobin 9.0 Hematocrit 27.3 Mean Corpuscular Volume 97.0 Mean Corpuscular Hemoglobin 32.0 Mean Corpuscular Hemoglobin 33.0 Concent Red Cell Distribution Width 14.1 Platelet Count 25 Mean Platelet Volume 11.1 Neutrophils (%) (Auto) Lymphocytes (%) (Auto) Monocytes (%) (Auto) Eosinophils (%) (Auto) Basophils (%) (Auto) Neutrophils # (Auto) Lymphocytes # (Auto) Monocytes # (Auto) Eosinophils # (Auto) Basophils # (Auto) CBC Comment AUTO DIFF Differential Total Cells 100 Counted Neutrophils % (Manual) 74 Band Neutrophils % 13 Lymphocytes % 1 Monocytes % 2 Neutrophils # (Manual) 33.3 Metamyelocytes 5 Myelocytes 5 Differential Comment FINAL DIFF MANUAL Platelet Estimate LOW Platelet Morphology Comment NORMAL Ovalocytes 1+ Date/Time Procedure Status Source Growth 05/14/17 17:22 Aerobic Blood Culture - Preliminary Resulted Blood Peripheral NO GROWTH IN 4 DAYS 05/14/17 17:22 Anaerobic Blood Culture - Preliminary Resulted Blood Peripheral NO GROWTH IN 4 DAYS Imaging Last Impressions Cholangiopancreatography MRI 05/17/17 0000 Signed Impressions: Service Date/Time: Wednesday, May 17, 2017 11:39 - CONCLUSION: 1. Contracted gallbladder with cholelithiasis, wall thickening and pericholecystic fluid. 2. Peribiliary T2 hyperintensity suspicious for cholangitis. 3. Mild ascites. 4. No evidence of pancreatic mass Nomi Vasquez MD Chest X-Ray 05/17/17 0000 Signed Impressions: Service Date/Time: Wednesday, May 17, 2017 09:23 - CONCLUSION: Abnormal opacity remains in the right perihilar region the right lung base without significant change. Zachary Dill MD Abdomen/Pelvis CT 05/15/17 0000 Signed Impressions: Service Date/Time: May 20:39 - CONCLUSION: Biliary stent in good position. There continues to be no evidence metastatic disease to the liver Gallbladder somewhat small and contracted with mild enhancement present. Nonspecific air-fluid levels in large and small bowel most suggestive of an ileus. Saturnino Trimble MD FACR Abdomen Ultrasound 05/15/17 0000 Signed Impressions: Service Date/Time: May 15:44 - CONCLUSION: 1. Limited visualization of the pancreas. However, the pancreatic duct appears to be dilated 8 mm. 2. No definite biliary tract obstruction is seen. 3. There appears to be some sludge in the gallbladder. 4. There appears to be fatty infiltration throughout the liver. Shawn White MD Physical Exam HEENT: PERRLA; normocephalic; atraumatic; no jaundice. CHEST: + Crackles, diffuse CARDIAC: RRR ABDOMEN: Soft, no guarding, bowel sounds x 4 quadrants EXTREMITIES: No clubbing, cyanosis, or edema. SKIN: Normal; no rash; no jaundice. VP SECURITIES: Awake, alert, confused (Unique Guerrero) Assessment and Plan Plan ASSESSMENT: - Neutropenic fevers. per RN salmonella in blood, stool cx pending. WBC trending up, 34.3 (05/18) MRCP 05-17 suspicious for cholangitis. ID following, ceftriaxone started - Elevated LFTs, hx of biliary obstruction secondary to pancreatic cancer. He had elevated LFTs at time that stent was placed, but they improved afterwards. US ABD 05-15--> pancreatic duct dilated 8mm, no def obstruction gallbladder sludge, fatty liver. CT 05-15--> no evidence mets to liver, gallbladder small and contracted with mild enhancement, suggests ileus. Pt denies any nausea, vomiting, or abdominal pain. - Anorexia, Wt. Loss, ? Odynophagia. He reports to me that he has had decreased appetite since starting chemotherapy, but denies any odynophagia or difficulty swallowing. States he just does not have any appetite. Nystatin. Diflucan. - Anemia, normocytic. HH decreased, 07/02.3 (05/18) - Pancreatic cancer. Dx in February of 2017.CT as above MRCP (02/20/17)----> The common bile duct is markedly dilated as is the pancreatic duct and there is also tapering of the splenic vein in SMV before it becomes the portal vein. All three things suggest that there is a central pancreatic head mass, but it is difficult to define one on the MRCP. After contrast there is a fairly uniform enhancement through the head and neck of the pancreas. Difficult to define an actual mass. There is a questionable 1 cm lesion in the head of the pancreas on the CT scan specifically series2; image 30 but this is more median than the common bile duct narrowing. Outpatient PET CT could be performed. Solid organs are unremarkable. EUS with FNA/ERCP with stent placement (02/21/17)----> Pancreatic head mass, biliary stricture, s/ p stent placement. Pancreatic head mass FNA revealed atypical glandular cells consistent with adenocarcinoma, cell block atypical glandular cells consistent with adenocarcinoma. He was thought to have potentially resectable disease and completed 7-8 weeks of Abraxane and gemcitabine. He has an appointment to follow up with [facility] next Friday for surgical evaluation of his pancreatic cancer. CA 19-9 74 H - HTN, Hypothyroidism, Hyperlipidemia. Per attending. 05/17 --> MRCP suspicious for cholangitis, wbc up to 33, ?salmonella in blood. ID following, started ceftriaxone 05/18 - WBC 34.3 today, growing probable Salmonella in 4/4 BC bottles, repeat BC from same day negative so far, per ID. On Ceftriaxone PLAN: - Await GS consult - Plan is for ERCP with stent placement - Antibiotics per ID - Supportive care - Further recommendations to follow based on results of above Patient seen and examined by Dr. Spicer and myself and this note is written on his behalf. Patient was seen and examined, agree with above note, I had a discussion with Dr. Mccann, we will plan to do ERCP with stent exchange today, contniue current care. (Unique Guerrero) Physician Comments Patient seen and examined Agree with above Continue with current supportive care Monitor labs Considering an ERCP based on his hospital course (Randy Spicer MD) Unique Guerrero May 18, 2017 12:26 Randy Spicer MD May 18, 2017 16:34
[2017-05-18] MEDS ORDERED: CALCIUM GLUCONATE INJ 1 GM in SODIUM CHLORIDE 0.9% INJ 100 ML IV ONE (13:00)
--- NOTE | 2017-05-18 15:22 | PD.ONC.PN ---
Subjective Subjective Remarks Pt seen earlier in the day and reported feeling better. Returned in the afternoon and pt developed a 4cm laceration to his posterior head after fall in the bathroom. Objective Data Date Time Temp Pulse Resp B/P Pulse Ox O2 Delivery O2 Flow Rate FiO2 05/18/17 13:20 97.0 92 16 100/64 99 05/18/17 12:00 97.9 90 18 108/63 98 05/18/17 12:00 90 05/18/17 10:00 88 05/18/17 08:00 97.9 73 30 119/63 93 05/18/17 08:00 73 05/18/17 07:38 100 Nasal Cannula 3.00 05/18/17 07:00 99 Nasal Cannula 3.00 05/18/17 06:00 84 05/18/17 04:00 84 05/18/17 04:00 97.6 84 23 94/60 94 05/18/17 02:00 77 05/18/17 00:00 77 05/18/17 00:00 98.0 77 23 104/59 95 05/17/17 22:00 81 05/17/17 21:12 94 Nasal Cannula 3.00 05/17/17 20:00 92 05/17/17 20:00 97.6 92 28 103/54 94 05/17/17 19:00 94 Nasal Cannula 3.00 05/17/17 18:00 88 05/17/17 16:00 88 05/17/17 16:00 97.9 85 20 95/53 97 05/18/17 05/18/17 05/18/17 07:00 15:00 23:00 Intake Total 285 ml Output Total 550 ml Balance -265 ml Result Diagram: 05/18/17 0515 05/17/17 0913 Laboratory Results Laboratory Tests Test 05/18/17 05:15 White Blood Count 34.3 TH/MM3 Red Blood Count 2.81 MIL/MM3 Hemoglobin 9.0 GM/DL Hematocrit 27.3 % Mean Corpuscular Volume 97.0 FL Mean Corpuscular Hemoglobin 32.0 PG Mean Corpuscular Hemoglobin 33.0 % Concent Red Cell Distribution Width 14.1 % Platelet Count 25 TH/MM3 Mean Platelet Volume 11.1 FL Neutrophils (%) (Auto) % Lymphocytes (%) (Auto) % Monocytes (%) (Auto) % Eosinophils (%) (Auto) % Basophils (%) (Auto) % Neutrophils # (Auto) TH/MM3 Lymphocytes # (Auto) TH/MM3 Monocytes # (Auto) TH/MM3 Eosinophils # (Auto) TH/MM3 Basophils # (Auto) TH/MM3 CBC Comment AUTO DIFF Differential Total Cells 100 Counted Neutrophils % (Manual) 74 % Band Neutrophils % 13 % Lymphocytes % 1 % Monocytes % 2 % Neutrophils # (Manual) 33.3 TH/MM3 Metamyelocytes 5 % Myelocytes 5 % Differential Comment FINAL DIFF MANUAL Platelet Estimate LOW Platelet Morphology Comment NORMAL Ovalocytes 1+ Administered Medications Medications (Trade) Dose Ordered Sig/Samy Route PRN Reason Start Time Stop Time Status Last Admin Dose Admin Cholecalciferol (Vitamin D3) 1,000 units DAILY PO 05/15/17 09:00 05/17/17 08:53 Levothyroxine Sodium (Synthroid) 50 mcg DAILY@06 PO 05/15/17 06:00 05/18/17 04:53 Multivitamins (Theragran) 1 tab DAILY PO 05/15/17 09:00 05/17/17 08:53 Cyanocobalamin (Vitamin B12) 1,000 mcg DAILY PO 05/15/17 09:00 05/17/17 08:53 Pravastatin Sodium 40 mg 40 mg DAILY PO 05/15/17 09:00 05/17/17 08:53 Fluconazole/ Sodium Chloride (Diflucan 200 Mg Premix Bag) 100 ml @ 100 mls/hr Q24H IV 05/14/17 21:00 05/17/17 19:47 Nystatin 5 ml 5 ml QID SWISH-SWAL 05/14/17 21:00 05/18/17 12:25 Potassium Chloride (KCl 40 Meq Premix Inj) 100 ml @ 25 mls/hr UNSCH PRN IV ELECTROLYTE REPLACEMENT 05/15/17 06:15 05/16/17 04:12 Ondansetron HCl (Zofran Inj) 4 mg Q4H PRN IV PUSH NAUSEA OR VOMITING 05/16/17 03:30 05/16/17 03:21 Albumin Human (Albumin 25% Inj) 12.5 gm Q6H IV 05/16/17 10:00 05/18/17 23:55 05/18/17 08:18 Diltiazem HCl (Cardizem) 30 mg QID PO 05/16/17 10:00 05/18/17 12:25 Metoprolol Tartrate 12.5 mg 12.5 mg Q12HR PO 05/17/17 10:00 05/17/17 19:47 Ceftriaxone Sodium 2000 mg/ Sodium Chloride 100 ml @ 200 mls/hr Q24H IV 05/17/17 14:00 05/17/17 13:07 Phenylephrine HCl/ Sodium Chloride (Neosynephrine Inj/NS 500 ml Inj) 500 ml @ 0 mls/hr TITRATE IV 05/17/17 13:30 05/18/17 03:57 Objective Remarks GENERAL: Fatigued elderly male supine in bed, resting. SKIN: Warm and dry. HEAD: Normocephalic. EYES: No injection or drainage. NECK: Supple, trachea midline. CARDIOVASCULAR: +S1/S2. RESPIRATORY: Scattered rhonchi anteriorly. Breathing unlabored at rest. On 2L O2 via NC GASTROINTESTINAL: Abdomen distended but soft. Nontender to palpation. EXTREMITIES: No cyanosis. No edema Assessment/Plan Problem List: (1) Laceration of head Status: Acute Plan: -- s/p fall after trying to get to the bathroom -- stat CT head, platelets ordered. (2) Localized cancer of pancreas Status: Acute Plan: Last CT/PET was negative. CA 19.9 decreasing. Good response to neoadjuvant chemotherapy History: --initially presented with painless jaundice. --had a stent placed and his bilirubin came down appropriately. --was evaluated at [facility] by Dr. Brent Singletary. felt to be resectable candidate but was to undergo neoadjuvant chemotherapy. --two cycles of Abraxane and gemcitabine. He comes into clinic for followup. --came into clinic for follow up and reported malaise, abdominal distension and pain x 1 week. he was tachycardic and weak with ANC of 0 with rigors, admission to hospital was coordinated (3) Neutropenic fever Status: Acute Plan: Stop neupogen. Abx continue. --blood cultures no growth --lactic acid elevated --on Cefepime --ID following (4) Elevated bilirubin Status: Acute Plan: --GI following --monitor --U/S abdomen showed dilatated pancreatic duct --stent may need maintenance and evaluation Assessment 82y/o male with localized pancreatic cancer with increased bilirubin. h/o Localized pancreatic cancer, elevated CA 19.9. Painless jaundice. Cholelithiasis. Hypothyroidism. Colonoscopy. Endoscopic ultrasound. ERCP. Stent placement. Fine-needle biopsy. Plan 1. Stat CT Brain 2. Stat platelet transfusion 3. Monitor CBC Attending Statement The exam, history, and the medical decision-making described in the above note were completed with the assistance of the mid-level provider. I reviewed and agree with the findings presented. I attest that I had a [id number] encounter with the patient on the same day, and personally performed and documented my assessment and findings in the medical record. Pt seen and examined. Post fall suffered laceration back of the scalp. Hemostasis achieved. Surgery consulted for suture scalp. Transfuse platelets due to platelet only 25K in AM. CT head negative. Pt AOX3 post CT scan, pain at laceration site. Loose stool check C-diff, pt on abx therapy. Noted Salmonella + blood culture, discussed w/ Dr. Thomas. Discussed w/ pt and partner fu w. Dr. Singletary- recommend delay his appt until next week. Report on CT/PET scan given to partner to obtain DISC. Wanda Vyas May 18, 2017 15:22 Tracey Verdugo MD May 18, 2017 17:16 Wanda Vyas May 18, 2017 15:22 Tracey Verdugo MD May 18, 2017 17:16
[2017-05-18] MEDS ORDERED: SODIUM CHLOR 0.9% 250 ML INJ 250 ML IV ONE (16:15)
--- NOTE | 2017-05-18 16:44 | RADRPT ---
EXAM DATE/TIME: 05/18/2017 16:34 [place] COMPARISON: No previous studies available for comparison. INDICATIONS : Fall; laceration. RADIATION DOSE: 50.51 CTDIvol (mGy) MEDICAL HISTORY : Carcinoma, pancreas. SURGICAL HISTORY : None. ENCOUNTER: Initial ACUITY: 1 day PAIN SCALE: 4/10 LOCATION: cranial TECHNIQUE: Multiple contiguous axial images were obtained of the head. Using automated exposure control and adj ustment of the mA and/or kV according to patient size, radiation dose was kept as low as reasonably a chievable to obtain optimal diagnostic quality images. DICOM format image data is available electro nically for review and comparison. FINDINGS: There is moderate central and cortical atrophy with dilatation of ventricular and sulcal spaces. The re is no parenchymal hemorrhage, acute infarction or mass lesion identified. There are no extra-axia l fluid collections appreciated. The posterior fossa is unremarkable with midline fourth ventricle. The portion of the orbits and paranasal sinuses visualized are unremarkable. CONCLUSION: No acute disease. No evidence of acute infarct, hemorrhage, mass or edema. Generalized volume loss consistent with atrophy. Nomi Vasquez MD on May 18, 2017 at 16:41 Board Certified Radiologist. This report was verified electronically.
[2017-05-18] MEDS: cefTRIAXone INJ 2,000 MG in SODIUM CHLORIDE 0.9% INJ 100 ML IV SCH (18:40)
[2017-05-18] MEDS ORDERED: LIDOCAINE 2%/EPINEPHrine PF 1:200,000 20ML SDV ONE (20:24)
[2017-05-18] MEDS ORDERED: BUPIVACAINE/EPINEPHRINE 0.25% 50 ML VIAL ONE (20:25)
[2017-05-18] MEDS ORDERED: ceFAZolin INJ 1,000 MG VIAL IV ONE (21:27)
[2017-05-18] MEDS ORDERED: BACITRACIN TOP OINT 15 GM TUBE ONE (21:35)
[2017-05-18] MEDS ORDERED: ACETAMINOPHEN/HYDROcodone 325 MG/5 MG TAB PO PRN (21:45)
--- NOTE | 2017-05-18 22:06 | MB ---
cc: MAXI JOLLEY M.D. DATE OF CONSULTATION 05/18/2017 REASON FOR CONSULTATION Scalp laceration. HISTORY OF PRESENT ILLNESS Mr. Araujo is very pleasant 82-year-old gentleman who is currently undergoing neoadjuvant chemotherapy for pancreatic cancer. He was hospitalized on 05/14/2017 for neutropenia, thrombocytopenia and weakness. Apparently has developed a Salmonella diarrhea. He was attempting to go to the bathroom this afternoon when he slipped and fell and suffered a scalp laceration. The patient was seen by his oncologist, Dr. Verdugo during the incident. He was awake and alert, did not lose any consciousness. He was sent for a stat CT of the head which was unremarkable for acute cranial injury. He suffered about 6-7 cm laceration in the posterior scalp. Bleeding was controlled with direct pressure. Dr. Verdugo called me and asked me if I could assist with closing the scalp laceration. The patient is currently on a neutropenic precautions and is thrombocytopenic. He is getting platelet transfusion today. PAST MEDICAL HISTORY Includes: 1. Pancreatic cancer. 2. Hypertension. 3. Hypothyroidism. PAST SURGICAL HISTORY Biliary stenting. He reports no other surgical procedures. MEDICATIONS His medication list is extensive and well documented in the EMR. ALLERGIES NO KNOWN DRUG ALLERGIES. SOCIAL HISTORY Does not smoke or drink. FAMILY HISTORY Noncontributory. PHYSICAL EXAMINATION VITAL SIGNS: Temperature is 98, pulse is 90, blood pressure is 110/70, respiratory 20. GENERAL: This is a pleasant, thin, elderly gentleman awake and alert in no apparent distress. HEENT: Pupils are equal, round and reactive to light. Extraocular movements intact. Oropharynx is moist. He has about a 7 cm scalp laceration over the occipital region. There is a vertical laceration. There is no active bleeding. There is no tissue loss. NECK: Supple. No masses. LUNGS: Clear to auscultation bilaterally. CARDIOVASCULAR: S1-S2 no murmur. ABDOMEN: Soft, nontender. EXTREMITIES: No gross deformity x4. No obvious acute injury. NEUROLOGIC: He is awake and alert. IMAGING STUDIES CT of the head reveals no obvious intracranial injury. No evidence of skull fracture. No cephalohematoma. LABORATORY DATA White blood cell count 34, hemoglobin is 9, platelet count is 25. Of note the patient came in with a white blood cell count of 0.4. IMPRESSION 1. Scalp laceration status post fall. 2. Neutropenia and thrombocytopenia likely secondary to chemotherapy for pancreatic cancer. 3. Pancreatic cancer. 4. Salmonella colitis. PLAN At this point I recommend the patient have the scalp laceration be repaired in the operating room due to his neutropenia and thrombocytopenia. He is a high infection risk as well as a high bleeding risk. Dr. Verdugo agreed. The patient also agreed to go the operating room for repair of this. Risks and benefits of the repair in the operating room was discussed with him. He was agreeable. The operating room was notified and he will be brought down shortly. He did apparently eat lunch and would like to wait about six hours before the patient is given any sedation. MD YUVAL Matias/BERNY /9:45 PM /9:54 PM
[2017-05-18] MEDS ORDERED: DO NOT ADM ANY ANTICOAGULANT DRUGS PRN (22:30)
[2017-05-18] MEDS: FLUCONAZOLE 200 MG PREMIX BAG 100 ML IV SCH (23:05)
[2017-05-18 23:36] LABS: MEAN CELL VOLUME 97.3 FL (80.0-100.0); MEAN CORPUSCULAR HEMOGLOBIN 32.6 PG (27.0-34.0); MEAN CORPUSCULAR HGB CONC 33.5 % (32.0-36.0); PLATELET COUNT 46 TH/MM3 (150-450); RED BLOOD COUNT 2.57 MIL/MM3 (4.50-5.90); RED CELL DISTRIBUTION WIDTH 14.2 % (11.6-17.2); WHITE BLOOD COUNT 31.9 TH/MM3 (4.0-11.0)
[2017-05-18 23:37] LABS: HEMO FLAGS AUTO DIFF
[2017-05-19 00:14] LABS: BANDS 5 % (0-6); CORRECTED NUCLEATED RBC 1 /100 WBC (0-0); METAMYELOCYTES 6 % (0-1); NEUTROPHIL # MANUAL DIFF 30.9 TH/MM3 (1.8-7.7); POLYS (SEG NEUTROPHILS) 81 % (16-70); PROMYELOCYTES 5 % (0-0); WBC DIFF SAMPLE 100
[2017-05-19 00:17] LABS: OVALOCYTES 1+ (NORMAL)
[2017-05-19 00:18] LABS: PLATELET ESTIMATE SMEAR LOW (NORMAL); PLATELET MORPHOLOGY NORMAL (NORMAL); SCAN/DIFF FINAL DIFF MANUAL
[2017-05-19 04:00] VITALS: BP 110/68; PULSE 90; RESP 19; TEMP 96.9; O2SAT 93
[2017-05-19] MEDS: LEVOTHYROXINE SODIUM 50 MCG TAB PO SCH (06:09)
[2017-05-19 07:13] LABS: AUTOMATED NEUTROPHIL # 26.4 TH/MM3 (1.8-7.7); BASOPHIL % 0.2 % (0.0-2.0); HEMATOCRIT 23.9 % (39.0-51.0); LYMPH % 2.5 % (9.0-44.0); LYMPHOCYTE # 0.7 TH/MM3 (1.0-4.8); MEAN CORPUSCULAR HEMOGLOBIN 32.8 PG (27.0-34.0); MEAN CORPUSCULAR HGB CONC 34.2 % (32.0-36.0); MONO % 3.1 % (0.0-8.0); NEUT % 94.2 % (16.0-70.0); PLATELET COUNT 35 TH/MM3 (150-450); RED BLOOD COUNT 2.49 MIL/MM3 (4.50-5.90)
[2017-05-19 07:21] LABS: HEMO FLAGS AUTO DIFF
[2017-05-19 07:34] LABS: BICARBONATE 24.2 MEQ/L (21.0-32.0); POTASSIUM 3.3 MEQ/L (3.5-5.1)
[2017-05-19 07:41] LABS: CALCIUM-PROTEIN CORRECTED 8.4 MG/DL (8.5-10.1); TOTAL BILIRUBIN ADULT 0.8 MG/DL (0.2-1.0)
[2017-05-19 09:22] LABS: BANDS 12 % (0-6); CORRECTED NUCLEATED RBC 1 /100 WBC (0-0); METAMYELOCYTES 8 % (0-1); MYELOCYTES 3 % (0-0); NEUTROPHIL # MANUAL DIFF 26.3 TH/MM3 (1.8-7.7); POLYS (SEG NEUTROPHILS) 68 % (16-70); PROMYELOCYTES 3 % (0-0); WBC DIFF SAMPLE 100
[2017-05-19 09:23] LABS: PLATELET ESTIMATE SMEAR LOW (NORMAL); PLATELET MORPHOLOGY NORMAL (NORMAL); SCAN/DIFF FINAL DIFF MANUAL
[2017-05-19] MEDS: CHOLECALCIFEROL (VIT D3) 1000 UNIT TAB PO SCH (10:13)
[2017-05-19] MEDS: METOPROLOL TARTRATE 25 MG TAB PO SCH ×2 (10:13→20:40)
[2017-05-19] MEDS: DILTIAZEM HCL 30 MG TAB PO SCH ×4 (10:13→20:40)
[2017-05-19] MEDS: PRAVASTATIN SOD 40 MG TAB PO SCH (10:13)
[2017-05-19] MEDS: CYANOCOBALAMIN 1,000 MCG TAB PO SCH (10:13)
[2017-05-19] MEDS: NYSTATIN SUSP 500,000 U/5 ML CUP SWISH-SWAL SCH ×4 (10:14→20:41)
[2017-05-19] MEDS: MULTIVITAMIN TAB PO SCH (10:14)
--- NOTE | 2017-05-19 11:21 | PD.PN.STU ---
Subjective Remarks Patient says he is doing "much better" today. He is experiencing some shortness of breath. He notes that he had a fall over the weekend that resulted in a head laceration that has been repaired and bandaged. Swallowing is no longer painful , discomfort is improving. He is able to eat thickened liquid foods. He has had some nausea and diarrhea but no abdominal discomfort. He denies lightheadedness , heart palpitations, chest pain. Objective Vitals Vital Signs Date Time Temp Pulse Resp B/P Pulse Ox O2 Delivery O2 Flow Rate FiO2 05/19/17 04:00 96.9 90 19 110/68 93 05/18/17 23:40 96.8 88 18 107/65 98 05/18/17 22:15 90 15 102/58 93 Nasal Cannula 2 05/18/17 22:00 97.7 94 15 108/57 94 Nasal Cannula 2 05/18/17 20:54 Nasal Cannula 2.00 05/18/17 20:00 96.5 90 20 108/62 93 05/18/17 18:20 96.5 91 20 106/63 95 05/18/17 13:20 97.0 92 16 100/64 99 05/18/17 12:00 97.9 90 18 108/63 98 05/18/17 12:00 90 I/O 05/18/17 05/18/17 05/18/17 05/19/17 05/19/17 05/19/17 07:00 15:00 23:00 07:00 15:00 23:00 Intake Total 285 ml 0 ml 60 ml Output Total 550 ml 300 ml 1000 ml Balance -265 ml -300 ml -940 ml Intake Oral 0 ml 0 ml 60 ml IV Total 285 ml Output Urine Total 550 ml 300 ml 1000 ml Stool Total 0 ml # Voids 1 # Bowel Movements 1 2 4 Result Diagram: 05/19/17 0600 05/19/17 0600 Other Results Objective Remarks General: Patient is anorexic and fatigued in appearance. He is alert and cooperative. He is responsive with short phrases and is capable of following commands. Merritt is placed with clear urine. Respiratory: No noted use of excessory respiratory muscles. Diminished breath sounds bilaterally. No noted crackles or wheezes. Cardiovascular: RRR, S1 S2 normal. Radial and posterior tibialis pulse 1+. No appreciated murmur or rubs. Abdominal: Slightly distended. Bowel sounds clear and present in all four quadrants. No tenderness to light or deep palpation. No guarding. A/P Assessment and Plan Head laceration: from fall. s/p surgical repair. Clean and dress wound regularly. Implement fall precautions. Diarrhea: likely due to Salmonella. Supportive treatment. Afib: In sinus rhythm. monitor heart rate and rhythm closely. Cardiovert if afib returns and patient becomes unstable. Pulmonary congestion: Resolved. Monitor respiratory effort and rate closely. Repeat chest xray to monitor congestion if symptoms return. Right lower lobe pneumonia:continue to treat with antibiotics and supplemental O2 as needed. Febrile Neutropenia: Afebrile. monitor WBC count closely. Continue Zosyn and colony stimulating factor. Dry mouth/Odynophagia: Improving with speech therapy. Monitor and consult GI for possibility of upper GI endoscopy. Elevated Bilirubin: Continue to monitor. Biliary stent is in place. MRCP completed. ERCP may be indicated. Consult GI. Weight Loss: consider parenteral nutrition if needs are not met through oral feeding Increased Lactic acid: monitor and consider transfer to ICU if it continues to increase. Monitor electrolytes and replace as necessary. Thrombocytopenia: continue to monitor closely Anemia: improving. Continue to monitor closely. Keep Merritt clean and in place. History of pancreatic cancer: Once stabilized return to chemotherapy treatment. Addendum by Dr. Thomas I personally seen and examined this patient Discussed with medical student Agree with above [place] is referred to my independent note for more details Ivonne Lopez May 19, 2017 11:21 Lulú Thomas MD May 19, 2017 20:11
[2017-05-19 11:37] VITALS: O2SAT 92
--- NOTE | 2017-05-19 11:45 | PD.ONC.PN ---
Subjective Subjective Remarks Afebrile overnight. NO overnight events. Denies headache. wants to take bandages off head. No bleeding. Objective Data Date Time Temp Pulse Resp B/P Pulse Ox O2 Delivery O2 Flow Rate FiO2 05/19/17 11:37 92 21 05/19/17 04:00 96.9 90 19 110/68 93 05/18/17 23:40 96.8 88 18 107/65 98 05/18/17 22:15 90 15 102/58 93 Nasal Cannula 2 05/18/17 22:00 97.7 94 15 108/57 94 Nasal Cannula 2 05/18/17 20:54 Nasal Cannula 2.00 05/18/17 20:00 96.5 90 20 108/62 93 05/18/17 18:20 96.5 91 20 106/63 95 05/18/17 13:20 97.0 92 16 100/64 99 05/18/17 12:00 97.9 90 18 108/63 98 05/18/17 12:00 90 05/19/17 05/19/17 05/19/17 07:00 15:00 23:00 Intake Total 60 ml Output Total 1000 ml Balance -940 ml Result Diagram: 05/19/17 0600 05/19/17 0600 Laboratory Results Laboratory Tests Test 05/18/17 05/18/17 05/18/17 05/19/17 16:30 17:22 20:30 06:00 Blood Type A POSITIVE A POSITIVE Blood Bank Comment White Blood Count 31.9 TH/MM3 28.0 TH/MM3 Red Blood Count 2.57 MIL/MM3 2.49 MIL/MM3 Hemoglobin 8.4 GM/DL 8.2 GM/DL Hematocrit 25.0 % 23.9 % Mean Corpuscular Volume 97.3 FL 96.0 FL Mean Corpuscular Hemoglobin 32.6 PG 32.8 PG Mean Corpuscular Hemoglobin 33.5 % 34.2 % Concent Red Cell Distribution Width 14.2 % 14.0 % Platelet Count 46 TH/MM3 35 TH/MM3 Mean Platelet Volume 9.7 FL 10.6 FL Neutrophils (%) (Auto) % 94.2 % Lymphocytes (%) (Auto) % 2.5 % Monocytes (%) (Auto) % 3.1 % Eosinophils (%) (Auto) % 0.0 % Basophils (%) (Auto) % 0.2 % Neutrophils # (Auto) TH/MM3 26.4 TH/MM3 Lymphocytes # (Auto) TH/MM3 0.7 TH/MM3 Monocytes # (Auto) TH/MM3 0.9 TH/MM3 Eosinophils # (Auto) TH/MM3 0.0 TH/MM3 Basophils # (Auto) TH/MM3 0.0 TH/MM3 CBC Comment AUTO DIFF AUTO DIFF Differential Total Cells 100 100 Counted Neutrophils % (Manual) 81 % 68 % Band Neutrophils % 5 % 12 % Lymphocytes % 3 % 3 % Neutrophils # (Manual) 30.9 TH/MM3 26.3 TH/MM3 Metamyelocytes 6 % 8 % Promyelocytes 5 % 3 % Nucleated Red Blood Cells 1 /100 WBC 1 /100 WBC Differential Comment FINAL DIFF FINAL DIFF MANUAL MANUAL Platelet Estimate LOW LOW Platelet Morphology Comment NORMAL NORMAL Ovalocytes 1+ Monocytes % 3 % Myelocytes 3 % Red Cell Morphology Comment NORMAL Sodium Level 148 MEQ/L Potassium Level 3.3 MEQ/L Chloride Level 116 MEQ/L Carbon Dioxide Level 24.2 MEQ/L Anion Gap 8 MEQ/L Blood Urea Nitrogen 24 MG/DL Creatinine 0.67 MG/DL Estimat Glomerular Filtration 114 ML/MIN Rate Random Glucose 107 MG/DL Calcium Level 7.0 MG/DL Protein Corrected Calcium 8.4 MG/DL Total Bilirubin 0.8 MG/DL Aspartate Amino Transf 90 U/L (AST/SGOT) Alanine Aminotransferase 64 U/L (ALT/SGPT) Alkaline Phosphatase 967 U/L Total Protein 4.6 GM/DL Albumin 2.0 GM/DL Culture Results Microbiology Date/Time Procedure Status Source Growth 05/18/17 13:40 Received Stool Stool Pending Administered Medications Medications (Trade) Dose Ordered Sig/Samy Route PRN Reason Start Time Stop Time Status Last Admin Dose Admin Cholecalciferol (Vitamin D3) 1,000 units DAILY PO 05/15/17 09:00 05/19/17 10:13 Levothyroxine Sodium (Synthroid) 50 mcg DAILY@06 PO 05/15/17 06:00 05/19/17 06:09 Multivitamins (Theragran) 1 tab DAILY PO 05/15/17 09:00 05/19/17 10:14 Cyanocobalamin (Vitamin B12) 1,000 mcg DAILY PO 05/15/17 09:00 05/19/17 10:13 Pravastatin Sodium 40 mg 40 mg DAILY PO 05/15/17 09:00 8/14/17 10:13 Fluconazole/ Sodium Chloride (Diflucan 200 Mg Premix Bag) 100 ml @ 100 mls/hr Q24H IV 05/14/17 21:00 05/18/17 23:05 Nystatin (Mycostatin Liq) 5 ml QID SWISH-SWAL 05/14/17 21:00 05/19/17 10:14 Ondansetron HCl (Zofran Inj) 4 mg Q4H PRN IV PUSH NAUSEA OR VOMITING 05/16/17 03:30 05/16/17 03:21 Diltiazem HCl (Cardizem) 30 mg QID PO 05/16/17 10:00 05/19/17 10:13 Metoprolol Tartrate 12.5 mg 12.5 mg Q12HR PO 05/17/17 10:00 05/19/17 10:13 Ceftriaxone Sodium 2000 mg/ Sodium Chloride 100 ml @ 200 mls/hr Q24H IV 05/17/17 14:00 05/18/17 18:40 Phenylephrine HCl/ Sodium Chloride (Neosynephrine Inj/NS 500 ml Inj) 500 ml @ 0 mls/hr TITRATE IV 05/17/17 13:30 05/18/17 03:57 Objective Remarks GENERAL: Elderly male, supine in bed in nad. SKIN: Warm and dry. HEAD: Normocephalic. EYES: No injection or drainage. NECK: Supple, trachea midline. CARDIOVASCULAR: Regular rate and rhythm RESPIRATORY: anterior grey clear. on 2L O2 via NC GASTROINTESTINAL: Abdomen soft, non-tender, nondistended. EXTREMITIES: No cyanosis NEUROLOGICAL: awake and alert, normal speech. Assessment/Plan Problem List: (1) Laceration of head Status: Acute Plan: -- s/p fall after trying to get to the bathroom --CT brain showed no bleed, s/p platelet transfusion --laceration sutured by general surgery (2) Localized cancer of pancreas Status: Acute Plan: Last CT/PET was negative. CA 19.9 decreasing. Good response to neoadjuvant chemotherapy History: --initially presented with painless jaundice. --had a stent placed and his bilirubin came down appropriately. --was evaluated at [facility] by Dr. Brent Singletary. felt to be resectable candidate but was to undergo neoadjuvant chemotherapy. --two cycles of Abraxane and gemcitabine. He comes into clinic for followup. --came into clinic for follow up and reported malaise, abdominal distension and pain x 1 week. he was tachycardic and weak with ANC of 0 with rigors, admission to hospital was coordinated (3) Neutropenic fever Status: Resolved Plan: --blood cultures no growth --lactic acid elevated --on Diflucan and Rocephin --ID following (4) Elevated bilirubin Status: Resolved Plan: --bilirubin improved --GI following-->possible ERCP with stent placement --monitor --U/S abdomen showed dilatated pancreatic duct (5) Leukocytosis Status: Acute Plan: (due to Neupogen) Assessment 82y/o male with localized pancreatic cancer with increased bilirubin. h/o Localized pancreatic cancer, elevated CA 19.9. Painless jaundice. Cholelithiasis. Hypothyroidism. Colonoscopy. Endoscopic ultrasound. ERCP. Stent placement. Fine-needle biopsy. Plan 1. monitor CBC, bilirubin 2. continue antibiotics, supportive care Attending Statement The exam, history, and the medical decision-making described in the above note were completed with the assistance of the mid-level provider. I reviewed and agree with the findings presented. I attest that I had a [id number] encounter with the patient on the same day, and personally performed and documented my assessment and findings in the medical record. Clinically dry. Partner at bedside. Dressing dry. Appropriate. Mouth dry. Start D5w/ KCL. Ok to DC restraints. Pt advised not to get OOB without assistance. Kristen Willard May 19, 2017 11:45 Tracey Verdugo MD May 19, 2017 19:29
[2017-05-19 12:00] VITALS: BP 110/70; PULSE 99; RESP 16; TEMP 96.2; O2SAT 96
--- NOTE | 2017-05-19 12:05 | HHI.GIFU ---
Subjective Remarks Resting in bed. Breathing mildly labored. C/O being bloated with slight discomfort from constipation. Afebrile today. (Adia Kendall) Objective Vitals I&O Vital Signs Date Time Temp Pulse Resp B/P Pulse Ox O2 Delivery O2 Flow Rate FiO2 05/19/17 11:37 92 21 05/19/17 04:00 96.9 90 19 110/68 93 05/18/17 23:40 96.8 88 18 107/65 98 05/18/17 22:15 90 15 102/58 93 Nasal Cannula 2 05/18/17 22:00 97.7 94 15 108/57 94 Nasal Cannula 2 05/18/17 20:54 Nasal Cannula 2.00 05/18/17 20:00 96.5 90 20 108/62 93 05/18/17 18:20 96.5 91 20 106/63 95 05/18/17 13:20 97.0 92 16 100/64 99 05/18/17 12:00 97.9 90 18 108/63 98 05/18/17 12:00 90 I/O 05/18/17 05/18/17 05/18/17 05/19/17 05/19/17 05/19/17 07:00 15:00 23:00 07:00 15:00 23:00 Intake Total 285 ml 0 ml 60 ml Output Total 550 ml 300 ml 1000 ml Balance -265 ml -300 ml -940 ml Intake Oral 0 ml 0 ml 60 ml IV Total 285 ml Output Urine Total 550 ml 300 ml 1000 ml Stool Total 0 ml # Voids 1 # Bowel Movements 1 2 4 Laboratory Laboratory Tests Test 05/18/17 05/18/17 05/18/17 05/19/17 16:30 17:22 20:30 06:00 Blood Type A POSITIVE A POSITIVE Blood Bank Comment White Blood Count 31.9 28.0 Red Blood Count 2.57 2.49 Hemoglobin 8.4 8.2 Hematocrit 25.0 23.9 Mean Corpuscular Volume 97.3 96.0 Mean Corpuscular Hemoglobin 32.6 32.8 Mean Corpuscular Hemoglobin 33.5 34.2 Concent Red Cell Distribution Width 14.2 14.0 Platelet Count 46 35 Mean Platelet Volume 9.7 10.6 Neutrophils (%) (Auto) 94.2 Lymphocytes (%) (Auto) 2.5 Monocytes (%) (Auto) 3.1 Eosinophils (%) (Auto) 0.0 Basophils (%) (Auto) 0.2 Neutrophils # (Auto) 26.4 Lymphocytes # (Auto) 0.7 Monocytes # (Auto) 0.9 Eosinophils # (Auto) 0.0 Basophils # (Auto) 0.0 CBC Comment AUTO DIFF AUTO DIFF Differential Total Cells 100 100 Counted Neutrophils % (Manual) 81 68 Band Neutrophils % 5 12 Lymphocytes % 3 3 Neutrophils # (Manual) 30.9 26.3 Metamyelocytes 6 8 Promyelocytes 5 3 Nucleated Red Blood Cells 1 1 Differential Comment FINAL DIFF FINAL DIFF MANUAL MANUAL Platelet Estimate LOW LOW Platelet Morphology Comment NORMAL NORMAL Ovalocytes 1+ Monocytes % 3 Myelocytes 3 Red Cell Morphology Comment NORMAL Sodium Level 148 Potassium Level 3.3 Chloride Level 116 Carbon Dioxide Level 24.2 Anion Gap 8 Blood Urea Nitrogen 24 Creatinine 0.67 Estimat Glomerular Filtration 114 Rate Random Glucose 107 Calcium Level 7.0 Protein Corrected Calcium 8.4 Total Bilirubin 0.8 Aspartate Amino Transf 90 (AST/SGOT) Alanine Aminotransferase 64 (ALT/SGPT) Alkaline Phosphatase 967 Total Protein 4.6 Albumin 2.0 Date/Time Procedure Status Source Growth 05/18/17 13:40 Received Stool Stool Pending 05/14/17 17:22 Aerobic Blood Culture - Final Complete Blood Peripheral NO GROWTH IN 5 DAYS 05/14/17 17:22 Anaerobic Blood Culture - Final Complete Blood Peripheral NO GROWTH IN 5 DAYS Imaging Last Impressions Head CT 05/18/17 0000 Signed Impressions: Service Date/Time: Thursday, May 18, 2017 16:34 - CONCLUSION: No acute disease. No evidence of acute infarct, hemorrhage, mass or edema. Generalized volume loss consistent with atrophy. Nomi Vasquez MD Cholangiopancreatography MRI 05/17/17 0000 Signed Impressions: Service Date/Time: Wednesday, May 17, 2017 11:39 - CONCLUSION: 1. Contracted gallbladder with cholelithiasis, wall thickening and pericholecystic fluid. 2. Peribiliary T2 hyperintensity suspicious for cholangitis. 3. Mild ascites. 4. No evidence of pancreatic mass Nomi Vasquez MD Chest X-Ray 05/17/17 0000 Signed Impressions: Service Date/Time: Wednesday, May 17, 2017 09:23 - CONCLUSION: Abnormal opacity remains in the right perihilar region the right lung base without significant change. Zachary Dill MD Abdomen/Pelvis CT 05/15/17 0000 Signed Impressions: Service Date/Time: May 20:39 - CONCLUSION: Biliary stent in good position. There continues to be no evidence metastatic disease to the liver Gallbladder somewhat small and contracted with mild enhancement present. Nonspecific air-fluid levels in large and small bowel most suggestive of an ileus. Saturnino Trimble MD FACR Abdomen Ultrasound 05/15/17 0000 Signed Impressions: Service Date/Time: May 15:44 - CONCLUSION: 1. Limited visualization of the pancreas. However, the pancreatic duct appears to be dilated 8 mm. 2. No definite biliary tract obstruction is seen. 3. There appears to be some sludge in the gallbladder. 4. There appears to be fatty infiltration throughout the liver. Shawn White MD Physical Exam HEENT: No jaundice. Drsg to scalp d/i CHEST: Breathing mildly labored, mildly tachypneic, crackles CARDIAC: RRR ABDOMEN: Soft, mildly tympanic/distended, no guarding, bowel sounds x 4 quadrants EXTREMITIES: No clubbing, cyanosis, or edema. SKIN: Normal; no rash; no jaundice. 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 BCx no growth x 5 days. Stool cx pending. WBC 28. Abdomen Ultrasound (05/15/17)----> 1. Limited visualization of the pancreas. However, the pancreatic duct appears to be dilated 8 mm. 2. No definite biliary tract obstruction is seen. 3. There appears to be some sludge in the gallbladder. 4. There appears to be fatty infiltration throughout the liver. Abdomen/Pelvis CT (05/15/17)----> Biliary stent in good position. There continues to be no evidence metastatic disease to the liver Gallbladder somewhat small and contracted with mild enhancement present. Nonspecific air-fluid levels in large and small bowel most suggestive of an ileus. MRCP (05/17/17)---> 1. Contracted gallbladder with cholelithiasis, wall thickening and pericholecystic fluid. 2. Peribiliary T2 hyperintensity suspicious for cholangitis. 3. Mild ascites. 4. No evidence of pancreatic mass. ID following, Ceftriaxone. Diflucan. - Abnormal imaging suspicious for cholangitis on MRCP. Pt has known pancreatic cancer with biliary stent in place. Plan is for ERCP with stent exchange once cleared by ID. Ceftriaxone, Diflucan. - Elevated LFTs, hx of biliary obstruction secondary to pancreatic cancer- s/p stent placement. Imaging as above. LFTs improved, T. Bili 0.8, AST 90, ALT 64, Alk Phosph 967. - Mild ileus, diarrhea. Mildly tympanic, but had 7 BM's today. Will check CDiff. - Anorexia, Wt. Loss, ? Odynophagia. He reports to me that he has had decreased appetite since starting chemotherapy, but denies any odynophagia or difficulty swallowing. States he just does not have any appetite. Diflucan. - Anemia, normocytic. HH 8.2/23.9 - Resp. Insufficiency. CXR (05/17/17)---> abnormal opacity remains in [place] right perihilar region the right lung base without significant change. His breathing is mildly labored and tachypneic, crackles. Per attending. - Pancreatic cancer. Dx in February of 2017.CT as above MRCP (02/20/17)----> The common bile duct is markedly dilated as is the pancreatic duct and there is also tapering of the splenic vein in SMV before it becomes the portal vein. All three things suggest that there is a central pancreatic head mass, but it is difficult to define one on the MRCP. After contrast there is a fairly uniform enhancement through the head and neck of the pancreas. Difficult to define an actual mass. There is a questionable 1 cm lesion in the head of the pancreas on the CT scan specifically series2; image 30 but this is more median than the common bile duct narrowing. Outpatient PET CT could be performed. Solid organs are unremarkable. EUS with FNA/ERCP with stent placement (02/21/17)----> Pancreatic head mass, biliary stricture, s/p stent placement. Pancreatic head mass FNA revealed atypical glandular cells consistent with adenocarcinoma, cell block atypical glandular cells consistent with adenocarcinoma. He was thought to have potentially resectable disease and completed 7-8 weeks of Abraxane and gemcitabine. He has an appointment to follow up with [facility] tomorrow for surgical evaluation of his pancreatic cancer. CA 19-9 74 H - HTN, Hypothyroidism, Hyperlipidemia. Per attending. PLAN: - Plan for ERCP with stent exchange when stable - KEON as tolerated today. Will make NPO after MN in case he is stable for procedure tomorrow - Abx per ID - Monitor labs - Send stool for CDiff. - Consider repeat imaging of abdomen - Supportive care - Further recommendations to follow based on results of above - Patient seen and examined by Dr. Spicer and myself and this note is written on his behalf. (Adia Kendall) Physician Comments Patient seen and examined Agree with above Continue with current supportive care Monitor labs Possible ERCP tomorrow (Randy Spicer MD) Adia Kendall May 19, 2017 12:05 Randy Spicer MD May 19, 2017 12:21
--- NOTE | 2017-05-19 12:59 | HHI.IDPN ---
Subjective Subjective Remarks cont to have diarrhea 2 liquid BMs event noted: sp fall last night requiring surgical repair of laceration; CT head was negative afebrile Growing probable Salmonella in 4/4 BC bottles, repeat BC from same day negative so far no new co on pressors Antibiotics CFTX Allergies: Coded Allergies: No Known Allergies (Verified , 04/07/17) Objective . Vital Signs Date Time Temp Pulse Resp B/P Pulse Ox O2 Delivery O2 Flow Rate FiO2 05/19/17 12:00 96.2 99 16 110/70 96 05/19/17 11:37 92 21 05/19/17 04:00 96.9 90 19 110/68 93 05/18/17 23:40 96.8 88 18 107/65 98 05/18/17 22:15 90 15 102/58 93 Nasal Cannula 2 05/18/17 22:00 97.7 94 15 108/57 94 Nasal Cannula 2 05/18/17 20:54 Nasal Cannula 2.00 05/18/17 20:00 96.5 90 20 108/62 93 05/18/17 18:20 96.5 91 20 106/63 95 05/18/17 13:20 97.0 92 16 100/64 99 05/18/17 05/18/17 05/19/17 14:59 22:59 06:59 Intake Total 0 ml 60 ml Output Total 300 ml 1000 ml Balance -300 ml -940 ml Intake Oral 0 ml 60 ml Output Urine Total 300 ml 1000 ml # Voids 1 # Bowel Movements 1 2 4 . Laboratory Tests Test 05/18/17 05/18/17 05/19/17 05:15 20:30 06:00 White Blood Count 34.3 TH/MM3 31.9 TH/MM3 28.0 TH/MM3 Red Blood Count 2.81 MIL/MM3 2.57 MIL/MM3 2.49 MIL/MM3 Hemoglobin 9.0 GM/DL 8.4 GM/DL 8.2 GM/DL Hematocrit 27.3 % 25.0 % 23.9 % Mean Corpuscular Volume 97.0 FL 97.3 FL 96.0 FL Mean Corpuscular Hemoglobin 32.0 PG 32.6 PG 32.8 PG Mean Corpuscular Hemoglobin 33.0 % 33.5 % 34.2 % Concent Red Cell Distribution Width 14.1 % 14.2 % 14.0 % Platelet Count 25 TH/MM3 46 TH/MM3 35 TH/MM3 Mean Platelet Volume 11.1 FL 9.7 FL 10.6 FL Neutrophils (%) (Auto) % % 94.2 % Lymphocytes (%) (Auto) % % 2.5 % Monocytes (%) (Auto) % % 3.1 % Eosinophils (%) (Auto) % % 0.0 % Basophils (%) (Auto) % % 0.2 % Neutrophils # (Auto) TH/MM3 TH/MM3 26.4 TH/MM3 Lymphocytes # (Auto) TH/MM3 TH/MM3 0.7 TH/MM3 Monocytes # (Auto) TH/MM3 TH/MM3 0.9 TH/MM3 Eosinophils # (Auto) TH/MM3 TH/MM3 0.0 TH/MM3 Basophils # (Auto) TH/MM3 TH/MM3 0.0 TH/MM3 CBC Comment AUTO DIFF AUTO DIFF AUTO DIFF Differential Total Cells 100 100 100 Counted Neutrophils % (Manual) 74 % 81 % 68 % Band Neutrophils % 13 % 5 % 12 % Lymphocytes % 1 % 3 % 3 % Monocytes % 2 % 3 % Neutrophils # (Manual) 33.3 TH/MM3 30.9 TH/MM3 26.3 TH/MM3 Metamyelocytes 5 % 6 % 8 % Myelocytes 5 % 3 % Differential Comment FINAL DIFF FINAL DIFF FINAL DIFF MANUAL MANUAL MANUAL Platelet Estimate LOW LOW LOW Platelet Morphology Comment NORMAL NORMAL NORMAL Ovalocytes 1+ 1+ Promyelocytes 5 % 3 % Nucleated Red Blood Cells 1 /100 WBC 1 /100 WBC Red Cell Morphology Comment NORMAL Laboratory Tests Test 05/19/17 06:00 Sodium Level 148 MEQ/L Potassium Level 3.3 MEQ/L Chloride Level 116 MEQ/L Carbon Dioxide Level 24.2 MEQ/L Anion Gap 8 MEQ/L Blood Urea Nitrogen 24 MG/DL Creatinine 0.67 MG/DL Estimat Glomerular Filtration 114 ML/MIN Rate Random Glucose 107 MG/DL Calcium Level 7.0 MG/DL Protein Corrected Calcium 8.4 MG/DL Total Bilirubin 0.8 MG/DL Aspartate Amino Transf 90 U/L (AST/SGOT) Alanine Aminotransferase 64 U/L (ALT/SGPT) Alkaline Phosphatase 967 U/L Total Protein 4.6 GM/DL Albumin 2.0 GM/DL Microbiology Date/Time Procedure Status Source Growth 05/18/17 13:40 Received Stool Stool Pending Imaging Last Impressions Head CT 05/18/17 0000 Signed Impressions: Service Date/Time: Thursday, May 18, 2017 16:34 - CONCLUSION: No acute disease. No evidence of acute infarct, hemorrhage, mass or edema. Generalized volume loss consistent with atrophy. Nomi Vasquez MD Cholangiopancreatography MRI 05/17/17 0000 Signed Impressions: Service Date/Time: Wednesday, May 17, 2017 11:39 - CONCLUSION: 1. Contracted gallbladder with cholelithiasis, wall thickening and pericholecystic fluid. 2. Peribiliary T2 hyperintensity suspicious for cholangitis. 3. Mild ascites. 4. No evidence of pancreatic mass Nomi Vasquez MD Chest X-Ray 05/17/17 0000 Signed Impressions: Service Date/Time: Wednesday, May 17, 2017 09:23 - CONCLUSION: Abnormal opacity remains in the right perihilar region the right lung base without significant change. Zachary Dill MD Abdomen/Pelvis CT 05/15/17 0000 Signed Impressions: Service Date/Time: May 20:39 - CONCLUSION: Biliary stent in good position. There continues to be no evidence metastatic disease to the liver Gallbladder somewhat small and contracted with mild enhancement present. Nonspecific air-fluid levels in large and small bowel most suggestive of an ileus. Saturnino Trimble MD FACR Abdomen Ultrasound 05/15/17 0000 Signed Impressions: Service Date/Time: May 15:44 - CONCLUSION: 1. Limited visualization of the pancreas. However, the pancreatic duct appears to be dilated 8 mm. 2. No definite biliary tract obstruction is seen. 3. There appears to be some sludge in the gallbladder. 4. There appears to be fatty infiltration throughout the liver. Shawn White MD Physical Exam CONSTITUTIONAL/GENERAL: This is a thin chronically ill eldelrly male patient, in no apparent distress. TUBES/LINES/DRAINS: HEAD: dressing in place over haed, intact PORT: in place R chest w/o e/o infx SKIN: No jaundice, + diffuse non banching erythematous non pruritic macular rashes, involving extremeties, trunk. Ecchymoses on upper extremities. . Skin temperature elevated. Skin is very dry, with markedly reduced turgor Not diaphoretic. EYES: Pupils equal and round and reactive. Extraocular motions intact. + mild scleral icterus. No injection or drainage. Fundi not examined. ENT: mucosae is moist without visible erythema, exudates, masses, or lesions. Poor dentition CARDIOVASCULAR: Regular rate and rhythm without murmurs, gallops, or rubs. No JVD. Peripheral pulses symmetric. RESPIRATORY/CHEST: Symmetric, unlabored respirations. B/b crackles to auscultation. Breath sounds equal bilaterally. No wheezes, rales, or rhonchi. GASTROINTESTINAL: Abdomen soft, not tender to palpation , moderately to markedly distended. No hepato-splenomegaly, or palpable masses. No guarding. Bowel sounds present. MUSCULOSKELETAL: Extremities without clubbing, cyanosis, Some soft pitting pretibial edema. No joint tenderness or effusion noted. No calf tenderness. No mottling or clubbing. NEUROLOGICAL: Awake and alert. Motor and sensory grossly within normal limits. Follows commands. Clear specch. Moves all extremities. PSYCHIATRIC: calm, cooperative Assessment & Plan Remarks Pancreatic cancer, sp biliary stent sp chemo with chomotherapy induced neutropenia Resolved neutropenia Salmonella sepsis: clinically stable - dw micro lab: S to levaquin, ampicillin, CFTX - final ID/S P repeat set is negative @ 2 days Non pruritic rash Sepsi, critically ill, Rash, non pruritic : medacation induced vs 2/2 petechia dehydration Esophagits RLL infiltrae/effusion Cholangitis, per ERCP cont CFTX for Salmonella; OK to transition to PO (levaquine 750 daily) when closer to dec Because pts immunocompromised state will RX for 4-6 weeks repeat BC OK for ERCP - dw Dr Romo monitor blood clx cont fluconazole for esopahgitis Beti Trent MD May 19, 2017 12:59
[2017-05-19] MEDS ORDERED: POTASSIUM CHLOR 40 MEQ PREMIX 200 ML IV ONE (13:00)
[2017-05-19] MEDS: cefTRIAXone INJ 2,000 MG in SODIUM CHLORIDE 0.9% INJ 100 ML IV SCH (13:33)
--- NOTE | 2017-05-19 15:23 | HHI.PR ---
Subjective Subjective Remarks Patient is awake, answering simple questions Working with speech therapist on swallow Currently denies any acute shortness of breath or pain (Kaela Hilton) Review of Systems Constitutional Constitutional: Fever, Fatigue, Weight Change, Weakness Constitutional Remarks Limited review of systems due to patient's lethargy (Kaela Hilton) Throat Throat Remarks Swallow, no acute cough, slow (Kaela Hilton) GI/Abdomen GI/Abdominal Exam: Nausea (Kaela Hilton) Musculoskeletal MS: Weakness, Stiffness, Swelling (trace of pedal edema) (Kaela Hilton ) Neurologic Neurologic: Lethargic (but does respond weakly to verbal stimuli) Neurologic Remarks Awake and oriented to place, some of situation (Kaela Hilton) Psychiatric Psychiatric: Normal Mood (Kaela Hilton) Vitals/Results Intake & Output 05/18/17 05/18/17 05/19/17 15:00 23:00 07:00 Intake Total 0 ml 60 ml Output Total 300 ml 1000 ml Balance -300 ml -940 ml Intake Oral 0 ml 60 ml Output Urine Total 300 ml 1000 ml # Voids 1 # Bowel Movements 1 2 4 Vital Signs Vital Signs Date Time Temp Pulse Resp B/P Pulse Ox O2 Delivery O2 Flow Rate FiO2 05/19/17 12:00 96.2 99 16 110/70 96 05/19/17 11:37 92 21 05/19/17 04:00 96.9 90 19 110/68 93 05/18/17 23:40 96.8 88 18 107/65 98 05/18/17 22:15 90 15 102/58 93 Nasal Cannula 2 05/18/17 22:00 97.7 94 15 108/57 94 Nasal Cannula 2 05/18/17 20:54 Nasal Cannula 2.00 05/18/17 20:00 96.5 90 20 108/62 93 05/18/17 18:20 96.5 91 20 106/63 95 (Kaela Hilton) CBC/BMP: 05/19/17 0600 05/19/17 0600 Lab Results Laboratory Tests Test 05/18/17 05/18/17 05/18/17 05/19/17 16:30 17:22 20:30 06:00 Blood Type A POSITIVE A POSITIVE Blood Bank Comment White Blood Count 31.9 TH/MM3 28.0 TH/MM3 Red Blood Count 2.57 MIL/MM3 2.49 MIL/MM3 Hemoglobin 8.4 GM/DL 8.2 GM/DL Hematocrit 25.0 % 23.9 % Mean Corpuscular Volume 97.3 FL 96.0 FL Mean Corpuscular Hemoglobin 32.6 PG 32.8 PG Mean Corpuscular Hemoglobin 33.5 % 34.2 % Concent Red Cell Distribution Width 14.2 % 14.0 % Platelet Count 46 TH/MM3 35 TH/MM3 Mean Platelet Volume 9.7 FL 10.6 FL Neutrophils (%) (Auto) % 94.2 % Lymphocytes (%) (Auto) % 2.5 % Monocytes (%) (Auto) % 3.1 % Eosinophils (%) (Auto) % 0.0 % Basophils (%) (Auto) % 0.2 % Neutrophils # (Auto) TH/MM3 26.4 TH/MM3 Lymphocytes # (Auto) TH/MM3 0.7 TH/MM3 Monocytes # (Auto) TH/MM3 0.9 TH/MM3 Eosinophils # (Auto) TH/MM3 0.0 TH/MM3 Basophils # (Auto) TH/MM3 0.0 TH/MM3 CBC Comment AUTO DIFF AUTO DIFF Differential Total Cells 100 100 Counted Neutrophils % (Manual) 81 % 68 % Band Neutrophils % 5 % 12 % Lymphocytes % 3 % 3 % Neutrophils # (Manual) 30.9 TH/MM3 26.3 TH/MM3 Metamyelocytes 6 % 8 % Promyelocytes 5 % 3 % Nucleated Red Blood Cells 1 /100 WBC 1 /100 WBC Differential Comment FINAL DIFF FINAL DIFF MANUAL MANUAL Platelet Estimate LOW LOW Platelet Morphology Comment NORMAL NORMAL Ovalocytes 1+ Monocytes % 3 % Myelocytes 3 % Red Cell Morphology Comment NORMAL Sodium Level 148 MEQ/L Potassium Level 3.3 MEQ/L Chloride Level 116 MEQ/L Carbon Dioxide Level 24.2 MEQ/L Anion Gap 8 MEQ/L Blood Urea Nitrogen 24 MG/DL Creatinine 0.67 MG/DL Estimat Glomerular Filtration 114 ML/MIN Rate Random Glucose 107 MG/DL Calcium Level 7.0 MG/DL Protein Corrected Calcium 8.4 MG/DL Total Bilirubin 0.8 MG/DL Aspartate Amino Transf 90 U/L (AST/SGOT) Alanine Aminotransferase 64 U/L (ALT/SGPT) Alkaline Phosphatase 967 U/L Total Protein 4.6 GM/DL Albumin 2.0 GM/DL (Kaela Hilton. BALLET DANCER) Physical Exam General General Appearance: Comfortable (lethargic), Pale, Anxious (mild) (Kaela Hilton. BALLET DANCER) Eyes Eye Exam: Pupils Equal (Kaela Hilton BALLET DANCER) Ears & Nose Ears & Nose Exam: Nasal Mucosa Bow (pale) (Kaela Hilton BALLET DANCER) Throat Throat Exam: Oral Mucosa Bow & Moist (pale) (Kaela Hilton BALLET DANCER) Neck Neck Exam: Neck Supple (Kaela Hilton BALLET DANCER) Pulmonary Resp Exam: Decreased Bases, Diminished Breath Sounds, Labored (tachypnea respirations) Resp Remarks Audible rhonchi heard (Kaela Hilton BALLET DANCER) Cardiology CV Exam: Regular (heart rate in the 80s sinus rhythm now, yesterday on 05-16, patient had atrial fib with RVR, was placed on IV Cardizem as well as IV Lopressor given), Normal Sinus Rhythm CV Remarks Sinus rhythm now heart rate controlled (Kaela HiltonP) Gastrointestinal/Abdomen GI Exam: Soft, Bowel Sounds Present, Bowel Sounds Hypoactive GI Remarks Taut (Kaela HiltonP) Genitourinary Exam: Clear Urine (Merritt catheter) (Kaela HiltonP) Musculoskeletal MS Exam: Normal Tone (for his condition), Atrophy (Kaela HiltonP) Integumentary Skin Exam: Warm, Dry, Intact (thin turgor) (Kaela HiltonP) Extremeties Extremities Exam: Trace Edema (lower extremities) (Kaela HiltonP) Neurologic Neuro Exam: Awake, Oriented (2), Speech Clear (week), Moving All Extremities ( generalized weakness) (Kaela Hilton. BALLET DANCER) Assessment/Plan Assessment/Plan vital signs reviewed, afebrile, normal trends labs reviewed, , anemia hemoglobin remained stable around 8.2, , hypokalemia 3.3, IV potassium 40 mEq ordered 1, Will recheck labs in the morning, sodium 148, alkaline phosphatase 967 Order physical therapy, extreme debility Pancreatic cancer , chemotherapy last week, generalized weakness, has been maintained in the intensive care setting until yesterday. Transferred to private room Patient complicated with blood sepsis Salmonella poisoning. Continues on IV antibiotics, fluids, encourage to eat and drink, as been working with speech therapist for some mild dysphasia, but is more alert and should be able to eat and drink better now, mild esophagitis noted. GI consult, neutropenia, MRI MRCP done 05-16,Plan for ERCP with stent exchange tomorrow if patient remains stable, KEON as tolerated today, nothing by mouth at midnight Salmonella sepsis, becoming more clinically stable, sensitive to ampicillin Levaquin, CFTX Non-pruritic rash noted, monitor labs, New right lower lobe pneumonia, complicated with rapid atrial fib and hypotension while in the intensive care, now back to sinus rhythm controlled rate, continue telemetry O2, antibiotic therapy, symptoms seem to be resolving patient has no fever Hypotension, was initially on pressors, but has been off and DC'd for 24 hours Rhythm sinus, history of atrial fibrillation managed with IV Cardizem while in the intensive care setting. , Also received IV Lopressor to control heart rate Continuous ECG monitoring and medical management. Appreciate care management per the caster helper during patient's ICU stay Debility, after coming to private room patient got up, lost his balance and failed backwards. Patient received a large laceration that was treated in the surgical suite due to his high risk related to thrombocytopenia, and neutropenia Patient tolerated suturing well per Gen. surgery, dressing wrap around his head is clean dry and intact. Will need evaluate and change in daily On 81 1 , Discussed with patient his wishes for code status, He is alert, oriented and understands his acute on chronic illness. Wants full code , full agressive care. Also discussed with nurse in . Discussed with patient Discussed with nurse Discussed with Dr. Thomas, seen on his behalf (Kaela Hilton) Assessment/Plan seen, examined by myself, Dr Thomas, today Discussed with patient and his partner Patient had a fall yesterday with scalp laceration no evidence of skull fracture or bleed Replace potassium Discussed with oncologist Continue treatment for salmonella sepsis Continue treatment for pneumonia Continue telemetry ERCP in the morning Discussed with mid level provider The exam, history, and the medical decision-making described in the above note were completed with the assistance of the mid-level provider. I reviewed the findings presented. I attest that I had a [id number] encounter with the patient on the same day, and personally performed and documented my assessment and findings in the medical record. 35 minutes (Lulú Thomas MD) Kaela Hilton May 19, 2017 15:22 Lulú Thomas MD May 19, 2017 20:13
[2017-05-19 17:00] VITALS: BP 115/69; PULSE 105; RESP 24; TEMP 96.5; O2SAT 95
[2017-05-19] MEDS ORDERED: DEXT 5%-NACL 0.9% 1000 ML INJ 1,000 ML IV SCH (19:30)
[2017-05-19] MEDS ORDERED: POTASSIUM CHLORIDE INJ 20 MEQ in DEXT 5%-NACL 0.9% 1000 ML INJ 1,000 ML IV SCH (19:30)
[2017-05-19 20:00] VITALS: BP 102/64; PULSE 109; PULSE 110; RESP 19; TEMP 96.8; O2SAT 94
[2017-05-19 20:46] LABS: C. DIFF EPI 027 PRESUMPTIVE NEGATIVE (NEGATIVE)
[2017-05-19] MEDS: FLUCONAZOLE 200 MG PREMIX BAG 100 ML IV SCH (22:42)
[2017-05-20] VITALS (10 sets, daily range): BP systolic 95–123; BP diastolic 64–79; PULSE 88–104; RESP 16–20; TEMP 95.7–98.8; O2SAT 92–99
[2017-05-20] MEDS: D5W + KCL 20 MEQ INJ 1,000 ML IV SCH ×2 (00:34→22:31)
[2017-05-20] MEDS: LEVOTHYROXINE SODIUM 50 MCG TAB PO SCH (05:58)
[2017-05-20 06:02] LABS: HEMATOCRIT 25.3 % (39.0-51.0); MEAN CELL VOLUME 97.7 FL (80.0-100.0); MEAN CORPUSCULAR HEMOGLOBIN 32.2 PG (27.0-34.0); PLATELET COUNT 24 TH/MM3 (150-450); RED BLOOD COUNT 2.59 MIL/MM3 (4.50-5.90); RED CELL DISTRIBUTION WIDTH 14.2 % (11.6-17.2); WHITE BLOOD COUNT 33.4 TH/MM3 (4.0-11.0)
[2017-05-20 06:09] LABS: HEMO FLAGS AUTO DIFF
[2017-05-20] MEDS ORDERED: SODIUM CHLOR 0.9% 250 ML INJ 250 ML IV ONE (08:30)
[2017-05-20 08:41] LABS: BANDS 10 % (0-6); CORRECTED NUCLEATED RBC 4 /100 WBC (0-0); METAMYELOCYTES 2 % (0-1); MYELOCYTES 3 % (0-0); NEUTROPHIL # MANUAL DIFF 30.1 TH/MM3 (1.8-7.7); POLYS (SEG NEUTROPHILS) 75 % (16-70); WBC DIFF SAMPLE 100
[2017-05-20 08:42] LABS: KERATOCYTES OCC (NORMAL); OVALOCYTES 1+ (NORMAL); PLATELET ESTIMATE SMEAR LOW (NORMAL); PLATELET MORPHOLOGY NORMAL (NORMAL); SCAN/DIFF FINAL DIFF MANUAL
[2017-05-20] MEDS: NYSTATIN SUSP 500,000 U/5 ML CUP SWISH-SWAL SCH ×4 (09:00→22:30)
[2017-05-20] MEDS: METOPROLOL TARTRATE 25 MG TAB PO SCH ×2 (09:00→22:29)
[2017-05-20] MEDS: DILTIAZEM HCL 30 MG TAB PO SCH ×4 (09:00→21:00)
[2017-05-20] MEDS ORDERED: IOHEXOL 350 MG/ML 50 ML BTL (for RAD DIAG) ONE (10:54)
[2017-05-20] MEDS ORDERED: PROPOFOL 200 MG/20 ML AMP IV PUSH ONE ×2 (11:17→11:42)
--- NOTE | 2017-05-20 11:17 | MP ---
cc: MAXI JOLLEY MD DATE OF SURGERY 05/18/2017 PREOPERATIVE DIAGNOSIS 1. A 7 cm scalp laceration occipital region status post fall. 2. Neutropenia and thrombocytopenia secondary to chemotherapy for pancreatic cancer. 3. Pancreatic cancer 4. Salmonella colitis POSTOPERATIVE DIAGNOSIS 1. A 7 cm scalp laceration occipital region status post fall. 2. Neutropenia and thrombocytopenia secondary to chemotherapy for pancreatic cancer. 3. Pancreatic cancer 4. Salmonella colitis PROCEDURE PERFORMED Irrigation and closure of a 7 cm scalp laceration. SURGEON Maxi Jolley MD ANESTHESIA TIVA with local COMPLICATIONS None INDICATION FOR THE PROCEDURE Mr. Araujo is a very pleasant 82-year-old gentleman who unfortunately fell while going to the bathroom this afternoon. He suffered a 7 cm scalp laceration. The patient is currently neutropenic and thrombocytopenic secondary to his chemotherapy for pancreatic cancer. Because of this, I recommended this laceration be irrigated and closed in the operating room in a more sterile environment. He is also high risk for bleeding due to his thrombocytopenia. For these reasons, I recommend this be done in the operating room and he was agreeable. DETAILS The patient was identified, brought to the operating room and placed in the right lateral decubitus position with appropriate padding for hips, knees, shoulders and ankles and head. The scalp laceration was then cleaned with Betadine solution. The patient was then lightly sedated. Local anesthetic 2% lidocaine with epinephrine was injected into the skin and subcutaneous tissue all the way around the laceration. The laceration was then opened gently and irrigated out with normal saline solution. Bleeding points were controlled with electrocautery Bovie. 3-0 Vicryl was then used to close the subcutaneous tissue interrupted. Skin was then closed with 3-0 nylon in a continuous running fashion. With this, all bleeding ceased and there was no evidence of cephalohematoma. The skin edges were viable and appeared healthy. The wound was then covered with antibiotic ointment and sterile dressings. The patient was then awakened, returned to the supine position and brought to the PACU in stable condition. MD YUVAL Matias/RONALDL /9:50 PM /11:09 AM
--- NOTE | 2017-05-20 11:34 | PD.PROCEDR ---
GI Procedure REFERRING PHYSICIAN Dr. Thomas PROCEDURE PERFORMED ERCP with stent removal and sphincterotomy balloon extraction and stent placement INDICATION FOR PROCEDURE Elevated liver function tests with known history of pancreatic cancer causing bile duct stricture and with known history of prior stent placement PROCEDURE: The procedure, risks and benefits were discussed with Mr. Araujo and informed consent was obtained. Anesthesia sedated him with Diprivan. He was placed in the left lateral decubitus position. ERCP: Patient was placed in a prone position. The Pentax videoscope was introduced through the oropharynx and advanced to the second portion of the duodenum where the ampula was identified. FINDINGS: The ampulla appeared to be unremarkable there was a stent noted in place this was removed using a snare the ERCP scope was then reintroduced and we were able to obtain easy cannulation of the common bile duct that appeared to have a central stricture secondary to the pancreatic head tumor compressing on but also noted were filling defects and so a small sphincterotomy was performed then using the 8 mm balloon were able to extract sludge and a stone then an obstructive cholangiogram was done and this was unremarkable for any further filling defects and then a 10 Indonesian 9 cm stent was placed positioning was confirmed to be in good position ESTIMATED BLOOD LOSS: None SPECIMENS REMOVED: None COMPLICATIONS: None IMPRESSION: Choledocholithiasis PLAN: Supportive care Monitor labs ERCP in 3-6 months Randy Spicer MD May 20, 2017 11:34
[2017-05-20] MEDS ORDERED: *RESP: ALBUTEROL 2.5 MG/3 ML NEB (PRN) PERIprocedural Use ONLY NEB ONE (11:50)
[2017-05-20] MEDS ORDERED: DO NOT ADM ANY ANTICOAGULANT DRUGS PRN (11:55)
--- NOTE | 2017-05-20 12:40 | RADRPT ---
EXAM DATE/TIME: 05/20/2017 11:09 [facility] COMPARISON: GI LAB ERCP, February 21, 2017, 18:38. INDICATIONS : Stent exchange and cholelithiasis. FLUORO TIME: 2.31 minutes IMAGE COUNT: 6 CONTRAST: Instilled by Ordering Physician MEDICAL HISTORY : Hypertension. Carcinoma, pancreas. SURGICAL HISTORY : None. ENCOUNTER: Subsequent ACUITY: 4 - 6 days PAIN SCORE: Non-responsive. LOCATION: Abdomen. FINDINGS: An ERCP was performed by the ordering physician. The images demonstrate a focal area of stricturing in the mid common bile duct. There are filling def ects seen above and below this on the initial images potentially related to air bubbles. There is a f illing defect within the gallbladder representing either a stone or interval. There appear to be bean lar defects in the cystic duct region. On final image, a stent is seen to cross the area stenosis. T he stent is well placed. Contrast has drained from the biliary system following placement of the sten t. CONCLUSION: ERCP as above with a area 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 Rogers Escudero MD on May 20, 2017 at 12:35 Board Certified Radiologist. This report was verified electronically.
[2017-05-20] MEDS: CYANOCOBALAMIN 1,000 MCG TAB PO SCH (12:54)
[2017-05-20] MEDS: PRAVASTATIN SOD 40 MG TAB PO SCH (12:55)
[2017-05-20] MEDS: cefTRIAXone INJ 2,000 MG in SODIUM CHLORIDE 0.9% INJ 100 ML IV SCH (12:55)
[2017-05-20] MEDS: CHOLECALCIFEROL (VIT D3) 1000 UNIT TAB PO SCH (12:55)
[2017-05-20] MEDS: MULTIVITAMIN TAB PO SCH (12:55)
--- NOTE | 2017-05-20 14:12 | PD.ONC.PN ---
Subjective Subjective Remarks Afebrile overnight. Just back from ERCP. Tired from sedation. No complaints, except that he is tired. Objective Data Date Time Temp Pulse Resp B/P Pulse Ox O2 Delivery O2 Flow Rate FiO2 05/20/17 12:15 99 16 104/64 96 Nasal Cannula 3 05/20/17 12:00 95.7 98 20 107/79 92 05/20/17 12:00 97 17 127/65 96 Aerosol Mask 05/20/17 11:48 97.4 97 17 121/66 96 Simple Mask 8 05/20/17 10:17 97.0 101 16 113/68 99 05/20/17 09:44 98 21 05/20/17 09:02 Nasal Cannula 2.00 21 05/20/17 09:00 97.1 96 20 108/77 98 05/20/17 08:00 103 05/20/17 04:00 97.2 96 20 103/69 97 05/20/17 04:00 97.2 96 20 103/69 97 05/20/17 00:00 98.7 98 20 97/70 96 05/19/17 20:32 95 Nasal Cannula 2.00 05/19/17 20:18 21 05/19/17 20:00 110 05/19/17 20:00 96.8 109 19 102/64 94 05/19/17 17:00 96.5 105 24 115/69 95 05/20/17 05/20/17 05/20/17 07:00 15:00 23:00 Intake Total 860 ml 800 ml Output Total 300 ml Balance 560 ml 800 ml Result Diagram: 05/20/17 0435 05/19/17 0600 Laboratory Results Laboratory Tests Test 05/19/17 05/20/17 05/20/17 18:45 04:35 08:43 Stool C. difficile Toxin (PCR) NEGATIVE Stl C. difficile Toxin PRESUMPTIVE Epiderm 027 NEGATIVE White Blood Count 33.4 TH/MM3 Red Blood Count 2.59 MIL/MM3 Hemoglobin 8.4 GM/DL Hematocrit 25.3 % Mean Corpuscular Volume 97.7 FL Mean Corpuscular Hemoglobin 32.2 PG Mean Corpuscular Hemoglobin 33.0 % Concent Red Cell Distribution Width 14.2 % Platelet Count 24 TH/MM3 Mean Platelet Volume 10.5 FL Neutrophils (%) (Auto) % Lymphocytes (%) (Auto) % Monocytes (%) (Auto) % Eosinophils (%) (Auto) % Basophils (%) (Auto) % Neutrophils # (Auto) TH/MM3 Lymphocytes # (Auto) TH/MM3 Monocytes # (Auto) TH/MM3 Eosinophils # (Auto) TH/MM3 Basophils # (Auto) TH/MM3 CBC Comment AUTO DIFF Differential Total Cells 100 Counted Neutrophils % (Manual) 75 % Band Neutrophils % 10 % Lymphocytes % 6 % Monocytes % 4 % Neutrophils # (Manual) 30.1 TH/MM3 Metamyelocytes 2 % Myelocytes 3 % Nucleated Red Blood Cells 4 /100 WBC Differential Comment FINAL DIFF MANUAL Platelet Estimate LOW Platelet Morphology Comment NORMAL Ovalocytes 1+ Keratocytes OCC Blood Bank Comment Culture Results Microbiology Date/Time Procedure Status Source Growth 05/18/17 13:40 - Final Complete Stool Stool Salmonella Species Imaging Studies Last 24 hours Impressions GI Procedure 05/20/17 0000 Signed Impressions: Service Date/Time: Saturday, May 20, 2017 11:09 - CONCLUSION: ERCP as above with a area 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 Rogers Escudero MD Administered Medications Medications (Trade) Dose Ordered Sig/Samy Route PRN Reason Start Time Stop Time Status Last Admin Dose Admin Cholecalciferol (Vitamin D3) 1,000 units DAILY PO 05/15/17 09:00 05/20/17 12:55 Levothyroxine Sodium (Synthroid) 50 mcg DAILY@06 PO 05/15/17 06:00 05/20/17 05:58 Multivitamins (Theragran) 1 tab DAILY PO 05/15/17 09:00 05/20/17 12:55 Cyanocobalamin (Vitamin B12) 1,000 mcg DAILY PO 05/15/17 09:00 05/20/17 12:54 Pravastatin Sodium 40 mg 40 mg DAILY PO 05/15/17 09:00 05/20/17 12:55 Fluconazole/ Sodium Chloride (Diflucan 200 Mg Premix Bag) 100 ml @ 100 mls/hr Q24H IV 05/14/17 21:00 05/19/17 22:42 Nystatin (Mycostatin Liq) 5 ml QID SWISH-SWAL 05/14/17 21:00 05/20/17 12:55 Ondansetron HCl (Zofran Inj) 4 mg Q4H PRN IV PUSH NAUSEA OR VOMITING 05/16/17 03:30 05/16/17 03:21 Diltiazem HCl (Cardizem) 30 mg QID PO 05/16/17 10:00 05/20/17 12:54 Metoprolol Tartrate 12.5 mg 12.5 mg Q12HR PO 05/17/17 10:00 05/19/17 10:13 Ceftriaxone Sodium 2000 mg/ Sodium Chloride 100 ml @ 200 mls/hr Q24H IV 05/17/17 14:00 05/20/17 12:55 Phenylephrine HCl 80 mg/Sodium Chloride 500 ml @ 0 mls/hr TITRATE IV 05/17/17 13:30 05/18/17 03:57 Potassium Chloride/Dextrose (D5W + KCl 20 Meq Inj) 1,000 ml @ 100 mls/hr Q10H IV 05/19/17 21:00 05/20/17 00:34 Objective Remarks GENERAL: Elderly male, lying in bed, sleeping on approach SKIN: Warm and dry. HEAD: Normocephalic. EYES: No injection or drainage. NECK: Supple, trachea midline. CARDIOVASCULAR: Regular rate and rhythm RESPIRATORY: anterior grey clear. on 3L O2 via NC GASTROINTESTINAL: Abdomen soft, non-tender, nondistended. EXTREMITIES: No cyanosis NEUROLOGICAL: easily awakened. normal speech. Assessment/Plan Problem List: (1) Laceration of head Status: Acute Plan: -- s/p fall after trying to get to the bathroom --CT brain showed no bleed, s/p platelet transfusion --laceration sutured by general surgery --keep platelets>30K (2) Localized cancer of pancreas Status: Acute Plan: Last CT/PET was negative. CA 19.9 decreasing. Good response to neoadjuvant chemotherapy History: --initially presented with painless jaundice. --had a stent placed and his bilirubin came down appropriately. --was evaluated at [facility] by Dr. Brent Singletary. felt to be resectable candidate but was to undergo neoadjuvant chemotherapy. --two cycles of Abraxane and gemcitabine. He comes into clinic for followup. --came into clinic for follow up and reported malaise, abdominal distension and pain x 1 week. he was tachycardic and weak with ANC of 0 with rigors, admission to hospital was coordinated (3) Neutropenic fever Status: Resolved Plan: --blood cultures no growth --lactic acid elevated --on Diflucan and Rocephin (will be switched to Levaquin when close to d/c) --ID following (4) Elevated bilirubin Status: Resolved Plan: --bilirubin improved --GI following-->possible ERCP with stent placement --monitor --U/S abdomen showed dilatated pancreatic duct (5) Leukocytosis Status: Acute Plan: (due to Neupogen) Assessment 82y/o male with localized pancreatic cancer with increased bilirubin. h/o Localized pancreatic cancer, elevated CA 19.9. Painless jaundice. Cholelithiasis. Hypothyroidism. Colonoscopy. Endoscopic ultrasound. ERCP. Stent placement. Fine-needle biopsy. Plan 1. clear for discharge to rehab 2. ask fernandez to evaluate for inpatient rehab 3. one unit platelets today. Attending Statement The exam, history, and the medical decision-making described in the above note were completed with the assistance of the mid-level provider. I reviewed and agree with the findings presented. I attest that I had a [id number] encounter with the patient on the same day, and personally performed and documented my assessment and findings in the medical record. Platelet still low. ? post surgery consumption. Check LE r/o DVT noted leg edema, pancreatic cancer high risk fo DVT. WBC already recovered. Evaluation for rehab transfer on going. Ok to DC to rehab from heme/onc standpoint. Discussed case w/ Dr. Singletary, plan to reschedule pt 2 weeks. Kristen Willard May 20, 2017 14:12 Tracey Verdugo MD May 20, 2017 19:25
--- NOTE | 2017-05-20 15:27 | HHI.PR ---
Subjective Subjective Remarks Patient awakes to voice, just Back from ERCP Sleepy due to sedation Denies any pain when asked Continues to have loose stools Hypothermic, temperature 95.7 Review of Systems Constitutional Constitutional Remarks 12 point review of systems difficult to obtain Vitals/Results Intake & Output 05/19/17 05/19/17 05/20/17 15:00 23:00 07:00 Intake Total 1140 ml 560 ml 860 ml Output Total 200 ml 385 ml 300 ml Balance 940 ml 175 ml 560 ml Intake Oral 1140 ml 360 ml 60 ml IV Total 200 ml 800 ml Output Urine Total 200 ml 385 ml 300 ml # Voids 2 # Bowel Movements 2 1 2 Vital Signs Vital Signs Date Time Temp Pulse Resp B/P Pulse Ox O2 Delivery O2 Flow Rate FiO2 05/20/17 12:15 99 16 104/64 96 Nasal Cannula 3 05/20/17 12:00 95.7 98 20 107/79 92 05/20/17 12:00 97 17 127/65 96 Aerosol Mask 05/20/17 11:48 97.4 97 17 121/66 96 Simple Mask 8 05/20/17 10:17 97.0 101 16 113/68 99 05/20/17 09:44 98 21 05/20/17 09:02 Nasal Cannula 2.00 21 05/20/17 09:00 97.1 96 20 108/77 98 05/20/17 08:00 103 05/20/17 04:00 97.2 96 20 103/69 97 05/20/17 04:00 97.2 96 20 103/69 97 05/20/17 00:00 98.7 98 20 97/70 96 05/19/17 20:32 95 Nasal Cannula 2.00 05/19/17 20:18 21 05/19/17 20:00 110 05/19/17 20:00 96.8 109 19 102/64 94 05/19/17 17:00 96.5 105 24 115/69 95 CBC/BMP: 05/20/17 0435 05/19/17 0600 Lab Results Laboratory Tests Test 05/19/17 05/20/17 05/20/17 18:45 04:35 08:43 Stool C. difficile Toxin (PCR) NEGATIVE Stl C. difficile Toxin PRESUMPTIVE Epiderm 027 NEGATIVE White Blood Count 33.4 TH/MM3 Red Blood Count 2.59 MIL/MM3 Hemoglobin 8.4 GM/DL Hematocrit 25.3 % Mean Corpuscular Volume 97.7 FL Mean Corpuscular Hemoglobin 32.2 PG Mean Corpuscular Hemoglobin 33.0 % Concent Red Cell Distribution Width 14.2 % Platelet Count 24 TH/MM3 Mean Platelet Volume 10.5 FL Neutrophils (%) (Auto) % Lymphocytes (%) (Auto) % Monocytes (%) (Auto) % Eosinophils (%) (Auto) % Basophils (%) (Auto) % Neutrophils # (Auto) TH/MM3 Lymphocytes # (Auto) TH/MM3 Monocytes # (Auto) TH/MM3 Eosinophils # (Auto) TH/MM3 Basophils # (Auto) TH/MM3 CBC Comment AUTO DIFF Differential Total Cells 100 Counted Neutrophils % (Manual) 75 % Band Neutrophils % 10 % Lymphocytes % 6 % Monocytes % 4 % Neutrophils # (Manual) 30.1 TH/MM3 Metamyelocytes 2 % Myelocytes 3 % Nucleated Red Blood Cells 4 /100 WBC Differential Comment FINAL DIFF MANUAL Platelet Estimate LOW Platelet Morphology Comment NORMAL Ovalocytes 1+ Keratocytes OCC Blood Bank Comment Physical Exam General General Appearance: Well Developed, Sleeping Eyes Eye Exam: Pupils Equal, Pupils Reactive Ears & Nose Ears & Nose Exam: Nasal Mucosa Harman Throat Throat Exam: Oral Mucosa Harman & Moist Neck Neck Exam: Neck Supple, Trachea Midline Pulmonary Resp Exam: Decreased Bases, Diminished Breath Sounds Cardiology CV Exam: Good Perfusion, Irregular, Arrhythmia Gastrointestinal/Abdomen GI Exam: Soft, Non-Tender, Bowel Sounds Present, Positive Bowel Movement, Non- Distended Musculoskeletal MS Exam: Joints Intact Integumentary Skin Exam: Warm, Dry, Intact (thin turgor) Extremeties Extremities Exam: Pedal Pulses Palpable, Trace Edema (lower extremities), Dependent Edema Neurologic Neuro Exam: Speech Clear, Moving All Extremities, No Focal Deficits VTE Prophylaxis VTE Prophylaxis Device: SCDs Assessment/Plan Assessment/Plan Neutropenic fever Salmonella sepsis Right lower lobe pneumonia -Continue with antibiotics per ID recommendations Continue to follow cultures Continue to monitor CBC and fever -Temperature 95.7, WBC 33.4 Non-pruritic rash Stable Status post fall with laceration to the head CT of the brain showed no bleed Appreciate surgical input, sutured per general surgery -Monitor neuro status Pancreatic cancer Oncology following Elevated bilirubin GI following -MRCP [id number] gallbladder with cholelithiasis, wall thickening with pericholecystic fluid. Peribiliary T2 hyperintensity suspicious for cholangitis. Mild ascites. No evidence of pancreas mass. ---U/S abdomen showed dilatated pancreatic duct 05/20-Status post ERCP with stent removal and sphincterotomy balloon extraction and stent placement -Monitor liver function studies Leukocytosis -due to Neupogen -Monitor CBC Anemia Thrombocytopenia -Hematology following Continue to monitor CBC, may need packed RBC Monitor for bleeding -Were received 1 platelet pheresis today Recent A. fib with RVR and hypotension, now resolved -Continue metoprolol 0.5 mg by mouth twice a day, hold parameters for low blood pressure -Heart rate 90s, blood pressure 100s to 120s Hypernatremia, sodium 140 a Continue with D5W Physical debility Continue with physical therapy Out of bed with assistance Continue with full CODE STATUS Labs in the morning Discharge planning, will need rehab, CIR evaluating Discussed with patient Discussed with nurse Discussed with Dr. Thomas This patient was seen by myself and Dr. Thomas, this note is written on his behalf Julia Martinez May 20, 2017 15:27
--- NOTE | 2017-05-20 22:26 | RADRPT ---
EXAM DATE/TIME: 05/20/2017 20:51 [place] COMPARISON: No previous studies available for comparison. INDICATIONS : Bilateral leg swelling. MEDICAL HISTORY : Hypercholesterolemia. Carcinoma, pancreas. Hearing loss. Thyroid disease. Anxiety. Chemotherapy. Me asles. Blood transfusion. SURGICAL HISTORY : Colon surgery. ERCP with stent placement. ENCOUNTER: Initial ACUITY: 1 day PAIN SCORE: 2/10 LOCATION: Bilateral legs. TECHNIQUE: Venous ultrasound of the left and right leg was performed from the inguinal ligament to the proximal calf. Real-time, color Doppler and spectral tracing, compression and augmentation techniques were us ed. FINDINGS: RIGHT LEG: There is normal compressibility of the deep venous system from the inguinal region to the proximal ca lf. No echogenic clot is seen in the lumen of the common femoral, femoral, popliteal, and posterior tibial veins. There is a normal response of the venous system to proximal and distal augmentation an d respiration. LEFT LEG: There is normal compressibility of the deep venous system from the inguinal region to the proximal ca lf. No echogenic clot is seen in the lumen of the common femoral, femoral, popliteal, and posterior tibial veins. There is a normal response of the venous system to proximal and distal augmentation an d respiration. CONCLUSION: No DVT of either lower extremity. Rogers Braun MD on May 20, 2017 at 22:23 Board Certified Radiologist. This report was verified electronically.
[2017-05-20] MEDS: FLUCONAZOLE 200 MG PREMIX BAG 100 ML IV SCH (22:30)
[2017-05-21] VITALS (10 sets, daily range): BP systolic 96–119; BP diastolic 62–76; PULSE 91–108; RESP 19–21; TEMP 96.2–97.5; O2SAT 93–99
[2017-05-21] MEDS: D5W + KCL 20 MEQ INJ 1,000 ML IV SCH ×2 (05:06→13:51)
[2017-05-21] MEDS: LEVOTHYROXINE SODIUM 50 MCG TAB PO SCH (05:06)
[2017-05-21 05:55] LABS: HEMATOCRIT 24.3 % (39.0-51.0); MEAN CELL VOLUME 96.8 FL (80.0-100.0); MEAN CORPUSCULAR HEMOGLOBIN 32.6 PG (27.0-34.0); MEAN CORPUSCULAR HGB CONC 33.7 % (32.0-36.0); PLATELET COUNT 41 TH/MM3 (150-450); RED BLOOD COUNT 2.51 MIL/MM3 (4.50-5.90); RED CELL DISTRIBUTION WIDTH 14.3 % (11.6-17.2); WHITE BLOOD COUNT 29.1 TH/MM3 (4.0-11.0)
[2017-05-21 05:56] LABS: REVIEW FLAG FINAL
[2017-05-21 06:04] LABS: APTT (PATIENT) 28.5 SEC (24.3-30.1); INTERNATIONAL NORMALIZED RATIO 1.1 RATIO
[2017-05-21 06:19] LABS: POTASSIUM 4.1 MEQ/L (3.5-5.1)
[2017-05-21 06:29] LABS: CALCIUM-PROTEIN CORRECTED 8.1 MG/DL (8.5-10.1); TOTAL BILIRUBIN ADULT 0.7 MG/DL (0.2-1.0)
[2017-05-21] MEDS: METOPROLOL TARTRATE 25 MG TAB PO SCH ×2 (09:00→21:02)
[2017-05-21] MEDS: CALCIUM CARBONATE 500 MG CHEWABLE TAB CHEW SCH ×2 (10:08→21:02)
[2017-05-21] MEDS: CHOLECALCIFEROL (VIT D3) 1000 UNIT TAB PO SCH (10:08)
[2017-05-21] MEDS: PRAVASTATIN SOD 40 MG TAB PO SCH (10:08)
[2017-05-21] MEDS: DILTIAZEM HCL 30 MG TAB PO SCH ×4 (10:09→21:00)
[2017-05-21] MEDS: CYANOCOBALAMIN 1,000 MCG TAB PO SCH (10:09)
[2017-05-21] MEDS: NYSTATIN SUSP 500,000 U/5 ML CUP SWISH-SWAL SCH ×4 (10:09→21:00)
[2017-05-21] MEDS: MULTIVITAMIN TAB PO SCH (10:09)
--- NOTE | 2017-05-21 10:48 | HHI.PR ---
Subjective Subjective Notes doing fine, denies any pain at laceration site Objective Vitals/I&O Vital Signs Date Time Temp Pulse Resp B/P Pulse Ox O2 Delivery O2 Flow Rate FiO2 05/21/17 08:36 97.2 94 20 119/76 99 05/20/17 12:15 Nasal Cannula 3 05/20/17 09:44 21 Labs Laboratory Tests Test 05/21/17 05:00 White Blood Count 29.1 Red Blood Count 2.51 Hemoglobin 8.2 Hematocrit 24.3 Mean Corpuscular Volume 96.8 Mean Corpuscular Hemoglobin 32.6 Mean Corpuscular Hemoglobin 33.7 Concent Red Cell Distribution Width 14.3 Platelet Count 41 Mean Platelet Volume 11.3 Prothrombin Time 12.0 Prothromb Time International 1.1 Ratio Activated Partial 28.5 Thromboplast Time Fibrinogen 309 Sodium Level 144 Potassium Level 4.1 Chloride Level 112 Carbon Dioxide Level 27.0 Anion Gap 5 Blood Urea Nitrogen 17 Creatinine 0.59 Estimat Glomerular Filtration 132 Rate Random Glucose 144 Calcium Level 6.7 Protein Corrected Calcium 8.1 Total Bilirubin 0.7 Aspartate Amino Transf 94 (AST/SGOT) Alanine Aminotransferase 76 (ALT/SGPT) Alkaline Phosphatase 986 Total Protein 4.5 Albumin 1.7 Date/Time Procedure Status Source Growth 05/18/17 13:40 - Final Complete Stool Stool Salmonella Species Wound Wound : Wound Location: Head Appearance: Clean & Dry Dressing: Dry A/P Assessment and Plan POD 3 repair scalp laceration doing well dry dressing prn may removed sutures Friday. FU in office PRN please call me with any questions or concerns Ibrahima Abad MD May 21, 2017 10:48
--- NOTE | 2017-05-21 13:00 | HHI.PR ---
Subjective Subjective Remarks Awake, alert oriented 3 Sitting up in chair Appetite fair Some cough, no sputum leg Swelling had BM Review of Systems Constitutional Constitutional Remarks 12 point review of systems completed, negative except as noted above Vitals/Results Intake & Output 05/20/17 05/20/17 05/21/17 14:59 22:59 06:59 Intake Total 800 ml 60 ml 729 ml Output Total 250 ml 600 ml Balance 800 ml -190 ml 129 ml Intake Oral 60 ml 120 ml IV Total 50 ml 609 ml Other 750 ml Output Urine Total 250 ml 600 ml # Bowel Movements 2 Vital Signs Vital Signs Date Time Temp Pulse Resp B/P Pulse Ox O2 Delivery O2 Flow Rate FiO2 05/21/17 12:13 96.2 108 21 96/68 98 109/62 05/21/17 11:50 97 05/21/17 08:36 97.2 94 20 119/76 99 05/21/17 08:00 97 05/21/17 08:00 Nasal Cannula 3.00 05/21/17 04:00 96.7 98 21 117/75 97 05/21/17 00:00 96.2 91 20 106/69 93 05/20/17 20:00 98.6 103 20 95/64 96 05/20/17 20:00 104 05/20/17 17:00 98.8 98 20 114/69 98 05/20/17 15:00 89 CBC/BMP: 05/21/17 0500 05/21/17 0500 Lab Results Laboratory Tests Test 05/21/17 05:00 White Blood Count 29.1 TH/MM3 Red Blood Count 2.51 MIL/MM3 Hemoglobin 8.2 GM/DL Hematocrit 24.3 % Mean Corpuscular Volume 96.8 FL Mean Corpuscular Hemoglobin 32.6 PG Mean Corpuscular Hemoglobin 33.7 % Concent Red Cell Distribution Width 14.3 % Platelet Count 41 TH/MM3 Mean Platelet Volume 11.3 FL Prothrombin Time 12.0 SEC Prothromb Time International 1.1 RATIO Ratio Activated Partial 28.5 SEC Thromboplast Time Fibrinogen 309 mg/dL Sodium Level 144 MEQ/L Potassium Level 4.1 MEQ/L Chloride Level 112 MEQ/L Carbon Dioxide Level 27.0 MEQ/L Anion Gap 5 MEQ/L Blood Urea Nitrogen 17 MG/DL Creatinine 0.59 MG/DL Estimat Glomerular Filtration 132 ML/MIN Rate Random Glucose 144 MG/DL Calcium Level 6.7 MG/DL Protein Corrected Calcium 8.1 MG/DL Total Bilirubin 0.7 MG/DL Aspartate Amino Transf 94 U/L (AST/SGOT) Alanine Aminotransferase 76 U/L (ALT/SGPT) Alkaline Phosphatase 986 U/L Total Protein 4.5 GM/DL Albumin 1.7 GM/DL Physical Exam General General Appearance: Well Developed, Sleeping Eyes Eye Exam: Pupils Equal, Pupils Reactive Ears & Nose Ears & Nose Exam: Nasal Mucosa Adelino Throat Throat Exam: Oral Mucosa Adelino & Moist Neck Neck Exam: Neck Supple, Trachea Midline Pulmonary Resp Exam: Rhonchi, Decreased Bases, Diminished Breath Sounds Resp Remarks exp. wheeze Cardiology CV Exam: Good Perfusion, Irregular, Arrhythmia, Tachycardia Gastrointestinal/Abdomen GI Exam: Soft, Non-Tender, Bowel Sounds Present, Positive Bowel Movement, Non- Distended Musculoskeletal MS Exam: Joints Intact Integumentary Skin Exam: Warm, Dry Extremeties Extremities Exam: Pedal Pulses Palpable, Trace Edema, Dependent Edema Neurologic Neuro Exam: Alert, Awake, Oriented, Speech Clear, Moving All Extremities, No Focal Deficits Psychiatric Psych Exam: Appropriate Responses VTE Prophylaxis VTE Prophylaxis Device: SCDs Assessment/Plan Assessment/Plan Neutropenic fever Salmonella sepsis Right lower lobe pneumonia -Continue with antibiotics per ID recommendations Continue to follow cultures Continue to monitor CBC and fever -afebrile, WBC 29.1 -clinically improving Non-pruritic rash Stable Status post fall with laceration to the head CT of the brain showed no bleed Appreciate surgical input, sutured per general surgery -Monitor neuro status -Sutures may be removed a 05/26/2018, surgery signed off Pancreatic cancer Oncology following -cleared for dc Leg swelling -US negative DVT Elevated bilirubin GI following -MRCP [id number] gallbladder with cholelithiasis, wall thickening with pericholecystic fluid. Peribiliary T2 hyperintensity suspicious for cholangitis. Mild ascites. No evidence of pancreas mass. ---U/S abdomen showed dilatated pancreatic duct 05/20-Status post ERCP with stent removal and sphincterotomy balloon extraction and stent placement -Monitor liver function studies Leukocytosis -due to Neupogen -Monitor CBC -WBC trending down Anemia Thrombocytopenia -Hematology following Continue to monitor CBC, may need packed RBC Monitor for bleeding -plat improving Recent A. fib with RVR and hypotension, now resolved -Continue metoprolol 12.5 mg by mouth twice a day, hold parameters for low blood pressure -continue cardizem -Heart rate 90s, blood pressure 100s to 120s Hypernatremia, sodium better today -resolving Physical debility Continue with physical therapy Out of bed with assistance Continue with full CODE STATUS Discharge planning, will need rehab, CIR evaluating Possible dc tomorrow or Friday Discussed with patient Discussed with nurse Discussed with Dr. Thomas This patient was seen by myself and Dr. Thomas, this note is written on his behalf Julia Martinez May 21, 2017 12:59
--- NOTE | 2017-05-21 13:06 | HHI.GIFU ---
Subjective Remarks Resting in bed. States he is feeling better today. No n/v/abdominal pain. Large loose stool today. (Adia Kendall) Objective Vitals I&O Vital Signs Date Time Temp Pulse Resp B/P Pulse Ox O2 Delivery O2 Flow Rate FiO2 05/21/17 12:13 96.2 108 21 96/68 98 109/62 05/21/17 11:50 97 05/21/17 08:36 97.2 94 20 119/76 99 05/21/17 08:00 97 05/21/17 08:00 Nasal Cannula 3.00 05/21/17 04:00 96.7 98 21 117/75 97 05/21/17 00:00 96.2 91 20 106/69 93 05/20/17 20:00 98.6 103 20 95/64 96 05/20/17 20:00 104 05/20/17 17:00 98.8 98 20 114/69 98 05/20/17 15:00 89 I/O 05/20/17 05/20/17 05/20/17 05/21/17 05/21/17 05/21/17 07:00 15:00 23:00 07:00 15:00 23:00 Intake Total 860 ml 800 ml 60 ml 729 ml Output Total 300 ml 250 ml 600 ml Balance 560 ml 800 ml -190 ml 129 ml Intake Oral 60 ml 60 ml 120 ml IV Total 800 ml 50 ml 609 ml Other 750 ml Output Urine Total 300 ml 250 ml 600 ml # Bowel Movements 2 2 Laboratory Laboratory Tests Test 05/21/17 05:00 White Blood Count 29.1 Red Blood Count 2.51 Hemoglobin 8.2 Hematocrit 24.3 Mean Corpuscular Volume 96.8 Mean Corpuscular Hemoglobin 32.6 Mean Corpuscular Hemoglobin 33.7 Concent Red Cell Distribution Width 14.3 Platelet Count 41 Mean Platelet Volume 11.3 Prothrombin Time 12.0 Prothromb Time International 1.1 Ratio Activated Partial 28.5 Thromboplast Time Fibrinogen 309 Sodium Level 144 Potassium Level 4.1 Chloride Level 112 Carbon Dioxide Level 27.0 Anion Gap 5 Blood Urea Nitrogen 17 Creatinine 0.59 Estimat Glomerular Filtration 132 Rate Random Glucose 144 Calcium Level 6.7 Protein Corrected Calcium 8.1 Total Bilirubin 0.7 Aspartate Amino Transf 94 (AST/SGOT) Alanine Aminotransferase 76 (ALT/SGPT) Alkaline Phosphatase 986 Total Protein 4.5 Albumin 1.7 Date/Time Procedure Status Source Growth 05/18/17 13:40 - Final Complete Stool Stool Salmonella Species Imaging Last Impressions Lower Extremity Ultrasound 05/20/17 0000 Signed Impressions: Service Date/Time: Saturday, May 20, 2017 20:51 - CONCLUSION: No DVT of either lower extremity. Rogers Braun MD GI Procedure 05/20/17 0000 Signed Impressions: Service Date/Time: Saturday, May 20, 2017 11:09 - CONCLUSION: ERCP as above with a area 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 Rogers Escudero MD Head CT 05/18/17 0000 Signed Impressions: Service Date/Time: Thursday, May 18, 2017 16:34 - CONCLUSION: No acute disease. No evidence of acute infarct, hemorrhage, mass or edema. Generalized volume loss consistent with atrophy. Nomi Vasquez MD Cholangiopancreatography MRI 05/17/17 Signed Impressions: Service Date/Time: Wednesday, May 17, 2017 11:39 - CONCLUSION: 1. Contracted gallbladder with cholelithiasis, wall thickening and pericholecystic fluid. 2. Peribiliary T2 hyperintensity suspicious for cholangitis. 3. Mild ascites. 4. No evidence of pancreatic mass Nomi Vasquez MD Chest X-Ray 05/17/17 0000 Signed Impressions: Service Date/Time: Wednesday, May 17, 2017 09:23 - CONCLUSION: Abnormal opacity remains in the right perihilar region the right lung base without significant change. Zachary Dill MD Abdomen/Pelvis CT 05/15/17 0000 Signed Impressions: Service Date/Time: May 20:39 - CONCLUSION: Biliary stent in good position. There continues to be no evidence metastatic disease to the liver Gallbladder somewhat small and contracted with mild enhancement present. Nonspecific air-fluid levels in large and small bowel most suggestive of an ileus. Saturnino Trimble MD FACR Abdomen Ultrasound 05/15/17 0000 Signed Impressions: Service Date/Time: May 15:44 - CONCLUSION: 1. Limited visualization of the pancreas. However, the pancreatic duct appears to be dilated 8 mm. 2. No definite biliary tract obstruction is seen. 3. There appears to be some sludge in the gallbladder. 4. There appears to be fatty infiltration throughout the liver. Shawn White MD Physical Exam HEENT: No jaundice. Drsg to scalp d/i CHEST: Resp. even/unlabored, diminished bases CARDIAC: RRR ABDOMEN: Soft, mildly tympanic/distended, no guarding, bowel sounds x 4 quadrants EXTREMITIES: No clubbing, cyanosis, or edema. SKIN: Normal; no rash; no jaundice. CERAMIC ARTIST: Lethargic, oriented to self and place (Adia Kendall) Assessment and Plan Plan ASSESSMENT: - Neutropenic fevers. BCx no growth x 5 days. Stool cx pending. WBC 28. Abdomen Ultrasound (05/15/17)----> 1. Limited visualization of the pancreas. However, the pancreatic duct appears to be dilated 8 mm. 2. No definite biliary tract obstruction is seen. 3. There appears to be some sludge in the gallbladder. 4. There appears to be fatty infiltration throughout the liver. Abdomen/Pelvis CT (05/15/17)----> Biliary stent in good position. There continues to be no evidence metastatic disease to the liver Gallbladder somewhat small and contracted with mild enhancement present. Nonspecific air-fluid levels in large and small bowel most suggestive of an ileus. MRCP (05/17/17)---> 1. Contracted gallbladder with cholelithiasis, wall thickening and pericholecystic fluid. 2. Peribiliary T2 hyperintensity suspicious for cholangitis. 3. Mild ascites. 4. No evidence of pancreatic mass. ID following, Ceftriaxone. Diflucan. - Abnormal imaging suspicious for cholangitis on MRCP. Pt has known pancreatic cancer with biliary stent in place. S/P ERCP with stent removal and sphincterotomy balloon extraction and stent placement (05/20)----> Choledocholithiasis, s/p balloon extraction and stent exchange. WBC 29.1. LFTs T. Bili 0.7, AST 94, ALT 76, Alk Phosph 986. Clinically much improved today. Ceftriaxone, Diflucan. - Elevated LFTs, hx of biliary obstruction secondary to pancreatic cancer- s/p stent placement. Imaging as above. S/P ercp with balloon extraction of stone and stent exchange. LFTs improved. - Mild ileus, diarrhea. Mildly tympanic, + multiple bms CDiff negative. - Anorexia, Wt. Loss, ? Odynophagia. He reports to me that he has had decreased appetite since starting chemotherapy, but denies any odynophagia or difficulty swallowing. States he just does not have any appetite. Diflucan. - Anemia, normocytic. HH 8.2/24.3 - Resp. Insufficiency. CXR (05/17/17)---> abnormal opacity remains in [place] right perihilar region the right lung base without significant change. Improved. Per attending. - Pancreatic cancer. Dx in February of 2017.CT as above MRCP (02/20/17)----> The common bile duct is markedly dilated as is the pancreatic duct and there is also tapering of the splenic vein in SMV before it becomes the portal vein. All three things suggest that there is a central pancreatic head mass, but it is difficult to define one on the MRCP. After contrast there is a fairly uniform enhancement through the head and neck of the pancreas. Difficult to define an actual mass. There is a questionable 1 cm lesion in the head of the pancreas on the CT scan specifically series2; image 30 but this is more median than the common bile duct narrowing. Outpatient PET CT could be performed. Solid organs are unremarkable. EUS with FNA/ERCP with stent placement (02/21/17)----> Pancreatic head mass, biliary stricture, s/p stent placement. Pancreatic head mass FNA revealed atypical glandular cells consistent with adenocarcinoma, cell block atypical glandular cells consistent with adenocarcinoma. He was thought to have potentially resectable disease and completed 7-8 weeks of Abraxane and gemcitabine. He has an appointment to follow up with [facility] tomorrow for surgical evaluation of his pancreatic cancer. CA 19-9 74 H - HTN, Hypothyroidism, Hyperlipidemia. Per attending. PLAN: - KEON - Abx per ID - Monitor labs - Will need repeat ERCP in 3-6 months - Further recommendations to follow based on results of above - Patient seen and examined by Dr. Spicer and myself and this note is written on his behalf. (Adia Kendall) Physician Comments Patient seen and examined Agree with above Continue with current supportive care Monitor labs Not much to add from a GI perspective at this point in time we will sign off ( Randy Spicer MD) Adia Kendall May 21, 2017 13:06 Randy Spicer MD May 21, 2017 18:12
[2017-05-21] MEDS: cefTRIAXone INJ 2,000 MG in SODIUM CHLORIDE 0.9% INJ 100 ML IV SCH (13:51)
--- NOTE | 2017-05-21 16:42 | PD.ONC.PN ---
Subjective Subjective Remarks More alert in AM. No OG. Feels like having breakfast. DRessing dry. Objective Data Date Time Temp Pulse Resp B/P Pulse Ox O2 Delivery O2 Flow Rate FiO2 05/21/17 16:11 97.5 103 21 100/62 97 05/21/17 14:17 99 Nasal Cannula 1.00 05/21/17 12:13 96.2 108 21 96/68 98 109/62 05/21/17 11:50 97 05/21/17 08:36 97.2 94 20 119/76 99 05/21/17 08:00 97 05/21/17 08:00 Nasal Cannula 3.00 05/21/17 04:00 96.7 98 21 117/75 97 05/21/17 00:00 96.2 91 20 106/69 93 05/20/17 20:00 98.6 103 20 95/64 96 05/20/17 20:00 104 05/20/17 17:00 98.8 98 20 114/69 98 05/21/17 05/21/17 05/21/17 06:59 14:59 22:59 Intake Total 729 ml 720 ml Output Total 600 ml 300 ml Balance 129 ml 420 ml Result Diagram: 05/21/17 0500 05/21/17 0500 Laboratory Results Laboratory Tests Test 05/21/17 05:00 White Blood Count 29.1 TH/MM3 Red Blood Count 2.51 MIL/MM3 Hemoglobin 8.2 GM/DL Hematocrit 24.3 % Mean Corpuscular Volume 96.8 FL Mean Corpuscular Hemoglobin 32.6 PG Mean Corpuscular Hemoglobin 33.7 % Concent Red Cell Distribution Width 14.3 % Platelet Count 41 TH/MM3 Mean Platelet Volume 11.3 FL Prothrombin Time 12.0 SEC Prothromb Time International 1.1 RATIO Ratio Activated Partial 28.5 SEC Thromboplast Time Fibrinogen 309 mg/dL Sodium Level 144 MEQ/L Potassium Level 4.1 MEQ/L Chloride Level 112 MEQ/L Carbon Dioxide Level 27.0 MEQ/L Anion Gap 5 MEQ/L Blood Urea Nitrogen 17 MG/DL Creatinine 0.59 MG/DL Estimat Glomerular Filtration 132 ML/MIN Rate Random Glucose 144 MG/DL Calcium Level 6.7 MG/DL Protein Corrected Calcium 8.1 MG/DL Total Bilirubin 0.7 MG/DL Aspartate Amino Transf 94 U/L (AST/SGOT) Alanine Aminotransferase 76 U/L (ALT/SGPT) Alkaline Phosphatase 986 U/L Total Protein 4.5 GM/DL Albumin 1.7 GM/DL Administered Medications Medications (Trade) Dose Ordered Sig/Samy Route PRN Reason Start Time Stop Time Status Last Admin Dose Admin Cholecalciferol (Vitamin D3) 1,000 units DAILY PO 05/15/17 09:00 05/21/17 10:08 Levothyroxine Sodium (Synthroid) 50 mcg DAILY@06 PO 05/15/17 06:00 05/21/17 05:06 Multivitamins (Theragran) 1 tab DAILY PO 05/15/17 09:00 05/21/17 10:09 Cyanocobalamin (Vitamin B12) 1,000 mcg DAILY PO 05/15/17 09:00 05/21/17 10:09 Pravastatin Sodium 40 mg 40 mg DAILY PO 05/15/17 09:00 05/21/17 10:08 Fluconazole/ Sodium Chloride (Diflucan 200 Mg Premix Bag) 100 ml @ 100 mls/hr Q24H IV 05/14/17 21:00 05/20/17 22:30 Nystatin (Mycostatin Liq) 5 ml QID SWISH-SWAL 05/14/17 21:00 05/21/17 13:51 Ondansetron HCl (Zofran Inj) 4 mg Q4H PRN IV PUSH NAUSEA OR VOMITING 05/16/17 03:30 05/16/17 03:21 Diltiazem HCl (Cardizem) 30 mg QID PO 05/16/17 10:00 05/21/17 13:51 Metoprolol Tartrate 12.5 mg 12.5 mg Q12HR PO 05/17/17 10:00 05/20/17 22:29 Ceftriaxone Sodium 2000 mg/ Sodium Chloride 100 ml @ 200 mls/hr Q24H IV 05/17/17 14:00 05/21/17 13:51 Potassium Chloride/Dextrose (D5W + KCl 20 Meq Inj) 1,000 ml @ 50 mls/hr Q20H IV 05/19/17 21:00 05/21/17 13:51 Calcium Carbonate (Tums Chew) 500 mg Q12HR CHEW 05/21/17 09:00 05/21/17 10:08 Objective Remarks GENERAL: Fatigued elderly male supine in bed, resting. SKIN: Warm and dry. HEAD: Normocephalic. EYES: No injection or drainage. NECK: Supple, trachea midline. CARDIOVASCULAR: +S1/S2. RESPIRATORY: Scattered rhonchi anteriorly. Breathing unlabored at rest. On 2L O2 via NC GASTROINTESTINAL: Abdomen distended but soft. Nontender to palpation. EXTREMITIES: No cyanosis. No edema Assessment/Plan Problem List: (1) Laceration of head Status: Acute Plan: 05/21/17. Cont dry dressing. No bleeding. -- s/p fall after trying to get to the bathroom --CT brain showed no bleed, s/p platelet transfusion --laceration sutured by general surgery --keep platelets>30K (2) Localized cancer of pancreas Status: Acute Plan: 05/21/17. Cont with plans for definitive resection. Noted ERCP for stent care. CA19.[address]/PET was negative. CA 19.9 decreasing. Good response to neoadjuvant chemotherapy History: --initially presented with painless jaundice. --had a stent placed and his bilirubin came down appropriately. --was evaluated at [facility] by Dr. Brent Singletary. felt to be resectable candidate but was to undergo neoadjuvant chemotherapy. --two cycles of Abraxane and gemcitabine. He comes into clinic for followup. --came into clinic for follow up and reported malaise, abdominal distension and pain x 1 week. he was tachycardic and weak with ANC of 0 with rigors, admission to hospital was coordinated (3) Elevated bilirubin Status: Resolved Plan: 05/21/17. Resolved even before repeat ERCP. --bilirubin improved --GI following-->possible ERCP with stent placement --monitor --U/S abdomen showed dilatated pancreatic duct (4) Leukocytosis Status: Acute Plan: In part due to Neupogen. Pt also has BC+ Salmonella, abx per ID. Assessment 82y/o male with localized pancreatic cancer with increased bilirubin. h/o Localized pancreatic cancer, elevated CA 19.9. Painless jaundice. Cholelithiasis. Hypothyroidism. Colonoscopy. Endoscopic ultrasound. ERCP. Stent placement. Fine-needle biopsy. Plan 1. OK for DC to rehab at [facility] 2. US LE neg for DVT 3. Platelets improving. 4. FU as out patient 5. Keep new appt w/ Dr. Singletary. Tracey Verdugo MD May 21, 2017 16:42
--- NOTE | 2017-05-21 18:29 | HHI.PR ---
Vitals/Results Intake & Output 05/20/17 05/20/17 05/21/17 15:00 23:00 07:00 Intake Total 800 ml 60 ml 729 ml Output Total 250 ml 600 ml Balance 800 ml -190 ml 129 ml Intake Oral 60 ml 120 ml IV Total 50 ml 609 ml Other 750 ml Output Urine Total 250 ml 600 ml # Bowel Movements 2 Vital Signs Vital Signs Date Time Temp Pulse Resp B/P Pulse Ox O2 Delivery O2 Flow Rate FiO2 05/21/17 16:11 97.5 103 21 100/62 97 05/21/17 14:17 99 Nasal Cannula 1.00 05/21/17 12:13 96.2 108 21 96/68 98 109/62 05/21/17 11:50 97 05/21/17 08:36 97.2 94 20 119/76 99 05/21/17 08:00 97 05/21/17 08:00 Nasal Cannula 3.00 05/21/17 04:00 96.7 98 21 117/75 97 05/21/17 00:00 96.2 91 20 106/69 93 05/20/17 20:00 98.6 103 20 95/64 96 05/20/17 20:00 104 CBC/BMP: 05/21/17 0500 05/21/17 0500 Lab Results Laboratory Tests Test 05/21/17 05:00 White Blood Count 29.1 TH/MM3 Red Blood Count 2.51 MIL/MM3 Hemoglobin 8.2 GM/DL Hematocrit 24.3 % Mean Corpuscular Volume 96.8 FL Mean Corpuscular Hemoglobin 32.6 PG Mean Corpuscular Hemoglobin 33.7 % Concent Red Cell Distribution Width 14.3 % Platelet Count 41 TH/MM3 Mean Platelet Volume 11.3 FL Prothrombin Time 12.0 SEC Prothromb Time International 1.1 RATIO Ratio Activated Partial 28.5 SEC Thromboplast Time Fibrinogen 309 mg/dL Sodium Level 144 MEQ/L Potassium Level 4.1 MEQ/L Chloride Level 112 MEQ/L Carbon Dioxide Level 27.0 MEQ/L Anion Gap 5 MEQ/L Blood Urea Nitrogen 17 MG/DL Creatinine 0.59 MG/DL Estimat Glomerular Filtration 132 ML/MIN Rate Random Glucose 144 MG/DL Calcium Level 6.7 MG/DL Protein Corrected Calcium 8.1 MG/DL Total Bilirubin 0.7 MG/DL Aspartate Amino Transf 94 U/L (AST/SGOT) Alanine Aminotransferase 76 U/L (ALT/SGPT) Alkaline Phosphatase 986 U/L Total Protein 4.5 GM/DL Albumin 1.7 GM/DL Physical Exam General General Appearance: Well Developed, Sleeping Eyes Eye Exam: Pupils Equal, Pupils Reactive Ears & Nose Ears & Nose Exam: Nasal Mucosa [place] Throat Throat Exam: Oral Mucosa [place] & Moist Neck Neck Exam: Neck Supple, Trachea Midline Pulmonary Resp Exam: Rhonchi, Decreased Bases, Diminished Breath Sounds Cardiology CV Exam: Good Perfusion, Irregular, Arrhythmia, Tachycardia Gastrointestinal/Abdomen GI Exam: Soft, Non-Tender, Bowel Sounds Present, Positive Bowel Movement, Non- Distended Musculoskeletal MS Exam: Joints Intact Integumentary Skin Exam: Warm, Dry Extremeties Extremities Exam: Pedal Pulses Palpable, Trace Edema, Dependent Edema Neurologic Neuro Exam: Alert, Awake, Oriented, Speech Clear, Moving All Extremities, No Focal Deficits Psychiatric Psych Exam: Appropriate Responses VTE Prophylaxis VTE Prophylaxis Device: SCDs Assessment/Plan Assessment/Plan Neutropenic fever Salmonella sepsis Right lower lobe pneumonia -Continue with antibiotics per ID recommendations Continue to follow cultures Continue to monitor CBC and fever -afebrile, WBC 29.1 -clinically improving Non-pruritic rash Stable Status post fall with laceration to the head CT of the brain showed no bleed Appreciate surgical input, sutured per general surgery -Monitor neuro status -Sutures may be removed a 05/26/2018, surgery signed off Pancreatic cancer Oncology following -cleared for dc Leg swelling -US negative DVT Elevated bilirubin GI following -MRCP [id number] gallbladder with cholelithiasis, wall thickening with pericholecystic fluid. Peribiliary T2 hyperintensity suspicious for cholangitis. Mild ascites. No evidence of pancreas mass. ---U/S abdomen showed dilatated pancreatic duct 05/20-Status post ERCP with stent removal and sphincterotomy balloon extraction and stent placement -Monitor liver function studies Leukocytosis -due to Neupogen -Monitor CBC -WBC trending down Anemia Thrombocytopenia -Hematology following Continue to monitor CBC, may need packed RBC Monitor for bleeding -plat improving Recent A. fib with RVR and hypotension, now resolved -Continue metoprolol 12.5 mg by mouth twice a day, hold parameters for low blood pressure -continue cardizem -Heart rate 90s, blood pressure 100s to 120s Hypernatremia, sodium better today -resolving Physical debility Continue with physical therapy Out of bed with assistance Continue with full CODE STATUS Discharge planning, will need rehab, CIR evaluating Possible dc tomorrow or Friday Discussed with patient Discussed with nurse Discussed with Dr. Thomas This patient was seen by myself and Dr. Thomas, this note is written on his behalf seen, examined by myself, Dr Thomas, today Discussed with patient He is feeling better however he is coughing with crackles on chest exam We will get a chest x-ray If stable discharge to [facility] tomorrow Discussed with mid level provider The exam, history, and the medical decision-making described in the above note were completed with the assistance of the mid-level provider. I reviewed the findings presented. I attest that I had a [id number] encounter with the patient on the same day, and personally performed and documented my assessment and findings in the medical record. Lulú Thomas MD May 21, 2017 18:29
[2017-05-21] MEDS ORDERED: FUROSEMIDE 20 MG TAB PO ONE (18:45)
--- NOTE | 2017-05-21 19:44 | RADRPT ---
EXAM DATE/TIME: 05/21/2017 18:58 [facility] COMPARISON: CHEST SINGLE AP, May 17, 2017, 9:23. INDICATIONS : Cough. Short of breath. MEDICAL HISTORY : Hypercholesterolemia. Carcinoma, pancreas. Hearing loss. Thyroid disease. SURGICAL HISTORY : Colon surgery. ERCP with stent placement. ENCOUNTER: Subsequent ACUITY: 4 - 6 days PAIN SCORE: 0/10 LOCATION: Bilateral chest FINDINGS: There is an [id number] in place from the right internal jugular approach with the tip overlying th e SVC. The heart size is normal. There are bibasilar areas of increased density being worse on the le ft. There is silhouetting the left hemidiaphragm. The mid and upper lungs are clear. CONCLUSION: Bibasilar areas of consolidation or atelectasis being much worse on the left. Some degree of left eff usion cannot be excluded. There is left hemidiaphragm silhouetting. Rogers Escudero MD on May 21, 2017 at 19:42 Board Certified Radiologist. This report was verified electronically.
[2017-05-21] MEDS: RESP: ALBUTEROL 2.5 MG/IPRATROPIUM 0.5 MG NEB (SCH) NEB (20:38)
[2017-05-21] MEDS: FLUCONAZOLE 200 MG PREMIX BAG 100 ML IV SCH (21:03)
[2017-05-22] VITALS (13 sets, daily range): BP systolic 110–115; BP diastolic 67–78; PULSE 63–110; RESP 18–20; TEMP 97.9–98.5; O2SAT 96–99
[2017-05-22] MEDS: LEVOTHYROXINE SODIUM 50 MCG TAB PO SCH (06:19)
[2017-05-22] MEDS: RESP: ALBUTEROL 2.5 MG/IPRATROPIUM 0.5 MG NEB (SCH) NEB ×3 (08:55→16:00)
--- NOTE | 2017-05-22 09:59 | PD.PN.STU ---
Subjective Remarks Patient says he is doing "well" today. He reports that he is not in any pain. He says that he is eating a thickened liquid diet and is able to have bowel movements. He reports that the laceration from his fall is healing well. He feels that he is ready to be discharged. He denies lightheadedness, headache, heart palpitations, and shortness of breath. Objective Vitals Vital Signs Date Time Temp Pulse Resp B/P Pulse Ox O2 Delivery O2 Flow Rate FiO2 05/22/17 08:57 97 Nasal Cannula 1.00 05/22/17 08:00 98.1 105 20 111/73 97 05/22/17 05:39 99 Nasal Cannula 1.00 05/22/17 04:06 107 05/22/17 04:00 98.4 108 18 110/70 96 05/22/17 00:03 77 05/22/17 00:00 98.5 85 19 112/78 98 05/21/17 20:38 99 Nasal Cannula 1.00 05/21/17 20:00 97.2 96 19 110/62 97 05/21/17 20:00 92 05/21/17 16:11 97.5 103 21 100/62 97 05/21/17 14:17 99 Nasal Cannula 1.00 05/21/17 12:13 96.2 108 21 96/68 98 109/62 05/21/17 11:50 97 I/O 05/21/17 05/21/17 05/21/17 05/22/17 05/22/17 05/22/17 07:00 15:00 23:00 07:00 15:00 23:00 Intake Total 729 ml 720 ml 240 ml 120 ml Output Total 600 ml 300 ml 0 ml 250 ml Balance 129 ml 420 ml 240 ml -130 ml Intake Oral 120 ml 720 ml 240 ml 120 ml IV Total 609 ml Output Urine Total 600 ml 300 ml 0 ml 250 ml # Bowel Movements 2 1 1 1 Result Diagram: 05/21/17 0500 05/21/17 0500 Objective Remarks General: Patient is anorexic. He appears well rested. He is alert and cooperative. He is responsive with short phrases and is capable of following commands. Head laceration is covered with a clean dressing. Respiratory: No noted use of excessory respiratory muscles. Diminished breath sounds bilaterally. No noted crackles or wheezes. Cardiovascular: Irregular. Tachycardia. Radial and posterior tibialis pulse 1+. No appreciated murmur or rubs. Abdominal: Slightly distended. Bowel sounds clear and present in all four quadrants. No tenderness to light or deep palpation. No guarding. A/P Assessment and Plan Head laceration: from fall. s/p surgical repair. Clean and dress wound regularly. Implement fall precautions. Salmonella Diarrhea: Monitor. Supportive treatment. Afib: In sinus rhythm. monitor heart rate and rhythm closely. Cardiovert if afib returns and patient becomes unstable. Pulmonary congestion: Resolved. Monitor respiratory effort and rate closely. Repeat chest xray to monitor congestion if symptoms return. Right lower lobe pneumonia:continue to treat with antibiotics and supplemental O2 as needed. Febrile Neutropenia: Afebrile. monitor WBC count closely. Continue Zosyn and colony stimulating factor. Dry mouth/Odynophagia: Improving with speech therapy. Elevated Bilirubin: Continue to monitor. MRCP completed. S/p ERCP. Continue to monitor LFTs. Weight Loss: consider parenteral nutrition if needs are not met through oral feeding Increased Lactic acid: Resolved. Monitor and consider transfer to ICU if it continues to increase. Monitor electrolytes and replace as necessary. Thrombocytopenia: continue to monitor closely Anemia: improving. Continue to monitor closely. History of pancreatic cancer: Once stabilized return to chemotherapy treatment. Ivonne Lopez May 22, 2017 09:59
[2017-05-22] MEDS: PRAVASTATIN SOD 40 MG TAB PO SCH (10:18)
[2017-05-22] MEDS: METOPROLOL TARTRATE 25 MG TAB PO SCH (10:18)
[2017-05-22] MEDS: DILTIAZEM HCL 30 MG TAB PO SCH ×2 (10:18→13:25)
[2017-05-22] MEDS: NYSTATIN SUSP 500,000 U/5 ML CUP SWISH-SWAL SCH ×2 (10:18→13:25)
[2017-05-22] MEDS: CALCIUM CARBONATE 500 MG CHEWABLE TAB CHEW SCH (10:18)
[2017-05-22] MEDS: MULTIVITAMIN TAB PO SCH (10:18)
[2017-05-22] MEDS: CHOLECALCIFEROL (VIT D3) 1000 UNIT TAB PO SCH (10:18)
[2017-05-22] MEDS: CYANOCOBALAMIN 1,000 MCG TAB PO SCH (10:18)
[2017-05-22] MEDS: cefTRIAXone INJ 2,000 MG in SODIUM CHLORIDE 0.9% INJ 100 ML IV SCH (13:26)
--- NOTE | 2017-05-22 13:59 | HHI.PR ---
Subjective Subjective Remarks Patient sleeping, arouses to verbal stimuli Patient denies any acute pain, but appears to be generally weak Afebrile Skin pale (Kaela Hilton) Review of Systems Constitutional Constitutional Remarks Limited review of systems due to patient's lethargy (Kaela Hilton) Pulmonary Pulmonary Remarks Mild cough no shortness of breath noted at rest (Kaela Hilton) Musculoskeletal MS: Weakness, Stiffness (Kaela Hilton) Neurologic Neurologic Remarks Nose person and some situation (Kaela Hilton) Vitals/Results Intake & Output 05/21/17 05/21/17 05/22/17 15:00 23:00 07:00 Intake Total 720 ml 240 ml 120 ml Output Total 300 ml 0 ml 250 ml Balance 420 ml 240 ml -130 ml Intake Oral 720 ml 240 ml 120 ml Output Urine Total 300 ml 0 ml 250 ml # Bowel Movements 1 1 1 Vital Signs Vital Signs Date Time Temp Pulse Resp B/P Pulse Ox O2 Delivery O2 Flow Rate FiO2 05/22/17 12:42 110 05/22/17 12:00 97.9 104 20 114/67 97 05/22/17 08:57 97 Nasal Cannula 1.00 05/22/17 08:21 102 05/22/17 08:00 Nasal Cannula 2.00 05/22/17 08:00 98.1 105 20 111/73 97 05/22/17 08:00 63 05/22/17 05:39 99 Nasal Cannula 1.00 05/22/17 04:06 107 05/22/17 04:00 98.4 108 18 110/70 96 05/22/17 00:03 77 05/22/17 00:00 98.5 85 19 112/78 98 05/21/17 20:38 99 Nasal Cannula 1.00 05/21/17 20:00 97.2 96 19 110/62 97 05/21/17 20:00 92 05/21/17 16:11 97.5 103 21 100/62 97 05/21/17 14:17 99 Nasal Cannula 1.00 (Kaela Hilton) CBC/BMP: 05/21/17 0500 05/21/17 0500 Imaging Remarks Last Impressions Chest X-Ray 05/21/17 Signed Impressions: Service Date/Time: Sunday, May 21, 2017 18:58 - CONCLUSION: Bibasilar areas of consolidation or atelectasis being much worse on the left. Some degree of left effusion cannot be excluded. There is left hemidiaphragm silhouetting. Rogers Escudero MD Lower Extremity Ultrasound 05/20/17 Signed Impressions: Service Date/Time: Saturday, May 20, 2017 20:51 - CONCLUSION: No DVT of either lower extremity. Rogers Braun MD GI Procedure 05/20/17 Signed Impressions: Service Date/Time: Saturday, May 20, 2017 11:09 - CONCLUSION: ERCP as above with a area 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 Rogers Escudero MD Head CT 05/18/17 Signed Impressions: Service Date/Time: Thursday, May 18, 2017 16:34 - CONCLUSION: No acute disease. No evidence of acute infarct, hemorrhage, mass or edema. Generalized volume loss consistent with atrophy. Nomi Vasquez MD Cholangiopancreatography MRI 05/17/17 Signed Impressions: Service Date/Time: Wednesday, May 17, 2017 11:39 - CONCLUSION: 1. Contracted gallbladder with cholelithiasis, wall thickening and pericholecystic fluid. 2. Peribiliary T2 hyperintensity suspicious for cholangitis. 3. Mild ascites. 4. No evidence of pancreatic mass Nomi Vasquez MD Abdomen/Pelvis CT 05/15/17 Signed Impressions: Service Date/Time: May 20:39 - CONCLUSION: Biliary stent in good position. There continues to be no evidence metastatic disease to the liver Gallbladder somewhat small and contracted with mild enhancement present. Nonspecific air-fluid levels in large and small bowel most suggestive of an ileus. Saturnino Trimble MD FACR Abdomen Ultrasound 05/15/17 Signed Impressions: Service Date/Time: May 15:44 - CONCLUSION: 1. Limited visualization of the pancreas. However, the pancreatic duct appears to be dilated 8 mm. 2. No definite biliary tract obstruction is seen. 3. There appears to be some sludge in the gallbladder. 4. There appears to be fatty infiltration throughout the liver. Shawn White MD (YobaniKaela [employer]) Physical Exam General General Appearance: Well Developed, Sleeping (YobaniKaela [employer]) Eyes Eye Exam: Pupils Equal, Pupils Reactive (BuffaloKaela [employer]) Ears & Nose Ears & Nose Exam: Nasal Mucosa Mylo (YobaniKaela [employer]) Throat Throat Exam: Oral Mucosa Mylo & Moist (Yobani,Kaela [employer]ER) Neck Neck Exam: Neck Supple, Trachea Midline (Yobani,Kaela [employer]ER) Pulmonary Resp Exam: Rhonchi, Decreased Bases, Diminished Breath Sounds Resp Remarks No audible rhonchi at this time (YobaniKaela [employer]) Cardiology CV Exam: Regular, Good Perfusion, Irregular, Arrhythmia, Tachycardia CV Remarks Sinus rhythm now heart rate controlled (YobaniKaela [employer]) Gastrointestinal/Abdomen GI Exam: Soft, Non-Tender, Bowel Sounds Present, Positive Bowel Movement, Non- Distended GI Remarks Taut ([place]Kaela [employer]) Genitourinary Remarks Urine is orange in clear via urinal (YobaniKaela [employer]) Musculoskeletal MS Exam: Joints Intact, Atrophy (Yobani,Kaela [employer]ER) Integumentary Skin Exam: Warm, Dry (Yobani,Kaela [employer]ER) Extremeties Extremities Exam: Pedal Pulses Palpable, Trace Edema, Dependent Edema (Yobani, Kaela [employer]) Neurologic Neuro Exam: Alert, Awake, Oriented, Speech Clear, Moving All Extremities, No Focal Deficits (YobaniKaela [employer]) Psychiatric Psych Exam: Appropriate Responses (YobaniKaela [employer]) VTE Prophylaxis VTE Prophylaxis Device: SCDs (Yobani,Kaela [employer]ER) Assessment/Plan Assessment/Plan Vital signs reviewed, tachycardic heart rate currently 104, compensating mildly Labs reviewed hemoglobin 8.2, anemia secondary to chronic disease no acute blood loss for now Neutropenic fever Salmonella sepsis Right lower lobe pneumonia Appreciate ID input, continue antibiotics, medical management Noted decreased breath sounds left greater than right, but no audible rhonchi -afebrile, WBC 29.1 trending down probable due to Neupogen Non-pruritic rash Medical management Status post fall with laceration to the head Stable, complaints of mild headache Appreciate input from general surgery Patient is sleeping but arouses to verbal stimuli Will need sutures removed on 05-26 Pancreatic cancer Oncology following -cleared for dc , planned for [place] Elevated bilirubin GI following and appreciate their input -MRCP [id number] gallbladder with cholelithiasis, wall thickening with pericholecystic fluid. Peribiliary T2 hyperintensity suspicious for cholangitis. Mild ascites. No evidence of pancreas mass. dilatated pancreatic duct 05/20-Status post ERCP with stent removal and sphincterotomy balloon extraction and stent placement -Monitor liver function studies Anemia Thrombocytopenia, stable for now -Hematology following appreciate your input, no active bleeding noted Recent A. fib with RVR , heart rate mildly greater than 100 Medical management with Cardizem and metoprolol Physical debility physical therapy to get patient out of bed in chair, planned transition to [facility] possible today or tomorrow pending authorization Out of bed with assistance only Continue with full CODE STATUS Discharge planning, will need rehab , hopeful for [place] pending authorization Discussed with patient Discussed with nurse Discussed with Dr. Thomas, seen on his behalf (Kaela Hilton) Assessment/Plan seen, examined by myself, Dr Thomas, today Discussed with patient Discharge to rehabilitation Discussed with ID 4-6 weeks of Levaquin 750 mg daily Check liver enzymes weekly, stop Levaquin if liver enzymes elevation occurs Follow-up with GI for removal of biliary stent in 2-3 months Follow-up with GI surgery in [facility], patient was told at some point that his pancreatic cancer is resectable Discussed with mid level provider The exam, history, and the medical decision-making described in the above note were completed with the assistance of the mid-level provider. I reviewed the findings presented. I attest that I had a [id number] encounter with the patient on the same day, and personally performed and documented my assessment and findings in the medical record. 40 minutes (Lulú Thomas MD) Kaela Hilton May 22, 2017 13:59 Lulú Thomas MD May 22, 2017 18:44 Kaela Hilton May 22, 2017 13:59
--- NOTE | 2017-05-22 15:28 | HHI.IDPN ---
Subjective Subjective Remarks diarrhea resolved denies abd pain event noted: sp fall last night requiring surgical repair of laceration; CT head was negative afebrile Growing probable Salmonella in 4/4 BC bottles, repeat BC from same day negative - final Stool + for Salmonella on pressors Antibiotics CFTX Allergies: Coded Allergies: No Known Allergies (Verified , 04/07/17) Objective . Vital Signs Date Time Temp Pulse Resp B/P Pulse Ox O2 Delivery O2 Flow Rate FiO2 05/22/17 12:42 110 05/22/17 12:00 97.9 104 20 114/67 97 05/22/17 08:57 97 Nasal Cannula 1.00 05/22/17 08:21 102 05/22/17 08:00 Nasal Cannula 2.00 05/22/17 08:00 98.1 105 20 111/73 97 05/22/17 08:00 63 05/22/17 05:39 99 Nasal Cannula 1.00 05/22/17 04:06 107 05/22/17 04:00 98.4 108 18 110/70 96 05/22/17 00:03 77 05/22/17 00:00 98.5 85 19 112/78 98 05/21/17 20:38 99 Nasal Cannula 1.00 05/21/17 20:00 97.2 96 19 110/62 97 05/21/17 20:00 92 05/21/17 16:11 97.5 103 21 100/62 97 05/21/17 05/21/17 05/22/17 15:00 23:00 07:00 Intake Total 720 ml 240 ml 120 ml Output Total 300 ml 0 ml 250 ml Balance 420 ml 240 ml -130 ml Intake Oral 720 ml 240 ml 120 ml Output Urine Total 300 ml 0 ml 250 ml # Bowel Movements 1 1 1 . Laboratory Tests Test 05/21/17 05:00 White Blood Count 29.1 TH/MM3 Red Blood Count 2.51 MIL/MM3 Hemoglobin 8.2 GM/DL Hematocrit 24.3 % Mean Corpuscular Volume 96.8 FL Mean Corpuscular Hemoglobin 32.6 PG Mean Corpuscular Hemoglobin 33.7 % Concent Red Cell Distribution Width 14.3 % Platelet Count 41 TH/MM3 Mean Platelet Volume 11.3 FL Laboratory Tests Test 05/21/17 05:00 Sodium Level 144 MEQ/L Potassium Level 4.1 MEQ/L Chloride Level 112 MEQ/L Carbon Dioxide Level 27.0 MEQ/L Anion Gap 5 MEQ/L Blood Urea Nitrogen 17 MG/DL Creatinine 0.59 MG/DL Estimat Glomerular Filtration 132 ML/MIN Rate Random Glucose 144 MG/DL Calcium Level 6.7 MG/DL Protein Corrected Calcium 8.1 MG/DL Total Bilirubin 0.7 MG/DL Aspartate Amino Transf 94 U/L (AST/SGOT) Alanine Aminotransferase 76 U/L (ALT/SGPT) Alkaline Phosphatase 986 U/L Total Protein 4.5 GM/DL Albumin 1.7 GM/DL Imaging Last Impressions Chest X-Ray 05/21/17 0000 Signed Impressions: Service Date/Time: Sunday, May 21, 2017 18:58 - CONCLUSION: Bibasilar areas of consolidation or atelectasis being much worse on the left. Some degree of left effusion cannot be excluded. There is left hemidiaphragm silhouetting. Rogers Escudero MD Lower Extremity Ultrasound 05/20/17 0000 Signed Impressions: Service Date/Time: Saturday, May 20, 2017 20:51 - CONCLUSION: No DVT of either lower extremity. Rogers Braun MD GI Procedure 05/20/17 0000 Signed Impressions: Service Date/Time: Saturday, May 20, 2017 11:09 - CONCLUSION: ERCP as above with a area 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 Rogers Escudero MD Head CT 05/18/17 0000 Signed Impressions: Service Date/Time: Thursday, May 18, 2017 16:34 - CONCLUSION: No acute disease. No evidence of acute infarct, hemorrhage, mass or edema. Generalized volume loss consistent with atrophy. Nomi Vaqsuez MD Cholangiopancreatography MRI 05/17/17 0000 Signed Impressions: Service Date/Time: Wednesday, May 17, 2017 11:39 - CONCLUSION: 1. Contracted gallbladder with cholelithiasis, wall thickening and pericholecystic fluid. 2. Peribiliary T2 hyperintensity suspicious for cholangitis. 3. Mild ascites. 4. No evidence of pancreatic mass Nomi Vasquez MD Abdomen/Pelvis CT 05/15/17 0000 Signed Impressions: Service Date/Time: May 20:39 - CONCLUSION: Biliary stent in good position. There continues to be no evidence metastatic disease to the liver Gallbladder somewhat small and contracted with mild enhancement present. Nonspecific air-fluid levels in large and small bowel most suggestive of an ileus. Saturnino Trimble MD FACR Abdomen Ultrasound 05/15/17 0000 Signed Impressions: Service Date/Time: May 15:44 - CONCLUSION: 1. Limited visualization of the pancreas. However, the pancreatic duct appears to be dilated 8 mm. 2. No definite biliary tract obstruction is seen. 3. There appears to be some sludge in the gallbladder. 4. There appears to be fatty infiltration throughout the liver. Shawn White MD Physical Exam CONSTITUTIONAL/GENERAL: This is a thin chronically ill eldelrly male patient, in no apparent distress. TUBES/LINES/DRAINS: HEAD: dressing in place over haed, intact PORT: in place R chest w/o e/o infx SKIN: No jaundice, + diffuse non banching erythematous non pruritic macular rashes, looks better EYES: Pupils equal and round and reactive. Extraocular motions intact. + mild scleral icterus. No injection or drainage. Fundi not examined. ENT: mucosae is moist without visible erythema, exudates, masses, or lesions. Poor dentition CARDIOVASCULAR: Regular rate and rhythm without murmurs, gallops, or rubs. No JVD. Peripheral pulses symmetric. RESPIRATORY/CHEST: Symmetric, unlabored respirations. B/b crackles to auscultation. Breath sounds equal bilaterally. No wheezes, rales, or rhonchi. GASTROINTESTINAL: Abdomen soft, not tender to palpation , mildly distended. No hepato-splenomegaly, or palpable masses. No guarding. Bowel sounds present. MUSCULOSKELETAL: Extremities without clubbing, cyanosis, Some soft pitting edema. No joint tenderness or effusion noted. No calf tenderness. No mottling or clubbing. NEUROLOGICAL: Awake and alert. Motor and sensory grossly within normal limits. Follows commands. Clear speech. Moves all extremities. PSYCHIATRIC: calm, cooperative Assessment & Plan Remarks Pancreatic cancer, sp biliary stent sp chemo with chomotherapy induced neutropenia Resolved neutropenia Salmonella sepsis: clinically stable - dw micro lab: S to levaquin, ampicillin, CFTX - final ID/S P repeat set is negative @ 2 days Non pruritic rash Sepsi, critically ill, Rash, non pruritic : medacation induced vs 2/2 petechia dehydration Esophagits RLL infiltrae/effusion Cholangitis, per ERCP still very high WBC - ? neupogen ? infx (less likely based on clin status) cont CFTX for Salmonella; OK to transition to PO (levaquine 750 daily) when closer to dec Because pts immunocompromised state will RX for 4-6 weeks monitor WBC Beti Trent MD May 22, 2017 15:28
[2017-05-22] MEDS ORDERED: LEVA750T9 (15:42)
[2017-05-22] MEDS ORDERED: DILT31TA PO (15:42)
--- NOTE | 2017-05-22 16:48 | PD.ONC.PN ---
Subjective Subjective Remarks Patient resting in bed in no distress No acute complaints Objective Data Date Time Temp Pulse Resp B/P Pulse Ox O2 Delivery O2 Flow Rate FiO2 05/22/17 16:12 106 05/22/17 16:00 98.0 105 20 115/69 97 05/22/17 12:42 110 05/22/17 12:00 97.9 104 20 114/67 97 05/22/17 08:57 97 Nasal Cannula 1.00 05/22/17 08:21 102 05/22/17 08:00 Nasal Cannula 2.00 05/22/17 08:00 98.1 105 20 111/73 97 05/22/17 08:00 63 05/22/17 05:39 99 Nasal Cannula 1.00 05/22/17 04:06 107 05/22/17 04:00 98.4 108 18 110/70 96 05/22/17 00:03 77 05/22/17 00:00 98.5 85 19 112/78 98 05/21/17 20:38 99 Nasal Cannula 1.00 05/21/17 20:00 97.2 96 19 110/62 97 05/21/17 20:00 92 05/22/17 05/22/17 05/22/17 07:00 15:00 23:00 Intake Total 120 ml 2552 ml Output Total 250 ml 750 ml Balance -130 ml 1802 ml Result Diagram: 05/21/17 0500 05/21/17 0500 Administered Medications Medications (Trade) Dose Ordered Sig/Samy Route PRN Reason Start Time Stop Time Status Last Admin Dose Admin Cholecalciferol (Vitamin D3) 1,000 units DAILY PO 05/15/17 09:00 05/22/17 10:18 Levothyroxine Sodium (Synthroid) 50 mcg DAILY@06 PO 05/15/17 06:00 05/22/17 06:19 Multivitamins (Theragran) 1 tab DAILY PO 05/15/17 09:00 05/22/17 10:18 Cyanocobalamin (Vitamin B12) 1,000 mcg DAILY PO 05/15/17 09:00 05/22/17 10:18 Pravastatin Sodium (Pravachol) 40 mg DAILY PO 05/15/17 09:00 05/22/17 10:18 Diltiazem HCl (Cardizem) 30 mg QID PO 05/16/17 10:00 05/22/17 13:25 Metoprolol Tartrate (Lopressor) 12.5 mg Q12HR PO 05/17/17 10:00 05/22/17 10:18 Calcium Carbonate (Tums Chew) 500 mg Q12HR CHEW 05/21/17 09:00 05/22/17 10:18 Objective Remarks GENERAL: Fatigued elderly male supine in bed, resting. SKIN: Warm and dry. HEAD: Normocephalic. EYES: No injection or drainage. NECK: Supple, trachea midline. CARDIOVASCULAR: +S1/S2. RESPIRATORY: Scattered rhonchi anteriorly. Breathing unlabored at rest. On 2L O2 via NC GASTROINTESTINAL: Abdomen distended but soft. Nontender to palpation. EXTREMITIES: No cyanosis. No edema Assessment/Plan Problem List: (1) Laceration of head Status: Acute Plan: -- s/p fall after trying to get to the bathroom --CT brain showed no bleed, s/p platelet transfusion --laceration sutured by general surgery --keep platelets>30K (2) Localized cancer of pancreas Status: Acute Plan: Patient has had to reschedule appointment with Dr. Singletary. Last CT/PET was negative. CA 19.9 decreasing. Good response to neoadjuvant chemotherapy History: --initially presented with painless jaundice. --had a stent placed and his bilirubin came down appropriately. --was evaluated at [facility] by Dr. Brent Singletary. felt to be resectable candidate but was to undergo neoadjuvant chemotherapy. --two cycles of Abraxane and gemcitabine. He comes into clinic for followup. --came into clinic for follow up and reported malaise, abdominal distension and pain x 1 week. he was tachycardic and weak with ANC of 0 with rigors, admission to hospital was coordinated (3) Elevated bilirubin Status: Resolved Plan: --bilirubin improved --GI following-->possible ERCP with stent placement --monitor --U/S abdomen showed dilatated pancreatic duct (4) Leukocytosis Status: Acute Plan: In part due to Neupogen. Pt also has BC+ Salmonella, abx per ID. Assessment 82y/o male with localized pancreatic cancer with increased bilirubin. h/o Localized pancreatic cancer, elevated CA 19.9. Painless jaundice. Cholelithiasis. Hypothyroidism. Colonoscopy. Endoscopic ultrasound. ERCP. Stent placement. Fine-needle biopsy. Plan 1. No obvious bleeding 2. Monitor CBC. 3. OK for transfer to rehab. 4. Followup with Dr Verdugo in clinic. Attending Statement The exam, history, and the medical decision-making described in the above note were completed with the assistance of the mid-level provider. I reviewed and agree with the findings presented. I attest that I had a [id number] encounter with the patient on the same day, and personally performed and documented my assessment and findings in the medical record. Wanda Vyas May 22, 2017 16:48 Terrance Borjas MD May 22, 2017 23:08
--- NOTE | 2017-05-22 17:28 | HHI.DS ---
Discharge Summary Admission Date May 14, 2017 at 16:31 Discharge Date: May 22, 2017 Admitting Diagnosis Sepsis Procedures ERCP, stent placement, colonoscopy. Needle biopsy Brief History This was a very pleasant 82-year-old male with a history of pancreatic mass and significant elevation in his CA199. He recently had been on chemotherapy and his CA 199 has been improving. He was seen by his oncologist Dr. MALDONADO and he was found to be very neutropenic with riders chills and temperature of 99. His white count was 0.2. He was directly admitted to the oncology unit at [facility] today. He was seen by the undersigned in room 709. He was alert and oriented but very mildly forgetful. He was hard of hearing. He looked very dry. He did not have any specific pain. He said that for the last 3 weeks he was having trouble with eating. He has no appetite however he does also hurt to swallow according to his description. He lost 5 pounds over last 3 weeks. The patient has had a biliary stent in the past. CBC/BMP: 05/21/17 0500 05/21/17 0500 Significant Findings Laboratory Tests Test 05/20/17 05/21/17 04:35 05:00 White Blood Count 33.4 TH/MM3 29.1 TH/MM3 (4.0-11.0) (4.0-11.0) Red Blood Count 2.59 MIL/MM3 2.51 MIL/MM3 (4.50-5.90) (4.50-5.90) Hemoglobin 8.4 GM/DL 8.2 GM/DL (13.0-17.0) (13.0-17.0) Hematocrit 25.3 % 24.3 % (39.0-51.0) (39.0-51.0) Platelet Count 24 TH/MM3 41 TH/MM3 (150-450) (150-450) Neutrophils % (Manual) 75 % (16-70) Band Neutrophils % 10 % (0-6) Lymphocytes % 6 % (9-44) Neutrophils # (Manual) 30.1 TH/MM3 (1.8-7.7) Metamyelocytes 2 % (0-1) Myelocytes 3 % (0-0) Nucleated Red Blood Cells 4 /100 WBC (0-0) Platelet Estimate LOW (NORMAL) Ovalocytes 1+ (NORMAL) Mean Platelet Volume 11.3 FL (7.0-11.0) Prothrombin Time 12.0 SEC (9.8-11.6) Chloride Level 112 MEQ/L (98-107) Creatinine 0.59 MG/DL (0.60-1.30) Random Glucose 144 MG/DL (74-106) Calcium Level 6.7 MG/DL (8.5-10.1) Protein Corrected Calcium 8.1 MG/DL (8.5-10.1) Aspartate Amino Transf 94 U/L (15-37) (AST/SGOT) Alkaline Phosphatase 986 U/L (45-117) Total Protein 4.5 GM/DL (6.4-8.2) Albumin 1.7 GM/DL (3.4-5.0) Imaging Last Impressions Chest X-Ray 05/21/17 0000 Signed Impressions: Service Date/Time: Sunday, May 21, 2017 18:58 - CONCLUSION: Bibasilar areas of consolidation or atelectasis being much worse on the left. Some degree of left effusion cannot be excluded. There is left hemidiaphragm silhouetting. Rogers Escudero MD Lower Extremity Ultrasound 05/20/17 0000 Signed Impressions: Service Date/Time: Saturday, May 20, 2017 20:51 - CONCLUSION: No DVT of either lower extremity. Rogers Braun MD GI Procedure 05/20/17 0000 Signed Impressions: Service Date/Time: Saturday, May 20, 2017 11:09 - CONCLUSION: ERCP as above with a area 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 Rogers Escudero MD Head CT 05/18/17 0000 Signed Impressions: Service Date/Time: Thursday, May 18, 2017 16:34 - CONCLUSION: No acute disease. No evidence of acute infarct, hemorrhage, mass or edema. Generalized volume loss consistent with atrophy. Nomi Vasquez MD Cholangiopancreatography MRI 05/17/17 0000 Signed Impressions: Service Date/Time: Wednesday, May 17, 2017 11:39 - CONCLUSION: 1. Contracted gallbladder with cholelithiasis, wall thickening and pericholecystic fluid. 2. Peribiliary T2 hyperintensity suspicious for cholangitis. 3. Mild ascites. 4. No evidence of pancreatic mass Nomi Vasquez MD Abdomen/Pelvis CT 05/15/17 0000 Signed Impressions: Service Date/Time: May 20:39 - CONCLUSION: Biliary stent in good position. There continues to be no evidence metastatic disease to the liver Gallbladder somewhat small and contracted with mild enhancement present. Nonspecific air-fluid levels in large and small bowel most suggestive of an ileus. Saturnino Trimble MD FACR Abdomen Ultrasound 05/15/17 0000 Signed Impressions: Service Date/Time: May 15:44 - CONCLUSION: 1. Limited visualization of the pancreas. However, the pancreatic duct appears to be dilated 8 mm. 2. No definite biliary tract obstruction is seen. 3. There appears to be some sludge in the gallbladder. 4. There appears to be fatty infiltration throughout the liver. Shawn White MD PE at Discharge General Appearance: Well Developed, Sleeping Eyes Eye Exam: Pupils Equal, Pupils Reactive Ears & Nose Ears & Nose Exam: Nasal Mucosa [place] Throat Throat Exam: Oral Mucosa [place] & Moist Neck Neck Exam: Neck Supple, Trachea Midline Pulmonary Resp Exam: Rhonchi, Decreased Bases, Diminished Breath Sounds Resp Remarks exp. wheeze Cardiology CV Exam: Good Perfusion, Irregular, Arrhythmia, Tachycardia Gastrointestinal/Abdomen GI Exam: Soft, Non-Tender, Bowel Sounds Present, Positive Bowel Movement, Non- Distended Musculoskeletal MS Exam: Joints Intact Integumentary Skin Exam: Warm, Dry Extremeties Extremities Exam: Pedal Pulses Palpable, Trace Edema, Dependent Edema Neurologic Neuro Exam: Alert, Awake, Oriented, Speech Clear, Moving All Extremities, No Focal Deficits Psychiatric Psych Exam: Appropriate Responses VTE Prophylaxis VTE Prophylaxis Device: SCDs Hospital Course These are the diagnoses that were used to treat the patient during his hospital stay. Neutropenic fever Salmonella sepsis Right lower lobe pneumonia -Continue with antibiotics per ID recommendations Continue to follow cultures Continue to monitor CBC and fever -afebrile, WBC 29.1, leukocytosis -clinically improving Non-pruritic rash Status post fall with laceration to the head Leg swelling DVT-negative Painless jaundice. Cholelithiasis. Hypothyroidism. Colonoscopy. Endoscopic ultrasound. ERCP. Stent placement. Fine-needle biopsy. Shortly after his arrival he was found to have a heart rate of 130. Also his sodium was 125, Patient was transferred to the ICU setting to be monitored very closely for his uncontrolled heart rate, and hypotension. Intensivists initially saw patient., Patient was managed on small amount of vasopressors for his blood pressure until systolic pressure was greater than 90. pancreatic head malignancy developed left lung pneumonia while neutropenic during treatment. New LLL infiltrate and acute atrial fibrillation with RVR 170 - 180s. his rate acutely with lopressor iv then converted him over to neosynephrine infusion for BP support, followed by cardizem infusion for extended rate control. Patient was stabilized on Cardizem and metoprolol. He required continuous cardiac monitoring IV access and critical care for the initial part of his hospital stay Positive Salmonella blood cultures that were initially drawn in the ID office were noted. Patient was followed and treated per the ID team with antibiotic management Patient was noted to have Elevated bilirubin GI consult and medical management throughout hospital stay assisted in patient' s stabilizing care -MRCP [id number] gallbladder with cholelithiasis, wall thickening with pericholecystic fluid. Peribiliary T2 hyperintensity suspicious for cholangitis. Mild ascites. No evidence of pancreas mass. ---U/S abdomen showed dilatated pancreatic duct 05/20-Status post ERCP with stent removal and sphincterotomy balloon extraction and stent placement -Monitor liver function studies Patient also suffered from altered mental status, extreme debility, and peripheral edema. Patient was monitored in the intensive care setting for several days until stable to be transitioned to a private room. First day and private room patient got up by himself to go to the restroom, and fell backwards receiving a large laceration to the back of the skull. General surgery was consult could to suture in the OR suite secondary to his acute illness of leukopenia and thrombocytopenia. He was very high risk for bleeding but he tolerated the procedure well. Oncology was consult did and followed patient throughout his hospital stay monitoring his diagnosis pancreatic cancer and abnormal labs including neutropenia and thrombocytopenia. Patient had received chemotherapy this past week and was very debilitated. Patient was monitored and worked with per physical therapy, but was not a lab to get up by himself without assistance. He continued to slowly improve, but remains with severe debility. Patient was evaluated per [place], [facility] okayed medical authorization for transfer today [id number]. Patient was medically stable and was transitioned to [place] for further care. CODE STATUS was discussed with patient when he first came in the hospital. His wishes were full code full aggressive care and those wishes were followed. Pt Condition on Discharge: Stable Discharge Disposition: Rehab Inpatient Discharge Instructions DIET: Follow Instructions for: Heart Healthy Diet Activities you can perform: Weight Bearing as Carl Follow up Referrals: Gastroenterology - 2 Months with Lauro Chua MD Oncology - [address]OS [facility] New Medications: Levofloxacin (Levaquin) 750 Mg Tablet 1 TAB .ROUTE DAILY infection #45 EA Diltiazem (Cardizem) 30 Mg Tab 30 MG PO QID tachycardia #120 TAB Continued Medications: Aspirin (Aspirin Low Dose) 81 Mg Chew 81 MG CHEW DAILY Ref 0 TAB Cholecalciferol (Vitamin D3) 1,000 Unit Tab 1000 UNITS PO DAILY Nutritional Supplement #1 Ref 0 BOTTLE Cyanocobalamin (B12) 1,000 Mcg Tab 1 TAB PO DAILY Fish Oil-Cholecalciferol ([place]-3 Fish Oil/Vitamin) 1,000-1,000 Mg Cap 1 CAP PO DAILY Nutritional Supplement Ref 0 CAP Levothyroxine (Levothyroxine) 50 Mcg Tab 50 MCG PO DAILY Thyroid #30 Ref 0 TAB Multiple Vitamin (Multi Vitamin Daily) 1 Tab Tab 1 TAB PO DAILY Simvastatin (Simvastatin) 20 Mg Tab 20 MG PO DAILY Cholesterol Management #30 Ref 0 TAB Kaela Hilton May 22, 2017 17:28
[2017-05-23] MEDS ORDERED: LEVOFLOXACIN 750 MG TAB PO SCH (09:00)
[2017-06-06] MEDS ORDERED: MULT1TAB46 PO (08:33)
[2017-06-06] MEDS ORDERED: ASPI81CH37 CHEW (08:33)
[2017-06-06] MEDS ORDERED: DILT31TA PO (08:33)
[2017-06-06] MEDS ORDERED: VITA100064 PO (08:33)
[2017-06-06] MEDS ORDERED: LEVA750T9 PO (08:33)
[2017-06-06] MEDS ORDERED: LEVO50TA4 PO (08:33)
[2017-06-06] MEDS ORDERED: CYAN1TAB24 PO (08:33)
[2017-06-06] MEDS ORDERED: SIMV20TA PO (08:33)
== END 2017-05-22 17:12 | DRG 808 ==
LOC: HOCA 16:31 → N03A 05-15 00:28 → HOCA 05-18 13:06
PROVIDERS: ADMIT Specialist; ATTEND Specialist
PROC: 0HQ0XZZ Repair Scalp Skin, External Approach (ICD-10-PCS; 2017-05-18)
PROC: 6A551Z2 Pheresis of Platelets, Multiple (ICD-10-PCS; principal; 2017-05-18 21:17)
PROC: 0FPB8DZ Removal of Intraluminal Device from Hepatobiliary Duct, Via Natural or Artificial Opening Endoscopic (ICD-10-PCS; 2017-05-20)
PROC: 0F798DZ Dilation of Common Bile Duct with Intraluminal Device, Via Natural or Artificial Opening Endoscopic (ICD-10-PCS; 2017-05-20)
PROC: 0FC98ZZ Extirpation of Matter from Common Bile Duct, Via Natural or Artificial Opening Endoscopic (ICD-10-PCS; 2017-05-20)
DX: D70.1 Agranulocytosis secondary to cancer chemotherapy (principal); A02.1 Salmonella sepsis; J18.9 Pneumonia, unspecified organism; R18.8 Other ascites; E46 Unspecified protein-calorie malnutrition; C25.0 Malignant neoplasm of head of pancreas; K56.7 Ileus, unspecified; E87.1 Hypo-osmolality and hyponatremia; E83.51 Hypocalcemia; I48.0 Paroxysmal atrial fibrillation; K76.0 Fatty (change of) liver, not elsewhere classified; E86.0 Dehydration; K80.50 Calculus of bile duct without cholangitis or cholecystitis without obstruction; D63.8 Anemia in other chronic diseases classified elsewhere; I10 Essential (primary) hypertension; R50.81 Fever presenting with conditions classified elsewhere; E03.9 Hypothyroidism, unspecified; E78.5 Hyperlipidemia, unspecified; H91.90 Unspecified hearing loss, unspecified ear; R00.0 Tachycardia, unspecified; R21 Rash and other nonspecific skin eruption; T45.1X5A Adverse effect of antineoplastic and immunosuppressive drugs, initial encounter; Y92.009 Unspecified place in unspecified non-institutional (private) residence as the place of occurrence of the external cause; E87.6 Hypokalemia; S01.01XA Laceration without foreign body of scalp, initial encounter; W01.0XXA Fall on same level from slipping, tripping and stumbling without subsequent striking against object, initial encounter; Y93.01 Activity, walking, marching and hiking; Y92.230 Patient room in hospital as the place of occurrence of the external cause
CPT/HCPCS: 36415; 36430; 36591; 70450; 71010; 74177; 74183; 74330; 76377; 76700; 80048; 80053; 80076; 82248; 83605; 83690; 84145; 84155; 85007; 85025; 85027; 85384; 85610; 85730; 86301; 86900; 86901; 87040; 87186; 87205; 87493; 87506; 87641; 93005; 93970; 94640; 94664; 96372; 96523; A9579; C1769; C2625; J0610; J0690; J0692; J0696; J0713; J1442; J1450; J1626; J1642; J1940; J2370; J2405; J2543; J3010; J3475; J3480; J7030; J7040; J7050; J7613; P9035; P9047; Q5101; Q9963; Q9967

== ENCOUNTER 2017-06-12 03:29 | Inpatient (IN) | payer OTHER, MEDICARE ==
[2017-06-12] VITALS (14 sets, daily range): BP systolic 82–116; BP diastolic 51–72; PULSE 82–102; RESP 16–18; TEMP 96–98.5; O2SAT 98–100
[~2017-06-12] VITALS: Ht 172.7 cm; Wt 54.5 kg
[~2017-06-12 03:29] MED LIST changes: +DILT31TA PO; +LEVA750T9 PO
[2017-06-12] MEDS ORDERED: SODIUM CHLORIDE 0.9% FLUSH 10 ML FLUSH IV FLUSH PRN ×2 (03:45→05:15)
--- NOTE | 2017-06-12 03:50 | PD ---
HPI Chief Complaint: Fall Time Seen by Provider: 03:34 Travel History International Travel<30 days: No Contact w/Intl Traveler<30days: No Traveled to known affect area: No History of Present Illness HPI 82-year-old male with history of pancreatic cancer undergoing chemotherapy, scheduled for surgery next week in [place], brought in by ambulance from his rehabilitation facility/long-term for evaluation after a fall. The patient reports that he tried getting out of his chair and going to bed when he slipped and fell forward. He believes he may have briefly lost consciousness after the fall. He sustained an obvious laceration to his forehead/anterior scalp. He is complaining of some mild head pain. No neck pain. He denies any other injuries. No antiplatelet or anticoagulant use. No fevers or recent illness. PFSH Past Medical History Anemia: Yes Asthma: No Autoimmune Disease: No Blood Disorders: No Heart Rhythm Problems: No Cancer: Yes (PANCREAS) Cardiovascular Problems: No High Cholesterol: Yes Chemotherapy: Yes Chest Pain: No Congestive Heart Failure: No COPD: No Diabetes: No Diminished Hearing: No Endocrine: No Genitourinary: No Immune Disorder: No Medical other: Yes (CKD) Musculoskeletal: No Neurologic: No Psychiatric: No Reproductive: No Respiratory: Yes Radiation Therapy: No Sleep Apnea: No Thyroid Disease: Yes Past Surgical History Abdominal Surgery: No AICD: No Cardiac Surgery: No Ear Surgery: No Endocrine Surgery: No Eye Surgery: No Genitourinary Surgery: Yes (COLON SURGERY) Gynecologic Surgery: No Joint Replacement: No Oral Surgery: No Pacemaker: No Thoracic Surgery: No Other Surgery: Yes (PORT) Social History Alcohol Use: No Tobacco Use: No Substance Use: No Allergies-Medications (Allergen,Severity, Reaction): Coded Allergies: No Known Allergies (Verified , 04/07/17) Reported Meds & Prescriptions Reported Meds & Active Scripts Active Cardizem (Diltiazem HCl) 30 Mg Tab 15 Mg PO Q8H 30 Days Levaquin (Levofloxacin) 750 Mg Tablet 1 Tab PO DAILY To finish on 07/06/17 Multi Vitamin Daily (Multiple Vitamin) 1 Tab Tab 1 Tab PO DAILY Vitamin D3 (Cholecalciferol) 1,000 Unit Tab 1,000 Units PO DAILY B12 (Cyanocobalamin) 1,000 Mcg Tab 1 Tab PO DAILY Aspirin Low Dose (Aspirin) 81 Mg Chew 81 Mg CHEW DAILY Simvastatin 20 Mg Tab 20 Mg PO DAILY Levothyroxine (Levothyroxine Sodium) 50 Mcg Tab 50 Mcg PO DAILY Reported Tylenol (Acetaminophen) 325 Mg Tab 325 Mg PO Q4H PRN [place]-3 Fish Oil/Vitamin (Fish Oil-Cholecalciferol) 1,000-1,000 Mg Cap 1 Cap PO DAILY Review of Systems Except as stated in HPI: all other systems reviewed are Neg Physical Exam Narrative GENERAL: Well-developed, well-nourished, awake, alert, GCS 15, no apparent stress. SKIN: Central forehead/anterior scalp with skin tear with superficial laceration without active bleeding and without obvious contaminants. HEAD: Skin exam as above. Normocephalic. EYES: Pupils equal and round, 3 mm, reactive to light. No scleral icterus. No injection or drainage. ENT: No nasal bleeding or discharge. Mucous membranes pink and moist. NECK: Trachea midline. No JVD. No midline cervical spine step-off or tenderness. CARDIOVASCULAR: Tachycardic, rate 104, regular. RESPIRATORY: No accessory muscle use. Clear to auscultation. Breath sounds equal bilaterally. GASTROINTESTINAL: Abdomen soft, non-tender, nondistended. MUSCULOSKELETAL: No obvious deformities. No clubbing. No cyanosis. No edema. NEUROLOGICAL: Awake and alert. No obvious cranial nerve deficits. Motor grossly within normal limits. Normal speech. PSYCHIATRIC: Appropriate mood and affect; insight and judgment normal. Data Data Last Documented VS Vital Signs Date Time Temp Pulse Resp B/P (MAP) Pulse Ox O2 Delivery O2 Flow Rate FiO2 06/12/17 04:40 90 16 103/57 (72) 99 Room Air 06/12/17 03:[address] Brain W/O Iv Contrast(Rout) (06/12/17 ) Ct Cerv Spine W/O Contrast (06/12/17 ) Basic Metabolic Panel (Bmp) (06/12/17 03:39) Complete Blood Count With Diff (06/12/17 03:39) Prothrombin Time / Inr (Pt) (06/12/17 03:39) Act Partial Throm Time (Ptt) (06/12/17 03:39) Iv Access Insert/Monitor (06/12/17 03:39) Ecg Monitoring (06/12/17 03:39) Oximetry (06/12/17 03:39) Sodium Chloride 0.9% Flush (Ns Flush) (06/12/17 03:45) Electrocardiogram (06/12/17 03:39) Protein Corrected Calcium(Pcc) (06/12/17 03:46) Type And Screen (06/12/17 04:50) Hepatic Functional Panel (06/12/17 04:56) Red Blood Cells (Rbc) (06/12/17 04:57) Blood Product Administration (06/12/17 04:57) Sodium Chlor 0.9% 250 Ml Inj (Ns 250 Ml (06/12/17 05:00) Tetanus/Diphtheria Tox Adult (Tetanus/Di (06/12/17 05:00) Labs Laboratory Tests Test 06/12/17 03:46 White Blood Count 15.1 TH/MM3 Red Blood Count 1.79 MIL/MM3 Hemoglobin 5.2 GM/DL Hematocrit 17.1 % Mean Corpuscular Volume 95.9 FL Mean Corpuscular Hemoglobin 29.1 PG Mean Corpuscular Hemoglobin Concent 30.4 % Red Cell Distribution Width 16.4 % Platelet Count 266 TH/MM3 Mean Platelet Volume 7.9 FL Neutrophils (%) (Auto) 75.4 % Lymphocytes (%) (Auto) 16.8 % Monocytes (%) (Auto) 6.5 % Eosinophils (%) (Auto) 0.8 % Basophils (%) (Auto) 0.5 % Neutrophils # (Auto) 11.4 TH/MM3 Lymphocytes # (Auto) 2.5 TH/MM3 Monocytes # (Auto) 1.0 TH/MM3 Eosinophils # (Auto) 0.1 TH/MM3 Basophils # (Auto) 0.1 TH/MM3 CBC Comment AUTO DIFF Differential Comment AUTO DIFF CONFIRMED Prothrombin Time 15.8 SEC Prothromb Time International Ratio 1.4 RATIO Activated Partial Thromboplast Time 29.3 SEC Blood Urea Nitrogen 24 MG/DL Creatinine 0.63 MG/DL Random Glucose 170 MG/DL Total Protein 5.5 GM/DL Calcium Level 7.4 MG/DL Sodium Level 135 MEQ/L Potassium Level 4.3 MEQ/L Chloride Level 103 MEQ/L Carbon Dioxide Level 24.2 MEQ/L Anion Gap 8 MEQ/L Estimat Glomerular Filtration Rate 123 ML/MIN Protein Corrected Calcium 8.3 MG/DL MDM Medical Decision Making Medical Screen Exam Complete: Yes Emergency Medical Condition: Yes Differential Diagnosis Trip and fall, intracranial trauma, scalp laceration/skin tear, cervical spine injury, dehydration, metabolic abnormality Narrative Course Initial vital signs show heart rate 102, blood pressure 82/51, pulse ox 100% on room air, oral temp of 97.6 reason Fahrenheit. CBC is remarkable for hemoglobin 5.2, hematocrit 17.1. This is likely anemia of chronic disease. WBC count is 15.1 with 75% neutrophils. Stool is heme negative and brown. CT head: No acute intracranial abnormality. CT cervical spine: No acute fracture or subluxation. Patient and the patient's significant other were made aware of all findings. Patient will be transfused 2 units of PRBCs and will be admitted to the hospital. Scalp/forehead laceration repaired by my nurse practitioner. See her note for further details. Case discussed with hospitalist Dr. Ortega who will admit the patient to her service. Diagnosis Primary Impression: Anemia Qualified Codes: D64.9 - Anemia, unspecified Additional Impressions: Fall Qualified Codes: W19.XXXA - Unspecified fall, initial encounter Scalp laceration Qualified Codes: S01.01XA - Laceration without foreign body of scalp, initial encounter Head injury Qualified Codes: S09.90XA - Unspecified injury of head, initial encounter Admitting Information Admitting Physician Requests: Admit Allan Cox MD Jun 12, 2017 03:50
[2017-06-12 04:04] LABS: AUTOMATED NEUTROPHIL # 11.4 TH/MM3 (1.8-7.7); BASOPHIL # 0.1 TH/MM3 (0-0.2); BASOPHIL % 0.5 % (0.0-2.0); EOSINOPHIL # 0.1 TH/MM3 (0-0.4); EOSINOPHIL % 0.8 % (0.0-4.0); LYMPH % 16.8 % (9.0-44.0); LYMPHOCYTE # 2.5 TH/MM3 (1.0-4.8); MEAN CELL VOLUME 95.9 FL (80.0-100.0); MEAN CORPUSCULAR HEMOGLOBIN 29.1 PG (27.0-34.0); MEAN CORPUSCULAR HGB CONC 30.4 % (32.0-36.0); MONO % 6.5 % (0.0-8.0); NEUT % 75.4 % (16.0-70.0); PLATELET COUNT 266 TH/MM3 (150-450); RED BLOOD COUNT 1.79 MIL/MM3 (4.50-5.90); RED CELL DISTRIBUTION WIDTH 16.4 % (11.6-17.2); WHITE BLOOD COUNT 15.1 TH/MM3 (4.0-11.0)
[2017-06-12] MEDS ORDERED: TYLE325T PO (04:08)
[2017-06-12 04:13] LABS: APTT (PATIENT) 29.3 SEC (24.3-30.1); INTERNATIONAL NORMALIZED RATIO 1.4 RATIO; PROTHROMBIN TIME - PATIENT 15.8 SEC (9.8-11.6)
[2017-06-12 04:19] LABS: BICARBONATE 24.2 MEQ/L (21.0-32.0); POTASSIUM 4.3 MEQ/L (3.5-5.1)
--- NOTE | 2017-06-12 04:23 | RADRPT ---
EXAM DATE/TIME: 06/12/2017 04:07 [facility] COMPARISON: CT BRAIN W/O CONTRAST, May 18, 2017, 16:34. INDICATIONS : Trauma. Fall with contusion to forehead. RADIATION DOSE: 31.25 CTDIvol (mGy) MEDICAL HISTORY : Carcinoma, pancreas. SURGICAL HISTORY : None. ENCOUNTER: Initial ACUITY: 1 day PAIN SCALE: 7/10 LOCATION: cranial TECHNIQUE: Multiple contiguous axial images were obtained of the head. Using automated exposure control and adj ustment of the mA and/or kV according to patient size, radiation dose was kept as low as reasonably a chievable to obtain optimal diagnostic quality images. DICOM format image data is available electro nically for review and comparison. FINDINGS: CEREBRUM: Moderate cerebral atrophy. The ventricles are normal for degree of atrophy. No evidence of midline s hift, mass lesion, hemorrhage or acute infarction. No extra-axial fluid collections are seen. POSTERIOR FOSSA: The cerebellum and brainstem are intact. The 4th ventricle is midline. The cerebellopontine angle i s unremarkable. EXTRACRANIAL: The visualized portion of the orbits is intact. SKULL: The calvaria is intact. No evidence of skull fracture. CONCLUSION: 1. No acute intracranial normality. 1. Ángel Sotomayor MD on June 12, 2017 at 4:19 Board Certified Radiologist. This report was verified electronically.
[2017-06-12 04:24] LABS: HEMO FLAGS AUTO DIFF
[2017-06-12 04:27] LABS: HEMATOCRIT 17.1 % (39.0-51.0)
--- NOTE | 2017-06-12 04:27 | RADRPT ---
EXAM DATE/TIME: 06/12/2017 04:07 [facility] COMPARISON: No previous studies available for comparison. INDICATIONS : Trauma. Fall. RADIATION DOSE: 20.19 CTDIvol (mGy) MEDICAL HISTORY : Carcinoma, pancreas. SURGICAL HISTORY : None. ENCOUNTER: Initial ACUITY: 1 day PAIN SCALE: 5/10 LOCATION: neck TECHNIQUE: Volumetric scanning of the cervical spine was performed. Multiplanar reconstructions in the sagittal, coronal and oblique axial planes were performed. Using automated exposure control and adjustment o f the mA and/or kV according to patient size, radiation dose was kept as low as reasonably achievable to obtain optimal diagnostic quality images. DICOM format image data is available electronically f or review and comparison. FINDINGS: Vertebral body heights are maintained. Osseous structures are intact without evidence for acute bony fracture. Dens is intact. Sagittal alignment is maintained. There is a normal C1-2 relationship. Face ts are normally aligned. There is no significant prevertebral soft tissue hematoma. Mild degenerative spondylosis most prominently in the lower cervical spine. No significant cervical adenopathy or maría s mass. The thyroid appears unremarkable. Visualized lung apices are clear without pneumothorax. CONCLUSION: 1. No acute fracture or subluxation. Ángel Sotomayor MD on June 12, 2017 at 4:22 Board Certified Radiologist. This report was verified electronically.
[2017-06-12 04:43] LABS: CALCIUM-PROTEIN CORRECTED 8.3 MG/DL (8.5-10.1)
[2017-06-12 04:50] LABS: SCAN/DIFF AUTO DIFF CONFIRMED
[2017-06-12] MEDS ORDERED: SODIUM CHLOR 0.9% 250 ML INJ 250 ML IV ONE (05:00)
[2017-06-12] MEDS ORDERED: TETANUS/DIPHTHERIA TOXOID ADULT 0.5 ML VIAL IM ONE (05:00)
[2017-06-12] MEDS ORDERED: NALOXONE HCL 0.4 MG/ML AMP IV PRN (05:15)
--- NOTE | 2017-06-12 05:22 | PD ---
Physical Exam Time Seen by Provider: 05:21 Data Data Last Documented VS Vital Signs Date Time Temp Pulse Resp B/P (MAP) Pulse Ox O2 Delivery O2 Flow Rate FiO2 06/12/17 04:40 90 16 103/57 (72) 99 Room Air 06/12/17 03:[address] Brain W/O Iv Contrast(Rout) (06/12/17 ) Ct Cerv Spine W/O Contrast (06/12/17 ) Basic Metabolic Panel (Bmp) (06/12/17 03:39) Complete Blood Count With Diff (06/12/17 03:39) Prothrombin Time / Inr (Pt) (06/12/17 03:39) Act Partial Throm Time (Ptt) (06/12/17 03:39) Iv Access Insert/Monitor (06/12/17 03:39) Ecg Monitoring (06/12/17 03:39) Oximetry (06/12/17 03:39) Sodium Chloride 0.9% Flush (Ns Flush) (06/12/17 03:45) Electrocardiogram (06/12/17 03:39) Protein Corrected Calcium(Pcc) (06/12/17 03:46) Type And Screen (06/12/17 04:50) Hepatic Functional Panel (06/12/17 04:56) Red Blood Cells (Rbc) (06/12/17 04:57) Blood Product Administration (06/12/17 04:57) Sodium Chlor 0.9% 250 Ml Inj (Ns 250 Ml (06/12/17 05:00) Tetanus/Diphtheria Tox Adult (Tetanus/Di (06/12/17 05:00) Admit Order (Ed Use Only) (06/12/17 05:17) Labs Laboratory Tests Test 06/12/17 03:46 White Blood Count 15.1 TH/MM3 Red Blood Count 1.79 MIL/MM3 Hemoglobin 5.2 GM/DL Hematocrit 17.1 % Mean Corpuscular Volume 95.9 FL Mean Corpuscular Hemoglobin 29.1 PG Mean Corpuscular Hemoglobin Concent 30.4 % Red Cell Distribution Width 16.4 % Platelet Count 266 TH/MM3 Mean Platelet Volume 7.9 FL Neutrophils (%) (Auto) 75.4 % Lymphocytes (%) (Auto) 16.8 % Monocytes (%) (Auto) 6.5 % Eosinophils (%) (Auto) 0.8 % Basophils (%) (Auto) 0.5 % Neutrophils # (Auto) 11.4 TH/MM3 Lymphocytes # (Auto) 2.5 TH/MM3 Monocytes # (Auto) 1.0 TH/MM3 Eosinophils # (Auto) 0.1 TH/MM3 Basophils # (Auto) 0.1 TH/MM3 CBC Comment AUTO DIFF Differential Comment AUTO DIFF CONFIRMED Prothrombin Time 15.8 SEC Prothromb Time International Ratio 1.4 RATIO Activated Partial Thromboplast Time 29.3 SEC Blood Urea Nitrogen 24 MG/DL Creatinine 0.63 MG/DL Random Glucose 170 MG/DL Total Protein 5.5 GM/DL Calcium Level 7.4 MG/DL Sodium Level 135 MEQ/L Potassium Level 4.3 MEQ/L Chloride Level 103 MEQ/L Carbon Dioxide Level 24.2 MEQ/L Anion Gap 8 MEQ/L Estimat Glomerular Filtration Rate 123 ML/MIN Protein Corrected Calcium 8.3 MG/DL [facility] Medical Record Reviewed: Yes Supervised Visit with ROLAND: No Procedures Procedure Narrative LACERATION LOCATION: Forehead LENGTH: 3 cm T-shaped NUMBER OF STITCHES/RODY: Steri-Strips REPAIR: The area of the laceration was prepped with Betadine and sterilely draped. The wound was copiously irrigated and explored without evidence of foreign body, tendon injury or neurovascular injury. The wound was closed using Steri-Strips. This was a single layer repair. Patient tolerated well. Diagnosis Primary Impression: Anemia Qualified Codes: D64.9 - Anemia, unspecified Additional Impressions: Scalp laceration Qualified Codes: S01.01XA - Laceration without foreign body of scalp, initial encounter Head injury Qualified Codes: S09.90XA - Unspecified injury of head, initial encounter Fall Qualified Codes: W19.XXXA - Unspecified fall, initial encounter Lluvia Goodman Jun 12, 2017 05:22
[2017-06-12 05:42] LABS: INDIRECT BILIRUBIN 0.3 MG/DL (0.0-0.8); TOTAL BILIRUBIN ADULT 0.5 MG/DL (0.2-1.0)
[2017-06-12] MEDS: SODIUM CHLORIDE 0.9% FLUSH 10 ML FLUSH IV FLUSH SCH ×2 (09:00→20:57)
--- NOTE | 2017-06-12 12:47 | EKG ---
Date Performed: 06/12/2017 Time Performed: 03:53:43 PTAGE: 82 years EKG: SINUS TACHYCARDIA PROBABLE INFERIOR MYOCARDIAL INFARCTION ABNORMAL ECG PREVIOUS TRACING : 05/16/2017 10.23 DOCTOR: Jason Hawkins Interpretating Date/Time 06/12/2017 12:43:58
--- NOTE | 2017-06-12 12:53 | HHI.HP ---
[facility] Unknown Admission Diagnosis anemia, fall, scalp laceration Diagnoses: Chief Complaint: Fall Travel History International Travel<30 Days: No Contact w/Intl Traveler <30 Da: No Traveled to Known Affected Are: No History of Present Illness This is an 82-year-old male with history of chronic kidney disease, anemia, pancreatic cancer undergoing chemotherapy scheduled for surgery next week in [place] [facility] a [facility]. The patient reports trying to getting out of a chair, he slipped and fell forward and hit his head. He believes that he lost consciousness for a few seconds. He denies any chest pain, shortness of breath, nausea, vomiting or headache at this point. He does not have any complaints. No neck pain. No recent bleeding , fever, urinary symptoms or cough. Of note, he was discharged from [facility] after patient was admitted for neutropenia and fever. He was placed on empiric antibiotics and antifungals with ID consultation, he stayed in the ICU during his initial hospitalization. GI was consulted, MRCP showed contracted bladder, ERCP with stent exchange was done. Patient was then discharged to rehabilitation to continue therapy. He was also continued on Levaquin for Salmonella sepsis. Of note, he also had a fall 05/18/17. Review of Systems ROS Limitations: Other (All other pertinent systems were reviewed and are negative.) Past Family Social History Past Medical History Chronic kidney disease Anemia Pancreatic cancer status post chemotherapy Past Surgical History Colon surgery Reported Medications Cardizem (Diltiazem HCl) 30 Mg Tab 15 Mg PO Q8H 30 Days Levaquin (Levofloxacin) 750 Mg Tablet 1 Tab PO DAILY To finish on 07/06/17 Multi Vitamin Daily (Multiple Vitamin) 1 Tab Tab 1 Tab PO DAILY Vitamin D3 (Cholecalciferol) 1,000 Unit Tab 1,000 Units PO DAILY B12 (Cyanocobalamin) 1,000 Mcg Tab 1 Tab PO DAILY Aspirin Low Dose (Aspirin) 81 Mg Chew 81 Mg CHEW DAILY Simvastatin 20 Mg Tab 20 Mg PO DAILY Levothyroxine (Levothyroxine Sodium) 50 Mcg Tab 50 Mcg PO DAILY Tylenol (Acetaminophen) 325 Mg Tab 325 Mg PO Q4H PRN [place]-3 Fish Oil/Vitamin (Fish Oil-Cholecalciferol) 1,000-1,000 Mg Cap 1 Cap PO DAILY Allergies: Coded Allergies: No Known Allergies (Verified , 04/07/17) Family History Father had a stroke Social History Patient denies smoking, significant alcohol intake or use of any illicit drugs. Physical Exam Vital Signs Vital Signs Date Time Temp Pulse Resp B/P (MAP) Pulse Ox O2 Delivery O2 Flow Rate FiO2 06/12/17 09:15 97.6 91 18 108/65 (79) 100 06/12/17 07:32 87 16 105/58 (74) 100 Room Air 06/12/17 06:30 82 16 96/61 (73) 100 Room Air 06/12/17 06:00 84 16 97/60 (72) 100 Room Air 06/12/17 04:40 90 16 103/57 (72) 99 Room Air 06/12/17 03:43 100 Room Air 06/12/17 03:42 100 Room Air 06/12/17 03:33 97.6 102 16 82/51 (61) 100 Physical Exam Not in distress, well-nourished, looks stated age PERRL, pale, anicteric. Nose without bleeding, airway patent, oropharynx clear Supple neck, no masses or thyromegaly, trachea midline Normal rate and regular rhythm, no murmurs gallops or rubs appreciated. Clear to auscultation and symmetric bilaterally, normal respiratory effort. Normal bowel sounds, soft, non-tender, nondistended, no guarding. Extremities without clubbing, cyanosis, or edema. No rash of generalized distribution. Skin is warm and dry. AAO x3, no cranial nerve deficits, moves all 4 extremities, no focal neurologic deficits, skin tear and superficial laceration central forehead, dressings in place, no active bleeding. Laboratory Laboratory Tests Test 06/12/17 03:46 White Blood Count 15.1 Red Blood Count 1.79 Hemoglobin 5.2 Hematocrit 17.1 Mean Corpuscular Volume 95.9 Mean Corpuscular Hemoglobin 29.1 Mean Corpuscular Hemoglobin Concent 30.4 Red Cell Distribution Width 16.4 Platelet Count 266 Mean Platelet Volume 7.9 Neutrophils (%) (Auto) 75.4 Lymphocytes (%) (Auto) 16.8 Monocytes (%) (Auto) 6.5 Eosinophils (%) (Auto) 0.8 Basophils (%) (Auto) 0.5 Neutrophils # (Auto) 11.4 Lymphocytes # (Auto) 2.5 Monocytes # (Auto) 1.0 Eosinophils # (Auto) 0.1 Basophils # (Auto) 0.1 CBC Comment AUTO DIFF Differential Comment AUTO DIFF CONFIRMED Prothrombin Time 15.8 Prothromb Time International Ratio 1.4 Activated Partial Thromboplast Time 29.3 Blood Urea Nitrogen 24 Creatinine 0.63 Random Glucose 170 Total Protein 5.5 Calcium Level 7.4 Sodium Level 135 Potassium Level 4.3 Chloride Level 103 Carbon Dioxide Level 24.2 Anion Gap 8 Estimat Glomerular Filtration Rate 123 Protein Corrected Calcium 8.3 Total Bilirubin 0.5 Direct Bilirubin 0.2 Indirect Bilirubin 0.3 Aspartate Amino Transf (AST/SGOT) 48 Alanine Aminotransferase (ALT/SGPT) 42 Alkaline Phosphatase 1065 Albumin 1.5 Result Diagram: 06/12/17 0346 06/12/17 0346 Imaging Last Impressions Head CT 06/12/17 0000 Signed Impressions: Service Date/Time: June 04:07 - CONCLUSION: 1. No acute intracranial normality. 1. Ángel Sotomayor MD Cervical Spine CT 06/12/17 0000 Signed Impressions: Service Date/Time: June 04:07 - CONCLUSION: 1. No acute fracture or subluxation. MD Ramila Mcdaniel VTE Risk Assessment Ramirezrini VTE Risk Assessment: Mod/High Risk (score >= 2) Caprini Risk Assessment Model Point Value = 1 Point Value = 2 Point Value = 3 Point Value = 5 Age 41-60 Minor surgery BMI > 25 kg/m2 Swollen legs Varicose veins or History of unexplained or recurrent spontaneous Oral contraceptives or hormone replacement Sepsis (< 1 month) Serious lung disease, including pneumonia (< 1 month) Abnormal pulmonary function Acute myocardial infarction Congestive heart failure (< 1 month) History of inflammatory bowel disease Medical patient at bed rest Age 61-74 Arthroscopic surgery Major open surgery (> 45 min) Laparoscopic surgery (> 45 min) Malignancy Confined to bed (> 72 hours) Immobilizing plaster cast Central venous access Age >= 75 History of VTE Family history of VTE Factor V Leiden Prothrombin [id number] Lupus anticoagulant Anticardiolipin antibodies Elevated serum homocysteine Heparin-induced thrombocytopenia Other congenital or acquired thrombophilia Stroke (< 1 month) Elective arthroplasty Hip, pelvis, or leg fracture Acute spinal cord injury (< 1 month) Prophylaxis Regimen Total Risk Factor Score Risk Level Prophylaxis Regimen 0-1 Low Early ambulation 2 Moderate Order ONE of the following: *Sequential Compression Device (SCD) *Heparin 5000 units SQ BID 3-4 Higher Order ONE of the following medications: *Heparin 5000 units SQ TID *Enoxaparin/Lovenox 40 mg SQ daily (WT < 150 kg, CrCl > 30 mL/min) *Enoxaparin/Lovenox 30 mg SQ daily (WT < 150 kg, CrCl > 10-29 mL/min) *Enoxaparin/Lovenox 30 mg SQ BID (WT < 150 kg, CrCl > 30 mL/min) AND/OR *Sequential Compression Device (SCD) 5 or more Highest Order ONE of the following medications: *Heparin 5000 units SQ TID (Preferred with Epidurals) *Enoxaparin/Lovenox 40 mg SQ daily (WT < 150 kg, CrCl > 30 mL/min) *Enoxaparin/Lovenox 30 mg SQ daily (WT < 150 kg, CrCl > 10-29 mL/min) *Enoxaparin/Lovenox 30 mg SQ BID (WT < 150 kg, CrCl > 30 mL/min) AND *Sequential Compression Device (SCD) Assessment and Plan Problem List: (1) Scalp laceration ICD Code: S01.01XA - Laceration without foreign body of scalp, initial encounter Status: Acute (2) Fall ICD Code: W19.XXXA - Unspecified fall, initial encounter Status: Acute (3) Anemia ICD Code: D64.9 - Anemia, unspecified Status: Acute (4) HTN (hypertension) ICD Code: I10 - Essential (primary) hypertension Status: Chronic Assessment and Plan This is a 82-year-old male with history of pancreatic cancer and chronic kidney disease admitted after a fall Fall-likely secondary to deconditioning and generalized weakness, possibly also secondary to anemia, consult physical therapy, patient will need continued physical therapy at rehabilitation prior to surgery. Cervical and brain CAT scan unremarkable. Patient denies any headache. Anemia-hemoglobin is 5.2, severe anemia of chronic disease, no active bleeding per patient, monitor H&H every 12 hours, transfuse 2 units of packed red blood cells, recheck hemoglobin after, may need further transfusion, check iron studies. Leukocytosis-could be stress-induced, check urinalysis, no complaints. No shortness of breath. Recheck CBC tomorrow History of Salmonella sepsis-review of medical records revealed Salmonella sepsis per infectious disease, status post stent exchange during previous admission, continue Levaquin until 07/06/17 per infectious disease. Pancreatic cancer-LFTs are stable. Status post chemotherapy, for surgery next week in [place]. Recheck LFTs tomorrow History of hypertension-blood pressure stable, hold Cardizem for now. Lovenox for DVT prophylaxis Consult physical therapy, consult case management, discharged once hemoglobin is stable. Physician Certification 2 Midnight Certification Type: Admission for Inpatient Services Order for Inpatient Services The services are ordered in accordance with Medicare regulations or non- Medicare payer requirements, as applicable. In the case of services not specified as inpatient-only, they are appropriately provided as inpatient services in accordance with the 2-midnight benchmark. Estimated LOS (days): 2 days is the estimated time the patient will need to remain in the hospital, assuming treatment plan goals are met and no additional complications. Post-Hospital Plan: SNF Problem Qualifiers (1) Scalp laceration: Qualified Codes: S01.01XA - Laceration without foreign body of scalp, initial encounter (2) Fall: Qualified Codes: W19.XXXA - Unspecified fall, initial encounter (3) Anemia: Qualified Codes: D64.9 - Anemia, unspecified Marianela Gibson MD Jun 12, 2017 12:53
[2017-06-12] MEDS ORDERED: ACETAMINOPHEN 325 MG TAB PO PRN (15:45)
[2017-06-12] MEDS ORDERED: ENALAPRILAT 1.25 MG/ML VIAL IV PUSH PRN (15:45)
[2017-06-12] MEDS: LEVOFLOXACIN 750 MG TAB PO SCH (18:04)
[2017-06-12] MEDS: ENOXAPARIN SODIUM 40 MG/0.4 ML SYRINGE SQ SCH (18:04)
[2017-06-12 23:53] LABS: HEMATOCRIT 21.8 % (39.0-51.0); REVIEW FLAG FINAL
[2017-06-13] VITALS (11 sets, daily range): BP systolic 105–125; BP diastolic 67–78; PULSE 85–107; RESP 16–18; TEMP 97.3–98.7; O2SAT 98–100
[2017-06-13] MEDS ORDERED: FUROSEMIDE 20 MG/2 ML VIAL IV PUSH PRN (01:15)
[2017-06-13] MEDS: LEVOTHYROXINE SODIUM 50 MCG TAB PO SCH (04:52)
[2017-06-13] MEDS: CHOLECALCIFEROL (VIT D3) 1000 UNIT TAB PO SCH (08:03)
[2017-06-13] MEDS: ASPIRIN 81 MG CHEW TAB CHEW SCH (08:03)
[2017-06-13] MEDS: LEVOFLOXACIN 750 MG TAB PO SCH (08:03)
[2017-06-13] MEDS: CYANOCOBALAMIN 1,000 MCG TAB PO SCH (08:03)
[2017-06-13] MEDS: MULTIVITAMIN TAB PO SCH (08:03)
[2017-06-13] MEDS: PRAVASTATIN SOD 40 MG TAB PO SCH (08:03)
[2017-06-13] MEDS: SODIUM CHLORIDE 0.9% FLUSH 10 ML FLUSH IV FLUSH SCH ×2 (08:07→21:00)
[2017-06-13] MEDS ORDERED: NON-FORMULARY DRUG (Fish Oil-Cholecalciferol (Omega-3 Fish Oil/Vitamin) 1 CAP) PO SCH (09:00)
[2017-06-13 09:45] LABS: AUTOMATED NEUTROPHIL # 11.6 TH/MM3 (1.8-7.7); BASOPHIL # 0.1 TH/MM3 (0-0.2); BASOPHIL % 0.7 % (0.0-2.0); EOSINOPHIL # 0.1 TH/MM3 (0-0.4); EOSINOPHIL % 0.7 % (0.0-4.0); HEMATOCRIT 28.9 % (39.0-51.0); HEMO FLAGS DIFF FINAL; LYMPH % 12.2 % (9.0-44.0); LYMPHOCYTE # 1.8 TH/MM3 (1.0-4.8); MEAN CELL VOLUME 88.6 FL (80.0-100.0); MEAN CORPUSCULAR HEMOGLOBIN 29.8 PG (27.0-34.0); MEAN CORPUSCULAR HGB CONC 33.6 % (32.0-36.0); MONO % 5.8 % (0.0-8.0); NEUT % 80.6 % (16.0-70.0); PLATELET COUNT 218 TH/MM3 (150-450); RED BLOOD COUNT 3.26 MIL/MM3 (4.50-5.90); RED CELL DISTRIBUTION WIDTH 14.8 % (11.6-17.2); WHITE BLOOD COUNT 14.5 TH/MM3 (4.0-11.0)
[2017-06-13 10:12] LABS: TRANSFERRIN IRON PROFILE 186 MG/DL (200-360)
[2017-06-13 10:16] LABS: FERRITIN 467 NG/ML (26-388)
[2017-06-13 13:18] LABS: BLOOD, URINE NEG (NEG); COMMENT (UR) CULT NOT INDICATED; CULTURE IF INDICATED CULT NOT INDICATED; GLUCOSE,URINE NEG (NEG); KETONE, URINE NEG (NEG); MUCUS URINE FEW /lpf (OCC); NITRITE,URINE NEG (NEG); PH, URINE 6.5 (5.0-8.5); SQUAMOUS EPITHELIAL CELL URINE <1 /hpf (0-5); URINE COLOR YELLOW (YELLW/STRAW)
--- NOTE | 2017-06-13 14:35 | HHI.PR ---
Subjective Remarks Follow-up for anemia and fall Patient has no complaint. He stated that he is doing well. Denied any chest pain, shortness of breathing, palpitation, lightheadedness or dizziness. Patient denies any GI bleed. No acute events overnight. Objective Vitals Vital Signs Date Time Temp Pulse Resp B/P (MAP) Pulse Ox O2 Delivery O2 Flow Rate FiO2 06/13/17 12:00 97.3 85 17 116/72 (87) 100 06/13/17 07:33 98.1 94 17 125/78 (94) 100 06/13/17 05:24 98.7 90 17 117/71 100 06/13/17 04:58 98.6 100 18 122/73 98 06/13/17 04:47 98.6 100 17 122/73 98 06/13/17 02:15 97.6 97 17 113/69 99 06/13/17 01:57 97.6 102 17 110/67 100 06/13/17 00:02 98 06/13/17 00:00 98.4 107 18 117/72 (87) 100 06/12/17 20:30 97.8 101 17 116/69 (85) 100 06/12/17 17:00 98.5 96 16 109/69 98 06/12/17 16:45 97.4 99 16 108/72 100 06/12/17 16:00 97.5 90 17 112/68 (83) 99 I/O 06/12/17 06/12/17 06/12/17 06/13/17 06/13/17 06/13/17 06:59 14:59 22:59 06:59 14:59 22:59 Intake Total 10 ml 1355 ml 520 ml 250 ml Output Total 575 ml 550 ml Balance 10 ml 780 ml -30 ml 250 ml Intake Oral 840 ml 240 ml Packed Cells 500 ml 250 ml 250 ml Blood Product IV Normal Saline Flush 10 ml 15 ml 30 ml Output Urine Total 575 ml 550 ml # Voids 1 # Bowel Movements 1 2 Result Diagram: 06/13/17 0927 06/12/17 0346 Objective Remarks GENERAL: in NAD CARDIOVASCULAR: Regular rate and rhythm without murmurs, gallops, or rubs. RESPIRATORY: Breath sounds equal bilaterally. No accessory muscle use. GASTROINTESTINAL: Abdomen soft, non-tender, nondistended. Medications and IVs Current Medications Sodium Chloride (NS Flush) 2 ml UNSCH PRN IV FLUSH FLUSH AFTER USING IV ACCESS ; Start 06/12/17 at 03:45; Stop 06/12/17 at 06:12; Status DC Sodium Chloride 250 ml @ 15 mls/hr ONCE ONCE IV ; Start 06/12/17 at 05:00; Stop 06/12/17 at 21:39; Status DC Tetanus/ Diphtheria Toxoids (Tetanus/ Diphtheria Tox Adult) 0.5 ml ONCE ONCE IM Last administered on 06/12/17 06:26; Start 06/12/17 at 05:00; Stop 06/12/17 at 05:01; Status DC Sodium Chloride (NS Flush) 2 ml UNSCH PRN IV FLUSH FLUSH AFTER USING IV ACCESS ; Start 06/12/17 at 05:15 Sodium Chloride (NS Flush) 2 ml BID IV FLUSH Last administered on 06/12/17 20: 57; Start 06/12/17 at 09:00 Naloxone HCl (Narcan Inj) 0.4 mg UNSCH PRN IV SEE LABEL COMMENTS; Start at 05:15 Acetaminophen (Tylenol) 325 mg Q4H PRN PO PAIN SCALE 1 TO 5; Start 06/12/17 at 15:45 Aspirin (Aspirin Chew) 81 mg DAILY CHEW Last administered on 06/13/17 08:03; Start 06/13/17 at 09:00 Cholecalciferol (Vitamin D3) 1,000 units DAILY PO Last administered on 08:03; Start 06/13/17 at 09:00 Levofloxacin (Levaquin) 750 mg DAILY PO Last administered on 06/13/17 08:03; Start 06/12/17 at 17:00 Levothyroxine Sodium (Synthroid) 50 mcg DAILY@0600 PO Last administered on 04:52; Start 06/13/17 at 06:00 Cyanocobalamin (Vitamin B12) 1,000 mcg DAILY PO Last administered on 06/13/17 08:03; Start 06/13/17 at 09:00 Non-Formulary Medication 1 cap DAILY PO ; Start 06/13/17 at 09:00; Status UNV Multivitamins (Theragran) 1 tab DAILY PO Last administered on 9/8/17at 08:03; Start 06/13/17 at 09:00 Pravastatin Sodium (Pravachol) 40 mg DAILY PO Last administered on 06/13/17 08: 03; Start 06/13/17 at 09:00 Enalaprilat (Vasotec Inj) 1.25 mg Q6H PRN IV PUSH SBP greater than 160; Start 06/12/17 at 15:45 Enoxaparin Sodium (Lovenox Inj) 40 mg Q24H SQ Last administered on 06/12/17 18: 04; Start 06/12/17 at 17:00 Furosemide (Lasix Inj) 20 mg UNSCH X1 PRN IV PUSH SEE LABEL COMMENTS Last administered on 06/13/17 04:49; Start 06/13/17 at 01:15; Stop 06/14/17 at 01:14 A/P Problem List: (1) Scalp laceration ICD Code: S01.01XA - Laceration without foreign body of scalp, initial encounter Status: Acute (2) Fall ICD Code: W19.XXXA - Unspecified fall, initial encounter Status: Acute (3) Anemia ICD Code: D64.9 - Anemia, unspecified Status: Acute (4) HTN (hypertension) ICD Code: I10 - Essential (primary) hypertension Status: Chronic Assessment and Plan This is a 82-year-old male with history of pancreatic cancer and chronic kidney disease admitted after a fall Fall-likely secondary to deconditioning and generalized weakness, possibly also secondary to anemia, consult physical therapy, patient will need continued physical therapy at rehabilitation prior to surgery. Cervical and brain CAT scan unremarkable. Patient denies any headache. Anemia-hemoglobin 5.2 now 9.7 after giving 2 units of packed red blood cells. We will need to continue to monitor to make sure stable and for any signs of bleeding. GI consulted. Leukocytosis-most likely secondary to pancreatic cancer. Stable. No signs of infection. UA is negative. History of Salmonella sepsis-review of medical records revealed Salmonella sepsis per infectious disease, status post stent exchange during previous admission, continue Levaquin until 07/06/17 per infectious disease. Pancreatic cancer-LFTs are stable. Status post chemotherapy, for surgery next week in [place]. Recheck LFTs tomorrow History of hypertension-blood pressure stable, hold Cardizem for now. Lovenox for DVT prophylaxis Consult physical therapy, consult case management, discharged once hemoglobin is stable. Discharge Planning Pending GI consult. If hemoglobin continues to remain stable and no signs of active bleeding possible discharge tomorrow to SNF. Problem Qualifiers (1) Scalp laceration: Qualified Codes: S01.01XA - Laceration without foreign body of scalp, initial encounter (2) Fall: Qualified Codes: W19.XXXA - Unspecified fall, initial encounter (3) Anemia: Qualified Codes: D64.9 - Anemia, unspecified Dahlia Ceja MD Jun 13, 2017 14:35
[2017-06-13] MEDS: ENOXAPARIN SODIUM 40 MG/0.4 ML SYRINGE SQ SCH (17:47)
[2017-06-14] VITALS (7 sets, daily range): BP systolic 109–132; BP diastolic 59–77; PULSE 70–91; RESP 16–19; TEMP 96.9–98.7; O2SAT 94–100
[2017-06-14] MEDS: LEVOTHYROXINE SODIUM 50 MCG TAB PO SCH (06:30)
--- NOTE | 2017-06-14 07:12 | MB ---
cc: LELIA SAUL M.D. DATE OF CONSULTATION 06/13/2017 DATE OF 1935 REASON FOR CONSULTATION This is an 82-year-old gentleman who has a known history of pancreatic cancer status post ERCP with stent placement. The patient as supposed to go to [place] for surgery. He underwent chemotherapy. The patient was feeling weak at home and he had a fall and found to have significant anemia. The patient denied any sign of active bleeding. No black stool. No nausea. No vomiting and he denied any other problem. He is known to have Salmonella sepsis and he was treated for that by [facility]. PAST MEDICAL HISTORY Significant for: 1. Chronic kidney disease 2. Pancreatic cancer 3. Anemia SURGERIES Colon surgery MEDICATIONS Reviewed in his chart. FAMILY HISTORY Significant for stroke. SOCIAL HISTORY Negative for tobacco, drugs or alcohol. ALLERGIES NO KNOWN DRUG ALLERGIES. PHYSICAL EXAMINATION Alert and oriented no acute distress. VITAL SIGNS: Stable. HEENT: Pupils are round and reactive to light. NECK: Supple. CHEST: Clear to auscultation and percussion. CARDIAC: Regular rate and rhythm. No murmur or gallop. ABDOMEN: Soft, nondistended. Positive bowel sounds. EXTREMITIES: No edema, clubbing or cyanosis. NEUROLOGIC: Intact. PSYCHOLOGIC: Appropriate. SKIN: Okay. LABORATORY DATA White count 15.1, hemoglobin 5.1 on admission, now it is 9.7, platelet 266, INR 1.4. Liver function test was normal except AST of 48, iron saturation was 13.4. Head CT was unremarkable. ASSESSMENT/PLAN This is a pleasant 82-year-old gentleman who has pancreatic cancer and severe anemia causing him to lose consciousness and fall. He denied any GI bleed. The anemia could be related to chemotherapy or to the cancer, but GI source cannot be ruled out. Currently, hemoglobin is stable and the patient will continue to be observed. He might need an endoscopy and a colonoscopy. We will see how he is doing in the next 24 hours and plan on doing that if there is any sign of GI bleed. He will need to keep his appointment for his surgery for the pancreatic cancer in the next week. MD BRAN Tipton/FERNIE /11:05 PM /7:03 AM
[2017-06-14 09:17] LABS: MEAN CELL VOLUME 89.4 FL (80.0-100.0); MEAN CORPUSCULAR HEMOGLOBIN 30.3 PG (27.0-34.0); MEAN CORPUSCULAR HGB CONC 33.9 % (32.0-36.0); PLATELET COUNT 220 TH/MM3 (150-450); RED BLOOD COUNT 3.25 MIL/MM3 (4.50-5.90); REVIEW FLAG FINAL; WHITE BLOOD COUNT 13.4 TH/MM3 (4.0-11.0)
[2017-06-14 09:44] LABS: BICARBONATE 27.3 MEQ/L (21.0-32.0); POTASSIUM 3.6 MEQ/L (3.5-5.1)
[2017-06-14] MEDS: CHOLECALCIFEROL (VIT D3) 1000 UNIT TAB PO SCH (09:57)
[2017-06-14] MEDS: MULTIVITAMIN TAB PO SCH (09:57)
[2017-06-14] MEDS: CYANOCOBALAMIN 1,000 MCG TAB PO SCH (09:57)
[2017-06-14] MEDS: PRAVASTATIN SOD 40 MG TAB PO SCH (09:57)
[2017-06-14] MEDS: ASPIRIN 81 MG CHEW TAB CHEW SCH (09:57)
[2017-06-14] MEDS: LEVOFLOXACIN 750 MG TAB PO SCH (09:57)
[2017-06-14] MEDS: SODIUM CHLORIDE 0.9% FLUSH 10 ML FLUSH IV FLUSH SCH ×2 (09:58→20:24)
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
[2017-06-14] MEDS: ENOXAPARIN SODIUM 40 MG/0.4 ML SYRINGE SQ SCH (16:56)
[2017-06-15 03:30] VITALS: BP 121/69; PULSE 88; RESP 18; TEMP 97.8; O2SAT 98
[2017-06-15] MEDS: LEVOTHYROXINE SODIUM 50 MCG TAB PO SCH (06:13)
[2017-06-15 07:52] VITALS: BP 121/70; PULSE 77; RESP 18; TEMP 97.1; O2SAT 99
[2017-06-15] MEDS: SODIUM CHLORIDE 0.9% FLUSH 10 ML FLUSH IV FLUSH SCH ×2 (09:52→21:00)
[2017-06-15] MEDS: PRAVASTATIN SOD 40 MG TAB PO SCH (09:52)
[2017-06-15] MEDS: LEVOFLOXACIN 750 MG TAB PO SCH (09:52)
[2017-06-15] MEDS: MULTIVITAMIN TAB PO SCH (09:52)
[2017-06-15] MEDS: CYANOCOBALAMIN 1,000 MCG TAB PO SCH (09:52)
[2017-06-15] MEDS: CHOLECALCIFEROL (VIT D3) 1000 UNIT TAB PO SCH (09:52)
[2017-06-15] MEDS: ASPIRIN 81 MG CHEW TAB CHEW SCH (09:52)
--- NOTE | 2017-06-15 10:13 | HHI.GIFU ---
Subjective Remarks Resting in bed with no complaints. Denies any active bleeding- no hematochezia , hematemesis, or melena. No abdominal pain. Has an appointment with Dr. Lucina Portillo and then the plan is to go to [facility] for surgery for his pancreatic cancer (he completed chemotherapy a few months ago). (Adia Kendall) Objective Vitals I&O Vital Signs Date Time Temp Pulse Resp B/P (MAP) Pulse Ox O2 Delivery O2 Flow Rate FiO2 06/15/17 07:52 97.1 77 18 121/70 (87) 99 06/15/17 03:30 97.8 88 18 121/69 (86) 98 06/14/17 23:06 96.9 70 18 117/59 (78) 94 06/14/17 19:56 98.7 72 17 132/77 (95) 96 06/14/17 18:55 79 06/14/17 16:00 97.1 81 19 114/69 (84) 99 06/14/17 12:00 97.3 82 16 109/65 (80) 100 I/O 06/14/17 06/14/17 06/14/17 06/15/17 06/15/17 06/15/17 07:00 15:00 23:00 07:00 15:00 23:00 Intake Total 480 ml 720 ml 360 ml 360 ml Balance 480 ml 720 ml 360 ml 360 ml Intake Oral 480 ml 720 ml 360 ml 360 ml # Voids 2 2 2 3 # Bowel Movements 1 0 0 Imaging Last Impressions Head CT 06/12/17 0000 Signed Impressions: Service Date/Time: June 04:07 - CONCLUSION: 1. No acute intracranial normality. 1. Ángel Sotomayor MD Cervical Spine CT 06/12/17 0000 Signed Impressions: Service Date/Time: June 04:07 - CONCLUSION: 1. No acute fracture or subluxation. Ángel Sotomayor MD Physical Exam HEENT: Normocephalic; atraumatic; no jaundice. CHEST: Resp even/unlabored CARDIAC: RRR ABDOMEN: Soft, mildly bloated, nontender; no hepatosplenomegaly; bowel sounds are present in all four quadrants. SKIN: Normal; no rash; no jaundice. JET SKI MECHANIC: No focal deficits; alert and oriented times three. (Adia Kendall) Assessment and Plan Plan ASSESSMENT: - Severe anemia, symptomatic. HH 5.2/17.1 on admission. S/P 4 units of PRBC. HH 9.9/29.0. No obvious active bleeding. - Leukocytosis. WBC 13.4. Afebrile. - Pancreatic cancer. Dx in February of 2017.CT as above MRCP (02/20/17)----> The common bile duct is markedly dilated as is the pancreatic duct and there is also tapering of the splenic vein in SMV before it becomes the portal vein. All three things suggest that there is a central pancreatic head mass, but it is difficult to define one on the MRCP. After contrast there is a fairly uniform enhancement through the head and neck of the pancreas. Difficult to define an actual mass. There is a questionable 1 cm lesion in the head of the pancreas on the CT scan specifically series2; image 30 but this is more median than the common bile duct narrowing. Outpatient PET CT could be performed. Solid organs are unremarkable. EUS with FNA/ERCP with stent placement (02/21/17)----> Pancreatic head mass, biliary stricture, s/p stent placement. Pancreatic head mass FNA revealed atypical glandular cells consistent with adenocarcinoma, cell block atypical glandular cells consistent with adenocarcinoma. He was thought to have potentially resectable disease and completed 7-8 weeks of Abraxane and gemcitabine. S/P ERCP with stent removal and sphincterotomy balloon extraction and stent placement (05/20)----> Choledocholithiasis, s/p balloon extraction and stent exchange. Has appointment with Dr. Verdugo on Friday and then the plan is to go to [facility] for resection of pancreatic cancer. - Hx Salmonella infection last month. - HTN, Hypothyroidism, Hyperlipidemia. Per attending. PLAN: - KEON - PPI - Monitor HH - Transfuse as necessary - Further recommendations with regards to endoscopic evaluation of anemia after seen by Dr. Bolanos (Adia Kendall) Physician Comments seen, examined agree with above egd in am if negative consider colonoscopy (Lexie Bolanos MD) Adia Kendall Jun 15, 2017 10:13 Lexie Bolanos MD Jun 15, 2017 18:57
[2017-06-15 11:35] VITALS: BP 105/64; PULSE 84; RESP 18; TEMP 97.8; O2SAT 100
[2017-06-15 15:38] VITALS: BP 110/67; PULSE 84; RESP 18; TEMP 97.7; O2SAT 100
[2017-06-15] MEDS: ENOXAPARIN SODIUM 40 MG/0.4 ML SYRINGE SQ SCH (17:46)
[2017-06-15 18:55] VITALS: PULSE 88
[2017-06-15 19:24] VITALS: BP 113/63; PULSE 88; RESP 17; TEMP 97.9; O2SAT 97
[2017-06-16] VITALS (7 sets, daily range): BP systolic 105–122; BP diastolic 63–73; PULSE 82–96; RESP 17–18; TEMP 96.8–99.5; O2SAT 98–100
[2017-06-16] MEDS ORDERED: POVIDONE IODINE 5% (ANTISEPSIS KIT) 4 APPLICATIONS EACH NARE PRN (05:00)
[2017-06-16] MEDS ORDERED: METOPROLOL TARTRATE 25 MG TAB PO PRN (05:00)
[2017-06-16] MEDS ORDERED: CHLORHEXIDINE GLUCONATE 2 % 1 PACK (2 CLOTHS) TOPICAL PRN (05:00)
[2017-06-16] MEDS ORDERED: LACTATED RINGER'S 1000 ML IV PRN (05:00)
[2017-06-16] MEDS ORDERED: SODIUM CHLORID 0.9% 500 ML IV PRN (05:00)
[2017-06-16] MEDS ORDERED: INSULIN HUMAN REGULAR 1,000 UNITS/10 ML VIAL SQ PRN (05:00)
[2017-06-16] MEDS: LEVOTHYROXINE SODIUM 50 MCG TAB PO SCH (06:29)
[2017-06-16] MEDS: LEVOFLOXACIN 750 MG TAB PO SCH (08:28)
[2017-06-16] MEDS: ASPIRIN 81 MG CHEW TAB CHEW SCH (08:28)
[2017-06-16] MEDS: CHOLECALCIFEROL (VIT D3) 1000 UNIT TAB PO SCH (08:28)
[2017-06-16] MEDS: SODIUM CHLORIDE 0.9% FLUSH 10 ML FLUSH IV FLUSH SCH ×2 (08:29→22:54)
[2017-06-16] MEDS: MULTIVITAMIN TAB PO SCH (08:29)
[2017-06-16] MEDS: PRAVASTATIN SOD 40 MG TAB PO SCH (08:29)
[2017-06-16] MEDS: CYANOCOBALAMIN 1,000 MCG TAB PO SCH (08:29)
--- NOTE | 2017-06-16 10:59 | HHI.PR ---
Subjective Remarks Patient seen on 06/15/2017 at 12:30 pm. Patient has no complaints. Denied any GI bleed or abdominal pain. Objective Vitals Vital Signs Date Time Temp Pulse Resp B/P (MAP) Pulse Ox O2 Delivery O2 Flow Rate FiO2 06/16/17 08:00 96.8 91 18 114/73 (87) 98 06/16/17 03:03 97.9 86 17 110/63 (79) 99 06/16/17 00:35 98.2 89 18 119/64 (82) 98 06/15/17 19:24 97.9 88 17 113/63 (80) 97 06/15/17 18:55 88 06/15/17 15:38 97.7 84 18 110/67 (81) 100 06/15/17 11:35 97.8 84 18 105/64 (78) 100 I/O 06/15/17 06/15/17 06/15/17 06/16/17 06/16/17 06/16/17 06:59 14:59 22:59 06:59 14:59 22:59 Intake Total 360 ml 500 ml 480 ml 0 ml Balance 360 ml 500 ml 480 ml 0 ml Intake Oral 360 ml 500 ml 480 ml 0 ml # Voids 3 3 2 4 # Bowel Movements 0 0 0 1 Result Diagram: 06/14/1746 06/14/1746 Objective Remarks GENERAL: in NAD CARDIOVASCULAR: Regular rate and rhythm without murmurs, gallops, or rubs. RESPIRATORY: Breath sounds equal bilaterally. No accessory muscle use. GASTROINTESTINAL: Abdomen soft, non-tender, nondistended. Procedures Blood transfusion. Medications and IVs Current Medications Sodium Chloride (NS Flush) 2 ml UNSCH PRN IV FLUSH FLUSH AFTER USING IV ACCESS ; Start 06/12/17 at 03:45; Stop 06/12/17 at 06:12; Status DC Sodium Chloride 250 ml @ 15 mls/hr ONCE ONCE IV ; Start 06/12/17 at 05:00; Stop 06/12/17 at 21:39; Status DC Tetanus/ Diphtheria Toxoids (Tetanus/ Diphtheria Tox Adult) 0.5 ml ONCE ONCE IM Last administered on 06/12/17t 06:26; Start 06/12/17 at 05:00; Stop 06/12/17 at 05:01; Status DC Sodium Chloride (NS Flush) 2 ml UNSCH PRN IV FLUSH FLUSH AFTER USING IV ACCESS ; Start 06/12/17 at 05:15 Sodium Chloride (NS Flush) 2 ml BID IV FLUSH Last administered on 06/16/17 08: 29; Start 06/12/17 at 09:00 Naloxone HCl (Narcan Inj) 0.4 mg UNSCH PRN IV SEE LABEL COMMENTS; Start at 05:15 Acetaminophen (Tylenol) 325 mg Q4H PRN PO PAIN SCALE 1 TO 5; Start 06/12/17 at 15:45 Aspirin (Aspirin Chew) 81 mg DAILY CHEW Last administered on 06/16/17 08:28; Start 06/13/17 at 09:00 Cholecalciferol (Vitamin D3) 1,000 units DAILY PO Last administered on 08:28; Start 06/13/17 at 09:00 Levofloxacin (Levaquin) 750 mg DAILY PO Last administered on 06/16/17 08:28; Start 06/12/17 at 17:00 Levothyroxine Sodium (Synthroid) 50 mcg DAILY@0600 PO Last administered on 06/16 06:29; Start 06/13/17 at 06:00 Cyanocobalamin (Vitamin B12) 1,000 mcg DAILY PO Last administered on 06/16/17 08:29; Start 06/13/17 at 09:00 Non-Formulary Medication 1 cap DAILY PO ; Start 06/13/17 at 09:00; Status UNV Multivitamins (Theragran) 1 tab DAILY PO Last administered on 06/16/17 08:29; Start 06/13/17 at 09:00 Pravastatin Sodium (Pravachol) 40 mg DAILY PO Last administered on 06/16/17 08 :29; Start 06/13/17 at 09:00 Enalaprilat (Vasotec Inj) 1.25 mg Q6H PRN IV PUSH SBP greater than 160; Start 06/12/17 at 15:45 Enoxaparin Sodium (Lovenox Inj) 40 mg Q24H SQ Last administered on 06/15/17 17 :46; Start 06/12/17 at 17:00 Furosemide (Lasix Inj) 20 mg UNSCH X1 PRN IV PUSH SEE LABEL COMMENTS Last administered on 9/8/17at 04:49; Start 06/13/17 at 01:15; Stop 06/14/17 at 01:14; Status DC Lactated Ringer's 1,000 ml @ 30 mls/hr Q24H PRN IV SEE LABEL COMMENTS; Start at 05:00; Stop 06/19/17 at 04:59 Sodium Chloride 500 ml @ 30 mls/hr [id number] PRN IV SEE LABEL COMMENTS; Start 08/22 at 05:00; Stop 06/19/17 at 04:59 Metoprolol Tartrate (Lopressor) 25 mg REPLENISHMENT SPECIALIST PRN PO SEE LABEL COMMENTS; Start 06/16/17 at 05:00; Stop 06/19/17 at 04:59 Povidone Iodine (Betadine 5% Antisepsis Kit) 1 applic REPLENISHMENT SPECIALIST PRN EACH NARE SEE LABEL COMMENTS; Start 06/16/17 at 05:00; Stop 06/19/17 at 04:59 Chlorhexidine Gluconate (Chlorhexidine 2% Cloth) 3 pack REPLENISHMENT SPECIALIST PRN TOPICAL SEE LABEL COMMENTS; Start 06/16/17 at 05:00; Stop 06/19/17 at 04:59 Insulin Human Regular (NovoLIN R INJ) See Protocol Table ... REPLENISHMENT SPECIALIST PRN SQ SEE PROTOCOL TABLE; Start 06/16/17 at 05:00; Stop 06/19/17 at 04:59 A/P Problem List: (1) Scalp laceration ICD Code: S01.01XA - Laceration without foreign body of scalp, initial encounter Status: Acute (2) Fall ICD Code: W19.XXXA - Unspecified fall, initial encounter Status: Acute (3) Anemia ICD Code: D64.9 - Anemia, unspecified Status: Acute (4) HTN (hypertension) ICD Code: I10 - Essential (primary) hypertension Status: Chronic Assessment and Plan This is a 82-year-old male with history of pancreatic cancer and chronic kidney disease admitted after a fall Fall-likely secondary to deconditioning and generalized weakness, possibly also secondary to anemia, consult physical therapy, patient will need continued physical therapy at rehabilitation prior to surgery. Cervical and brain CAT scan unremarkable. Patient denies any headache. Anemia-hemoglobin 5.2 now 9.7 after giving 2 units of packed red blood cells. It has remained stable. GI consulted recommended EGD if negative then colonoscopy. Leukocytosis-most likely secondary to pancreatic cancer. Stable. No signs of infection. UA is negative. History of Salmonella sepsis-review of medical records revealed Salmonella sepsis per infectious disease, status post stent exchange during previous admission, continue Levaquin until 07/06/17 per infectious disease. Pancreatic cancer-LFTs are stable. Status post chemotherapy, for surgery next week in [place]. History of hypertension-blood pressure stable, hold Cardizem for now. Lovenox for DVT prophylaxis Problem Qualifiers (1) Scalp laceration: Qualified Codes: S01.01XA - Laceration without foreign body of scalp, initial encounter (2) Fall: Qualified Codes: W19.XXXA - Unspecified fall, initial encounter (3) Anemia: Qualified Codes: D64.9 - Anemia, unspecified Dahlia Ceja MD Jun 16, 2017 10:59
--- NOTE | 2017-06-16 11:01 | HHI.PR ---
Subjective Remarks Patient seen on 06/16/2017 at 10:30 AM. Patient has no complaints. Deny any GI bleed. He is scheduled for EGD this morning. Dealt with patient's nurse Sandee who had no concerns. Objective Vitals Vital Signs Date Time Temp Pulse Resp B/P (MAP) Pulse Ox O2 Delivery O2 Flow Rate FiO2 06/16/17 08:00 96.8 91 18 114/73 (87) 98 06/16/17 03:03 97.9 86 17 110/63 (79) 99 06/16/17 00:35 98.2 89 18 119/64 (82) 98 06/15/17 19:24 97.9 88 17 113/63 (80) 97 06/15/17 18:55 88 06/15/17 15:38 97.7 84 18 110/67 (81) 100 06/15/17 11:35 97.8 84 18 105/64 (78) 100 I/O 06/15/17 06/15/17 06/15/17 06/16/17 06/16/17 06/16/17 06:59 14:59 22:59 06:59 14:59 22:59 Intake Total 360 ml 500 ml 480 ml 0 ml Balance 360 ml 500 ml 480 ml 0 ml Intake Oral 360 ml 500 ml 480 ml 0 ml # Voids 3 3 2 4 # Bowel Movements 0 0 0 1 Result Diagram: 06/14/17 0846 06/14/17 0846 Objective Remarks GENERAL: in NAD SKIN: Port in place. CARDIOVASCULAR: Regular rate and rhythm without murmurs, gallops, or rubs. RESPIRATORY: Breath sounds equal bilaterally. No accessory muscle use. GASTROINTESTINAL: Abdomen soft, non-tender, nondistended. Procedures Blood transfusion. Medications and IVs Current Medications Sodium Chloride (NS Flush) 2 ml UNSCH PRN IV FLUSH FLUSH AFTER USING IV ACCESS ; Start 06/12/17 at 03:45; Stop 06/12/17 at 06:12; Status DC Sodium Chloride 250 ml @ 15 mls/hr ONCE ONCE IV ; Start 06/12/17 at 05:00; Stop 06/12/17 at 21:39; Status DC Tetanus/ Diphtheria Toxoids (Tetanus/ Diphtheria Tox Adult) 0.5 ml ONCE ONCE IM Last administered on 06/12/17t 06:26; Start 06/12/17 at 05:00; Stop 06/12/17 at 05:01; Status DC Sodium Chloride (NS Flush) 2 ml UNSCH PRN IV FLUSH FLUSH AFTER USING IV ACCESS ; Start 06/12/17 at 05:15 Sodium Chloride (NS Flush) 2 ml BID IV FLUSH Last administered on 06/16/17 08: 29; Start 06/12/17 at 09:00 Naloxone HCl (Narcan Inj) 0.4 mg UNSCH PRN IV SEE LABEL COMMENTS; Start at 05:15 Acetaminophen (Tylenol) 325 mg Q4H PRN PO PAIN SCALE 1 TO 5; Start 06/12/17 at 15:45 Aspirin (Aspirin Chew) 81 mg DAILY CHEW Last administered on 06/16/17 08:28; Start 06/13/17 at 09:00 Cholecalciferol (Vitamin D3) 1,000 units DAILY PO Last administered on 08:28; Start 06/13/17 at 09:00 Levofloxacin (Levaquin) 750 mg DAILY PO Last administered on 06/16/17 08:28; Start 06/12/17 at 17:00 Levothyroxine Sodium (Synthroid) 50 mcg DAILY@0600 PO Last administered on 06/16 06:29; Start 06/13/17 at 06:00 Cyanocobalamin (Vitamin B12) 1,000 mcg DAILY PO Last administered on 06/16/17 08:29; Start 06/13/17 at 09:00 Non-Formulary Medication 1 cap DAILY PO ; Start 06/13/17 at 09:00; Status UNV Multivitamins (Theragran) 1 tab DAILY PO Last administered on 06/16/17 08:29; Start 06/13/17 at 09:00 Pravastatin Sodium (Pravachol) 40 mg DAILY PO Last administered on 06/16/17 08 :29; Start 06/13/17 at 09:00 Enalaprilat (Vasotec Inj) 1.25 mg Q6H PRN IV PUSH SBP greater than 160; Start 06/12/17 at 15:45 Enoxaparin Sodium (Lovenox Inj) 40 mg Q24H SQ Last administered on 06/15/17 17 :46; Start 06/12/17 at 17:00 Furosemide (Lasix Inj) 20 mg UNSCH X1 PRN IV PUSH SEE LABEL COMMENTS Last administered on 06/13/17t 04:49; Start 06/13/17 at 01:15; Stop 06/14/17 at 01:14; Status DC Lactated Ringer's 1,000 ml @ 30 mls/hr Q24H PRN IV SEE LABEL COMMENTS; Start at 05:00; Stop 06/19/17 at 04:59 Sodium Chloride 500 ml @ 30 mls/hr [id number] PRN IV SEE LABEL COMMENTS; Start 08/22 at 05:00; Stop 06/19/17 at 04:59 Metoprolol Tartrate (Lopressor) 25 mg BUTTON RIVETER PRN PO SEE LABEL COMMENTS; Start 06/16/17 at 05:00; Stop 06/19/17 at 04:59 Povidone Iodine (Betadine 5% Antisepsis Kit) 1 applic BUTTON RIVETER PRN EACH NARE SEE LABEL COMMENTS; Start 06/16/17 at 05:00; Stop 06/19/17 at 04:59 Chlorhexidine Gluconate (Chlorhexidine 2% Cloth) 3 pack BUTTON RIVETER PRN TOPICAL SEE LABEL COMMENTS; Start 06/16/17 at 05:00; Stop 06/19/17 at 04:59 Insulin Human Regular (NovoLIN R INJ) See Protocol Table ... BUTTON RIVETER PRN SQ SEE PROTOCOL TABLE; Start 06/16/17 at 05:00; Stop 06/19/17 at 04:59 A/P Problem List: (1) Scalp laceration ICD Code: S01.01XA - Laceration without foreign body of scalp, initial encounter Status: Acute (2) Fall ICD Code: W19.XXXA - Unspecified fall, initial encounter Status: Acute (3) Anemia ICD Code: D64.9 - Anemia, unspecified Status: Acute (4) HTN (hypertension) ICD Code: I10 - Essential (primary) hypertension Status: Chronic Assessment and Plan This is a 82-year-old male with history of pancreatic cancer and chronic kidney disease admitted after a fall Fall-likely secondary to deconditioning and generalized weakness, possibly also secondary to anemia, consult physical therapy, patient will need continued physical therapy at rehabilitation prior to surgery. Cervical and brain CAT scan unremarkable. Patient denies any headache. Anemia-hemoglobin 5.2 now 9.7 after giving 2 units of packed red blood cells. It has remained stable. GI consulted recommended EGD if negative then colonoscopy. Patient scheduled for EGD today. Pending H&H for today. Leukocytosis-most likely secondary to pancreatic cancer. Stable. No signs of infection. UA is negative. History of Salmonella sepsis-review of medical records revealed Salmonella sepsis per infectious disease, status post stent exchange during previous admission, continue Levaquin until 07/06/17 per infectious disease. Pancreatic cancer-LFTs are stable. Status post chemotherapy, for surgery next week in [place]. History of hypertension-blood pressure stable, hold Cardizem for now. Lovenox for DVT prophylaxis Discharge Planning Patient scheduled for EGD today and if negative will have a colonoscopy. Once patient is medically stable can be transferred to SNF. case management is working on an accepting facility. Problem Qualifiers (1) Scalp laceration: Qualified Codes: S01.01XA - Laceration without foreign body of scalp, initial encounter (2) Fall: Qualified Codes: W19.XXXA - Unspecified fall, initial encounter (3) Anemia: Qualified Codes: D64.9 - Anemia, unspecified Dahlia Ceja MD Jun 16, 2017 11:01
[2017-06-16] MEDS ORDERED: IMPLANTED VASCULAR ACCESS PORT - SODIUM CHLORIDE FLUSH PRN IV FLUSH (12:00)
[2017-06-16] MEDS ORDERED: IMPLANTED VASCULAR ACCESS PORT - SODIUM CHLORIDE FLUSH IV FLUSH SCH (12:00)
[2017-06-16] MEDS ORDERED: PROPOFOL 200 MG/20 ML AMP IV ONE (12:28)
[2017-06-16] MEDS ORDERED: DO NOT ADM ANY ANTICOAGULANT DRUGS PRN (12:36)
--- NOTE | 2017-06-16 12:39 | GIPROC ---
[facility] [address] [facility]. [facility], [address] EGD PROCEDURE REPORT EXAM DATE: 06/16/2017 PATIENT NAME: Rogers Araujo MR #: [id number] BIRTHDATE: 1935 ATTENDING: Dimas Lang MD ORDER #: [id number] COPING MACHINE ASSEMBLER: German Gonzalez and Adam Summers STATUS: inpatient INDICATIONS: The patient is a 82 yr old male here for an EGD due to acute post hemorrhagic anemia and melena PROCEDURE PERFORMED: EGD w/ biopsy MEDICATIONS: None and Per Anesthesia. TOPICAL ANESTHETIC: CONSENT: The patient understands the risks and benefits of the procedure and understands that these risks include, but are not limited to: sedation, allergic reaction, infection, perforation and/or bleeding. Alternative means of evaluation and treatment include, among others: physical exam, x-rays, and/or surgical intervention. The patient elects to proceed with this endoscopic procedure. medical equipment was checked for proper function. Hand hygiene and appropriate measures for infection prevention was taken. After the risks, benefits and alternatives of the procedure were thoroughly explained, Informed consent was verified, confirmed and timeout was successfully executed by the treatment team. The patient was anesthetized with topical anesthesia and the Pentax [id number] endoscope was introduced through the mouth and advanced to the second portion of the duodenum. Retroflexed views revealed no abnormalities The gastroscope was then slowly withdrawn and removed. ESOPHAGUS: The mucosa of the esophagus appeared normal. STOMACH: There was erythematous severe gastritis in the gastric antrum. Biliary stent in place. DUODENUM: A single non-bleeding, deep and clean-based ulcer ranging between 5-9mm in size with surrounding edema and heaped up edges was found in the 1st part of the duodenum. Biopsies were taken at edge of the ulcer. ADVERSE EVENTS: There were no complications. IMPRESSIONS: 1. The esophagus appeared normal 2. There was erythematous gastritis in the gastric antrum 3. Biliary stent in place 4. Single ulcer ranging between 5-9mm in size was found in the 1st part of the duodenum; biopsies were taken 5. Retroflexed views revealed no abnormalities RECOMMENDATIONS: 1. Await biopsy results. Biopsy results will not be ready for 7-10 days. If you don't hear from us in two weeks, call our office for biopsy results. 2. Anti-reflux regimen 3. Continue PPI 4. Avoid NSAIDS 5. Colonoscopy if further bleeding PATIENT CONDITION: stable DISPOSITION: Inpatient REPEAT EXAM: Return 2 months EGD pending biopsy results Dimas Lang MD eSigned: Dimas Lang MD 06/16/2017 12:39 PM cc: Tracey Verdugo M.D. PATIENT NAME: Rogers Araujo MR#: [id number]
[2017-06-16] MEDS: PANTOPRAZOLE SOD 40 MG DELAYED RELEASE TAB PO SCH ×2 (13:55→22:53)
[2017-06-16 17:57] LABS: HEMATOCRIT 27.7 % (39.0-51.0)
[2017-06-16] MEDS: ENOXAPARIN SODIUM 40 MG/0.4 ML SYRINGE SQ SCH (18:24)
[2017-06-17 00:58] VITALS: BP 90/53; PULSE 90; RESP 16; TEMP 97.8; O2SAT 100
[2017-06-17 04:00] VITALS: BP 106/66; PULSE 91; RESP 16; TEMP 98.3; O2SAT 98
[2017-06-17] MEDS: LEVOTHYROXINE SODIUM 50 MCG TAB PO SCH (05:35)
[2017-06-17 08:00] VITALS: BP 120/84; PULSE 83; RESP 18; TEMP 97.7; O2SAT 99
[2017-06-17 08:41] VITALS: O2SAT 97
[2017-06-17 08:59] LABS: HEMATOCRIT 28.6 % (39.0-51.0); MEAN CELL VOLUME 91.3 FL (80.0-100.0); MEAN CORPUSCULAR HGB CONC 33.9 % (32.0-36.0); PLATELET COUNT 201 TH/MM3 (150-450); RED BLOOD COUNT 3.13 MIL/MM3 (4.50-5.90); RED CELL DISTRIBUTION WIDTH 15.6 % (11.6-17.2); REVIEW FLAG FINAL; WHITE BLOOD COUNT 10.3 TH/MM3 (4.0-11.0)
[2017-06-17] MEDS: SODIUM CHLORIDE 0.9% FLUSH 10 ML FLUSH IV FLUSH SCH (09:00)
[2017-06-17] MEDS: ASPIRIN 81 MG CHEW TAB CHEW SCH (09:04)
[2017-06-17] MEDS: PRAVASTATIN SOD 40 MG TAB PO SCH (09:04)
[2017-06-17] MEDS: LEVOFLOXACIN 750 MG TAB PO SCH (09:04)
[2017-06-17] MEDS: MULTIVITAMIN TAB PO SCH (09:04)
[2017-06-17] MEDS: CYANOCOBALAMIN 1,000 MCG TAB PO SCH (09:04)
[2017-06-17] MEDS: PANTOPRAZOLE SOD 40 MG DELAYED RELEASE TAB PO SCH (09:04)
[2017-06-17] MEDS: CHOLECALCIFEROL (VIT D3) 1000 UNIT TAB PO SCH (09:04)
[2017-06-17] MEDS ORDERED: OMEP40CA2 PO (11:20)
[2017-06-17] MEDS ORDERED: LEVA750T9 PO (11:23)
--- NOTE | 2017-06-17 11:27 | HHI.DCPOC ---
Discharge Care Plan Diagnosis: (1) Gastric ulcer (2) Salmonella bacteremia (3) Anemia Goals to Promote Your Health * To prevent worsening of your condition and complications * To maintain your health at the optimal level Directions to Meet Your Goals Take your medications as prescribed Follow your dietary instruction Follow activity as directed Keep your appointments as scheduled Take your immunizations and boosters as scheduled If your symptoms worsen call your PCP, if no PCP go to Urgent Care Center or Emergency Room Smoking is Dangerous to Your Health. Avoid second hand smoke Call the 24-hour hour crisis hotline for domestic abuse at Dahlia Ceja MD Jun 17, 2017 11:27
--- NOTE | 2017-06-17 11:28 | HHI.DS ---
Discharge Summary Admission Date Jun 12, 2017 at 05:19 Discharge Date: Jun 17, 2017 Admitting Diagnosis anemia, fall, scalp laceration (1) Scalp laceration ICD Code: S01.01XA - Laceration without foreign body of scalp, initial encounter Diagnosis: Principal Status: Acute (2) Fall ICD Code: W19.XXXA - Unspecified fall, initial encounter Diagnosis: Principal Status: Acute (3) Anemia ICD Code: D64.9 - Anemia, unspecified Diagnosis: Principal Status: Acute (4) HTN (hypertension) ICD Code: I10 - Essential (primary) hypertension Diagnosis: Secondary Status: Chronic Procedures Blood transfusion. Brief History - From Admission This is an 82-year-old male with history of chronic kidney disease, anemia, pancreatic cancer undergoing chemotherapy scheduled for surgery next week in [place] brought to the hospital from the skilled nursing after a fall. The patient reports trying to getting out of a chair, he slipped and fell forward and hit his head. He believes that he lost consciousness for a few seconds. He denies any chest pain, shortness of breath, nausea, vomiting or headache at this point. He does not have any complaints. No neck pain. No recent bleeding , fever, urinary symptoms or cough. Of note, he was discharged from [facility] after patient was admitted for neutropenia and fever. He was placed on empiric antibiotics and antifungals with ID consultation, he stayed in the ICU during his initial hospitalization. GI was consulted, MRCP showed contracted bladder, ERCP with stent exchange was done. Patient was then discharged to rehabilitation to continue therapy. He was also continued on Levaquin for Salmonella sepsis. Of note, he also had a fall 05/18/17. CBC/BMP: 06/17/17 0809 06/14/17 0846 Significant Findings Laboratory Tests Test 06/16/17 17:38 06/17/17 08:09 Hemoglobin 9.1 GM/DL (13.0-17.0) 9.7 GM/DL (13.0-17.0) Hematocrit 27.7 % (39.0-51.0) 28.6 % (39.0-51.0) Red Blood Count 3.13 MIL/MM3 (4.50-5.90) Imaging Last Impressions Head CT 06/12/17 0000 Signed Impressions: Service Date/Time: June 04:07 - CONCLUSION: 1. No acute intracranial normality. 1. Ángel Sotomayor MD Cervical Spine CT 06/12/17 0000 Signed Impressions: Service Date/Time: June 04:07 - CONCLUSION: 1. No acute fracture or subluxation. Ángel Sotomayor MD PE at Discharge GENERAL: in NAD sitting in chair. SKIN: Port in place. CARDIOVASCULAR: Regular rate and rhythm without murmurs, gallops, or rubs. RESPIRATORY: Breath sounds equal bilaterally. No accessory muscle use. GASTROINTESTINAL: Abdomen soft, non-tender, nondistended. Pt update on day of discharge Follow-up for anemia Patient denied any GI bleed. He stated that he had never had any GI bleed. Patient also asking to go home instead of her rehabilitation center. He stated that he worked with physical therapist this morning and walked around the floor by himself with a walker. He stated that he did not need any assistance. Patient also stated that his partner stays with him and takes care of him. Dealt with physical therapist and she confirmed that patient was able to walk on his own and she was just walking with him in case he needed assistance. Dealt with patient's nurse and case management. Hospital Course This is a 82-year-old male with history of pancreatic cancer and chronic kidney disease admitted after a fall Fall-likely secondary to deconditioning and generalized weakness, possibly also secondary to anemia, Cervical and brain CAT scan unremarkable. Patient denies any headache. Physical therapist consulted initially recommended LISA negative but patient had great improvement after being transfused and it was recommended that patient can go home. Anemia-initial hemoglobin 5.2 after transfusion with 2 units of packed red blood cell hemoglobin was 9.7 and stable throughout the hospital course . GI consulted and EGD was performed which showed gastritis in the antrum, biliary stent in place, single ulcer in the first part of duodenum. Biopsy was obtained. Was recommended to give patient PPI and avoid NSAIDs. Patient had no bleeding and hemoglobin was stable so colonoscopy was not performed. Leukocytosis-most likely secondary to pancreatic cancer. Stable. No signs of infection. UA is negative. History of Salmonella sepsis-review of medical records revealed Salmonella sepsis per infectious disease, status post stent exchange during previous admission, continue Levaquin until 07/06/17 per infectious disease. Pancreatic cancer-LFTs are stable. Status post chemotherapy, for surgery next week in [place]. History of hypertension-blood pressure stable, hold Cardizem for now. Pt Condition on Discharge: Good Discharge Disposition: Discharge Home Discharge Time: > 30 minutes Discharge Instructions DIET: Follow Instructions for: As Tolerated, No Restrictions Activities you can perform: Regular-No Restrictions Follow up Referrals: Gastroenterology - 2 Weeks with Dimas Lang MD PCP Follow-up - 1 Week New Medications: Levofloxacin (Levaquin) 750 Mg Tablet 750 MG PO DAILY for Infection, #18 TAB 0 Refills antibiotics end on 07/06/2017 Omeprazole (Omeprazole) 40 Mg Cap 40 MG PO DAILY for gasttric ulcer, #30 CAP 0 Refills Continued Medications: Acetaminophen (Tylenol) 325 Mg Tab 325 MG PO Q4H PRN for PAIN SCALE 1 TO 5, TAB 0 Refills Aspirin (Aspirin Low Dose) 81 Mg Chew 81 MG CHEW DAILY, #30 TAB 0 Refills Cholecalciferol (Vitamin D3) 1,000 Unit Tab 1000 UNITS PO DAILY for Nutritional Supplement, #30 BOTTLE 0 Refills Cyanocobalamin (B12) 1,000 Mcg Tab 1 TAB PO DAILY, #30 Diltiazem (Cardizem) 30 Mg Tab 15 MG PO Q8H for 30 Days, TAB Fish Oil-Cholecalciferol (Ashley-3 Fish Oil/Vitamin) 1,000-1,000 Mg Cap 1 CAP PO DAILY for Nutritional Supplement, CAP 0 Refills Levofloxacin (Levaquin) 750 Mg Tablet 1 TAB PO DAILY for infection, #30 EA To finish on 07/06/17 Levothyroxine (Levothyroxine) 50 Mcg Tab 50 MCG PO DAILY for Thyroid, #30 TAB 0 Refills Multiple Vitamin (Multi Vitamin Daily) 1 Tab Tab 1 TAB PO DAILY, #30 Simvastatin (Simvastatin) 20 Mg Tab 20 MG PO DAILY for Cholesterol Management, #30 TAB 0 Refills Dahlia Ceja MD Jun 17, 2017 11:28
[2017-06-17 12:00] VITALS: BP 124/84; PULSE 79; RESP 18; TEMP 97.8; O2SAT 96
== END 2017-06-17 15:04 | disposition home or self-care (01) | DRG 811 ==
LOC: NEPE 03:29 → NEDA 05:19 → N06B 09:16
PROVIDERS: ADMIT Family Medicine; ATTEND Family Medicine
PROC: 30233N1 Transfusion of Nonautologous Red Blood Cells into Peripheral Vein, Percutaneous Approach (ICD-10-PCS; principal; 2017-06-12)
PROC: 0HQ1XZZ Repair Face Skin, External Approach (ICD-10-PCS; 2017-06-12)
PROC: 0DB98ZX Excision of Duodenum, Via Natural or Artificial Opening Endoscopic, Diagnostic (ICD-10-PCS; 2017-06-16)
DX: D64.81 Anemia due to antineoplastic chemotherapy (principal); A02.1 Salmonella sepsis; C25.0 Malignant neoplasm of head of pancreas; K26.9 Duodenal ulcer, unspecified as acute or chronic, without hemorrhage or perforation; I12.9 Hypertensive chronic kidney disease with stage 1 through stage 4 chronic kidney disease, or unspecified chronic kidney disease; K29.70 Gastritis, unspecified, without bleeding; T45.1X5A Adverse effect of antineoplastic and immunosuppressive drugs, initial encounter; N18.9 Chronic kidney disease, unspecified; D63.8 Anemia in other chronic diseases classified elsewhere; S01.01XA Laceration without foreign body of scalp, initial encounter; E78.5 Hyperlipidemia, unspecified; E03.9 Hypothyroidism, unspecified; W07.XXXA Fall from chair, initial encounter; Z92.21 Personal history of antineoplastic chemotherapy
CPT/HCPCS: 36430; 70450; 72125; 80048; 80076; 81001; 82728; 83540; 83550; 84155; 85014; 85018; 85025; 85027; 85610; 85730; 86850; 86900; 86901; 86920; 88305; 90714; 93005; J1642; J1650; J1940; P9016